=== PATIENT | male | born 1955 | race Caucasian/White ===

== ENCOUNTER 2022-12-31 11:41 | Outpatient (OUT) | payer MEDICARE, SELFPAY ==
--- NOTE | 2022-12-31 13:36 | CA_ITS ---
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1955 Requested By: DAXA NORWOOD Order Number: [id number] Reading MD: MARIE RIVAS Interpretive Statements Predominant rhythm is sinus w/ average rate of 85 bpm Tachycardia - max rate of 211 bpm - 13,427 episodes of SVT w/ longest episode of 130 beats - longest episode of 37min 1sec with rate of 118 bpm bpm Bradycardia - min rate of 42 bpm - longest episode of 11min 52sec w/ rate of 56 bpm Ventricular ectopy - 4,107 total (<1%) - 3,546 PVC - 290 couplets - 96 bigeminy - 150 trigeminy NSVT - 3 episodes w/ longest of 3 beats Patient triggered events: 5 - 3 episodes associated w/ tachycardia Impression Predominant rhythm is sinus w/ average rate of 85 bpm Fastest rate of 211 bpm and slowest rate of 42 bpm < 1% total ventricular ectopy 4 episodes of 3 beat VT 13,427 episodes of SVT No blocks or pauses Electronically Signed On 01-31-2023 12:01:14 EDT by MARIE RIVAS
== END 2022-12-31 11:42 | disposition home or self-care (01) ==
LOC: CARD 11:49
PROVIDERS: PCP Family Medicine; Visit Provider Family Medicine
DX: R55 Syncope and collapse (principal)

== ENCOUNTER 2023-01-19 13:02 | Outpatient (OUT) | payer MEDICARE, SELFPAY ==
--- NOTE | 2023-01-19 13:09 | CA_ITS ---
Patient: LORENZA RAMACHANDRAN Exam Date: 01/19/2023 : 1955 Gender:M Ordering : DR DAXA NORWOOD . Admission #: [id number] Family : Order #: [id number] CLICK HERE TO VIEW EXAM ECHOCARDIOGRAM REPORT PROCEDURE: CA ECHO DOPPLER COMPLETE INDICATIONS: Syncope COMPARISON: None. DESCRIPTION: COMPLETE ECHOCARDIOGRAM Real-time transthoracic echocardiography with 2D, M-mode, spectral and color flow Doppler performed. QUALITY: Technical quality was good. LEFT VENTRICLE: Normal chamber size. Left ventricular wall thickness appears increased. LV EF: Global left ventricular systolic function is normal. Calculated left ventricular ejection fraction is 63% DIASTOLIC: Normal diastolic function. ATRIAL SEPTUM: Inadequately seen. LEFT ATRIUM: Normal chamber size. RIGHT ATRIUM: Normal chamber size. RIGHT VENTRICLE: Normal chamber size. Normal right ventricular systolic function. TRICUSPID VALVE: Normal mobility and thickness. No stenosis with trivial regurgitation. No evidence of pulmonary hypertension. RVSP 30mmHg MITRAL VALVE: No evidence of mitral valve stenosis. There is no mitral annular calcification. Mild mitral regurgitation. AORTIC VALVE: Normal trileaflet appearance. No visible sclerosis. Normal leaflet mobility. No evidence of aortic valve stenosis. No aortic regurgitation. AORTIC ROOT: Normal diameter and appearance. PULMONIC VALVE: Normal thickness and mobility. No stenosis. No regurgitation. PERICARDIUM: No evidence of pericardial effusion. IVC: Collapses with inspirations. Normal size. Cystic structures seen in the liver; consider dedicated hepatobiliary ultrasound. CONCLUSION: 1. Global left ventricular systolic function is normal; visually estimated ejection fraction is 60 to 65% 2. Normal diastolic function 3. The right ventricle is normal in size and systolic function 4. Mild mitral regurgitation 5. Cystic structures seen in the liver; consider dedicated hepatobiliary ultrasound as clinically appropriate Adult Echocardiography Procedure Report Left Ventricle LVEDD (3.7 - 5.6 cm): 4.73 cm LVESD (2.2 - 4.0 cm): 3.43 cm LVIVS thickness (0.6 - 1.2 cm): 0.90 cm, 0.95 cm LVPW thickness (0.5 - 1.0 cm): 0.87 cm e': 0.08 m/s E - e': 5.52 LVOT Max Gradient: 2.53 mm[Hg] LVOT Area (cm2): 0.80 m/s Peak Velocity (LVOT): 0.80 m/s Mean Velocity (LVOT): 0.49 m/s LVOT Diameter 2.36 cm Left Ventricular Ejection Fraction: 62.98 % Left Atrium LA Volume Index (2D A2C): 31.81 ml/m2 Left Atrium Systolic Dimension: 3.61 cm Mitral Valve MV E to A Ratio: 0.55 Mitral Valve A-Wave Peak Velocity: 0.80 m/s Mitral Valve E-Wave Peak Velocity: 0.44 m/s Right Ventricle RV Internal Diastolic Dimension: 3.09 cm Aorta AO Root Diam: 3.63 cm Ascending Ao Diam: 3.64 cm Aortic Valve AoV Area (Peak Tushar): 3.48 cm2, 3.48 cm2 AoV Area (VTI): 3.67 cm2, 3.67 cm2 Peak Velocity(Antegrade Flow): 1.00 m/s Peak Gradient(Antegrade Flow): 4.02 mm[Hg] Mean Velocity(Antegrade Flow): 0.63 m/s Mean Gradient(Antegrade Flow): 1.81 mm[Hg] Velocity Time Integral: 19.87 cm Tricuspid Valve Peak Velocity (Regurgitant Flow): 2.62 m/s, 2.50 m/s Pulmonic Valve Peak Velocity: 0.75 m/s Peak Gradient: 2.26 mm[Hg] Right Atrium Right Atrium Systolic Pressure: 54.05 ml, 54.05 ml Dictated by: Callie Luciano M.D. on 01/20/2023 at 16:40 Approved by: Callie Luciano M.D. on 01/20/2023 at 16:44
== END 2023-01-19 13:03 ==
LOC: CARD 13:05
PROVIDERS: PCP Family Medicine; Visit Provider Family Medicine
DX: R55 Syncope and collapse (principal); I34.0 Nonrheumatic mitral (valve) insufficiency
CPT/HCPCS: 93306

== ENCOUNTER 2023-02-18 09:44 | Outpatient (OUT) | payer MEDICARE, SELFPAY ==
--- NOTE | 2023-02-18 10:17 | CA_ITS ---
Patient: LORENZA RAMACHANDRAN Exam Date: 02/18/2023 : 1955 Gender:M Ordering : DR Pratik Webb . Admission #: [id number] Family : Order #: [id number] CLICK HERE TO VIEW EXAM ECHOCARDIOGRAM REPORT PROCEDURE: CA ECHO LIMITED INDICATIONS: Tachycardia, syncope COMPARISON: None. DESCRIPTION: Limited ECHOCARDIOGRAM Real-time transthoracic echocardiography with 2D and M-mode performed. QUALITY: Technical quality was good. Limited echocardiogram per physician order. LEFT VENTRICLE: Normal chamber size. Mild concentric left ventricular hypertrophy. Normal systolic function. LV EF: Normal left ventricular ejection fraction, (55%). DIASTOLIC: ATRIAL SEPTUM: LEFT ATRIUM: Normal chamber size. RIGHT ATRIUM: Normal chamber size. RIGHT VENTRICLE: Normal chamber size. Normal systolic function. TRICUSPID VALVE: Normal mobility and thickness. MITRAL VALVE: Normal mobility and thickness. There is no mitral annular calcification. AORTIC VALVE: Normal trileaflet appearance. No visible sclerosis. Normal leaflet mobility. AORTIC ROOT: Normal diameter and appearance. PULMONIC VALVE: Normal thickness and mobility. PERICARDIUM: No evidence of pericardial effusion. IVC: Collapses with inspirations. PLEURA: CONCLUSION: 1. Mild concentric left ventricular hypertrophy with normal left ventricular systolic function. LVEF is 55%. 2. Normal right ventricular size and systolic function. 3. No pericardial effusion. 4. Limited study performed with no Doppler interrogation as requested. Adult Echocardiography Procedure Report Left Ventricle LVEDD (3.7 - 5.6 cm): 4.11 cm LVESD (2.2 - 4.0 cm): 2.67 cm LVIVS thickness (0.6 - 1.2 cm): 1.11 cm LVPW thickness (0.5 - 1.0 cm): 1.38 cm LVOT Diameter 2.47 cm Left Atrium Left Atrium Systolic Dimension: 3.34 cm Mitral Valve Right Ventricle Aorta AO Root Diam: 3.68 cm Aortic Valve Tricuspid Valve Pulmonic Valve Right Atrium Dictated by: Marquise Lee M.D. on 02/18/2023 at 19:08 Approved by: Marquise Lee M.D. on 02/18/2023 at 19:10
== END 2023-02-18 09:45 | disposition home or self-care (01) ==
LOC: CARD 09:47
PROVIDERS: PCP Family Medicine; Visit Provider Family Medicine
DX: R00.0 Tachycardia, unspecified (principal); R07.9 Chest pain, unspecified
CPT/HCPCS: 93308

== ENCOUNTER 2023-02-25 08:45 | Outpatient (OUT) | payer MEDICARE, SELFPAY ==
--- NOTE | 2023-02-25 08:48 | US_ITS ---
The [address] [address] Patient Name: LORENZA RAMACHANDRAN MRN: [id number] date: 1955 Sex: M Assigned Patient Location: US Current Patient Location: US Accession/Order Number: [id number] Exam Date: 02/25/2023 08:50 Report Date: 02/25/2023 11:05 At the request of: DAXA NORWOOD Procedure: US right upper quadrant EXAM: US right upper quadrant HISTORY: . Other Specified Disease Of Liver K76.89 . COMPARISON: None. TECHNIQUE: Grayscale and color imaging was performed FINDINGS: The pancreas appears normal. The liver is normal in size. No masses are noted. Color-flow is noted in the portal and hepatic veins. The previously noted cyst noted on the CT of 10/05/2016 is not appreciated on today's exam. The gallbladder appears normal with no stones or sludge identified. No gallbladder wall thickening is noted. Common bile duct measures 7 mm. Right kidney measures 9.9 x 5.6 x 4.9 cm. No solid renal cortical masses or hydronephrosis is noted. No fluid is noted in the right upper quadrant. US/US right upper quadrant IMPRESSION: Normal ultrasound of the right upper quadrant. Electronically authenticated by: SPEEDY MOCK Date: 02/25/2023 11:05
== END 2023-02-25 08:46 | disposition home or self-care (01) ==
LOC: US 08:45
PROVIDERS: PCP Family Medicine; Visit Provider Family Medicine
DX: K76.89 Other specified diseases of liver (principal)
CPT/HCPCS: 76705

== ENCOUNTER 2023-10-27 07:55 | Outpatient (OUT) | payer MEDICARE, SELFPAY ==
--- NOTE | 2023-10-27 07:58 | CT_ITS ---
[address] [address] Patient Name: LORENZA RAMACHANDRAN MRN: [id number] date: 1955 Sex: M Assigned Patient Location: CT Current Patient Location: CT Accession/Order Number: [id number] Exam Date: 10/27/2023 08:05 Report Date: 10/27/2023 12:56 At the request of: DAXA NORWOOD Procedure: CT lung screening low-dose EXAMINATION: CT lung screening low-dose HISTORY: Nicotine Dependence F17.200 COMPARISON: CT LUNG CANCER SCREENING 04/02/2022 TECHNIQUE: Axial, Coronal, and Sagittal images were created without the administration of IV contrast material. Dose reduction techniques were achieved by using automated exposure control and/or adjustment of mA and/or kV according to patient size and/or use of iterative reconstruction technique. FINDINGS: LUNGS: Stable 5 mm nodule within posterior left lung base. Mild bronchial wall thickening and prominent mucous plugging resulting in mild atelectasis within right lower lobe predominantly involving the posterior basilar segment. PLEURA: No mass, effusion, or pneumothorax. VASCULATURE: No abnormality. DAPHNE: No mass or pathologic adenopathy. MEDIASTINUM: No mass or pathologic adenopathy. CARDIAC: No enlargement, pericardial thickening, or pericardial effusion. AORTA: No aneurysm or dissection. CHEST WALL: No mass or axillary adenopathy BONES: No bone lesion or fracture. LIMITED ABDOMEN: Stable benign-appearing left renal cyst. Limited images of the upper abdomen. OTHER: Negative. CT/CT lung screening low-dose IMPRESSION: 1. Lung-RADS 2- Benign Appearance or Behavior. Nodules with a very low likelihood of becoming a clinically active cancer due to size or lack of growth. Follow-up CT Chest in 1 year. 2. Right lower lobe bronchial wall thickening/bronchiolitis and mucous plugging resulting in mild atelectasis. Electronically authenticated by: AFUA MERCHANT Date: 10/27/2023 12:56
== END 2023-10-27 07:56 | disposition home or self-care (01) ==
LOC: CT 07:55
PROVIDERS: PCP Family Medicine; Visit Provider Family Medicine
DX: F17.211 Nicotine dependence, cigarettes, in remission (principal); R91.1 Solitary pulmonary nodule
CPT/HCPCS: 71271

== ENCOUNTER 2023-11-08 07:46 | Emergency (ER) | payer MEDICARE, SELFPAY ==
[2023-11-08 07:52] VITALS: BP 129/82; PULSE 87; O2SAT 97; BMI 23.1
--- NOTE | 2023-11-08 07:55 | XR_ITS ---
The [address] [address] Patient Name: LORENZA RAMACHANDRAN MRN: [id number] date: 1955 Sex: M Assigned Patient Location: ER Current Patient Location: Accession/Order Number: [id number] Exam Date: 11/08/2023 08:12 Report Date: 11/08/2023 08:29 At the request of: HERNÁN FLORES Procedure: XR foot TRESSA min 3V EXAM: XR foot TRESSA min 3V HISTORY: fall, bilateral foot pain COMPARISON: Right foot study dated 07/29/2020 TECHNIQUE: 3 views of the right foot were obtained. 3 views of the left foot were obtained. FINDINGS: Views of the right foot fail to demonstrate definite acute fracture or dislocation. Minimal degenerative changes about the interphalangeal joints. Mild degenerative change about the first metatarsophalangeal joint. Soft tissues are grossly within normal limits. Views of the left foot fail to demonstrate definite acute fracture or dislocation. Minimal degenerative changes about the interphalangeal joints. Mild degenerative change about the first metatarsophalangeal joint. Soft tissues are grossly within normal limits. XR/XR foot TRESSA min 3V IMPRESSION: Bilateral foot study fails to demonstrate definite acute fracture or dislocation. Degenerative changes as noted. Follow-up as needed. Electronically authenticated by: ADENIKE CHAMBERS Date: 11/08/2023 08:29
[2023-11-08 07:57] VITALS: TEMP 36.5
[2023-11-08] MEDS: KETOROLAC TROMETHAMINE 10 MG TABLET PO (08:16)
--- NOTE | 2023-11-08 08:32 | PC.NURSE ---
0800- pt fell off of ladder a few days ago landing on biat legs. went to see Dr Webb and got a steroid and pain shot. last night felt pop in lower L leg -- pain still in both legs. pt limped back to room
--- NOTE | 2023-11-08 08:59 | ED.LOWEXI1 ---
HPI HPI - Extremity Injury (Lower) General Chief Complaint: Extremity Injury, Lower Stated Complaint: LOWER EXTREMITY PAIN Time Seen by Provider: 11/08/23 07:49 Source: patient Mode of arrival: walk-in History of Present Illness HPI Narrative: Patient complains of increased pain along the left achilles since 430am this morning. he said that as he turned in bed and dorsiflexed and inverted the left ankle, he felt severe pain in the left achilles and saw [place] . The pain is so severe that he has difficulty walking this morning. He told me that 2 weeks ago he fell from a ladder and landed on the ground in a standing position with flat feet. he immediately had pain to both feet and in his low back. 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 He saw Dr Webb and got two pain shots but said that the feet and ankle were not examined, so he does not know if he had an achilles deficit. Today, the left achilles is softer compared with the right. he complains that both feet still hurt despite taking 800mg Motrin twice daily for the last wee. Related Data Previous Rx's ?Medication ?Instructions ?Recorded hydrocodone 5 mg-acetaminophen 325 1 tab PO Q6H PRN pain 4 days #14 11/08/23 mg tablet tabs Allergies Allergy/AdvReac Type Severity Reaction Status Date / Time No Known Drug Allergies Allergy Verified 11/08/23 07:55 Opioid HPI Opioid Management Most Recent Pain and Opioid Data: No Data to Display Exam Narrative Exam Narrative: Nurses notes and vital signs reviewed and patient is not hypoxic. afebrile General: Well-appearing and in no apparent distress. Skin: Warm, dry, no pallor noted. No rash to LEs. Cardiovascular: normal peripheral perfusion. Respiratory: No accessory muscle use or respiratory distress. Musculoskeletal: LEFT FOOT & ANKLE: achilles deficit noted. No tenderness to the remainder of the left foot or ankle, including the heel bone. Right foot and ankle are also unremarkable. Both LEs with normal ROM, no calf or popliteal tenderness, no lower extremity edema/swelling Neurological: A&O x4. No cranial nerve dysfunction observed. No truncal ataxia. Moves all extremities. Sensation intact. Psychiatric: Cooperative and interactive. Normal mood and affect. Constitutional Vital Signs, click to edit/add: Last Vital Signs Temp 97.7 F 11/08/23 07:57 Pulse 87 11/08/23 07:52 Resp 18 11/08/23 07:52 BP 129/82 11/08/23 07:52 Pulse Ox 97 11/08/23 07:52 O2 Del Method Room Air 11/08/23 07:52 Course Vital Signs Vital signs: Vital Signs Pulse Rate 87 11/08/23 07:52 Respiratory Rate 18 11/08/23 07:52 Blood Pressure 129/82 11/08/23 07:52 Pulse Oximetry 97 11/08/23 07:52 Oxygen Delivery Method Room Air 11/08/23 07:52 Temperature 97.7 F 11/08/23 07:57 Pulse Rate 87 11/08/23 07:52 Respiratory Rate 18 11/08/23 07:52 Blood Pressure 129/82 11/08/23 07:52 Pulse Oximetry 97 11/08/23 07:52 Oxygen Delivery Method Room Air 11/08/23 07:52 MDM - Extremity Injury (Lower) MDM Narrative Medical decision making narrative: Exam revealed left achilles deficit - partial tear. Both feet xrayed because of continued pain after fall and he never had xrays after the initial injury or since. No acute fracture identified on XR. Patient informed of diagnosis/findings. He was given crutches and told to limit weight bearing on left LE. He was given [place] for pain. He was referred to Dr Back for follow up. I spoke with Dr Back and made him aware of this patient's case. He will see the patient in the office. Imaging Data xr foot: Radiologist's impression: ITS Impressions Foot X-Ray 11/08/23 07:55 IMPRESSION: Bilateral foot study fails to demonstrate definite acute fracture or dislocation. Degenerative changes as noted. Follow-up as needed. Electronically authenticated by: ADENIKE CHAMBERS Date: 11/08/2023 08:29 Discharge Plan Discharge Stand Alone Forms: Portal Instructions Chief Complaint: Extremity Injury, Lower Clinical Impression: Partial tear of left Achilles tendon, Arthralgia of both feet Patient Disposition: Home, Self-Care Time of Disposition Decision: 08:58 Prescriptions / Home Meds: New hydrocodone-acetaminophen 5-325 mg tablet 1 tab PO Q6H PRN (Reason: pain) 4 Days Qty: 14 0RF Print Language: Kyrgyz Instructions: Achilles Tendon Rupture (ED) Referrals: Matt Back DPM [Physician] - 11/09/23
== END 2023-11-08 09:38 | disposition home or self-care (01) ==
LOC: ER 10:12
PROVIDERS: Emergency Provider Emergency Medicine; PCP Family Medicine
DX: S86.012A Strain of left Achilles tendon, initial encounter (principal); M25.572 Pain in left ankle and joints of left foot; M25.571 Pain in right ankle and joints of right foot; X50.9XXA Other and unspecified overexertion or strenuous movements or postures, initial encounter
CPT/HCPCS: 73630; 99283

== ENCOUNTER 2023-11-10 13:20 | Outpatient (OUT) | payer MEDICARE, SELFPAY ==
--- NOTE | 2023-11-10 | XR_ITS ---
The [address] [address] Patient Name: LORENZA RAMACHANDRAN MRN: [id number] date: 1955 Sex: M Assigned Patient Location: Current Patient Location: Accession/Order Number: [id number] Exam Date: 11/10/2023 13:21 Report Date: 11/10/2023 14:05 At the request of: LAWANDA LUTHER Procedure: XR ankle TRESSA min 3V EXAMINATION: XR ankle TRESSA min 3V HISTORY: BILATERAL ANKLE PAIN COMPARISON: No relevant comparison available. FINDINGS: RIGHT FINDINGS: BONES: Normal. No significant arthropathy or acute abnormality. SOFT TISSUES: Negative. No visible soft tissue swelling. OTHER: Negative. LEFT FINDINGS: BONES: Normal. No significant arthropathy or acute abnormality. Corticated bone fragment extending off the lateral distal fibula 0.8 towards the ankle joint space possibly representing an osteochondroma SOFT TISSUES: Negative. No visible soft tissue swelling. OTHER: Negative. XR/XR ankle TRESSA min 3V IMPRESSION: RIGHT CONCLUSION: No acute abnormality LEFT CONCLUSION: No acute abnormality. 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
== END 2023-11-10 13:21 | disposition home or self-care (01) ==
LOC: EC 13:20
PROVIDERS: PCP Family Medicine; Visit Provider Podiatrist Foot & Ankle Surgery
DX: M25.571 Pain in right ankle and joints of right foot (principal); M25.572 Pain in left ankle and joints of left foot
CPT/HCPCS: 73610

== ENCOUNTER 2023-11-15 07:22 | Outpatient (OUT) | payer MEDICARE, SELFPAY ==
--- NOTE | 2023-11-15 07:28 | MR_ITS ---
The [address] [address] Patient Name: LORENZA RAMACHANDRAN MRN: [id number] date: 1955 Sex: M Assigned Patient Location: [facility] Current Patient Location: [facility] Accession/Order Number: [id number] Exam Date: 11/15/2023 07:51 Report Date: 11/15/2023 22:19 At the request of: LAWANDA LUTHER Procedure: MR ankle LT wo con MRI OF THE LEFT ANKLE: 11/15/2023 7:51 AM EDT HISTORY: Posterior heel and ankle pain. Assess for Achilles tear. TECHNIQUE: High Field, multiplanar, multi-sequence MR imaging was performed on the ankle. No contrast was administered. COMPARISON: None. FINDINGS: TENDONS: Achilles: There is complete full-thickness midsubstance Achilles tendon tear with fibers retracted and approximately 3 cm from proximal to distal with fluid and edema interposed between the fibers. Tendon tear located approximately 5 to 6 cm from distal insertion. Underlying chronic Achilles tendinosis. The extensor, and flexor tendon are intact and unremarkable. There is no evidence of tear, significant tendinosis, or tenosynovitis involving these structures. Peroneal tendons: There is chronic lateral subluxation of the peroneal brevis and longus tendons at the level of lateral malleolus with chronic spurring at the distal lateral margin of the fibula. Both tendons are otherwise intact without tear or significant tendinosis. Presumed chronic tear of the peroneal retinacular fibers. Associated loculated fluid collection insinuating between the retinacular fibers and peroneal tendons is present at level of lateral malleolus consistent with chronic ganglion cyst extending 9 mm AP and 3 mm transverse. There is some overlying mild edema and swelling of soft tissues. OSSEOUS STRUCTURES: No fracture, significant edema, or marrow replacing pathology. ALIGNMENT: Normal anatomic alignment is maintained. The ankle mortise is intact and symmetric. SYNOVIAL SPACE: No effusion or synovitis. LIGAMENTOUS STRUCTURES: The syndesmotic, anterior talofibular , posterior talofibular, calcaneofibular, and deltoid ligaments are intact and unremarkable. ARTICULAR CARTILAGE: Grossly intact, without focal defect. There is no evidence of an OCD. SINUS TARSI: Unremarkable. INTRINSIC FOOT MUSCULATURE: Grossly unremarkable. PLANTAR FASCIA: Intact and unremarkable. SUBCUTANEOUS TISSUE: Mild subcutaneous edema at medial malleolus and posterior hindfoot and lateral malleolus. NEUROVASCULAR STRUCTURES: Grossly unremarkable. OTHER COMMENTS: None. MR/MR ankle LT wo con IMPRESSION: 1. Complete full-thickness midsubstance Achilles tendon tear with 3 cm separation of proximal distal fragments. Underlying background chronic Achilles tendinosis. 2. Chronic lateral subluxation of the peroneal tendons as discussed with chronic ganglion/synovial cyst interposed between the tendons and lateral fibers. Electronically authenticated by: ELIAZAR RANGEL Date: 11/15/2023 22:19
--- NOTE | 2023-11-15 07:35 | XR_ITS ---
The [address] [address] Patient Name: LORENZA RAMACHANDRAN MRN: [id number] date: 1955 Sex: M Assigned Patient Location: RAD Current Patient Location: [facility] Accession/Order Number: [id number] Exam Date: 11/15/2023 07:30 Report Date: 11/15/2023 07:46 At the request of: LAWANDA LUTHER Procedure: XR foreign body eye EXAMINATION: XR foreign body eye HISTORY: Foreign Body Eye COMPARISON: No relevant comparison available. FINDINGS: ORBITS: Negative for a metallic foreign body. OTHER: Negative. XR/XR foreign body eye IMPRESSION: No metallic foreign body in the orbits Electronically authenticated by: SPEEDY CAMPO Date: 11/15/2023 07:46
== END 2023-11-15 07:23 | disposition home or self-care (01) ==
LOC: RAD 07:22
PROVIDERS: PCP Family Medicine; Visit Provider Podiatrist Foot & Ankle Surgery
DX: S86.012A Strain of left Achilles tendon, initial encounter (principal); M67.472 Ganglion, left ankle and foot
CPT/HCPCS: 70030; 73721

== ENCOUNTER 2023-12-08 07:47 | Outpatient (OUT) | payer MEDICARE, SELFPAY ==
[2023-12-08 08:14] LABS: Basophils Absolute Auto 0.1 10^3/uL (0.0-0.1); Basophils Percent Auto 0.9 % (0.2-2.0); Eosinophils Absolute Auto 0.1 10^3/uL (0.0-0.7); Eosinophils Percent Auto 0.9 % (0.9-7.0); Hematocrit 44.8 % (42.0-54.0); Hemoglobin 14.9 g/dL (14.0-18.0); Immature Granulocytes Abs Auto 0.06 10^3/uL (0.00-0.03); Immature Granulocytes Pct Auto 0.6 % (0.0-0.5); Lymphocytes Percent Auto 18.6 % (20.5-60.0); Mean Corpuscular HGB Conc 33.3 g/dL (29.9-35.2); Mean Corpuscular Hemoglobin 31.4 pg (25.9-34.0); Mean Corpuscular Volume 94.3 fL (80.0-94.0); Mean Platelet Volume 9.3 fL (9.5-13.5); Monocytes Absolute Auto 0.8 10^3/uL (0.3-0.8); Monocytes Percent Auto 7.9 % (1.7-12.0); Neutrophils Absolute Auto 7.5 10^3/uL (1.4-6.5); Neutrophils Percent Auto 71.1 % (43.0-75.0); Platelet Count 264 10^3/uL (150-450); Red Blood Count 4.75 10^6/uL (4.70-6.10); Red Cell Distribution Width 14.8 % (11.0-15.0); White Blood Count 10.6 10^3/uL (4.0-11.0)
[2023-12-08 08:49] LABS: Estimated Average Glucose 120 mg/dL; Glycohemoglobin A1C 5.8 % (4.5-6.2)
[2023-12-08 09:46] LABS: Alanine Aminotransferase 37 U/L (16-63); Albumin Globulin Ratio 0.9; Albumin Level 3.5 g/dL (3.4-5.0); Alkaline Phosphatase 111 U/L (46-116); Anion Gap 10.1; Aspartate Amino Transferase 21 U/L (15-37); Bilirubin Total 0.5 mg/dL (0.2-1.0); Calcium 9.2 mg/dL (8.5-10.1); Carbon Dioxide 29.2 mmol/L (21.0-32.0); Chloride 103 mmol/L (98-107); Chol HDL Ratio 2.8; Cholesterol 177 mg/dL (<=200); Estimated GFR (African America >60 (>=60); Estimated GFR (Non-African Ame >60 (>=60); Free T3 1.96 pg/mL (2.18-3.98); Globulin 4.1 g/dL; Glucose 99 mg/dL (74-106); HDL Cholesterol 64 mg/dL (40-60); Potassium 4.3 mmol/L (3.5-5.1); Sodium 138 mmol/L (136-145); Thyroid Stimulating Hormone 7.411 uIU/mL (0.358-3.740); Total Protein 7.6 g/dL (6.4-8.2); Triglycerides 53 mg/dL (<=150); VLDL CHOLESTEROL 10.6 mg/dL
[2023-12-08 09:53] LABS: Prostate Specific Antigen Scrn 1.38 ng/mL (<=4.00)
[2023-12-08 10:18] LABS: BUN Creatinine Ratio 17.8
== END 2023-12-08 07:48 | disposition home or self-care (01) ==
LOC: LAB 07:50
PROVIDERS: PCP Family Medicine; Visit Provider Family Medicine
DX: K76.89 Other specified diseases of liver (principal); Z12.5 Encounter for screening for malignant neoplasm of prostate; R73.09 Other abnormal glucose; Z79.899 Other long term (current) drug therapy; E78.5 Hyperlipidemia, unspecified
CPT/HCPCS: 36415; 80053; 80061; 82306; 83036; 84436; 84443; 84481; 85025; G0103

== ENCOUNTER 2024-01-04 07:20 | Outpatient (RCR) | payer MEDICARE, BC, SELFPAY | END 2024-04-14 12:09 | disposition home or self-care (01) | LOC: PT 07:20 | PROVIDERS: PCP Family Medicine; Visit Provider Podiatrist Foot & Ankle Surgery | DX: M76.60 Achilles tendinitis, unspecified leg (principal); M25.572 Pain in left ankle and joints of left foot; S86.012D Strain of left Achilles tendon, subsequent encounter | CPT/HCPCS: 97110; 97140; 97161 ==

== ENCOUNTER 2024-01-13 07:18 | Outpatient (OUT) | payer MEDICARE, BC, SELFPAY ==
--- OUTSIDE RECORDS SUMMARY | 2024-01-13 07:22 | XMS_ITS | CCD ---
Author Organization [facility] Care Team Providers Care Drop Count Associate Name Role Phone Nill, Ean R Unavailable Unavailable Nill, Ean R Unavailable Unavailable Nill, Ean R Unavailable Unavailable Hoy, Daxa~[id number] UNKNOWN Unavailable Unavailable Nill, Ean R Unavailable Unavailable Nill, Ean R Unavailable Unavailable Nill, Ean R Unavailable Unavailable Hoy, Daxa~[phone] UNKNOWN Unavailable Unavailable HOY ., DR MITTAL Primary Care Unavailable HOY ., DR MITTAL Admitting Unavailable HOY ., DR MITTAL Attending Unavailable HOY ., DR MITTAL Consulting Unavailable [place], DR SPEEDY Chase Consulting Unavailable ZIEBER, DR AFUA Mata Consulting Unavailable HOY ., DR MITTAL Consulting Unavailable HOY ., DR MITTAL Primary Care Unavailable HOY ., DR MITTAL Admitting Unavailable HOY ., DR MITTAL Attending Unavailable HOY ., DR MITTAL Primary Care Unavailable HOY ., DR MITTAL Admitting Unavailable HOY ., DR MITTAL Attending Unavailable HOY ., DR MITTAL Consulting Unavailable HOY ., DR MITTAL Primary Care Unavailable HOY ., DR MITTAL Admitting Unavailable HOY ., DR MITTAL Attending Unavailable HOY ., DR MITTAL Consulting Unavailable CHOIARLENE SALAZAR Consulting Unavailable HOY ., DR MITTAL Primary Care Unavailable HOY ., DR MITTAL Admitting Unavailable HOY ., DR MITTAL Attending Unavailable HOY ., DR MITTAL Consulting Unavailable COLLIN DOZIER R Attending Unavailable Problems Active Problems Problem Classification Problem Date Documented Da te Episodic/Chronic Congestive heart failure; nonhypertensive (1 source) Unspecified diastolic (congestive) heart failure; Translations: [UNSPECIFIED DIASTOLIC HEART FAILURE] Onset: 06-03-2022 Chronic Deficiency and other anemia (1 source) Anemia, unspecified; Translations: [ANEMIA UNSPECIFIED] Onset: 12-28-2022 Episodic Diabetes mellitus without complication (1 source) Other abnormal glucose; Translations: [OTHER ABNORMAL GLUCOSE] Onset: 12-28-2022 Episodic Disorders of lipid metabolism (1 source) Hyperlipidemia, unspecified; Translations: [HYPERLIPIDEMIA UNSPECIFIED] Onset: 12-28-2022 Chronic Hypertension with complications and secondary hypertension (1 source) Hypertensive heart disease with heart failure; Translations: [HTN HEART DISEASE W/HEART FAIL] Onset: 06-03-2022 Chronic Nutritional deficiencies (1 source) Vitamin D deficiency, unspecified; Translations: [VITAMIN D DEFICIENCY UNSPECIFIED] Onset: 12-28-2022 Chronic Spondylosis; intervertebral disc disorders; other back problems (4 sources) Other intervertebral disc displacement, lumbosacral region; Translations: [OTH IV DISC DISPLACEMENT LS REGION] Onset: 04-02-2022 Chronic Syncope (4 sources) Syncope and collapse; Translations: [SYNCOPE AND COLLAPSE] Onset: 12-26-2022 Episodic Past or Other Problems Problem Classification Problem Date Documented Da te Episodic/Chronic Acute bronchitis (1 source) Acute bronchitis, unspecified; Translations: [ACUTE BRONCHITIS UNSPECIFIED] Onset: 06-03-2022 Episodic Other lower respiratory disease (4 sources) Dyspnea, unspecified; Translations: [DYSPNEA UNSPECIFIED] Onset: 06-01-2022 Episodic Other screening for suspected conditions (not mental disorders or infectious disease) (5 sources) Encounter for screening for malignant neoplasm of rectum; Translations: [Encounter for screening for malignant neoplasm of prostate] Onset: 04-03-2022 Episodic Screening and history of mental health and substance abuse codes (1 source) Personal history of nicotine dependence; Translations: [PERSONAL HISTORY OF NICOTINE DEPEND] Onset: 04-03-2022 Episodic Results Test Name Value Interpretation Reference Range Facility INSULINon 12-29-2022 Insulin 14.2 uIU/mL Normal 2.6-24.9 [facility] Comment on above: Performed By: #### I TJ #### [facility] [address] [address] [address] Guille Calderon CBC AUTO DIFFon 12-26-2022 BASO # 0.1 103/ul Normal 0.0-0.1 [facility] Comment on above: Performed By: #### I TJ #### [facility] [address] [address] [address] Guille Calderon Basophils/100 WBC (Bld) 1.3 % Normal 0.2-2.0 [facility] Comment on above: Performed By: #### I TJ #### [facility] [address] [place] [address] Dr. Guille Calderon EO # 0.1 103/ul Normal 0.0-0.7 [facility] Comment on above: Performed By: #### I TJ #### [facility] [address] [place] [address] Dr. Guille Calderon Eosinophils/100 WBC (Bld) 1.1 % Normal 0.9-7.0 [facility] Comment on above: Performed By: #### I TJ #### [facility] [address] [place] [address] Dr. Guille Calderon Erythrocyte distribution width (RBC) [Ratio] 13.1 % Normal 11.0-15.0 [facility] Comment on above: Performed By: #### I TJ #### [facility] [address] [place] [address] Dr. Guille Calderon Hematocrit (Bld) [Volume fraction] 46.7 % Normal 42.0-54.0 [facility] Comment on above: Performed By: #### I TJ #### [facility] [address] [place] [address] Dr. Guille Calderon Hemoglobin (Bld) [Mass/Vol] 16.1 g/dL Normal 14.0-18.0 [facility] Comment on above: Performed By: #### I TJ #### [facility] [address] [place] [address] Dr. Guille Calderon IG # 0.01 10e3/ul Normal 0.00-0.03 [facility] Comment on above: Performed By: #### I TJ #### [facility] [address] [place] [address] Dr. Guille Calderon IG % 0.2 % Normal 0.0-0.5 [facility] Comment on above: Performed By: #### I TJ #### [facility] [address] [place] [address] Dr. Guille Calderon LYMPH # 1.9 103/ul Normal 1.2-3.8 [facility] Comment on above: Performed By: #### I TJ #### [facility] [address] [place] [address] Dr. Guille Calderon Lymphocytes/100 WBC (Bld) 30.2 % Normal 20.5-60.0 [facility] Comment on above: Performed By: #### I TJ #### [facility] [address] [place] [address] Dr. Guille Calderon MANUAL DIFF REQ NO Normal [facility] Comment on above: Performed By: #### I TJ #### [facility] [address] [place] [address] Dr. Guille Calderon MCH (RBC) [Entitic mass] 31.1 pg Normal 25.9-34.0 [facility] Comment on above: Performed By: #### I TJ #### [facility] [address] [place] [address] Dr. Guille Calderon MCHC (RBC) [Mass/Vol] 34.5 g/dL Normal 29.9-35.2 [facility] Comment on above: Performed By: #### I TJ #### [facility] [address] [place] [address] Dr. Guille Calderon MCV (RBC) [Entitic vol] 90.2 fL Normal 80.0-94.0 [facility] Comment on above: Performed By: #### I TJ #### [facility] [address] [place] [address] Dr. Guille Calderon MONO # 0.6 103/ul Normal 0.3-0.8 [facility] Comment on above: Performed By: #### I TJ #### [facility] [address] [place] [address] Dr. Guille Calderon Monocytes/100 WBC (Bld) 9.8 % Normal 1.7-12.0 [facility] Comment on above: Performed By: #### I TJ #### [facility] [address] [place] [address] Dr. Guille Calderon NEUT # 3.7 103/ul Normal 1.4-6.5 [facility] Comment on above: Performed By: #### I TJ #### [facility] [address] [place] [address] Dr. Guille Calderon Neutrophils/100 WBC (Bld) 57.4 % Normal 43.0-75.0 [facility] Comment on above: Performed By: #### I TJ #### [facility] [address] [place] [address] Dr. Guille Calderon Platelet mean volume (Bld) [Entitic vol] 9.9 fL Normal 9.5-13.5 [facility] Comment on above: Performed By: #### I TJ #### [facility] [address] [place] [address] Dr. Guille Calderon PLT 237 103/ul Normal 150-450 [facility] Comment on above: Performed By: #### I TJ #### [facility] [address] [place] [address] Dr. Guille Calderon RBC 5.18 106/ul Normal 4.70-6.10 [facility] Comment on above: Performed By: #### I TJ #### [facility] [address] [place] [address] Dr. Guille Calderon WBC 6.4 103/ul Normal 4.0-11.0 [facility] Comment on above: Performed By: #### I TJ #### [facility] [address] [place] [address] Dr. Guille Calderon FREE THYROXINE INDEX T7on FTI 3.50 Normal 1.30-4.50 [facility] Comment on above: Performed By: #### P SASC, VITB12 #### [facility] [address] [place] [address] Dr. Guille Calderon T3U 34.0 % Normal 33.0-40.0 [facility] Comment on above: Performed By: #### P SASC, VITB12 #### [facility] [address] [place] [address] Dr. Guille Calderon T4 [Mass/Vol] 10.30 ug/dL Normal 4.50-12.10 [facility] Comment on above: Performed By: #### P SASC, VITB12 #### [facility] [address] [place] [address] Dr. Guille Calderon GLYCOHEMOGLOBIN A1Con 2022 ADA RECOMMENDATION SEE BELOW Normal [facility] Comment on above: Result Comment: ADA RECOMMENDED LIMIT 4.0 - 6.0 ADA THERAPEUTIC TARGET < 7.0 ACTION SUGGESTED > 7.0 Performed By: #### A 1C #### [facility] [address] [place] [address] Dr. Guille Calderon Glucose [Mass/Vol] 105 mg/dL Normal [facility] Comment on above: Performed By: #### A 1C #### [facility] [address] [place] [address] Dr. Guille Calderon HbA1c (Bld) [Mass fraction] 5.3 % Normal 4.5-6.2 [facility] Comment on above: Performed By: #### A 1C #### [facility] [address] [place] [address] Dr. Guille Calderon IRONon 12-26-2022 Iron [Mass/Vol] 79.0 ug/dL Normal 65.0-175.0 [facility] Comment on above: Performed By: #### V ITAD, IRON #### [facility] [address] [place] [address] Dr. Guille Calderon LIPID PROFILEon 12-26-2022 CHOL-HDL RATIO NORM SEE BELOW Normal [facility] Comment on above: Result Comment: 3.3 - 4.4 LOW RISK 4.4 - 7.1 AVERAGE RISK 7.1 - 11.0 MODERATE RISK >11.0 HIGH RISK Performed By: #### P SASC, VITB12 #### [facility] [address] [place] [address] Dr. Guille Calderon Cholesterol [Mass/Vol] 146 mg/dL Normal <=200 [facility] Comment on above: Performed By: #### P SASC, VITB12 #### [facility] [address] [place] [address] Dr. Guille Calderon Cholesterol in HDL [Mass/Vol] 49 mg/dL Normal 40-60 [facility] Comment on above: Performed By: #### P SASC, VITB12 #### [facility] [address] [place] [address] Dr. Guille Calderon Cholesterol in LDL [Mass/Vol] 79.2 mg/dL Normal [facility] Comment on above: Performed By: #### P SASC, VITB12 #### [facility] [address] [place] [address] Dr. Guille Calderon Cholesterol.total/ Cholesterol in HDL [Mass ratio] 3.0 {ratio} Normal [facility] Comment on above: Performed By: #### P SASC, VITB12 #### [facility] [address] [place] [address] Dr. Guille Calderon HDL NORMAL > or = 60 mg/dl - LO W CARDIOVASCULAR RISK <40 mg/dl - HIGH CARDIOVASCULAR RISK Normal [facility] Comment on above: Performed By: #### P SASC, VITB12 #### [facility] [address] [place] [address] Dr. Guille Calderon LDL CALC NORMAL SEE BELOW Normal [facility] Comment on above: Result Comment: <100 mg/dl OPTIMAL 100 - 129 mg/dl NEAR OR ABOVE OPTIMAL 130 - 159 mg/dl BORDERLINE HIGH 160 - 189 mg/dl HIGH >190 mg/dl VERY HIGH Performed By: #### P SASC, VITB12 #### [facility] [address] [place] [address] Dr. Guille Calderon Triglyceride [Mass/Vol] 89 mg/dL Normal <=150 [facility] Comment on above: Performed By: #### P SASC, VITB12 #### [facility] [address] [place] [address] Dr. Guille Calderon VLDL CALC 17.8 mg/dL Normal [facility] Comment on above: Performed By: #### P SASC, VITB12 #### [facility] [address] [place] [address] Dr. Guille Calderon PROF 14(COMP METB)on 023 Albumin [Mass/Vol] 3.6 g/dL Normal 3.4-5.0 [facility] Comment on above: Performed By: #### P SASC, VITB12 #### [facility] [address] [place] [address] Dr. Guille Calderon Albumin/Globulin [Mass ratio] 0.8 {ratio} Normal [facility] Comment on above: Performed By: #### P SASC, VITB12 #### [facility] [address] [place] [address] Dr. Guille Caledron ALP [Catalytic activity/Vol] 94 U/L Normal 46-116 [facility] Comment on above: Performed By: #### P SASC, VITB12 #### [facility] [address] [place] [address] Dr. Guille Calderon ALT [Catalytic activity/Vol] 45 U/L Normal 16-63 [facility] Comment on above: Performed By: #### P SASC, VITB12 #### [facility] [address] [place] [address] Dr. Guille Calderon Anion gap [Moles/Vol] 11.8 mmol/L Normal [facility] Comment on above: Performed By: #### P SASC, VITB12 #### [facility] [address] [place] [address] Dr. Guille Calderon AST [Catalytic activity/Vol] 28 U/L Normal 15-37 [facility] Comment on above: Performed By: #### P SASC, VITB12 #### [facility] [address] [place] [address] Dr. Guille Calderon Bilirubin [Mass/Vol] 0.4 mg/dL Normal 0.2-1.0 [facility] Comment on above: Performed By: #### P SASC, VITB12 #### [facility] [address] [place] [address] Dr. Guille Calderon Calcium [Mass/Vol] 8.7 mg/dL Normal 8.5-10.1 [facility] Comment on above: Performed By: #### P SASC, VITB12 #### [facility] [address] [place] [address] Dr. Guille Calderon Chloride [Moles/Vol] 103 mmol/L Normal 98-107 [facility] Comment on above: Performed By: #### P SASC, VITB12 #### [facility] [address] [place] [address] Dr. Guille Calderon CO2 [Moles/Vol] 29.7 mmol/L Normal 21.0-32.0 [facility] Comment on above: Performed By: #### P SASC, VITB12 #### [facility] [address] [place] [address] Dr. Guille Calderon Creatinine [Mass/Vol] 0.95 mg/dL Normal 0.70-1.30 [facility] Comment on above: Performed By: #### P SASC, VITB12 #### [facility] [address] [place] [address] Dr. Guille Calderon EGFR-AF ZAMBIAN >60 Normal >=60 [facility] Comment on above: Performed By: #### P SASC, VITB12 #### [facility] [address] [place] [address] Dr. Guille Calderon EGFR-NON AF ZAMBIAN >60 Normal >=60 [facility] Comment on above: Performed By: #### P SASC, VITB12 #### [facility] [address] [place] [address] Dr. Guille Calderon Globulin (S) [Mass/Vol] 4.3 g/dL Normal [facility] Comment on above: Performed By: #### P SASC, VITB12 #### [facility] [address] [place] [address] Dr. Guille Calderon Glucose [Mass/Vol] 92 mg/dL Normal 74-106 [facility] Comment on above: Performed By: #### P SASC, VITB12 #### [facility] [address] [place] [address] Dr. Guille Calderon Potassium [Moles/Vol] 4.5 mmol/L Normal 3.5-5.1 [facility] Comment on above: Performed By: #### P SASC, VITB12 #### [facility] [address] [place] [address] Dr. Guille Calderon Protein [Mass/Vol] 7.9 g/dL Normal 6.4-8.2 [facility] Comment on above: Performed By: #### P SASC, VITB12 #### [facility] [address] [place] [address] Dr. Guille Calderon Sodium [Moles/Vol] 140 mmol/L Normal 136-145 [facility] Comment on above: Performed By: #### P SASC, VITB12 #### [facility] [address] [place] [address] Dr. Guille Calderon Urea nitrogen [Mass/Vol] 15.0 mg/dL Normal 7.0-18.0 [facility] Comment on above: Performed By: #### P SASC, VITB12 #### [facility] [address] [place] [address] Dr. Guille Calderon Urea nitrogen/Creatinin e [Mass ratio] 15.8 mg/mg Normal [facility] Comment on above: Performed By: #### P SASC, VITB12 #### [facility] [address] [place] [address] Dr. Guille Calderon TSHon 12-26-2022 TSH 0.068 uIU/mL Critically low 0.358-3.740 [facility] Comment on above: Performed By: #### P SASC, VITB12 #### [facility] [address] [place] [address] Dr. Guille Calderon VITAMIN D 25 OHon 12-26-2022 VIT D 25-OH 72.7 ng/mL Normal [facility] Comment on above: Performed By: #### V ITAD, IRON #### [facility] [address] [place] [address] Dr. Guille Calderon VIT D RANGES SEE BELOW Normal [facility] Comment on above: Result Comment: <20 ng/mL Vit D deficient 20 - <30 ng/mL Vit D insufficient 30 - 100 ng/mL Vit D sufficient >100 ng/mL Potential Toxicity Performed By: #### V ITAD, IRON #### [facility] [address] [place] [address] Dr. Guille Calderon CULTURE SPUTUMon 06-01-2022 CULTURE SPUTUM Culture Observations : NORMAL RESPIRATORY DWIGHT. Normal [facility] Comment on above: Performed By: #### I TJ #### [facility] [address] [place] [address] Dr. Guille Calderon SPUTUM GRAM STAINon 06-01-20 22 COMMENTS Normal [facility] Comment on above: Performed By: #### I TJ #### [facility] [address] [place] [address] Dr. Guille Calderon DIPHTHEROIDS [facility] Comment on above: Performed By: #### I TJ #### [facility] [address] [place] [address] Dr. Guille Calderon EPITHELIALS <25 [facility] Comment on above: Performed By: #### I TJ #### [facility] [address] [place] [address] Dr. Guille Calderon FUNGAL ELEMENTS [place] [facility] Comment on above: Performed By: #### I TJ #### [facility] [address] [place] [address] Dr. Guille Calderon GRAM NEG BACILLI [facility] Comment on above: Performed By: #### I TJ #### [facility] [address] [place] [address] Dr. Guille Calderon GRAM NEG DIPPLOCOCCI [facility] Comment on above: Performed By: #### I TJ #### [facility] [address] [place] [address] Dr. Guille Calderon GRAM POS BACILLI [facility] Comment on above: Performed By: #### I TJ #### [facility] [address] [place] [address] Dr. Guille Calderon GRAM POSITIVE COCCI FEW Normal [facility] Comment on above: Performed By: #### I TJ #### [facility] [address] [place] [address] Dr. Guille Calderon WBC (Bld) [#/Vol] 10*3/uL [facility] Comment on above: Performed By: #### I TJ #### [facility] [address] [place] [address] Dr. Guille Calderon BNPon 05-30-2022 Natriuretic peptide B (Bld) [Mass/Vol] 381.0 pg/mL Normal <=900.0 [facility] Comment on above: Performed By: #### B DIGITAL ADVERTISING ANALYST, CMP #### [facility] [address] [place] [address] Dr. Guille Calderon CBC AUTO DIFFon 05-30-2022 BASO # 0.1 103/ul Normal 0.0-0.1 [facility] Comment on above: Performed By: #### I TJ #### [facility] [address] [place] [address] Dr. Guille Calderon Basophils/100 WBC (Bld) 0.5 % Normal 0.2-2.0 [facility] Comment on above: Performed By: #### I TJ #### [facility] [address] [place] [address] Dr. Guille Calderon EO # 0.0 103/ul Normal 0.0-0.7 [facility] Comment on above: Performed By: #### I TJ #### [facility] [address] [place] [address] Dr. Guille Calderon Eosinophils/100 WBC (Bld) 0.1 % Critically low 0.9-7.0 [facility] Comment on above: Performed By: #### I TJ #### [facility] [address] [place] [address] Dr. Guille Calderon Erythrocyte distribution width (RBC) [Ratio] 13.7 % Normal 11.0-15.0 [facility] Comment on above: Performed By: #### I TJ #### [facility] [address] [place] [address] Dr. Guille Calderon Hematocrit (Bld) [Volume fraction] 45.4 % Normal 42.0-54.0 [facility] Comment on above: Performed By: #### I TJ #### [facility] [address] [place] [address] Dr. Guille Calderon Hemoglobin (Bld) [Mass/Vol] 15.3 g/dL Normal 14.0-18.0 [facility] Comment on above: Performed By: #### I TJ #### [facility] [address] [place] [address] Dr. Guille Calderon IG # 0.04 10e3/ul Critically high 0.00-0.03 [facility] Comment on above: Performed By: #### I TJ #### [facility] [address] [place] [address] Dr. Guille Calderon IG % 0.4 % Normal 0.0-0.5 [facility] Comment on above: Performed By: #### I TJ #### [facility] [address] [place] [address] Dr. Guille Calderon LYMPH # 2.0 103/ul Normal 1.2-3.8 [facility] Comment on above: Performed By: #### I TJ #### [facility] [address] [place] [address] Dr. Guille Calderon Lymphocytes/100 WBC (Bld) 17.7 % Critically low 20.5-60.0 [facility] Comment on above: Performed By: #### I TJ #### [facility] [address] [place] [address] Dr. Guille Calderon MANUAL DIFF REQ NO Normal [facility] Comment on above: Performed By: #### I TJ #### [facility] [address] [place] [address] Dr. Guille Calderon MCH (RBC) [Entitic mass] 31.0 pg Normal 25.9-34.0 [facility] Comment on above: Performed By: #### I TJ #### [facility] [address] [place] [address] Dr. Guille Calderon MCHC (RBC) [Mass/Vol] 33.7 g/dL Normal 29.9-35.2 [facility] Comment on above: Performed By: #### I TJ #### [facility] [address] [place] [address] Dr. Guille Calderon MCV (RBC) [Entitic vol] 92.1 fL Normal 80.0-94.0 [facility] Comment on above: Performed By: #### I TJ #### [facility] [address] [place] [address] Dr. Guille Calderon MONO # 0.7 103/ul Normal 0.3-0.8 [facility] Comment on above: Performed By: #### I TJ #### [facility] [address] [place] [address] Dr. Guille Calderon Monocytes/100 WBC (Bld) 6.5 % Normal 1.7-12.0 [facility] Comment on above: Performed By: #### I TJ #### [facility] [address] [place] [address] Dr. Guille Calderon NEUT # 8.5 103/ul Critically high 1.4-6.5 [facility] Comment on above: Performed By: #### I TJ #### [facility] [address] [place] [address] Dr. Guille Calderon Neutrophils/100 WBC (Bld) 74.8 % Normal 43.0-75.0 [facility] Comment on above: Performed By: #### I TJ #### [facility] [address] [place] [address] Dr. Guille Calderon Platelet mean volume (Bld) [Entitic vol] 10.1 fL Normal 9.5-13.5 [facility] Comment on above: Performed By: #### I TJ #### [facility] [address] [place] [address] Dr. Guille Calderon PLT 305 103/ul Normal 150-450 [facility] Comment on above: Performed By: #### I TJ #### [facility] [address] [place] [address] Dr. Guille Calderon RBC 4.93 106/ul Normal 4.70-6.10 [facility] Comment on above: Performed By: #### I TJ #### [facility] [address] [place] [address] Dr. Guille Calderon WBC 11.4 103/ul Critically high 4.0-11.0 [facility] Comment on above: Performed By: #### I TJ #### [facility] [address] [address] [address] Guille Calderon IRONon 05-30-2022 Iron [Mass/Vol] 156.0 ug/dL Normal 65.0-175.0 [facility] Comment on above: Performed By: #### I TJ #### [facility] [address] [place] [address] Dr. Guille Calderon PROF 14(COMP METB)on 022 Albumin [Mass/Vol] 4.1 g/dL Normal 3.4-5.0 [facility] Comment on above: Performed By: #### B DIGITAL ADVERTISING ANALYST, CMP #### [facility] [address] [place] [address] Dr. Guille Calderon Albumin/Globulin [Mass ratio] 0.9 {ratio} Normal [facility] Comment on above: Performed By: #### B DIGITAL ADVERTISING ANALYST, CMP #### [facility] [address] [place] [address] Dr. Guille Calderon ALP [Catalytic activity/Vol] 84 U/L Normal 46-116 [facility] Comment on above: Performed By: #### B DIGITAL ADVERTISING ANALYST, CMP #### [facility] [address] [place] [address] Dr. Guille Calderon ALT [Catalytic activity/Vol] 40 U/L Normal 16-63 [facility] Comment on above: Performed By: #### B DIGITAL ADVERTISING ANALYST, CMP #### [facility] [address] [place] [address] Dr. Guille Calderon Anion gap [Moles/Vol] 9.5 mmol/L Normal [facility] Comment on above: Performed By: #### B DIGITAL ADVERTISING ANALYST, CMP #### [facility] [address] [place] [address] Dr. Guille Calderon AST [Catalytic activity/Vol] 19 U/L Normal 15-37 [facility] Comment on above: Performed By: #### B DIGITAL ADVERTISING ANALYST, CMP #### [facility] [address] [place] [address] Dr. Guille Calderon Bilirubin [Mass/Vol] 0.4 mg/dL Normal 0.2-1.0 [facility] Comment on above: Performed By: #### B DIGITAL ADVERTISING ANALYST, CMP #### [facility] [address] [place] [address] Dr. Guille Calderon Calcium [Mass/Vol] 8.9 mg/dL Normal 8.5-10.1 [facility] Comment on above: Performed By: #### B DIGITAL ADVERTISING ANALYST, CMP #### [facility] [address] [place] [address] Dr. Guille Calderon Chloride [Moles/Vol] 103 mmol/L Normal 98-107 [facility] Comment on above: Performed By: #### B DIGITAL ADVERTISING ANALYST, CMP #### [facility] [address] [place] [address] Dr. Guille Calderon CO2 [Moles/Vol] 28.1 mmol/L Normal 21.0-32.0 [facility] Comment on above: Performed By: #### B DIGITAL ADVERTISING ANALYST, CMP #### [facility] [address] [place] [address] Dr. Guille Calderno Creatinine [Mass/Vol] 0.87 mg/dL Normal 0.70-1.30 [facility] Comment on above: Performed By: #### B DIGITAL ADVERTISING ANALYST, CMP #### [facility] [address] [place] [address] Dr. Guille Calderon EGFR-AF ZAMBIAN >60 Normal >=60 [facility] Comment on above: Performed By: #### B DIGITAL ADVERTISING ANALYST, CMP #### [facility] [address] [place] [address] Dr. Guille Calderon EGFR-NON AF ZAMBIAN >60 Normal >=60 [facility] Comment on above: Performed By: #### B DIGITAL ADVERTISING ANALYST, CMP #### [facility] [address] [place] [address] Dr. Guille Calderon Globulin (S) [Mass/Vol] 4.5 g/dL Normal [facility] Comment on above: Performed By: #### B DIGITAL ADVERTISING ANALYST, CMP #### [facility] [address] [place] [address] Dr. Guille Calderon Glucose [Mass/Vol] 109 mg/dL Critically high 74-106 [facility] Comment on above: Performed By: #### B DIGITAL ADVERTISING ANALYST, CMP #### [facility] [address] [address] [address] Guille Calderon Potassium [Moles/Vol] 4.6 mmol/L Normal 3.5-5.1 [facility] Comment on above: Performed By: #### B DIGITAL ADVERTISING ANALYST, CMP #### [facility] [address] [address] [address] Guille Calderon Protein [Mass/Vol] 8.6 g/dL Critically high 6.4-8.2 [facility] Comment on above: Performed By: #### B DIGITAL ADVERTISING ANALYST, CMP #### [facility] [address] [address] [address] Guille Calderon Sodium [Moles/Vol] 136 mmol/L Normal 136-145 [facility] Comment on above: Performed By: #### B DIGITAL ADVERTISING ANALYST, CMP #### [facility] [address] [place] [address] Dr. Guille Calderon Urea nitrogen [Mass/Vol] 19.0 mg/dL Critically high 7.0-18.0 [facility] Comment on above: Performed By: #### B DIGITAL ADVERTISING ANALYST, CMP #### [facility] [address] [address] [address] Guille Calderon Urea nitrogen/Creatinin e [Mass ratio] 21.8 mg/mg Normal [facility] Comment on above: Performed By: #### B DIGITAL ADVERTISING ANALYST, CMP #### [facility] [address] [place] [address] Dr. Guille Calderon XR CHEST 2 Von 05-30-2022 XR CHEST 2 V EXAM: CHEST 2 VIEWS HISTORY: Dyspnea congestion which was of breath for 3 months since having Covid. TECHNIQUE: PA and lateral views chest. COMPARISON: 04/06/2019. FINDINGS: The lungs are hyperinflated with small area of linear left lower lung atelectasis, unchanged. There is no focal lung consolidation, pleural effusion or pneumothorax. Pulmonary vasculature is within normal limits. There is mild aortic atherosclerosis. Heart size is normal. There are suture anchors in the right humeral head. IMPRESSION: 1. Pulmonary hyperinflation without acute cardiopulmonary disease. Electronically authenticated by: ARLENE CHOI Date: 2022-05-30 17:22 Normal [facility] INSULINon 04-03-2022 Insulin 6.4 uIU/mL Normal 2.6-24.9 [facility] Comment on above: Performed By: #### P SASC, VITB12 #### [facility] [address] [address] [address] Guille Calderon OCC BLD IMMUNO SCREENon OCCULT BLOOD Negative Normal NEGATIVE [facility] Comment on above: Performed By: #### P SASC, VITB12 #### [facility] [address] [address] [address] Guille Calderon T4, T3U, FTI [facility]on 04-03 Free Thyroxine Index 2.5 Normal 1.2-4.9 [facility] Comment on above: Performed By: #### T HYLC #### [facility] [address] [place] [address] Dr. Guille Calderon T3 Uptake 28 % Normal 24-39 [facility] Comment on above: Performed By: #### T HYLC #### [facility] [address] [place] [address] Dr. Guille Calderon T4 [Mass/Vol] 8.8 ug/dL Normal 4.5-12.0 [facility] Comment on above: Performed By: #### T HYLC #### [facility] [address] [place] [address] Dr. Guille Calderon VIT D 25-OH [facility]on 2021 Vitamin D, 25-Hydroxy 85.0 ng/mL Normal 30.0-100.0 [facility] Comment on above: Result Comment: Karime min D deficiency has been defined by the [place] [employer] and an Endocrine Society practice guideline as a level of serum 25-OH vitamin D less than 20 ng/mL (1,2). The Endocrine Society went on to further define vitamin D insufficiency as a level between 21 and 29 ng/mL (2). 1. IOM ([place] [employer]). 2010. Dietary reference intakes for calcium and D. [place]: The National Academies Press. 2. Mena MF, Umair NC, Luis POWELL, et al. Evaluation, treatment, and prevention of vitamin D deficiency: an Endocrine Society clinical practice guideline. JCEM. 2010; 96(7):1911-30. Performed By: #### V ITADLC #### [facility] [address] [place] [address] Dr. Guille Calderon BNPon 04-02-2022 Natriuretic peptide B (Bld) [Mass/Vol] 252.0 pg/mL Normal <=900.0 [facility] Comment on above: Performed By: #### P SASC, VITB12 #### [facility] [address] [place] [address] Dr. Guille Calderon CBC AUTO DIFFon 04-02-2022 BASO # 0.1 103/ul Normal 0.0-0.1 [facility] Comment on above: Performed By: #### P SASC, VITB12 #### [facility] [address] [place] [address] Dr. Guille Calderon Basophils/100 WBC (Bld) 1.3 % Normal 0.2-2.0 [facility] Comment on above: Performed By: #### P SASC, VITB12 #### [facility] [address] [place] [address] Dr. Guille Calderon EO # 0.1 103/ul Normal 0.0-0.7 [facility] Comment on above: Performed By: #### P SASC, VITB12 #### [facility] [address] [place] [address] Dr. Guille Calderon Eosinophils/100 WBC (Bld) 1.1 % Normal 0.9-7.0 [facility] Comment on above: Performed By: #### P SASC, VITB12 #### [facility] [address] [place] [address] Dr. uGille Calderon Erythrocyte distribution width (RBC) [Ratio] 13.4 % Normal 11.0-15.0 [facility] Comment on above: Performed By: #### P SASC, VITB12 #### [facility] [address] [place] [address] Dr. Guille Calderon Hematocrit (Bld) [Volume fraction] 44.7 % Normal 42.0-54.0 [facility] Comment on above: Performed By: #### P SASC, VITB12 #### [facility] [address] [place] [address] Dr. Guille Calderon Hemoglobin (Bld) [Mass/Vol] 15.0 g/dL Normal 14.0-18.0 [facility] Comment on above: Performed By: #### P SASC, VITB12 #### [facility] [address] [place] [address] Dr. Guille Calderon IG # 0.02 10e3/ul Normal 0.00-0.03 [facility] Comment on above: Performed By: #### P SASC, VITB12 #### [facility] [address] [place] [address] Dr. Guille Calderon IG % 0.3 % Normal 0.0-0.5 [facility] Comment on above: Performed By: #### P SASC, VITB12 #### [facility] [address] [place] [address] Dr. Guille Calderon LYMPH # 1.5 103/ul Normal 1.2-3.8 [facility] Comment on above: Performed By: #### P SASC, VITB12 #### [facility] [address] [place] [address] Dr. Guille Calderon Lymphocytes/100 WBC (Bld) 23.9 % Normal 20.5-60.0 [facility] Comment on above: Performed By: #### P SASC, VITB12 #### [facility] [address] [place] [address] Dr. Guille Calderon MANUAL DIFF REQ NO Normal [facility] Comment on above: Performed By: #### P SASC, VITB12 #### [facility] [address] [place] [address] Dr. Guille Calderon MCH (RBC) [Entitic mass] 30.9 pg Normal 25.9-34.0 [facility] Comment on above: Performed By: #### P SASC, VITB12 #### [facility] [address] [place] [address] Dr. Guille Cadleron MCHC (RBC) [Mass/Vol] 33.6 g/dL Normal 29.9-35.2 [facility] Comment on above: Performed By: #### P SASC, VITB12 #### [facility] [address] [place] [address] Dr. Guille Calderon MCV (RBC) [Entitic vol] 92.2 fL Normal 80.0-94.0 [facility] Comment on above: Performed By: #### P SASC, VITB12 #### [facility] [address] [place] [address] Dr. Guille Calderon MONO # 0.6 103/ul Normal 0.3-0.8 [facility] Comment on above: Performed By: #### P SASC, VITB12 #### [facility] [address] [place] [address] Dr. Guille Calderon Monocytes/100 WBC (Bld) 9.0 % Normal 1.7-12.0 [facility] Comment on above: Performed By: #### P SASC, VITB12 #### [facility] [address] [place] [address] Dr. Guille Calderon NEUT # 4.1 103/ul Normal 1.4-6.5 [facility] Comment on above: Performed By: #### P SASC, VITB12 #### [facility] [address] [place] [address] Dr. Guille Calderon Neutrophils/100 WBC (Bld) 64.4 % Normal 43.0-75.0 [facility] Comment on above: Performed By: #### P SASC, VITB12 #### [facility] [address] [place] [address] Dr. Guille Calderon Platelet mean volume (Bld) [Entitic vol] 9.7 fL Normal 9.5-13.5 [facility] Comment on above: Performed By: #### P SASC, VITB12 #### [facility] [address] [place] [address] Dr. Guille Calderon PLT 234 103/ul Normal 150-450 [facility] Comment on above: Performed By: #### P SASC, VITB12 #### [facility] [address] [place], [place] [address] Dr. Guille Calderon RBC 4.85 106/ul Normal 4.70-6.10 [facility] Comment on above: Performed By: #### P SASC, VITB12 #### [facility] [address] [place], [place] [address] Dr. Guille Calderon WBC 6.3 103/ul Normal 4.0-11.0 [facility] Comment on above: Performed By: #### P SASC, VITB12 #### [facility] [address] [place], [place] [address] LUNG CANCER SCREENINGon 0 04-02-2022 CT LUNG CANCER SCREENING EXAMINATION: CT LUNG CANCER SCREENING HISTORY: Smoker COMPARISON: CT abdomen pelvis 10/05/2016 TECHNIQUE: Axial, Coronal, and Sagittal images were created without the administration of IV contrast material. Dose reduction techniques were achieved by using automated exposure control and/or adjustment of mA and/or kV according to patient size and/or use of iterative reconstruction technique. FINDINGS: LUNGS: Chronic scarring within posterior right lung base. 5 mm nodule within posterior lateral left lung base. No suspicious nodules, infiltrates, or significant chronic interstitial changes. PLEURA: No mass, effusion, or pneumothorax. VASCULATURE: No abnormality. DAPHNE: No mass or pathologic adenopathy. MEDIASTINUM: No mass or pathologic adenopathy. CARDIAC: No enlargement, pericardial thickening, or significant calcification. AORTA: No aneurysm or dissection. CHEST WALL: No mass or axillary adenopathy BONES: No bone lesion or fracture. LIMITED ABDOMEN: No suspicious findings. Limited images of the upper abdomen. OTHER: Negative. IMPRESSION: 1. LUNG SCREENING: Lung-RADS Category 2- Benign Appearance or Behavior. Nodules with a very low likelihood of becoming a clinically active cancer due to size or lack of growth. 2. Continue annual screening with LDCT in 12 months. Electronically authenticated by: AFUA MERCHANT Date: 2022-04-02 10:13 Normal [facility] GLYCOHEMOGLOBIN A1Con 2021 ADA RECOMMENDATION SEE BELOW Normal [facility] Comment on above: Result Comment: ADA RECOMMENDED LIMIT 4.0 - 6.0 ADA THERAPEUTIC TARGET < 7.0 ACTION SUGGESTED > 7.0 Performed By: #### I TJ #### [facility] [address] [address] [address] Guille Calderon Glucose [Mass/Vol] 117 mg/dL Normal [facility] Comment on above: Performed By: #### I TJ #### [facility] [address] [address] [address] Guille Calderon HbA1c (Bld) [Mass fraction] 5.7 % Normal 4.5-6.2 [facility] Comment on above: Performed By: #### I TJ #### [facility] [address] [place] [address] Dr. Guille Calderon LIPID PROFILEon 04-02-2022 CHOL-HDL RATIO NORM SEE BELOW Normal [facility] Comment on above: Result Comment: 3.3 - 4.4 LOW RISK 4.4 - 7.1 AVERAGE RISK 7.1 - 11.0 MODERATE RISK >11.0 HIGH RISK Performed By: #### P SASC, VITB12 #### [facility] [address] [place] [address] Dr. Guille Calderon Cholesterol [Mass/Vol] 163 mg/dL Normal <=200 [facility] Comment on above: Performed By: #### P SASC, VITB12 #### [facility] [address] [place] [address] Dr. Guille Calderon Cholesterol in HDL [Mass/Vol] 53 mg/dL Normal 40-60 [facility] Comment on above: Performed By: #### P SASC, VITB12 #### [facility] [address] [place] [address] Dr. Guille Calderon Cholesterol in LDL [Mass/Vol] 100.8 mg/dL Normal [facility] Comment on above: Performed By: #### P SASC, VITB12 #### [facility] [address] [place] [address] Dr. Guille Calderon Cholesterol.total/ Cholesterol in HDL [Mass ratio] 3.1 {ratio} Normal [facility] Comment on above: Performed By: #### P SASC, VITB12 #### [facility] [address] [address] [address] Guille Calderon HDL NORMAL > or = 60 mg/dl - LO W CARDIOVASCULAR RISK <40 mg/dl - HIGH CARDIOVASCULAR RISK Normal [facility] Comment on above: Performed By: #### P SASC, VITB12 #### [facility] [address] [address] [address] Guille Calderon LDL CALC NORMAL SEE BELOW Normal [facility] Comment on above: Result Comment: <100 mg/dl OPTIMAL 100 - 129 mg/dl NEAR OR ABOVE OPTIMAL 130 - 159 mg/dl BORDERLINE HIGH 160 - 189 mg/dl HIGH >190 mg/dl VERY HIGH Performed By: #### P SASC, VITB12 #### [facility] [address] [address] [address] Guille Calderon Triglyceride [Mass/Vol] 46 mg/dL Normal <=150 [facility] Comment on above: Performed By: #### P SASC, VITB12 #### [facility] [address] [address] [address] Guille Calderon VLDL CALC 9.2 mg/dL Normal [facility] Comment on above: Performed By: #### P SASC, VITB12 #### [facility] [address] [address] [address] Guille Calderon MRI LSPINE WO CONon 04-02-20 22 MRI LSPINE WO CON EXAMINATION: MRI LSP INE WO CON HISTORY: Intervertebral disc prolapse , chronic lumbar spine pain, bilateral leg pain COMPARISON: 10/01/2016 TECHNIQUE: A variety of imaging planes and parameters were utilized for visualization of suspected pathology. FINDINGS: For the purposes of numbering, sagittal T2 image # 8 extends from the T11-T12 vertebral body superiorly to the S3 level inferiorly. PARASPINAL AREA: Normal with no visible mass. BONES: Normal alignment with no acute fracture or spondylolisthesis CORD/CAUDA EQUINA: Normal caliber, contour, and signal intensity. DISC LEVELS: 12-L1: No significant disc/facet abnormality, spinal stenosis, or foraminal stenosis. L1-L2: No significant disc/facet abnormality, spinal stenosis, or foraminal stenosis. L2-L3: Disc space narrowing and disc desiccation. Posterior broad-based disc protrusion with central annular tear. Moderate ligamentum flavum hypertrophy and facet osteoarthropathy. No significant central canal or foraminal stenosis L3-L4: Minimal posterior disc bulging. Ligamentum flavum hypertrophy and facet osteoarthropathy. No central or foraminal stenosis L4-L5: Minimal posterior disc bulging. Ligamentum flavum hypertrophy and facet osteoarthropathy. No central canal stenosis. Mild bilateral foraminal stenosis left greater than right L5-S1: Moderate disc space narrowing and disc desiccation. Posterior central disc protrusion extending up to 2.5 mm. Bilateral facet osteoarthropathy. No right foraminal stenosis. Mild narrowing of the left neural foramen IMPRESSION: Degenerative changes resulting in mild bilateral L4-L5 and mild left L5-S1 foraminal stenosis Electronically authenticated by: SPEEDY CAMPO Date: 2022-04-02 11:13 Normal [facility] PROF 14(COMP METB)on 022 Albumin [Mass/Vol] 3.8 g/dL Normal 3.4-5.0 [facility] Comment on above: Performed By: #### P SASC, VITB12 #### [facility] [address] [place] [address] Dr. Guille Calderon Albumin/Globulin [Mass ratio] 1.0 {ratio} Normal [facility] Comment on above: Performed By: #### P SASC, VITB12 #### [facility] [address] [place] [address] Dr. Guille Calderon ALP [Catalytic activity/Vol] 87 U/L Normal 46-116 [facility] Comment on above: Performed By: #### P SASC, VITB12 #### [facility] [address] [address] [address] Guille Calderon ALT [Catalytic activity/Vol] 43 U/L Normal 16-63 [facility] Comment on above: Performed By: #### P SASC, VITB12 #### [facility] [address] [address] [address] Guille Calderon Anion gap [Moles/Vol] 10.3 mmol/L Normal [facility] Comment on above: Performed By: #### P SASC, VITB12 #### [facility] [address] [place] [address] Dr. Guille Calderon AST [Catalytic activity/Vol] 24 U/L Normal 15-37 [facility] Comment on above: Performed By: #### P SASC, VITB12 #### [facility] [address] [place] [address] Dr. Guille Calderon Bilirubin [Mass/Vol] 0.4 mg/dL Normal 0.2-1.0 [facility] Comment on above: Performed By: #### P SASC, VITB12 #### [facility] [address] [place] [address] Dr. Guille Calderon Calcium [Mass/Vol] 8.6 mg/dL Normal 8.5-10.1 [facility] Comment on above: Performed By: #### P SASC, VITB12 #### [facility] [address] [place] [address] Dr. Guille Calderon Chloride [Moles/Vol] 103 mmol/L Normal 98-107 [facility] Comment on above: Performed By: #### P SASC, VITB12 #### [facility] [address] [place] [address] Dr. Guille Calderon CO2 [Moles/Vol] 28.4 mmol/L Normal 21.0-32.0 [facility] Comment on above: Performed By: #### P SASC, VITB12 #### [facility] [address] [place] [address] Dr. Guille Calderon Creatinine [Mass/Vol] 1.04 mg/dL Normal 0.70-1.30 [facility] Comment on above: Performed By: #### P SASC, VITB12 #### [facility] [address] [place] [address] Dr. Guille Calderon EGFR-AF ZAMBIAN >60 Normal >=60 [facility] Comment on above: Performed By: #### P SASC, VITB12 #### [facility] [address] [place] [address] Dr. Guille Calderon EGFR-NON AF ZAMBIAN >60 Normal >=60 [facility] Comment on above: Performed By: #### P SASC, VITB12 #### [facility] [address] [place] [address] Dr. Guille Calderon Globulin (S) [Mass/Vol] 3.9 g/dL Normal [facility] Comment on above: Performed By: #### P SASC, VITB12 #### [facility] [address] [place] [address] Dr. Guille Calderon Glucose [Mass/Vol] 105 mg/dL Normal 74-106 [facility] Comment on above: Performed By: #### P SASC, VITB12 #### [facility] [address] [place] [address] Dr. Guille Calderon Potassium [Moles/Vol] 4.7 mmol/L Normal 3.5-5.1 [facility] Comment on above: Performed By: #### P SASC, VITB12 #### [facility] [address] [place] [address] Dr. Guille Calderon Protein [Mass/Vol] 7.7 g/dL Normal 6.4-8.2 [facility] Comment on above: Performed By: #### P SASC, VITB12 #### [facility] [address] [place] [address] Dr. Guille Calderon Sodium [Moles/Vol] 137 mmol/L Normal 136-145 [facility] Comment on above: Performed By: #### P SASC, VITB12 #### [facility] [address] [place] [address] Dr. Guille Calderon Urea nitrogen [Mass/Vol] 18.0 mg/dL Normal 7.0-18.0 [facility] Comment on above: Performed By: #### P SASC, VITB12 #### [facility] [address] [place] [address] Dr. Guille Calderon Urea nitrogen/Creatinin e [Mass ratio] 17.3 mg/mg Normal [facility] Comment on above: Performed By: #### P SASC, VITB12 #### [facility] [address] [place] [address] Dr. Guille Calderon TSHon 04-02-2022 TSH 1.169 uIU/mL Normal 0.358-3.740 [facility] Comment on above: Performed By: #### P SASC, VITB12 #### [facility] [address] [address] [address] Guille Calderon URIC ACID SERUMon 04-02-2022 Urate [Mass/Vol] 5.0 mg/dL Normal 3.5-7.2 [facility] Comment on above: Performed By: #### P SASC, VITB12 #### [facility] [address] [address] [address] Guille Calderon VITAMIN B12on 04-02-2022 Cobalamin (Vitamin B12) [Mass/Vol] 407.0 pg/mL Normal 193.0-986.0 [facility] Comment on above: Performed By: #### P SASC, VITB12 #### [facility] [address] [place] [address] Dr. Guille Calderon XR LSPINE MIN 4 VIEWSon XR LSPINE MIN 4 VIEWS EXAMINATION: XR LSPINE MIN 4 VIEWS HISTORY: Intervertebral disc prolapse COMPARISON: No relevant comparison available. FINDINGS: BONES: Normal alignment with mild to moderate degenerative spondylosis and facet osteoarthropathy. 10% anterior wedging of the L1 vertebral body, age indeterminate. DISC SPACES: Normal. No significant disc height narrowing, subluxation, or endplate abnormality. PARASPINOUS: Negative. No paraspinous abnormality is seen. OTHER: Negative. IMPRESSION: Mild to moderate degenerative change Electronically authenticated by: SPEEDY CAMPO Date: 2022-04-02 17:48 Normal [facility] Coding Summary.on 08-24-2017 Coding Summary. CODING DATE: 018 FINAL [facility] STATUS: Home (Routine DC) PAYOR: Viral APC DESCRIPTION 8478 Level 1 Laparoscopy and Related Services ADMIT DX: REASON FOR VISIT DX: K42.0 Umbilical hernia with obstruction, without gangrene FINAL DX: PRINCIPAL: K42.0 Umbilical hernia with obstruction, without gangrene SECONDARY: E03.9 Hypothyroidism, unspecified F17.210 Nicotine dependence, cigarettes, uncomplicated PYMT PROC APC STAT DESCRIPTION DOCTOR NAME DATE 39790 8251 J1 Laparoscopy, surgical, Ean Shahid MD 08/23/2017 repair, ventral, umbilical, spigelian or epigastric hernia (includes mesh insertion, when performed); incarcerated or strangulated 67714 Anesthesia for hernia Ean Shahid MD 08/23/2017 repairs in upper abdomen; lumbar and ventral (incisional) hernias and/or wound dehiscence 16814 Transversus abdominis Haider Pelletier DO 08/23/2017 plane (TAP) block (abdominal plane block, rectus sheath block) bilateral; by injections (includes imaging guidance, when performed) XP Separate Practitioner * NOTE: The code number assigned matches the documented diagnosis and / or procedure in the patient's chart. However, the narrative phrase printed from the coding software may appear abbreviated, or result in slightly different terminology. Revised Coded By: Bridget Villanueva Revised Date Saved: 08/24/2017 12:35 pm Normal [facility] Main OR Intraoperative Recor don 08-24-2017 Main OR Intraoperative Record IntraOp Document Type FT Summary Primary Physician: Ean Shahid MD Finalized Date/Time: 08/24/17 09:24:34 Pt. Name: LORENZA RAMACHANDRAN/Sex: 1955 Male Med Rec #: [id number] Physician: Ean Shahid MD Financial #: [id number] Pt. Type: A Room/Bed: [place] [address] Admit/Disch: 08/23/17 09:39:00 - 08/23/17 19:30:00 Institution: Case Times FT Entry 1 Patient Times In Room 08/23/17 12:22:00 Out Room 08/23/17 14:49:00 Procedure Times Start 08/23/17 12:57:00 Stop 08/23/17 14:45:00 Anesthesia Times Start 08/23/17 12:22:00 Stop 08/23/17 14:49:00 Block Timeout w08/23/17 12:40:00 Anesthesia Last Modified By: Shea Stone CST 08/23/17 14:50:06 General Comments: robot docked at 1310, undocked at 1428 08/24/2017 Chart opened to review and send charges Isha arredondo Case Attendance FT Entry 1 Entry 2 Entry 3 Case Attendee Haider Pelletier DOl MD, Ean Cuadra, RN Meaghan Estrella Role Performed Anesthesiologist of Surgeon - Primary TELEVISION ENGINEERING TEACHER Record Time In 08/23/17 12:22:00 08/23/17 12:22:00 08/23/17 12:22:00 Time Out 08/23/17 14:00:00 08/23/17 14:49:00 08/23/17 14:49:00 Procedure HERNIA REPAIR, ROBOT HERNIA REPAIR, ROBOT HERNIA REPAIR, ROBOT ASSISTED(.) ASSISTED(.) ASSISTED(.) Comments Last Modified By: Gianni RN, Keyur Archer RN, Keyur Archer RN, [facility] 08/23/17 14:50:07 08/23/17 14:50:07 08/23/17 14:50:07 Entry 4 Entry 5 Entry 6 Case Attendee Gianni RN, Keyur Crooks RN, Monica Steen CST, Claribel Oliver Role Performed Manager Copy - Primary Manager Copy - Primary Scrub - Primary Time In 08/23/17 12:22:00 08/23/17 12:22:00 08/23/17 12:22:00 Time Out 08/23/17 14:49:00 08/23/17 14:49:00 08/23/17 14:49:00 Procedure HERNIA REPAIR, ROBOT HERNIA REPAIR, ROBOT HERNIA REPAIR, ROBOT ASSISTED(.) ASSISTED(.) ASSISTED(.) Comments Last Modified By: Gianni RN, Keyur Archer RN, Keyur Archer RN, [facility] 08/23/17 14:50:07 08/23/17 14:50:07 08/23/17 14:50:07 Entry 7 Case Attendee Ian Resendiz MD Role Performed Anesthesiologist - Other Time In 08/23/17 13:49:00 Time Out 08/23/17 14:49:00 Procedure HERNIA REPAIR, ROBOT ASSISTED(.) Comments Last Modified By: Gianni EAST, [facility] 08/23/17 14:50:07 General Comments: marleen hernandez 3, 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 [place], Perioperative Protocols FT Pre-Care Text: Implements protective measures prior to operative or invasive procedure, confirms identity before the operative or invasive procedure, verifies operative procedure, surgical site, and laterality Entry 1 Procedure(s) HERNIA REPAIR, ROBOT Patient Identity Birthday, ID Band ASSISTED(.) Verified (select at Check, Patient least 2): Participation Consents / H and P Anesthesia Consent, Operative Site Present Verified HandP, Surgery/Procedure Marking Verified Consent Surgical Site Yes Laterality Verified n/a Verified Procedure Verified Yes Correct Patient Yes Position Verified Availability Equipment, Implant, Prep Dry Yes Verified (If Medication Applicable) PreOp Antibiotic Yes Time Out Prabhu CHEUNG, Haider Bailey, Given Participants Zehra DEL REAL, Khalif Pineda, Gianni Ibanez RN, Valeriy Baer RN, Enio Anderson CST, Claribel Oliver Time Out Complete 08/23/17 12:55:00 Outcomes Met? Yes Last Modified By: Keyur Archer RN 08/23/17 12:58:12 Post-Care Text: The patient is free from signs and symptoms of injury caused by extraneous objects Allergy Information FT Pre-Care Text: Verifies allergies Entry 1 Allergies Reviewed? Yes Allergies Reviewed Self/Patient With Outcomes Met? Yes Last Modified By: Keyur Archer RN 08/23/17 12:46:46 Post-Care Text: The patient received appropriate medication(s) safely administered during the perioperative period Surgical Procedures FT Entry 1 Procedure Description Procedure HERNIA REPAIR, ROBOT Modifiers . ASSISTED Surgeon Description ROBOTIC ASSISTED UMBILICAL HERNIA REPAIR WITH MESH Primary Procedure Yes Primary Surgeon Ean Shahid MD Start 08/23/17 12:57:00 Stop 08/23/17 14:45:00 Anesthesia Type General Surgical Service General Wound Class 1 - Clean Last Modified By: Keyur Archer RN 08/23/17 14:50:12 General Case Data FT Pre-Care Text: Classifies surgical wound, implements aseptic technique, initiates traffic control Entry 1 Case Information OR OR 6 FT Case Level Level 2 Wound Class 1 - Clean Specialty General ASA Class 2 Preop Diagnosis UMBILICAL HERNIA Postop Same As Preop Yes Postop Diagnosis UMBILICAL HERNIA Outcomes Met? Yes Last Modified By: Keyur Archer RN 08/23/17 14:00:22 Post-Care Text: The patient is free from signs and symptoms of infection Skin Assessment (Pre Procedure) FT Pre-Care Text: Implements protective measures to prevent skin/ tissue injury due to thermal or mechanical sources Evaluates for signs and symptoms of physical injury to skin and tissue Entry 1 Skin Integrity Intact, [place], Warm, and Skin Abnormality No Dry Outcomes Met? Yes Last Modified By: Keyur Archer RN 08/23/17 12:47:02 Post-Care Text: The patient is free from signs and symptoms of injury caused by extraneous objects Patient Positioning FT Pre-Care Text: Identifies physical alterations that require additional precautions for procedure-specific positioning, verifies presence of prosthetics or corrective devices, positions the patient, evaluates the patient for signs and symptoms of injury as a result of positioning Entry 1 Procedure HERNIA REPAIR, ROBOT Body Position Supine ASSISTED(.) Feet Uncrossed? Yes Left Arm Position Tucked and Padded at Side Right Arm Position Extended on Padded Arm Left Leg Position Extended Board Right Leg Position Extended Positioning Device Egg Crate Padding, Safety Strap, Pillow Under Head Large Press Points Checked Yes By Keyur Archer RN, [place], RN Nichole C, Mahon DO, Richard M, Nill MD, Valeriy Pineda RN, Monica Outcomes Met? Yes Last Modified By: Keyur Archer RN 08/23/17 12:48:28 Post-Care Text: The patient is free from signs and symptoms of injury related to positioning Patient Care Devices FT Pre-Care Text: Implements protective measures to prevent skin/ tissue injury due to thermal or mechanical sources Entry 1 Entry 2 Entry 3 Equipment Type CAUTERY UNIT[F] CONMED PRESSURE INSUFLATORS[F] IRRIGATION PUMP SYSTEM[F] Equipment Number boom 6 boom 6 Equipment Setting Outcomes Met? Yes Yes Yes Last Modified By: Gianni EAST, Keyur Archer RN, Keyur Archer RN, Keyur 08/23/17 07:23:04 08/23/17 07:23:04 08/23/17 07:23:04 Entry 4 Entry 5 Entry 6 Equipment Type INSUFLOW HEATER UNIT[F] MISTRAL FORCED AIR MONITOR CHARGE SURGERY WARMING SYSTEM UNIT[F] [F] Equipment Number boom 6 m6 Equipment Setting Outcomes Met? Yes Yes Yes Last Modified By: Gianni EAST, Keyur Archer RN, Keyur Archer RN, Keyur 08/23/17 07:23:04 08/23/17 07:23:04 08/23/17 07:23:04 Entry 7 Entry 8 Equipment Type SONOSITE ULTRASOUND VENA FLOW UNIT[F] UNIT[F] Equipment Number Equipment Setting Outcomes Met? Yes Yes Last Modified By: Keyur Archer RN, RN, Miguel 08/23/17 07:23:04 08/23/17 07:23:04 Post-Care Text: The patient is free from signs and symptoms of injury caused by extraneous objects Transport To OR FT Pre-Care Text: Transports according to individual needs. Evaluates for signs and symptoms of skin and tissue injury as a result of transfer or transport Entry 1 Via Cart By Monica Crooks RN Safety Precautions Side Rails Up Outcomes Met? Yes Last Modified By: Keyur Archer RN 08/23/17 12:47:09 Post-Care Text: The patient is free from signs and symptoms of injury related to transfer/transport Cautery FT Pre-Care Text: Implements protective measures to prevent injury due to electrical sources, and evaluates for signs and symptoms of electrical injury Entry 1 ESU Identification ESU Settings Cut 35 Coag 35 ESU Grounding Pad Site Left Thigh Hair Removal Pad No Site Pre Pad Site Clear and Intact Post Pad Site Clear and Intact Condition Condition Grounding Pad KITA Cuadra Placed By Outcomes Met? Yes Last Modified By: Keyur Archer RN 08/23/17 12:48:43 Post-Care Text: The patient if free from signs and symptoms of electrical injury Counts Verification FT Pre-Care Text: Performs required counts Entry 1 Procedure(s) HERNIA REPAIR, ROBOT Type Initial ASSISTED(.) Items Instruments, Sponges, Status Correct Sharps By Claribel Steen CST, Outcomes Met? Yes Keyur Archer RN Last Modified By: Keyur Archer RN 08/23/17 12:47:42 Post-Care Text: The patient is free from signs and symptoms of injury caused by extraneous objects Skin Prep FT Pre-Care Text: Performs skin preparations Entry 1 Procedure HERNIA REPAIR, ROBOT Prep Area abdomen ASSISTED(.) Prep Agents Betadine Scrub and Solution Hair Removal Methods Not Indicated By Monica Crooks RN Outcomes Met? Yes Last Modified By: Keyur Archer RN 08/23/17 12:48:05 Post-Care Text: The patient is free from signs and symptoms of infection Departure From OR FT Pre-Care Text: Transports according to individual needs. Evaluates for signs and symptoms of skin and tissue injury as a result of transfer or transport. Entry 1 Via Patient Bed Safety Precautions Side Rails Up PostOp Destination PACU Transported By Monica Crooks RN Patient Status Stable Skin. Condition Intact, [place], Warm, and Dry Airway Maintenance Oxygen in Use? Yes Airway Device Simple Mask Flow Rate 10 Outcomes Met? Yes Last Modified By: Keyur Archer RN 08/23/17 14:42:32 Post-Care Text: The patient is free from signs and symptoms of injury related to transfer/transport General Comments: report given to pacu nurse Dressing/Packing FT Pre-Care Text: Administers care to wound sites Entry 1 Entry 2 Type Dressing Immobilization Devices Items BINDER ABDOMINAL 3-PNL LG/XLG [[id number]][F] Site and Details 4x4's and medium binder around abdomen op-sites to port sites, 4x4's, and medipore tape to the umbilicus Outcomes Met? Yes Yes Last Modified By: Keyur Archer RN, RN, Miguel 08/23/17 14:45:35 08/23/17 14:46:14 Post-Care Text: The patient is free from signs and symptoms of infection Medication Administration FT Pre-Care Text: Verifies allergies, administers prescribed medications and solutions, administers prescribed antibiotic therapy and immunizing agents as ordered, evaluates response to medications Administers prescribed medications and solutions Entry 1 Expiration Date Yes Outcomes Met? Yes Verified Last Modified By: Keyur Archer RN 08/23/17 12:46:52 Post-Care Text: The patient received appropriate medication(s) safely administered during the perioperative period For [employer] please see scanned medication reconcilliation form for medications used at the field during the procedure. 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 Yes Last Modified By: Keyur Archer RN 08/23/17 13:43:00 Post-Care Text: The patient is free from signs and symptoms of injury caused by extraneous objects Urinary Catheter Pre-Care Text: Patient is prepped using sterile technique. Entry 1 Urinary Catheter TRAY URINE TALHA CATH Present Upon Arrival No Inserted LF 16FR [[id number]][F] Insertion Date/Time 08/23/17 12:32:00 Urine Residual 55 Insertion Site Uretheral Urine tracey, clear Characteristics Inserted By KITA Cuadra Discontinued? Yes When was the Discontinued at end of DC'd By KITA Cuadra catheter case discontinued? Outcomes Met? Yes Last Modified By: Keyur Archer RN 08/23/17 14:47:08 Post-Care Text: The patient is free from signs of trauma. Temperature Control Entry 1 Temperature Control BLANKET MISTRAL AIR Quantity 1 Aid TORSO [[id number]][F] Fluid/Mil[place] Unit Mistral warming system Setting 38 Body Site Upper anterior torso Last Modified By: Keyur Archer RN 08/23/17 07:21:12 Case Comments Finalized By: Shea Stone CST Document Signatures Signed By: Keyur Archer RN 08/23/17 14:50 Keyur Archer RN 08/23/17 14:50 Shea Stone CST 08/24/17 09:24 Normal [facility] Progress Note-Physicianon Progress Note-Physician Patient: LORENZA RAMACHANDRAN Age: 62 years Sex: Male : 1955 Associated Diagnoses: None Author: Ian Resendiz MD Postoperative Information Post Operative Note: Post Anesthesia Care Unit. Anesthetic utilized: General. Regional: TAP block. Health Status Allergies: Allergic Reactions (All)No Known Allergies Problem list: All ProblemsHernia, umbilical / SNOMED CT 6208729716 / ConfirmedBack pain, chronic / SNOMED CT 917516735 / ConfirmedSmoker / IMO [id number] / ConfirmedAdded secondary to documentation in Social History.Hypothyroid / SNOMED CT 59392476 / Confirmed Physical Examination Intake and Output adequate hydration Vital Signs 08/23/2017 14:55 EST Heart Rate Monitored 73 bpm Respiratory Rate Monitored 21 br/min Systolic Blood Pressure 133 mmHg (Modified) Diastolic Blood Pressure 79 mmHg SpO2 99 % 08/23/2017 14:50 EST Temperature Temporal Artery 36.2 DegC LOW Heart Rate Monitored 84 bpm Respiratory Rate Monitored 38 br/min Systolic Blood Pressure 132 mmHg Diastolic Blood Pressure 82 mmHg SpO2 97 % Pain assessment: Self-reports no pain. General: Alert and oriented, No acute distress. HENT: Oral mucosa is moist, dentition unchanged. Respiratory: Respirations: Are within normal limits. Pattern: Regular. Cardiovascular: Normal rate. Neurologic: Alert, Oriented. Review / Management Lines and Tubes: Peripheral catheter. ECG interpretation: Within normal limits. Condition: Stable. Assessment Anesthetic outcome No anesthetic complications noted. Adequate pain relief. No Complaint of nausea and vomiting. Plan Transfer/ Discharge: Patient can be discharged from PACU when criteria met, Patient can be discharged from anesthesia care. Condition stable. Normal [facility] Comment on above: Result Comment: Elec tronically Signed By: Martín DEL REAL, Ian\.br\Date and Time Signed: 08/24/17 11:37 EST Progress Note-Physician Patient: LORENZA RAMACHANDRAN Age: 62 years Sex: Male : 1955 Associated Diagnoses: None Author: Haider Pelletier DO Postoperative Information Post Operative Note: Post Anesthesia Care Unit. Anesthetic utilized: General. Physical Examination Vitals Signs (last 24 hrs) Last Charted Minimum MaximumTemp L 36.1 (AUG 23 19:19) 35.6 (AUG 23 16:05) 36.5 (AUG 23 10:00)Heart Rate 66 (AUG 23 19:20) 50 (AUG 23 13:35) 95 (AUG 23 14:35)Resp Rate 16 (AUG 23 19:19) 6 (AUG 23 12:30) 38 (AUG 23 14:50)SBP 130 (AUG 23 19:20) 59 (AUG 23 13:38) 145 (AUG 23 12:33)DBP 82 (AUG 23 19:20) 42 (AUG 23 13:38) 107 (AUG 23 12:36)MAP 97 (AUG 23 19:19) 89 (AUG 23 16:02) 97 (AUG 23 19:19)SpO2 96 (AUG 23 19:20) 89 (AUG 23 15:20) 100 (AUG 23 12:30) Pain assessment: Pain Assessment 08/23/2017 19:19 EST Preliminary Pain Scale 3 08/23/2017 19:19 EST Pain Symptoms Self Report Yes, able to self report Primary Pain Location Abdomen Primary Pain Laterality Bilateral 08/23/2017 16:02 EST Preliminary Pain Scale 7 08/23/2017 16:02 EST Pain Symptoms Self Report Yes, able to self report Primary Pain Location Groin Patient Preferred Pain Tool Numeric rating Numeric Pain Scale 7 Numeric Pain Score 7 08/23/2017 15:55 EST Numeric Pain Scale 4 Numeric Pain Score 4 08/23/2017 15:50 EST Numeric Pain Scale 4 Numeric Pain Score 4 08/23/2017 15:35 EST Numeric Pain Scale 5 = Moderate pain Numeric Pain Score 5 08/23/2017 15:27 EST Numeric Pain Scale 5 = Moderate pain Numeric Pain Score 5 08/23/2017 15:20 EST Numeric Pain Scale 5 = Moderate pain Numeric Pain Score 5 08/23/2017 15:05 EST Pain Symptoms Self Report Yes, able to self report (Modified) Primary Pain Location Abdomen (Modified) Numeric Pain Scale 5 = Moderate pain (Modified) 08/23/2017 14:55 EST Pain Symptoms Self Report Date\Time Correction Primary Pain Location Date\Time Correction Numeric Pain Scale Date\Time Correction Numeric Pain Score In Error (In Error) 08/23/2017 10:01 EST Preliminary Pain Scale 0 08/23/2017 10:01 EST Pain Symptoms Self Report No, able to self report . General: No acute distress. Respiratory: Respirations are non-labored. Cardiovascular: Regular rhythm, Normal peripheral perfusion. Neurologic: baseline. Review / Management Condition: Stable. Assessment Anesthetic outcome No anesthetic complications noted. Adequate pain relief. Adequate hydration, no unrelenting nausea and vomiting. Plan Transfer/ Discharge: Patient can be discharged from PACU when criteria met. [facility] Comment on above: Result Comment: Elec tronically Signed By: Haider Pelletier DO\.br\Date and Time Signed: 08/24/17 09:55 EST History and Physicalon 08-23 History and Physical Patient: LORENZA RAMACHANDRAN Age: 62 years Sex: Male : 1955 Associated Diagnoses: None Author: Ean Shahid MD Subjective no changes to H & P [facility] Comment on above: Result Comment: Elec tronically Signed By: Ean Shahid MD\Jo-Annbr\Date and Time Signed: 08/23/17 12:00 EST Inpatient Patient Summaryon 08-23-[address] [facility] [address] [facility] Inst[facility] INFORMATION Name: LOERNZA RAMACHANDRAN PHYSICIANS Admitting Physician: Ean Shahid MD Physician: Ean Shahid MD PCP: Jon DEL REAL, Lux Diagnosis: Incarcerated umbilical hernia Comment: PATIENT EDUCATION INFORMATIONInstructions:Medica tion Leaflets:Follow up:With: Address: When: Ean Shahid [address] [place] [id number] [facility] (1Seen Within 7 to 10 days Comments: follow up in the [place] office next wednesday, call to schedule a time. MEDICATION LISTFill New Prescriptions:acetaminophen-ox ycodone (Percocet 325 mg-5 mg Tab) 1 tab(s) By Mouth every 4 hours as needed for Pain not to exceed 12 tablets/day not to exceed 4000 mg acetaminophen per day take with food or milkComment: Normal [facility] Main OR PACU I Recordon 08-03 Main OR PACU I Record PACU Phase I Document Type FT Summary Primary Physician: Ean Shahid MD Finalized Date/Time: 08/23/17 16:03:37 Pt. Name: LORENZA RAMACHANDRAN Antonieta Madden./Sex: 1955 Male Med Rec #: [id number] Physician: Ean Shahid MD Financial #: [id number] Pt. Type: A Room/Bed: [place] [address] Admit/Disch: 08/23/17 09:39:18 - Institution: Case Times PACU I FT Pre-Care Text: Identifies barriers to communication and implements measures to provide psychological support Develops individualized plan of care, and ensures continuity of care Maintains patient's dignity and privacy, and maintains patient confidentiality Identifies and reports philosophical, cultural, and spiritual beliefs and values Identifies individual values and wishes concerning care Implements aseptic technique, and administers prescribed antibiotic therapy and immunizing agents as ordered Evaluates postoperative tissue perfusion Implements thermoregulation measures, and monitors body temperature Evaluates postoperative respiratory status Evaluates postoperative cardiac status Evaluates postoperative neurological status Assesses pain control, collaborated in initiating patient-controlled analgesia and implements alternative methods of pain control Verifies allergies, administers prescribed medications and solutions, evaluates response to medications Entry 1 In PACU I 08/23/17 14:50:00 Discharge from PACU 08/23/17 16:00:00 I Outcomes Met? Yes Last Modified By: Dana Radford RN 08/23/17 16:03:23 Post-Care Text: The patient demonstrates knowledge of the expected response to the operative or invasive procedure The patient's care is consistent with the individualized perioperative plan of care The patient's right to privacy is maintained The patient's value system, lifestyle, ethnicity, and culture are considered, respected, and incorporated into the perioperative plan of care The patient participates in decisions affecting his or her perioperative plan of care The patient is free from signs and symptoms of infection The patient has wound/tissue perfusion consistent with or improved from baseline levels established preoperatively The patient is at or returning to normothermia at the conclusion of the immediate postoperative period The patient's respiratory function is consistent with or improved from baseline levels established preoperatively The patient's cardiovascular status is consistent with or improved from baseline levels established preoperatively The patient's cardiovascular status is consistent with or improved from baseline levels established preoperatively The patient demonstrates and/or reports adequate pain control throughout the perioperative period The patient received appropriate medication(s), safely administered during the perioperative period Acuity Level PACU I FT Entry 1 Start Time 08/23/17 14:50:00 Stop Time 08/23/17 16:00:00 Acuity Level Acuity Level I Last Modified By: Dana Radford RN 08/23/17 16:03:35 Finalized By: Dana Radford RN Document Signatures Signed By: Dana Radford RN 08/23/17 16:03 Normal [facility] Main OR PACU II Recordon Main OR PACU II Record PACU Phase II Document Type FT Summary Primary Physician: Ean Shahid MD Finalized Date/Time: 08/23/17 21:51:51 Pt. Name: LORENZA RAMACHANDRAN/Sex: 1955 Male Med Rec #: [id number] Physician: Ean Shahid MD Financial #: [id number] Pt. Type: A Room/Bed: [place] [address] Admit/Disch: 08/23/17 09:39:00 - 08/23/17 19:30:00 Institution: Case Times PACU II FT Pre-Care Text: Identifies barriers to communication and implements measures to provide psychological support and determines knowledge level Develops individualized plan of care, and ensures continuity of care Maintains patient's dignity and privacy, and maintains patient confidentiality Identifies and reports philosophical, cultural, and spiritual beliefs and values Identifies individual values and wishes concerning care administers prescribed antibiotic therapy and immunizing agents as ordered, Evaluates postoperative tissue perfusion Implements thermoregulation measures, and monitors body temperature Evaluates postoperative respiratory status Evaluates postoperative cardiac status Evaluates postoperative neurological status Assesses pain control, collaborated in initiating patient-controlled analgesia and implements alternative methods of pain control Verifies allergies, administers prescribed medications and solutions, evaluates response to medications Entry 1 In PACU II 08/23/17 16:00:00 Discharge from PACU 08/23/17 19:30:00 II Outcomes Met? Yes Last Modified By: Serene Boyer RN 08/23/17 21:51:46 Post-Care Text: The patient demonstrates knowledge of the expected response to the operative or invasive procedure The patient's care is consistent with the individualized perioperative plan of care The patient's right to privacy is maintained The patient's value system, lifestyle, ethnicity, and culture are considered, respected, and incorporated into the perioperative plan of care The patient participates in decisions affecting his or her perioperative plan of care. The patient is free from signs and symptoms of infection The patient has wound/tissue perfusion consistent with or improved from baseline levels established preoperatively The patient is at or returning to normothermia at the conclusion of the immediate postoperative period The patient's respiratory function is consistent with or improved from baseline levels established preoperatively The patient's cardiovascular status is consistent with or improved from baseline levels established preoperatively The patient's neurological status is consistent with or improved from baseline levels established preoperatively The patient demonstrates and/or reports adequate pain control throughout the perioperative period The patient received appropriate medication(s), safely administered during the perioperative period Finalized By: Serene Boyer RN Document Signatures Signed By: Serene Boyer RN 08/23/17 21:51 Normal [facility] Main OR Preoperative Recordo n 08-23-2017 Main OR Preoperative Record PreOp Document Type FT Summary Primary Physician: Ean Shahid MD Finalized Date/Time: 08/23/17 12:44:33 Pt. Name: LORENZA RAMACHANDRAN /Sex: 1955 Male Med Rec #: [id number] Physician: Ean Shahid MD Financial #: [id number] Pt. Type: A Room/Bed: [facility] Admit/Disch: 08/23/17 09:39:18 - Institution: Case Times PreOp FT Pre-Care Text: Verifies consent for planned procedure, identifies individual values and wishes concerning care, includes family members in perioperative teaching Entry 1 Patient Times. In Pre Surgery 08/23/17 09:45:00 Out Pre Surgery 08/23/17 12:20:00 Outcomes Met? Yes Last Modified By: Keyur Archer RN 08/23/17 12:44:30 Post-Care Text: The patient participates in decisions affecting his or her perioperative plan of care Finalized By: Keyur Archer RN Document Signatures Signed By: Keyur Archer RN 08/23/17 12:44 Normal [facility] Operative Reporton Operative Report Date of Surgery: 08/23/2017SURGEON: Ean Shahid M.D.PREOPERATIVE DIAGNOSIS: Incarcerated umbilical herniaPOSTOPERATIVE DIAGNOSIS: Incarcerated umbilical herniaOPERATION: Robotic assisted umbilical herniorrhaphy with 9 cm Symbotexmesh insertionANESTHESIA: General endotracheal as well as bilateral TAP blockANESTHESIOLOGIST: Haider Pelletier D.O.ESTIMATED BLOOD LOSS: Less than 15 mLINDICATIONS AND CONSENT: Patient is a 62 year old male with a long historyof incarcerated umbilical hernia become increasingly symptomatic as well asenlarging. Indications, risks, benefits, alternatives of proceeding withherniorrhaphy with mesh insertion were explained extensively to the patientincluding the risk of bleeding, infection, recurrent hernia, bowel injury,blood clot, pulmonary embolus, heart attack, anesthetic complications, needfor further surgery or open procedure or mesh removal. All of his questionswere answered. Informed consent was obtained.PROCEDURE: The patient was brought to the Operating Room and placed inthe supine position. General anesthesia was induced. Ross catheter wasinserted using sterile technique. A TAP block was performed bilaterallyper Dr. Pelletier. The patient was prepped and draped in the usual sterilefashion. A right subcostal port site incision was made with a scalpel bladeand carried down through the tissue using blunt dissection. The fascia wasgrasped and incised. Two 0 Vicryl stay sutures were placed in either sideof the midline fascia. The Renetta trocar was then inserted and securedusing the stay sutures. The abdomen was then insufflated with carbondioxide to a pressure of 15 mm Hg. The scope was inserted and the abdomenwas visualized. An 8.5 mm camera port was then placed in the rightmid-abdomen laterally under direct visualization. An 8 mm robotic port wasthen placed in the right lower quadrant also under direct visualization.The #1 V-Loc suture was then placed in the abdomen and inserted into thefalciform ligament for safekeeping. The robot was then docked. A bipolargrasper was placed in the #2 arm and monopolar scissors in the #1 arm. Jose Antonioen broke scrub and went to the console. Monopolar scissors were used tomobilize the peritoneum in a flap down from the patient's right side thendown across towards the left. The hernia and the preperitoneal fat wasreduced with this using the monopolar electrocautery and scissors. Oncethis had adequately been dissected circumferentially the bipolar grasperand the monopolar scissors were changed out for two needle drivers. The #1nonabsorbable V-Loc suture was then used to close the defect. It was runfrom the inferior aspect, closed longitudinally run cephalad and then backcaudally. Once this was complete the #2 arm needle bus van driver was removed andthe scissors were placed. Suture was cut. The port was then brought out,removed from the Renetta and under direct visualization the needle wasbrought out through the right subcostal Renetta port. Under directvisualization the 9 cm Symbotex mesh was inserted along with three 2-0V-Loc sutures. The V-Veronica sutures were placed up in the edge of thefalciform ligament. Mesh was then unrolled with the coated side out. A 2-0Nylon on Deni needle was then inserted through the umbilicus under directvisualization into the mesh and then brought back out through the mesh andthe anterior abdominal wall in order to hold the mesh in place during thesuturing process. The 2-0 V-Loc absorbable sutures were then used toapproximate the mesh to the belly wall. This was done circumferentially.There was no kinking or twisting of the mesh. There was good apposition.Once this was complete the peritoneum and umbilical preperitoneal fat wasthen closed over the mesh completely using a 2-0 absorbable V-Loc suture.Scissors were then brought in through the #2 arm and exchanged and sutureswere all cut. The needle was then brought out under direct visualizationthrough the #2 right subcostal port site. Once this was complete the Nylonstitch at the umbilicus was removed. The needle bus van driver from the #1 arm wasremoved. Robot was then undocked. I then scrubbed back into the field andinspected the abdomen. There was hemostasis. The peritoneum was completelycovering the mesh. Everything was intact. All port sites were examined.Upon withdrawal of the ports there was noted to be good hemostasis. TheHasson trocar was then removed. The right subcostal port site fascia wasclosed with a 0 Vicryl cpkuve-ja-zgrhe suture. All port sites as well asthe umbilicus were injected with Exparel Solution. The skin was then closedwith 4-0 Monocryl subcuticular sutures and Dermabond glue. Sterile pressuredressing was applied to the umbilicus as well as sterile dressings to theport sites. An abdominal binder was placed. The Ross catheter was removed.The patient tolerated the procedure well, was extubated, sent to RecoveryRoom in good condition.Ean Shahid M.D.lkrDictated: 08/23/2017 #[id number]: 08/23/2017 #[id number]: Sherrill Guerrier M.D. [facility] Comment on above: Result Comment: Elec tronically Signed By: Zehra DEL REAL, Ean Marshall\Date and Time Signed: 08/23/17 15:42 EST Operative Report Date of Surgery: 08/23/2017SURGEON: Haider Pelletier D.O.PREOPERATIVE DIAGNOSIS: Control of postoperative painPOSTOPERATIVE DIAGNOSIS: Control of postoperative painOPERATION: Bilateral transversus abdominis plane block (TAP block)utilizing ultrasound guidanceANESTHESIA: GeneralPROCEDURE: The patient was interviewed and examined. The anesthesiaoptions were discussed including a bilateral TAP block for postoperativeanalgesia. The discussion included the procedure, risks and benefits andalternatives to the procedure. The patient's questions were all answeredand the patient elected to proceed with the bilateral TAP block forpostoperative pain relief. After the patient underwent general anesthesia,both lateral aspects at the abdomen were prepped and draped in a sterilefashion using ChloraPrep. Then with ultrasound guidance using a 21 ezcum988 mm Pajunk needle, the transversus abdominis plane was located on bothsides. A total volume of 25 mL of 0.25% Marcaine and Exparel mixture wasinjected on each side after multiple attempts at aspiration. The patienttolerated the procedure well. Surgery then proceeded under generalanesthesia.Haider Pelletier D.O.lkrDictated: 08/23/2017 #[id number]: 08/23/2017 #[id number]: Haider Pelletier D.O. [facility] Comment on above: Result Comment: Elec tronically Signed By: Haider Pelletier DO\.br\Date and Time Signed: 08/23/17 13:43 EST Patient Education - Texton 0 08-23-2017 Patient Education - Text Patient Education Materials Follows: [facility] Progress Note-Physicianon Progress Note-Physician Patient: LORENZA RAMACHANDRAN Age: 62 years Sex: Male : 1955 Associated Diagnoses: None Author: Haider Pelletier DO Preoperative Information Time patient last ate or drank:=== NPO guidelines met. Anesthesia history: Patient History: No complications. Re-eval prior to induction: Inital eval reviewed: No significant interval change. Pleasant male, no problems with anesthesia, and no significant heart or lung dx. Smoker, counseled on the importance of smoking cessation, but smoked today anyways. Discussed PNB for postop pain and GA, and the patient agrees to proceed with both. Review of Systems Constitutional: Negative. Cardiovascular: Negative, CV assessment performed. Respiratory: Negative, breathing at baseline. Neurologic: Negative. Health Status Allergies: Allergic Reactions (Selected)No Known Allergies, Allergies (1) Active ReactionNo Known Allergies None Documented Current medications: (Selected) Inpatient MedicationsOrderedCefazolin 2 gram IVPB: 2 gram = 50 mL, Soln-IV, IV Piggyback, PREOP, Routine, Start date 08/23/17 9:45:00 EST, 50 mL/hr, Infuse over 1 hour(s)Lactated Ringers IV Jo 1000 mL 1,000 mL: 1,000 mL, IV, 150 mL/hr, Routine, Start date 08/23/17 9:45:00 EST, 6.7 hour(s), Total volume (mL): 1,000Documented MedicationsDocumentedMucinex: 600 mg, Oral, q12hr, Allergy symptomsSynthroid: 137 microgram, Oral, Daily, ThyroidVitamin C: 1,000 mg, Oral, Daily, Prophylaxis, Medications (2) ActiveScheduled: (1)ceFAZolin 2 gram 50 mL, IV Piggyback, PREOPContinuous: (1)Lactated Ringers 1,000 mL 1,000 mL, IV, 150 mL/hrPRN: (0) Problem list: All ProblemsBack pain, chronic / SNOMED CT 224963012 / ConfirmedHernia, umbilical / SNOMED CT 5348183424 / ConfirmedHypothyroid / SNOMED CT 19802746 / ConfirmedSmoker / IMO [id number] / ConfirmedAdded secondary to documentation in Social History., Active Problems (4)Back pain, chronic Hernia, umbilical Hypothyroid Smoker Histories Past Medical History: No active or resolved past medical history items have been selected or recorded. Family History: No family history items have been selected or recorded. Procedure history: Arthroscopic repair of rotator cuff (7412382091).Tonsillectomy (548557925).Neuroma (05198279).Comments:08/23/2017 10:21 - Coral Mcneil RN Aremoval of neuromas from feet Social History Social & Psychosocial FekmqiTjvzwow74/22/2018 Risk Assessment: Denies Alcohol UseSubstance Abuse08/23/2017 Risk Assessment: Denies Substance PyzvwDwldiew86/22/2018 Risk Assessment: High Risk08/23/2017 Use: Current Every Day Smoker Type: Cigarettes Tobacco use per day: 1 Ready to change: Yes. Physical Examination Vital Signs 08/23/2017 10:02 EST Heart Rate Monitored 77 bpm Systolic Blood Pressure 128 mmHg Diastolic Blood Pressure 80 mmHg Blood Pressure Location Left arm Mean Arterial Pressure, Monitered 96 mmHg 08/23/2017 10:01 EST Heart Rate Monitored 76 bpm SpO2 97 % 08/23/2017 10:01 EST Respiratory Rate 16 br/min 08/23/2017 10:00 EST Temperature Oral 36.5 DegC 08/23/2017 10:00 EST Systolic Blood Pressure 115 mmHg Diastolic Blood Pressure 85 mmHg Blood Pressure Location Right arm Mean Arterial Pressure, Monitered 95 mmHg Vitals Signs (last 24 hrs) Last Charted Minimum MaximumTemp 36.5 (AUG 23 10:00) 36.5 (AUG 23 10:00) 36.5 (AUG 23 10:00)Heart Rate 77 (AUG 23 10:02) 76 (AUG 23 10:01) 77 (AUG 23 10:02)Resp Rate 16 (AUG 23 10:) 16 (AUG 23 10:) 16 (AUG 23 10:)SBP 128 (AUG 23 10:02) 115 (AUG 23 10:00) 128 (AUG 23 10:02)DBP 80 (AUG 23 10:02) 80 (AUG 23 10:02) 85 (AUG 23 10:00)MAP 96 (AUG 23 10:) 95 (AUG 23 10:00) 96 (AUG 23 10:02)SpO2 97 (AUG 23 10:) 97 (AUG 23 10:) 97 (AUG 23 10:) Pain assessment: Pain Assessment 08/23/2017 10:01 EST Preliminary Pain Scale 0 . Airway: Mallampati classification: II (soft palate, fauces, uvula visible). Distance: Adequate. Temporomandibular joint mobility: Good. Mouth: Adequate opening. HENT: Normocephalic. Respiratory: Respirations are non-labored. Cardiovascular: Regular rhythm. Integumentary: Warm, [place]. Neurologic: Alert, Oriented. Review / Management Results review: No qualifying data available. Chest x-ray results Reviewed radiologist's report ECG interpretation: Reviewed ECG.. Condition: Stable. Plan [place] [employer] (ASA) physical status classification: Class II. Anesthetic Preoperative Plan Anesthesia: General. , Regional B/L TAP block. Anesthetic plan, risks, benefits, and alternatives discussed with the patient and/or family. Patient verbalized understanding. Risks, benefits, alternatives discussed. Questions answered. . Normal [facility] Comment on above: Result Comment: Elec tronically Signed By: Haider Pelletier DO\.br\Date and Time Signed: 08/23/17 12:21 EST UA With Cult Reflexon 2017 Bilirubin Ql (U) Negative Normal Negative [facility] Comment on above: Performed By: #### 2 984041, 7054760, 1336572, 6924234, 3870881, 10396507 ####[facility] [address] [place] [address] COLOR:TYPE:PT:URIN E:NOM:AUTO YELLOW Normal Yellow [facility] Comment on above: Performed By: #### 2 502690, 1653509, 0772505, 0152446, 0309570, 97973511 ####[facility] [address] [place] [address] CRYSTALS:PRTHR:PT: URINE SED:ORD:MICROSCOPY .LIGHT Present Normal [facility] Comment on above: Performed By: #### 2 378422, 4606801, 2625382, 2511322, 6214733, 34358177 ####[facility] [address] [place] [address] Erythrocytes (RBC) 4-20 Normal 0-3 [facility] Comment on above: Performed By: #### 2 805681, 1842544, 3474708, 6344176, 5215323, 63308487 ####[facility] [address] [place] [address] GLUCOSE:MCNC:PT:UR INE:QN:TEST STRIP Negative Normal Negative [facility] Comment on above: Performed By: #### 2 492161, 2823524, 7257359, 8664915, 8839485, 87212077 ####[facility] [address] [place] [address] KETONES:MCNC:PT:UR INE:QN:TEST STRIP Negative Normal Negative [facility] Comment on above: Performed By: #### 2 723641, 6614744, 8378854, 6144140, 8947886, 96956414 ####[facility] [address] [place] [address] LEUKOCYTES:PRTHR:P T:URINE:ORD:AUTOMA KAYLA Negative Normal Negative [facility] Comment on above: Performed By: #### 2 968721, 3043112, 8533974, 4688724, 5842012, 61849140 ####[facility] [address] [place] [address] UA Spec Desc Ross Normal [facility] Comment on above: Performed By: #### 2 003042, 2938484, 5305298, 8518272, 5179120, 71331593 ####[facility] [address] [place] [address] Urine, clarity CLEAR Normal Clear [facility] Comment on above: Performed By: #### 2 184437, 6922505, 6193283, 7326023, 4146961, 10682406 ####[facility] [address] [place] [address] Urine, hemoglobin presence Negative Normal Negative [facility] Comment on above: Performed By: #### 2 216448, 5387920, 3788709, 0876129, 0774998, 18271109 ####[facility] [address] [place] [address] Urine, leukocytes in sedmiment 0-5 Normal 0-5 [facility] Comment on above: Performed By: #### 2 293132, 3351047, 0793296, 1535831, 5828756, 65428823 ####[facility] [address] [place] [address] Urine, mucus presence in sediment 1+ Normal [facility] Comment on above: Performed By: #### 2 987028, 0682532, 7946316, 0325105, 1376705, 61308710 ####[facility] [address] [place] [address] Urine, nitrite presence Negative Normal Negative [facility] Comment on above: Performed By: #### 2 040254, 1947949, 6538218, 9818613, 1908775, 67587529 ####[facility] [address] [place] [address] Urine, pH 7.5 [pH] Invalid Interpretation Code 5.0-9.0 [facility] Comment on above: Performed By: #### 2 108514, 9117630, 2078109, 3261735, 9305139, 94313054 ####[facility] [address] [place] [address] Urine, protein Negative Normal Negative [facility] Comment on above: Performed By: #### 2 735416, 7565699, 9363197, 8881982, 7172602, 87418002 ####[facility] [address] [place] [address] Urine, specific gravity 1.015 Invalid Interpretation Code 1.005-1.030 [facility] Comment on above: Performed By: #### 2 295946, 5590484, 7863521, 8220139, 3828370, 42460354 ####[facility] [address] [place] [address] Urine, squamous cells in sediment 0-2 Normal 0-2 [facility] Comment on above: Performed By: #### 2 478863, 5951184, 1357449, 2034394, 0980878, 22418636 ####[facility] [address] [place] [address] Urine, urobilinogen 0.2 {Emani'U}/dL Normal 0.0-1.0 [facility] Comment on above: Performed By: #### 2 938846, 7867347, 5651188, 4216375, 6492096, 46358776 ####[facility] [address] [place] [address] Coding Summary.on 08-19-2017 Coding Summary. CODING DATE: 018 FINAL [facility] STATUS: Home (Routine DC) PAYOR: Viral APC DESCRIPTION 5521 Level 1 Imaging without Contrast ADMIT DX: REASON FOR VISIT DX: Z01.818 Encounter for other preprocedural examination FINAL DX: PRINCIPAL: Z01.818 Encounter for other preprocedural examination SECONDARY: PYMT PROC APC STAT DESCRIPTION DOCTOR NAME DATE NOTE: The code number assigned matches the documented diagnosis and / or procedure in the patient's chart. However, the narrative phrase printed from the coding software may appear abbreviated, or result in slightly different terminology. Coded By: Isa Willson Date Saved: 08/19/2017 11:07 am Normal [facility] BUNon 08-18-2017 Urea nitrogen 20 mg/dL Normal 5-21 [facility] Comment on above: Performed By: #### 2 737405, 1631728, 1782283, 3060971, 0991052, 13335589 ####[facility] [address] [place] [address] CBC w/Indiceson 08-18-2017 Erythrocyte distribution width Auto Ratio (RBC) 14.1 % Normal 10.9-14.2 [facility] Comment on above: Performed By: #### 2 719621, 0643172, 9984501, 3349831, 1653043, 74415868 ####[facility] [address] [place] [address] Erythrocytes (RBC) 4.9 E12/L Normal 4.3-5.9 [facility] Comment on above: Performed By: #### 2 923695, 5254847, 2657406, 6929405, 7639553, 74175728 ####[facility] [address] [place] [address] Hematocrit (HCT) 44.4 % Normal 37.7-49.0 [facility] Comment on above: Performed By: #### 2 093055, 3223717, 2262782, 9518330, 2282154, 06579397 ####[facility] [address] [place] [address] Hemoglobin mass conc (Bld) 15.1 g/dL Normal 13.5-17.5 [facility] Comment on above: Performed By: #### 2 473333, 9563030, 2255174, 4750315, 3151965, 48521159 ####[facility] [address] [place] [address] MCH 30.8 pg Normal 27.0-34.0 [facility] Comment on above: Performed By: #### 2 299506, 8732745, 1276953, 0575376, 9051791, 70617251 ####[place] [address] MCHC mass conc (RBC) 33.9 g/dL Normal 31.4-39.3 [facility] Comment on above: Performed By: #### 2 295816, 1425685, 8301128, 3148752, 6317891, 24714065 ####[place] [address] [place] [id number] MCV 90.8 fL Normal 80.0-100.0 [facility] Comment on above: Performed By: #### 2 604900, 8853934, 5838768, 5548350, 3600921, [id number] ####[address] [address] Platelet mean volume (PMV) 8.8 fL Normal 6.4-10.8 [facility] Comment on above: Performed By: #### 2 306934, 5532462, 3355071, 5036224, 5034545, [id number] ####[address] [place] [address] Platelets 195.0 E9/L Normal 150.0-500.0 [facility] Comment on above: Performed By: #### 2 976193, 0488946, 7581315, 7481343, 9414095, 39930458 ####[address] [place] [address] WBC (Leukocytes) 8.0 E9/L Normal 4.0-11.0 [facility] Comment on above: Performed By: #### 2 109575, 2502076, 4957329, 2101294, 5377177, 60725832 ####[facility] [address] [place] [address] Creatinineon 08-18-2017 Creatinine 0.8 mg/dL Normal 0.5-1.3 [facility] Comment on above: Performed By: #### 2 213622, 7900881, 1754206, 2688475, 2270259, 89417990 ####[facility] [address] [place] [address] Glucoseon 08-18-2017 Glucose mass conc 99 mg/dL Normal 55-199 [facility] Comment on above: Performed By: #### 2 796099, 2992864, 9481643, 5367176, 5930626, 67479071 ####[facility] [address] [place] [address] Lyteson 08-18-2017 Anion gap 9 mmol/L Normal 6-16 [facility] Comment on above: Performed By: #### 2 536716, 3116656, 3392293, 0024310, 8392425, 32190730 ####[facility] [address] [place] [address] Chloride 104 mmol/L Normal 101-111 [facility] Comment on above: Performed By: #### 2 378850, 0888279, 6274910, 6418389, 6441258, 81192518 ####[facility] [address] [place] [address] CO2 28 mmol/L Normal 21-31 [facility] Comment on above: Performed By: #### 2 000594, 7641746, 5660497, 9568961, 4627717, 14950078 ####[facility] [address] [place] [address] Potassium molar conc 4.4 mmol/L Normal 3.5-5.3 [facility] Comment on above: Performed By: #### 2 267804, 2558542, 5951869, 1000999, 4922105, 95746156 ####[facility] [address] [place] [address] Sodium 137 mmol/L Normal 135-145 [facility] Comment on above: Performed By: #### 2 523235, 5252445, 9465119, 3920856, 9206202, 73192149 ####[facility] [address] [place] [address] XR Chest 2 Viewson 8 XR Chest 2 Views Exam Date/Time:2017 10:39 ESTReason for Exam:pre opReportIMPRESSION: NO ACTIVE LUNG DISEASE.EXAM: XR Chest 2 Views CLINICAL HISTORY: Shortness of breath, preop COMPARISONS: None FINDINGS: The heart, mediastinum and pulmonary vasculature are within normal limits.Visualized lung mclean are clear. Bones unremarkable. FINAL REPORT Dictated: 08/18/2017 12:07 pm Alexis Burns MD Signed (Electronic Signature): 08/18/2017 1:55 pm Signed by: Alexis Burns MD Transcribed by: alice Technologist: AO Normal [facility] eGFRon 08-18-2017 eGFR (black) mL/min/{1.73_m2} Normal >=59 [facility] Comment on above: Order Comment: Order added by Discern Expert. Result Comment: eGFR is race adjusted. AA=. Performed By: #### 2 764802, 1469351, 2603262, 8239198, 3477580, 66567982 ####[facility] [address] [place] [address] eGFR (non-black) mL/min/{1.73_m2} Normal >=59 [facility] Comment on above: Order Comment: Order added by Discern Expert. Result Comment: [employer] noel kidney disease could be indicated at eGFR's of less than 60 mL/min/1.73m2. Kidney failure is indicated at less than 15 mL/min/1.73m2. Performed By: #### 2 705736, 4218269, 5843301, 4539598, 5232238, 37649330 ####[facility] [address] [place] [address] Encounters Encounter Date Encounter Type Care Provider Facility Start: 11-18-2023 End: 11-18-2023 ambulatory COLLIN Mata JACOBY Not Available Start: 12-26-2022 End: 12-27-[address] DAXA NORWOOD . Facility: Start: 06-01-2022 End: 06-01-[address] DAXA NORWOOD . Facility:[facility] Start: 05-30-2022 End: 05-31-[address] DAXA NORWOOD . Facility: Start: 04-03-2022 End: 04-03-[address] DAXA NORWOOD . Facility:[facility] Start: 04-02-2022 End: 04-03-[address] DAXA NORWOOD . Facility: Start: 08-23-2017 End: 08-23-2017 Ambulatory Ean Shahid Facility:[facility] [place] Start: 08-18-2017 End: 08-19-2017 Ambulatory Ean Shahid Facility:[facility] [place] Procedures Date Procedure Procedure Detail Performing Clinician Start: 04-02-[address] MUSA NORWOOD . Comment on above: Performed By: #### P [facility], [id number] #### [facility] [address] [place] [address] Dr. Guille Calderon Payers Date Payer Category Payer Unknown [id number] 1958 Medicare [id number] 1958 Medicare [id number] 1958 Unknown [id number] 1955 Unknown [id number] 2.16.84 [id number] 1955 Unknown [id number] 2.16.84 [id number] 1955 Unknown [id number] 2.16.84 [id number] 1955 Unknown [id number] 2.16.84 [id number] 1955 Unknown [id number] 2.16.84 [id number] 1955 Unknown [id number] 2.16.84 [id number] Summary Purpose Family History No Family History Records FoundNo Family History Records FoundNo Family History Records Found Advance Directives No Advanced Directives Records FoundNo Advanced Directives Records FoundNo Advanced Directives Records Found Additional Source Comments (unrecognized sect ion and content) No Status Records FoundNo Status Records FoundNo Status Records Found INFORMATION SOURCE (unrecogn ized section and content) DATE CREATED AUTHOR 01/24/2018 [facility] DATE CREATED AUTHOR AUTHOR'S ORGANIZ ATION 01/08/2023 [facility] DATE CREATED AUTHOR AUTHOR'S ORGANIZ ATION 11/19/2023 [facility] FOR RECORDS PERTAINING TO PATIENTS WHO ARE OR HAVE BEEN ENROLLED IN A CHEMICAL DEPENDENCY/SUBSTANCEABUSE PROGRAM, SOME INFORMATION MAY BE OMITTED. This clinical summary was aggregated from multiple sources. Caution should be exercised in using it in the provision of clinical care. This summary normalizes information from multiple sources, and as a consequence, information in this document may materially change the coding, format and clinical context of patient data. In addition, data may be omitted in some cases. CLINICAL DECISIONS SHOULD BE BASED ON THE PRIMARY CLINICAL RECORDS. [facility] [employer] provides no warranty or guarantee of the accuracy or completeness of information in this document.
[2024-01-13 08:17] LABS: Free T3 2.41 pg/mL (2.18-3.98); Thyroid Stimulating Hormone 0.699 uIU/mL (0.358-3.740)
== END 2024-01-13 07:19 | disposition home or self-care (01) ==
LOC: LAB 07:20
PROVIDERS: PCP Family Medicine; Visit Provider Family Medicine
DX: E03.9 Hypothyroidism, unspecified (principal)
CPT/HCPCS: 36415; 84436; 84443; 84481

== ENCOUNTER 2024-04-01 18:58 | Observation (INO) | payer MEDICARE, SELFPAY ==
[2024-04-01] VITALS (43 sets, daily range): BP systolic 104–139; BP diastolic 62–120; PULSE 62–143; TEMP 36.4–36.5; O2SAT 94–98; BMI 21.5
--- NOTE | 2024-04-01 19:17 | CT_ITS ---
[address] [address] Patient Name: LORNEZA RAMACHANDRAN MRN: [id number] date: 1955 Sex: M Assigned Patient Location: ER Current Patient Location: ED.MAIN Accession/Order Number: [id number] Exam Date: 04/01/2024 20:40 Report Date: 04/01/2024 22:31 At the request of: ERICK TARIQ Procedure: CT angio chest EXAMINATION:CT angio chest INDICATION:Pulmonary embolism, chest pain, rapid afib COMPARISON:Chest CT dated 10/27/2023 TECHNIQUE:Thin section transaxial slices were acquired through the chest with intravenous contrast per PE protocol. Coronal and sagittal reconstructed images were reviewed. FINDINGS: PULMONARY ARTERIES: There is excellent opacification of the pulmonary vasculature. No suspicious pulmonary arterial filling defects are identified to suggest pulmonary embolus. LUNGS: There is endobronchial thickening with mucous plugging in the right lower lobe. There is atelectasis in the lung bases, right greater than left. Emphysematous changes are present elsewhere in the lungs. No suspicious pulmonary nodules, masses or infiltrates are present. PLEURAL CAVITY: No pleural effusion. MEDIASTINUM: Trachea and central airways are patent. HEART: Moderate coronary artery calcifications are present.There is no evidence of right heart strain. VASCULAR:No aneurysm or dissection of the thoracic aorta. LYMPH NODES:No suspicious lymphadenopathy. CHEST WALL/AXILLA: Chest wall and axilla are unremarkable. BONES: Mild endplate degenerative disc disease in the lower thoracic spine. VISUALIZED UPPER ABDOMEN: There is a cyst that is incompletely imaged in the left kidney. CT/CT angio chest IMPRESSION: 1. No evidence of pulmonary embolus. 2. Bibasilar atelectasis. Endobronchial thickening and mucous plugging in the right lower lobe. Electronically authenticated by: HUMA FRIEDMAN Date: 04/01/2024 22:31
--- NOTE | 2024-04-01 19:17 | ECG_ITS ---
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
--- OUTSIDE RECORDS SUMMARY | 2024-04-01 19:18 | XMS_ITS | CCD ---
Author Organization [facility] Care Team Providers Care Fertilizer Processing Supervisor Name Role Phone Nill, Ean R Unavailable Unavailable Nill, Ean R Unavailable Unavailable Nill, Ean R Unavailable Unavailable Hoy, Daxa~[phone] UNKNOWN Unavailable Unavailable Nill, Ean R Unavailable Unavailable Nill, Ean R Unavailable Unavailable Nill, Ean R Unavailable Unavailable Hoy, Daxa~[phone] UNKNOWN Unavailable Unavailable HOY ., DR MITTAL Primary Care Unavailable HOY ., DR MITTAL Admitting Unavailable HOY ., DR MITTAL Attending Unavailable HOY ., DR MITTAL Consulting Unavailable VINTON, DR SPEEDY [employer] Unavailable ZIEBER, DR [...] INSULINon 12-29-2022 Insulin 14.2 uIU/mL Normal 2.6-24.9 [facility] Comment on above: Performed By: #### I TJ #### [facility] [address] [address] [address] Guille Calderon CBC AUTO DIFFon 12-26-2022 BASO # 0.1 103/ul Normal 0.0-0.1 [facility] Comment on above: Performed By: #### I TJ #### [facility] [address] [address] [address] Guille Calderon Basophils/100 WBC (Bld) 1.3 % Normal 0.2-2.0 [facility] Comment on above: Performed By: #### I TJ #### [facility] [address] [place] [address] Dr. Guille Calderon EO # 0.1 103/ul Normal 0.0-0.7 [facility] Comment on above: Performed By: #### I TJ #### [facility] [address] [place] [address] Dr. Guille Calderon Eosinophils/100 WBC (Bld) 1.1 % Normal 0.9-7.0 [facility] Comment on above: Performed By: #### I TJ #### [facility] [address] [place] [address] Dr. Guille Calderon Erythrocyte distribution width (RBC) [Ratio] 13.1 % Normal 11.0-15.0 [facility] Comment on above: Performed By: #### I TJ #### [facility] [address] [place] [address] Dr. Guille Calderon Hematocrit (Bld) [Volume fraction] 46.7 % Normal 42.0-54.0 [facility] Comment on above: Performed By: #### I TJ #### [facility] [address] [place] [address] Dr. Guille Calderon Hemoglobin (Bld) [Mass/Vol] 16.1 g/dL Normal 14.0-18.0 [facility] Comment on above: Performed By: #### I TJ #### [facility] [address] [place] [address] Dr. Guille Calderon IG # 0.01 10e3/ul Normal 0.00-0.03 [facility] Comment on above: Performed By: #### I TJ #### [facility] [address] [place] [address] Dr. Guille Calderon IG % 0.2 % Normal 0.0-0.5 [facility] Comment on above: Performed By: #### I TJ #### [facility] [address] [place] [address] Dr. Guille Calderon LYMPH # 1.9 103/ul Normal 1.2-3.8 [facility] Comment on above: Performed By: #### I TJ #### [facility] [address] [place] [address] Dr. Guille Calderon Lymphocytes/100 WBC (Bld) 30.2 % Normal 20.5-60.0 [facility] Comment on above: Performed By: #### I TJ #### [facility] [address] [place] [address] Dr. Guille Calderon MANUAL DIFF REQ NO Normal [facility] Comment on above: Performed By: #### I TJ #### [facility] [address] [place] [address] Dr. Guille Calderon MCH (RBC) [Entitic mass] 31.1 pg Normal 25.9-34.0 [facility] Comment on above: Performed By: #### I TJ #### [facility] [address] [place] [address] Dr. Guille Calderon MCHC (RBC) [Mass/Vol] 34.5 g/dL Normal 29.9-35.2 [facility] Comment on above: Performed By: #### I TJ #### [facility] [address] [place] [address] Dr. Guille Calderon MCV (RBC) [Entitic vol] 90.2 fL Normal 80.0-94.0 [facility] Comment on above: Performed By: #### I TJ #### [facility] [address] [place] [address] Dr. Guille Calderon MONO # 0.6 103/ul Normal 0.3-0.8 [facility] Comment on above: Performed By: #### I TJ #### [facility] [address] [place] [address] Dr. Guille Calderon Monocytes/100 WBC (Bld) 9.8 % Normal 1.7-12.0 [facility] Comment on above: Performed By: #### I TJ #### [facility] [address] [place] [address] Dr. Guille Calderon NEUT # 3.7 103/ul Normal 1.4-6.5 [facility] Comment on above: Performed By: #### I TJ #### [facility] [address] [place] [address] Dr. Guille Calderon Neutrophils/100 WBC (Bld) 57.4 % Normal 43.0-75.0 [facility] Comment on above: Performed By: #### I TJ #### [facility] [address] [place] [address] Dr. Guille Calderon Platelet mean volume (Bld) [Entitic vol] 9.9 fL Normal 9.5-13.5 [facility] Comment on above: Performed By: #### I TJ #### [facility] [address] [place] [address] Dr. Guille Calderon PLT 237 103/ul Normal 150-450 [facility] Comment on above: Performed By: #### I TJ #### [facility] [address] [place] [address] Dr. Guille Calderon RBC 5.18 106/ul Normal 4.70-6.10 [facility] Comment on above: Performed By: #### I TJ #### [facility] [address] [place] [address] Dr. Guille Calderon WBC 6.4 103/ul Normal 4.0-11.0 [facility] Comment on above: Performed By: #### I TJ #### [facility] [address] [place] [address] Dr. Guille Calderon FREE THYROXINE INDEX T7on FTI 3.50 Normal 1.30-4.50 [facility] Comment on above: Performed By: #### P SASC, [id number] #### [facility] [address] [place] [address] Dr. Guille Calderon T3U 34.0 % Normal 33.0-40.0 [facility] Comment on above: Performed By: #### P SASC, [id number] #### [facility] [address] [place] [address] Dr. Guille Calderon T4 [Mass/Vol] 10.30 ug/dL Normal 4.50-12.10 [facility] Comment on above: Performed By: #### P SASC, [id number] #### [facility] [address] [place] [address] Dr. Guille Calderon GLYCOHEMOGLOBIN A1Con 2022 ADA RECOMMENDATION SEE BELOW Normal [facility] Comment on above: Result Comment: ADA RECOMMENDED LIMIT 4.0 - 6.0 ADA THERAPEUTIC TARGET < 7.0 ACTION SUGGESTED > 7.0 Performed By: #### A 1C #### [facility] [address] [place] [address] Dr. Guille Calderon Glucose [Mass/Vol] 105 mg/dL Normal [facility] Comment on above: Performed By: #### A 1C #### [facility] [address] [place] [address] Dr. Gulile Calderon HbA1c (Bld) [Mass fraction] 5.3 % Normal 4.5-6.2 [facility] Comment on above: Performed By: #### A 1C #### [facility] [address] [place] [address] Dr. Guille Calderon IRONon 12-26-2022 Iron [Mass/Vol] 79.0 ug/dL Normal 65.0-175.0 [facility] Comment on above: Performed By: #### V ITAD, IRON #### [facility] [address] [place] [address] Dr. Guille Calderon LIPID PROFILEon 12-26-2022 CHOL-HDL RATIO NORM SEE BELOW Normal [facility] Comment on above: Result Comment: 3.3 - 4.4 LOW RISK 4.4 - 7.1 AVERAGE RISK 7.1 - 11.0 MODERATE RISK >11.0 HIGH RISK Performed By: #### P SASC, [id number] #### [facility] [address] [place] [address] Dr. Guille Calderon Cholesterol [Mass/Vol] 146 mg/dL Normal <=200 [facility] Comment on above: Performed By: #### P SASC, [id number] #### [facility] [address] [place] [address] Dr. Guille Calderon Cholesterol in HDL [Mass/Vol] 49 mg/dL Normal 40-60 [facility] Comment on above: Performed By: #### P SASC, [id number] #### [facility] [address] [place] [address] Dr. Guille Calderon Cholesterol in LDL [Mass/Vol] 79.2 mg/dL Normal [facility] Comment on above: Performed By: #### P SASC, VITB12 #### [facility] [address] [place] [address] Dr. Guille Calderon Cholesterol.total/ Cholesterol in HDL [Mass ratio] 3.0 {ratio} Normal [facility] Comment on above: Performed By: #### P SASC, [id number] #### [facility] [address] [place] [address] Dr. Guille Calderon HDL NORMAL > or = 60 mg/dl - LO W CARDIOVASCULAR RISK <40 mg/dl - HIGH CARDIOVASCULAR RISK Normal [facility] Comment on above: Performed By: #### P SASC, [id number] #### [facility] [address] [place] [address] Dr. Guille Calderon LDL CALC NORMAL SEE BELOW Normal [facility] Comment on above: Result Comment: <100 mg/dl OPTIMAL 100 - 129 mg/dl NEAR OR ABOVE OPTIMAL 130 - 159 mg/dl BORDERLINE HIGH 160 - 189 mg/dl HIGH >190 mg/dl VERY HIGH Performed By: #### P SASC, [id number] #### [facility] [address] [place] [address] Dr. Guille Calderon Triglyceride [Mass/Vol] 89 mg/dL Normal <=150 [facility] Comment on above: Performed By: #### P SASC, VITB12 #### [facility] [address] [place] [address] Dr. Guille Calderon VLDL CALC 17.8 mg/dL Normal [facility] Comment on above: Performed By: #### P SASC, [id number] #### [facility] [address] [place] [address] Dr. Guille Calderon PROF 14(COMP METB)on 023 Albumin [Mass/Vol] 3.6 g/dL Normal 3.4-5.0 [facility] Comment on above: Performed By: #### P SASC, [id number] #### [facility] [address] [place] [address] Dr. Guille Calderon Albumin/Globulin [Mass ratio] 0.8 {ratio} Normal [facility] Comment on above: Performed By: #### P SASC, [id number] #### [facility] [address] [place] [address] Dr. Guille Calderon ALP [Catalytic activity/Vol] 94 U/L Normal 46-116 [facility] Comment on above: Performed By: #### P SASC, VITB12 #### [facility] [address] [place] [address] Dr. Guille Calderon ALT [Catalytic activity/Vol] 45 U/L Normal 16-63 [facility] Comment on above: Performed By: #### P SASC, [id number] #### [facility] [address] [place] [address] Dr. Guille Calderon Anion gap [Moles/Vol] 11.8 mmol/L Normal [facility] Comment on above: Performed By: #### P SASC, VITB12 #### [facility] [address] [place] [address] Dr. Guille Calderon AST [Catalytic activity/Vol] 28 U/L Normal 15-37 [facility] Comment on above: Performed By: #### P SASC, VITB12 #### [facility] [address] [place] [address] Dr. Guille Calderon Bilirubin [Mass/Vol] 0.4 mg/dL Normal 0.2-1.0 [facility] Comment on above: Performed By: #### P SASC, VITB12 #### [facility] [address] [place] [address] Dr. Guille Calderon Calcium [Mass/Vol] 8.7 mg/dL Normal 8.5-10.1 [facility] Comment on above: Performed By: #### P SASC, VITB12 #### [facility] [address] [place] [address] Dr. Guille Calderno Chloride [Moles/Vol] 103 mmol/L Normal 98-107 [facility] Comment on above: Performed By: #### P SASC, VITB12 #### [facility] [address] [place] [address] Dr. Guille Calderon CO2 [Moles/Vol] 29.7 mmol/L Normal 21.0-32.0 [facility] Comment on above: Performed By: #### P SASC, VITB12 #### [facility] [address] [place] [address] Dr. Guille Calderon Creatinine [Mass/Vol] 0.95 mg/dL Normal 0.70-1.30 [facility] Comment on above: Performed By: #### P SASC, VITB12 #### [facility] [address] [place] [address] Dr. Guille Calderon EGFR-AF BURMESE >60 Normal >=60 [facility] Comment on above: Performed By: #### P SASC, [id number] #### [facility] [address] [place] [address] Dr. Guille Calderon EGFR-NON AF BURMESE >60 Normal >=60 [facility] Comment on above: Performed By: #### P SASC, VITB12 #### [facility] [address] [place] [address] Dr. Guille Calderon Globulin (S) [Mass/Vol] 4.3 g/dL Normal [facility] Comment on above: Performed By: #### P SASC, VITB12 #### [facility] [address] [place] [address] Dr. Guille Calderon Glucose [Mass/Vol] 92 mg/dL Normal 74-106 [facility] Comment on above: Performed By: #### P SASC, VITB12 #### [facility] [address] [place] [address] Dr. Guille Calderon Potassium [Moles/Vol] 4.5 mmol/L Normal 3.5-5.1 [facility] Comment on above: Performed By: #### P SASC, VITB12 #### [facility] [address] [place] [address] Dr. Guille Calderon Protein [Mass/Vol] 7.9 g/dL Normal 6.4-8.2 [facility] Comment on above: Performed By: #### P SASC, VITB12 #### [facility] [address] [place] [address] Dr. Guille Calderon Sodium [Moles/Vol] 140 mmol/L Normal 136-145 [facility] Comment on above: Performed By: #### P SASC, VITB12 #### [facility] [address] [place] [address] Dr. Guille Calderon Urea nitrogen [Mass/Vol] 15.0 mg/dL Normal 7.0-18.0 [facility] Comment on above: Performed By: #### P SASC, VITB12 #### [facility] [address] [place] [address] Dr. Guille Calderon Urea nitrogen/Creatinin e [Mass ratio] 15.8 mg/mg Normal [facility] Comment on above: Performed By: #### P SASC, [id number] #### [facility] [address] [place] [address] Dr. Guille Calderon TSHon 12-26-2022 TSH 0.068 uIU/mL Critically low 0.358-3.740 [facility] Comment on above: Performed By: #### P SASC, [id number] #### [facility] [address] [place] [address] Dr. Guille Calderon VITAMIN D 25 OHon 12-26-2022 VIT D 25-OH 72.7 ng/mL Normal [facility] Comment on above: Performed By: #### V ITAD, IRON #### [facility] [address] [place] [address] Dr. Guille Calderon VIT D RANGES SEE BELOW Normal [facility] Comment on above: Result Comment: <20 ng/mL Vit D deficient 20 - <30 ng/mL Vit D insufficient 30 - 100 ng/mL Vit D sufficient >100 ng/mL Potential Toxicity Performed By: #### V ITAD, IRON #### [facility] [address] [place] [address] Dr. Guille Calderon CULTURE SPUTUMon 06-01-2022 CULTURE SPUTUM Culture Observations : NORMAL RESPIRATORY DWIGHT. Normal [facility] Comment on above: Performed By: #### I TJ #### [facility] [address] [place] [address] Dr. Guille Calderon SPUTUM GRAM STAINon 06-01-20 22 COMMENTS Normal [facility] Comment on above: Performed By: #### I TJ #### [facility] [address] [place] [address] Dr. Guille Calderon DIPHTHEROIDS [facility] Comment on above: Performed By: #### I TJ #### [facility] [address] [place] [address] Dr. uGille Calderon EPITHELIALS <25 [facility] Comment on above: Performed By: #### I TJ #### [facility] [address] [place] [address] Dr. Guille Calderon FUNGAL ELEMENTS [place] [facility] Comment on above: Performed By: #### I TJ #### [facility] [address] [place] [address] Dr. Guille Calderon GRAM NEG BACILLI [facility] Comment on above: Performed By: #### I TJ #### [facility] [address] [place] [address] Dr. Giulle Calderon GRAM NEG DIPPLOCOCCI [facility] Comment on above: Performed By: #### I TJ #### [facility] [address] [place] [address] Dr. Guille Calderon GRAM POS BACILLI [facility] Comment on above: Performed By: #### I TJ #### [facility] [address] [place] [address] Dr. Guille Calderon GRAM POSITIVE COCCI FEW Normal [facility] Comment on above: Performed By: #### I TJ #### [facility] [address] [place] [address] Dr. Guille Calderon WBC (Bld) [#/Vol] 10*3/uL [facility] Comment on above: Performed By: #### I TJ #### [facility] [address] [place] [address] Dr. Guille Calderon BNPon 05-30-2022 Natriuretic peptide B (Bld) [Mass/Vol] 381.0 pg/mL Normal <=900.0 [facility] Comment on above: Performed By: #### B MONUMENT SETTER, CMP #### [facility] [address] [place] [address] Dr. Guille Calderon CBC AUTO DIFFon 05-30-2022 BASO # 0.1 103/ul Normal 0.0-0.1 [facility] Comment on above: Performed By: #### I TJ #### [facility] [address] [place] [address] Dr. Guille Calderon Basophils/100 WBC (Bld) 0.5 % Normal 0.2-2.0 [facility] Comment on above: Performed By: #### I TJ #### [facility] [address] [place] [address] Dr. Guille Calderon EO # 0.0 103/ul Normal 0.0-0.7 [facility] Comment on above: Performed By: #### I TJ #### [facility] [address] [place] [address] Dr. Guille Calderon Eosinophils/100 WBC (Bld) 0.1 % Critically low 0.9-7.0 [facility] Comment on above: Performed By: #### I TJ #### [facility] [address] [place] [address] Dr. Guille Calderon Erythrocyte distribution width (RBC) [Ratio] 13.7 % Normal 11.0-15.0 [facility] Comment on above: Performed By: #### I TJ #### [facility] [address] [place] [address] Dr. Guille Calderon Hematocrit (Bld) [Volume fraction] 45.4 % Normal 42.0-54.0 [facility] Comment on above: Performed By: #### I TJ #### [facility] [address] [place] [address] Dr. Guille Calderon Hemoglobin (Bld) [Mass/Vol] 15.3 g/dL Normal 14.0-18.0 [facility] Comment on above: Performed By: #### I TJ #### [facility] [address] [place] [address] Dr. Guille Calderon IG # 0.04 10e3/ul Critically high 0.00-0.03 [facility] Comment on above: Performed By: #### I TJ #### [facility] [address] [place] [address] Dr. Guille Calderon IG % 0.4 % Normal 0.0-0.5 [facility] Comment on above: Performed By: #### I TJ #### [facility] [address] [place] [address] Dr. Guille Calderon LYMPH # 2.0 103/ul Normal 1.2-3.8 [facility] Comment on above: Performed By: #### I TJ #### [facility] [address] [place] [address] Dr. Guille Calderon Lymphocytes/100 WBC (Bld) 17.7 % Critically low 20.5-60.0 [facility] Comment on above: Performed By: #### I TJ #### [facility] [address] [place] [address] Dr. Guille Calderon MANUAL DIFF REQ NO Normal [facility] Comment on above: Performed By: #### I TJ #### [facility] [address] [place] [address] Dr. Guille Calderon MCH (RBC) [Entitic mass] 31.0 pg Normal 25.9-34.0 [facility] Comment on above: Performed By: #### I TJ #### [facility] [address] [place] [address] Dr. Guille Calderon MCHC (RBC) [Mass/Vol] 33.7 g/dL Normal 29.9-35.2 [facility] Comment on above: Performed By: #### I TJ #### [facility] [address] [place] [address] Dr. Guille Calderon MCV (RBC) [Entitic vol] 92.1 fL Normal 80.0-94.0 [facility] Comment on above: Performed By: #### I TJ #### [facility] [address] [place] [address] Dr. Guille Calderon MONO # 0.7 103/ul Normal 0.3-0.8 [facility] Comment on above: Performed By: #### I TJ #### [facility] [address] [place] [address] Dr. Guille Calderon Monocytes/100 WBC (Bld) 6.5 % Normal 1.7-12.0 [facility] Comment on above: Performed By: #### I TJ #### [facility] [address] [place] [address] Dr. Guille Calderon NEUT # 8.5 103/ul Critically high 1.4-6.5 [facility] Comment on above: Performed By: #### I TJ #### [facility] [address] [place] [address] Dr. Guille Calderon Neutrophils/100 WBC (Bld) 74.8 % Normal 43.0-75.0 [facility] Comment on above: Performed By: #### I TJ #### [facility] [address] [place] [address] Dr. Guille Calderon Platelet mean volume (Bld) [Entitic vol] 10.1 fL Normal 9.5-13.5 [facility] Comment on above: Performed By: #### I TJ #### [facility] [address] [place] [address] Dr. Guille Calderon PLT 305 103/ul Normal 150-450 [facility] Comment on above: Performed By: #### I TJ #### [facility] [address] [place] [address] Dr. Guille Calderon RBC 4.93 106/ul Normal 4.70-6.10 [facility] Comment on above: Performed By: #### I TJ #### [facility] [address] [place] [address] Dr. Guille Calderon WBC 11.4 103/ul Critically high 4.0-11.0 [facility] Comment on above: Performed By: #### I TJ #### [facility] [address] [address] [address] Guille Calderon IRONon 05-30-2022 Iron [Mass/Vol] 156.0 ug/dL Normal 65.0-175.0 [facility] Comment on above: Performed By: #### I TJ #### [facility] [address] [place] [address] Dr. Guille Calderon PROF 14(COMP METB)on 022 Albumin [Mass/Vol] 4.1 g/dL Normal 3.4-5.0 [facility] Comment on above: Performed By: #### B MONUMENT SETTER, CMP #### [facility] [address] [place] [address] Dr. Guille Calderon Albumin/Globulin [Mass ratio] 0.9 {ratio} Normal [facility] Comment on above: Performed By: #### B MONUMENT SETTER, CMP #### [facility] [address] [place] [address] Dr. Guille Calderon ALP [Catalytic activity/Vol] 84 U/L Normal 46-116 [facility] Comment on above: Performed By: #### B MONUMENT SETTER, CMP #### [facility] [address] [place] [address] Dr. Guille Calderon ALT [Catalytic activity/Vol] 40 U/L Normal 16-63 [facility] Comment on above: Performed By: #### B MONUMENT SETTER, CMP #### [facility] [address] [place] [address] Dr. Guille Calderon Anion gap [Moles/Vol] 9.5 mmol/L Normal [facility] Comment on above: Performed By: #### B MONUMENT SETTER, CMP #### [facility] [address] [place] [address] Dr. Guille Calderon AST [Catalytic activity/Vol] 19 U/L Normal 15-37 [facility] Comment on above: Performed By: #### B MONUMENT SETTER, CMP #### [facility] [address] [place] [address] Dr. Guille Calderon Bilirubin [Mass/Vol] 0.4 mg/dL Normal 0.2-1.0 [facility] Comment on above: Performed By: #### B MONUMENT SETTER, CMP #### [facility] [address] [place] [address] Dr. Guille Calderon Calcium [Mass/Vol] 8.9 mg/dL Normal 8.5-10.1 [facility] Comment on above: Performed By: #### B MONUMENT SETTER, CMP #### [facility] [address] [place] [address] Dr. Guille Calderon Chloride [Moles/Vol] 103 mmol/L Normal 98-107 [facility] Comment on above: Performed By: #### B MONUMENT SETTER, CMP #### [facility] [address] [place] [address] Dr. Guille Calderon CO2 [Moles/Vol] 28.1 mmol/L Normal 21.0-32.0 [facility] Comment on above: Performed By: #### B MONUMENT SETTER, CMP #### [facility] [address] [place] [address] Dr. Guille Calderon Creatinine [Mass/Vol] 0.87 mg/dL Normal 0.70-1.30 [facility] Comment on above: Performed By: #### B MONUMENT SETTER, CMP #### [facility] [address] [place] [address] Dr. Guille Calderon EGFR-AF BURMESE >60 Normal >=60 [facility] Comment on above: Performed By: #### B MONUMENT SETTER, CMP #### [facility] [address] [place] [address] Dr. Guille Calderon EGFR-NON AF BURMESE >60 Normal >=60 [facility] Comment on above: Performed By: #### B MONUMENT SETTER, CMP #### [facility] [address] [place] [address] Dr. Guille Calderon Globulin (S) [Mass/Vol] 4.5 g/dL Normal [facility] Comment on above: Performed By: #### B MONUMENT SETTER, CMP #### [facility] [address] [place] [address] Dr. Guille Calderon Glucose [Mass/Vol] 109 mg/dL Critically high 74-106 T [facility] Comment on above: Performed By: #### B MONUMENT SETTER, CMP #### [facility] [address] [address] [address] Guille Calderon Potassium [Moles/Vol] 4.6 mmol/L Normal 3.5-5.1 [facility] Comment on above: Performed By: #### B MONUMENT SETTER, CMP #### [facility] [address] [address] [address] Guille Calderon Protein [Mass/Vol] 8.6 g/dL Critically high 6.4-8.2 T [facility] Comment on above: Performed By: #### B MONUMENT SETTER, CMP #### [facility] [address] [address] [address] Guille Calderon Sodium [Moles/Vol] 136 mmol/L Normal 136-145 [facility] Comment on above: Performed By: #### B MONUMENT SETTER, CMP #### [facility] [address] [place] [address] Dr. Guille Calderon Urea nitrogen [Mass/Vol] 19.0 mg/dL Critically high 7.0-18.0 [facility] Comment on above: Performed By: #### B MONUMENT SETTER, CMP #### [facility] [address] [address] [address] Guille Calderon Urea nitrogen/Creatinin e [Mass ratio] 21.8 mg/mg Normal [facility] Comment on above: Performed By: #### B MONUMENT SETTER, CMP #### [facility] [address] [place] [address] Dr. Guille Calderon XR CHEST 2 Von [...] by: ARLENE CHOI Date: 2022-05-30 17:22 Normal [facility] INSULINon 04-03-2022 Insulin 6.4 uIU/mL Normal 2.6-24.9 [facility] Comment on above: Performed By: #### P SASC, VITB12 #### [facility] [address] [address] [address] Guille Calderon OCC BLD IMMUNO SCREENon OCCULT BLOOD Negative Normal NEGATIVE [facility] Comment on above: Performed By: #### P SASC, VITB12 #### [facility] [address] [address] [address] Guille Calderon T4, T3U, FTI LABCORPon 04-03 Free Thyroxine Index 2.5 Normal 1.2-4.9 [facility] Comment on above: Performed By: #### T HYLC #### [facility] [address] [place] [address] Dr. Guille Calderon T3 Uptake 28 % Normal 24-39 [facility] Comment on above: Performed By: #### T HYLC #### [facility] [address] [place] [address] Dr. Guille Calderon T4 [Mass/Vol] 8.8 ug/dL Normal 4.5-12.0 [facility] Comment on above: Performed By: #### T HYLC #### [facility] [address] [place] [address] Dr. Guille Calderon VIT D 25-OH [facility]on 2021 Vitamin D, 25-Hydroxy 85.0 ng/mL Normal 30.0-100.0 [facility] Comment on above: Result Comment: Karime min D deficiency has been defined by the [employer] of [employer] and an Endocrine Society practice guideline as a level of serum 25-OH vitamin D less than 20 ng/mL (1,2). The Endocrine Society went on to further define vitamin D insufficiency as a level between 21 and 29 ng/mL (2). 1. IOM ([employer]). 2010. Dietary reference intakes for calcium and D. [place]: The National Academies Press. 2. Mena MF, Umair NC, Luis POWELL, et al. Evaluation, treatment, and prevention of vitamin D deficiency: an Endocrine Society clinical practice guideline. JCEM. 2010; 96(7):1911-30. Performed By: #### V ITADLC #### [facility] [address] [place] [address] Dr. Guille Calderon BNPon 04-02-2022 Natriuretic peptide B (Bld) [Mass/Vol] 252.0 pg/mL Normal <=900.0 [facility] Comment on above: Performed By: #### P SASC, VITB12 #### [facility] [address] [place] [address] Dr. Guille Calderon CBC AUTO DIFFon 04-02-2022 BASO # 0.1 103/ul Normal 0.0-0.1 [facility] Comment on above: Performed By: #### P SASC, VITB12 #### [facility] [address] [place] [address] Dr. Guille Calderon Basophils/100 WBC (Bld) 1.3 % Normal 0.2-2.0 [facility] Comment on above: Performed By: #### P SASC, VITB12 #### [facility] [address] [place] [address] Dr. Guille Calderon EO # 0.1 103/ul Normal 0.0-0.7 [facility] Comment on above: Performed By: #### P SASC, VITB12 #### [facility] [address] [place] [address] Dr. Guille Calderon Eosinophils/100 WBC (Bld) 1.1 % Normal 0.9-7.0 [facility] Comment on above: Performed By: #### P SASC, VITB12 #### [facility] [address] [place] [address] Dr. Guille Calderon Erythrocyte distribution width (RBC) [Ratio] 13.4 % Normal 11.0-15.0 [facility] Comment on above: Performed By: #### P SASC, VITB12 #### [facility] [address] [place] [address] Dr. Guille Calderon Hematocrit (Bld) [Volume fraction] 44.7 % Normal 42.0-54.0 [facility] Comment on above: Performed By: #### P SASC, VITB12 #### [facility] [address] [place] [address] Dr. Guille Calderon Hemoglobin (Bld) [Mass/Vol] 15.0 g/dL Normal 14.0-18.0 [facility] Comment on above: Performed By: #### P SASC, VITB12 #### [facility] [address] [place] [address] Dr. Guille Calderon IG # 0.02 10e3/ul Normal 0.00-0.03 [facility] Comment on above: Performed By: #### P SASC, VITB12 #### [facility] [address] [place] [address] Dr. Guille Calderon IG % 0.3 % Normal 0.0-0.5 [facility] Comment on above: Performed By: #### P SASC, VITB12 #### [facility] [address] [place] [address] Dr. Guille Calderon LYMPH # 1.5 103/ul Normal 1.2-3.8 [facility] Comment on above: Performed By: #### P SASC, VITB12 #### [facility] [address] [place] [address] Dr. Guille Calderon Lymphocytes/100 WBC (Bld) 23.9 % Normal 20.5-60.0 [facility] Comment on above: Performed By: #### P SASC, VITB12 #### [facility] [address] [place] [address] Dr. Guille Calderon MANUAL DIFF REQ NO Normal [facility] Comment on above: Performed By: #### P SASC, VITB12 #### [facility] [address] [place] [address] Dr. Guille Calderon MCH (RBC) [Entitic mass] 30.9 pg Normal 25.9-34.0 [facility] Comment on above: Performed By: #### P SASC, VITB12 #### [facility] [address] [place] [address] Dr. Guille Calderon MCHC (RBC) [Mass/Vol] 33.6 g/dL Normal 29.9-35.2 [facility] Comment on above: Performed By: #### P SASC, VITB12 #### [facility] [address] [place] [address] Dr. Guille Calderon MCV (RBC) [Entitic vol] 92.2 fL Normal 80.0-94.0 [facility] Comment on above: Performed By: #### P SASC, VITB12 #### [facility] [address] [place] [address] Dr. Guille Calderon MONO # 0.6 103/ul Normal 0.3-0.8 [facility] Comment on above: Performed By: #### P SASC, VITB12 #### [facility] [address] [place] [address] Dr. Guille Calderon Monocytes/100 WBC (Bld) 9.0 % Normal 1.7-12.0 [facility] Comment on above: Performed By: #### P SASC, VITB12 #### [facility] [address] [place] [address] Dr. Guille Calderon NEUT # 4.1 103/ul Normal 1.4-6.5 [facility] Comment on above: Performed By: #### P SASC, VITB12 #### [facility] [address] [place] [address] Dr. Guille Calderon Neutrophils/100 WBC (Bld) 64.4 % Normal 43.0-75.0 [facility] Comment on above: Performed By: #### P SASC, VITB12 #### [facility] [address] [place] [address] Dr. Guille Calderon Platelet mean volume (Bld) [Entitic vol] 9.7 fL Normal 9.5-13.5 [facility] Comment on above: Performed By: #### P SASC, VITB12 #### [facility] [address] [place] [address] Dr. Guille Calderon PLT 234 103/ul Normal 150-450 [facility] Comment on above: Performed By: #### P SASC, VITB12 #### [facility] [address] [place], [place] [address] Dr. Guille Calderon RBC 4.85 106/ul Normal 4.70-6.10 [facility] Comment on above: Performed By: #### P SASC, VITB12 #### [facility] [address] [place], [place] [address] Dr. Guille Calderon WBC 6.3 103/ul Normal 4.0-11.0 [facility] Comment on above: Performed By: #### P SASC, VITB12 #### [facility] [address] [place], [place] [address] LUNG CANCER SCREENINGon [...] by: AFUA MERCHANT Date: 2022-04-02 10:13 Normal [facility] GLYCOHEMOGLOBIN A1Con 2021 ADA RECOMMENDATION SEE BELOW Normal [facility] Comment on above: Result Comment: ADA RECOMMENDED LIMIT 4.0 - 6.0 ADA THERAPEUTIC TARGET < 7.0 ACTION SUGGESTED > 7.0 Performed By: #### I TJ #### [facility] [address] [address] [address] Guille Calderon Glucose [Mass/Vol] 117 mg/dL Normal [facility] Comment on above: Performed By: #### I TJ #### [facility] [address] [address] [address] Guille Calderon HbA1c (Bld) [Mass fraction] 5.7 % Normal 4.5-6.2 [facility] Comment on above: Performed By: #### I TJ #### [facility] [address] [place] [address] Dr. Guille Calderon LIPID PROFILEon 04-02-2022 CHOL-HDL RATIO NORM SEE BELOW Normal [facility] Comment on above: Result Comment: 3.3 - 4.4 LOW RISK 4.4 - 7.1 AVERAGE RISK 7.1 - 11.0 MODERATE RISK >11.0 HIGH RISK Performed By: #### P SASC, VITB12 #### [facility] [address] [place] [address] Dr. Guille Calderon Cholesterol [Mass/Vol] 163 mg/dL Normal <=200 [facility] Comment on above: Performed By: #### P SASC, VITB12 #### [facility] [address] [place] [address] Dr. Guille Calderon Cholesterol in HDL [Mass/Vol] 53 mg/dL Normal 40-60 [facility] Comment on above: Performed By: #### P SASC, VITB12 #### [facility] [address] [place] [address] Dr. Guille Calderon Cholesterol in LDL [Mass/Vol] 100.8 mg/dL Normal [facility] Comment on above: Performed By: #### P SASC, VITB12 #### [facility] [address] [place] [address] Dr. Guille Calderon Cholesterol.total/ Cholesterol in HDL [Mass ratio] 3.1 {ratio} Normal [facility] Comment on above: Performed By: #### P SASC, VITB12 #### [facility] [address] [address] [address] Guille Calderon HDL NORMAL > or = 60 mg/dl - LO W CARDIOVASCULAR RISK <40 mg/dl - HIGH CARDIOVASCULAR RISK Normal [facility] Comment on above: Performed By: #### P SASC, VITB12 #### [facility] [address] [address] [address] Guille Calderon LDL CALC NORMAL SEE BELOW Normal [facility] Comment on above: Result Comment: <100 mg/dl OPTIMAL 100 - 129 mg/dl NEAR OR ABOVE OPTIMAL 130 - 159 mg/dl BORDERLINE HIGH 160 - 189 mg/dl HIGH >190 mg/dl VERY HIGH Performed By: #### P SASC, VITB12 #### [facility] [address] [address] [address] Guille Calderon Triglyceride [Mass/Vol] 46 mg/dL Normal <=150 [facility] Comment on above: Performed By: #### P SASC, VITB12 #### [facility] [address] [address] [address] Guille Calderon VLDL CALC 9.2 mg/dL Normal [facility] Comment on above: Performed By: #### P SASC, VITB12 #### [facility] [address] [address] [address] Guille Calderon MRI LSPINE WO CONon [...] SPEEDY CAMPO Date: 2022-04-02 11:13 Normal [facility] PROF 14(COMP METB)on 022 Albumin [Mass/Vol] 3.8 g/dL Normal 3.4-5.0 [facility] Comment on above: Performed By: #### P SASC, VITB12 #### [facility] [address] [place] [address] Dr. Guille Calderon Albumin/Globulin [Mass ratio] 1.0 {ratio} Normal [facility] Comment on above: Performed By: #### P SASC, VITB12 #### [facility] [address] [place] [address] Dr. Guille Calderon ALP [Catalytic activity/Vol] 87 U/L Normal 46-116 [facility] Comment on above: Performed By: #### P SASC, VITB12 #### [facility] [address] [address] [address] Guille Calderon ALT [Catalytic activity/Vol] 43 U/L Normal 16-63 [facility] Comment on above: Performed By: #### P SASC, VITB12 #### [facility] [address] [address] [address] Guille Calderon Anion gap [Moles/Vol] 10.3 mmol/L Normal [facility] Comment on above: Performed By: #### P SASC, VITB12 #### [facility] [address] [place] [address] Dr. Guille Calderon AST [Catalytic activity/Vol] 24 U/L Normal 15-37 [facility] Comment on above: Performed By: #### P SASC, VITB12 #### [facility] [address] [place] [address] Dr. Guille Calderon Bilirubin [Mass/Vol] 0.4 mg/dL Normal 0.2-1.0 [facility] Comment on above: Performed By: #### P SASC, VITB12 #### [facility] [address] [place] [address] Dr. Guille Calderon Calcium [Mass/Vol] 8.6 mg/dL Normal 8.5-10.1 [facility] Comment on above: Performed By: #### P SASC, VITB12 #### [facility] [address] [place] [address] Dr. Guille Calderon Chloride [Moles/Vol] 103 mmol/L Normal 98-107 [facility] Comment on above: Performed By: #### P SASC, VITB12 #### [facility] [address] [place] [address] Dr. Guille Calderon CO2 [Moles/Vol] 28.4 mmol/L Normal 21.0-32.0 [facility] Comment on above: Performed By: #### P SASC, VITB12 #### [facility] [address] [place] [address] Dr. Guille Calderon Creatinine [Mass/Vol] 1.04 mg/dL Normal 0.70-1.30 [facility] Comment on above: Performed By: #### P SASC, VITB12 #### [facility] [address] [place] [address] Dr. Guille Calderon EGFR-AF BURMESE >60 Normal >=60 [facility] Comment on above: Performed By: #### P SASC, VITB12 #### [facility] [address] [place] [address] Dr. Guille Calderon EGFR-NON AF BURMESE >60 Normal >=60 [facility] Comment on above: Performed By: #### P SASC, VITB12 #### [facility] [address] [place] [address] Dr. Guille Calderon Globulin (S) [Mass/Vol] 3.9 g/dL Normal [facility] Comment on above: Performed By: #### P SASC, VITB12 #### [facility] [address] [place] [address] Dr. Guille Calderon Glucose [Mass/Vol] 105 mg/dL Normal 74-106 [facility] Comment on above: Performed By: #### P SASC, VITB12 #### [facility] [address] [place] [address] Dr. Guille Calderon Potassium [Moles/Vol] 4.7 mmol/L Normal 3.5-5.1 [facility] Comment on above: Performed By: #### P SASC, VITB12 #### [facility] [address] [place] [address] Dr. Guille Calderon Protein [Mass/Vol] 7.7 g/dL Normal 6.4-8.2 [facility] Comment on above: Performed By: #### P SASC, VITB12 #### [facility] [address] [place] [address] Dr. Guille Calderon Sodium [Moles/Vol] 137 mmol/L Normal 136-145 [facility] Comment on above: Performed By: #### P SASC, VITB12 #### [facility] [address] [place] [address] Dr. Guille Calderon Urea nitrogen [Mass/Vol] 18.0 mg/dL Normal 7.0-18.0 [facility] Comment on above: Performed By: #### P SASC, VITB12 #### [facility] [address] [place] [address] Dr. Guille Calderon Urea nitrogen/Creatinin e [Mass ratio] 17.3 mg/mg Normal [facility] Comment on above: Performed By: #### P SASC, VITB12 #### [facility] [address] [place] [address] Dr. Guille Calderon TSHon 04-02-2022 TSH 1.169 uIU/mL Normal 0.358-3.740 [facility] Comment on above: Performed By: #### P SASC, VITB12 #### [facility] [address] [address] [address] Guille Calderon URIC ACID SERUMon 04-02-2022 Urate [Mass/Vol] 5.0 mg/dL Normal 3.5-7.2 [facility] Comment on above: Performed By: #### P SASC, VITB12 #### [facility] [address] [address] [address] Guille Calderon VITAMIN B12on 04-02-2022 Cobalamin (Vitamin B12) [Mass/Vol] 407.0 pg/mL Normal 193.0-986.0 [facility] Comment on above: Performed By: #### P SASC, VITB12 #### [facility] [address] [place] [address] Dr. Guille Calderon XR LSPINE MIN 4 [...] SPEEDY CAMPO Date: 2022-04-02 17:48 Normal [facility] Coding Summary.on 08-24-2017 Coding Summary. CODING DATE: 018 FINAL [facility] STATUS: Home (Routine DC) PAYOR: Viral APC DESCRIPTION 3329 Level 1 Laparoscopy and Related Services ADMIT DX: REASON FOR VISIT DX: K42.0 Umbilical hernia with obstruction, without gangrene FINAL DX: PRINCIPAL: K42.0 Umbilical hernia with obstruction, without gangrene SECONDARY: E03.9 Hypothyroidism, unspecified F17.210 Nicotine dependence, cigarettes, uncomplicated PYMT PROC APC STAT DESCRIPTION DOCTOR NAME DATE [id number] J1 Laparoscopy, surgical, Ean Shahid MD 08/23/2017 repair, ventral, umbilical, spigelian or epigastric hernia (includes mesh insertion, when performed); incarcerated or strangulated 65230 Anesthesia for hernia Ean Shahid MD 08/23/2017 repairs in upper abdomen; lumbar and ventral (incisional) hernias and/or wound dehiscence 91361 Transversus abdominis Haider Pelletier DO 08/23/2017 plane [...] Revised Date Saved: 08/24/2017 12:35 pm Normal [facility] Main OR Intraoperative Recor don 08-24-2017 Main OR Intraoperative Record IntraOp Document Type FT Summary Primary Physician: Ean Shahid MD Finalized Date/Time: 08/24/17 09:24:34 Pt. Name: LORENZA RAMACHANDRAN/Sex: 1955 Male Med Rec #: [id number] Physician: Ean Shahid MD Financial #: [id number] Pt. Type: A Room/Bed: [place] [address] Admit/Disch: 08/23/17 09:39:00 - 08/23/17 19:30:00 Institution: [...] 3 Case Attendee Haider Pelletier DOl MD, aEn Cuadra, RN Meaghan Estrella Role Performed Anesthesiologist of Surgeon - Primary BENCH SHEAR OPERATOR Record Time In 08/23/17 12:22:00 08/23/17 12:22:00 08/23/17 12:22:00 Time Out 08/23/17 14:00:00 08/23/17 14:49:00 08/23/17 14:49:00 Procedure HERNIA REPAIR, ROBOT HERNIA REPAIR, ROBOT HERNIA REPAIR, ROBOT ASSISTED(.) ASSISTED(.) ASSISTED(.) Comments Last Modified By: Gianni RN, Keyur Archer RN, Keuyr Archer RN, [facility] 08/23/17 14:50:07 08/23/17 14:50:07 08/23/17 14:50:07 Entry 4 Entry 5 Entry 6 Case Attendee Gianni RN, Keyur Crooks RN, Monica Steen CST, Claribel Oliver Role Performed Hide Puller - Primary Hide Puller - Primary Scrub - Primary Time In 08/23/17 12:22:00 08/23/17 12:22:00 08/23/17 12:22:00 Time Out 08/23/17 14:49:00 08/23/17 14:49:00 08/23/17 14:49:00 Procedure HERNIA REPAIR, ROBOT HERNIA REPAIR, ROBOT HERNIA REPAIR, ROBOT ASSISTED(.) ASSISTED(.) ASSISTED(.) Comments Last Modified By: Gianni RN, Keyur Archer RN, Keyur Archer RN, [facility] 08/23/17 14:50:07 08/23/17 14:50:07 08/23/17 14:50:07 Entry 7 Case Attendee Ian Resendiz MD Role Performed Anesthesiologist - Other Time In 08/23/17 13:49:00 Time Out 08/23/17 14:49:00 Procedure HERNIA REPAIR, ROBOT ASSISTED(.) Comments Last Modified By: Gianni EAST, [facility] 08/23/17 14:50:07 General Comments: marleen hernandez 3, [...] and tissue Entry 1 Skin Integrity Intact, [place], Warm, and Skin Abnormality No Dry Outcomes [...] RN Patient Status Stable Skin. Condition Intact, [place], Warm, and Dry Airway Maintenance Oxygen in [...] Immobilization Devices Items BINDER ABDOMINAL 3-PNL LG/XLG [[id number]][F] Site and Details 4x4's and medium binder [...] Description MESH STEX ROUND 9CM Lot Number [id number] (3.6 ) [SYM9][F] Hearing Screen Coordinator FT-Taste Guru Catalog ?# SYM9 [F] Size 9 CM [...] Present Upon Arrival No Inserted LF 16FR [[id number]][F] Insertion Date/Time 08/23/17 12:32:00 Urine Residual 55 Insertion Site Uretheral Urine tracey, clear Characteristics Inserted By KITA Cuadra Discontinued? Yes When was the Discontinued at end of DC'd By KITA Cuadra catheter case discontinued? Outcomes Met? Yes Last Modified By: Kyeur Archer RN 08/23/17 14:47:08 Post-Care Text: The patient is free from signs of trauma. Temperature Control Entry 1 Temperature Control BLANKET MISTRAL AIR Quantity 1 Aid TORSO [[id number]][F] Fluid/[place] Unit Mistral warming system Setting 38 Body Site Upper anterior torso Last Modified By: Keyur Archer RN 08/23/17 07:21:12 Case Comments Finalized By: Shea Stone CST Document Signatures Signed By: Keyur Archer RN 08/23/17 14:50 Keyur Archer RN 08/23/17 14:50 Shea Stone CST 08/24/17 09:24 Normal [facility] Progress Note-Physicianon Progress Note-Physician Patient: LORENZA RAMACHANDRAN Age: 62 years Sex: Male : 1955 Associated Diagnoses: None Author: Ian Resendiz MD Postoperative Information Post Operative Note: Post Anesthesia Care Unit. Anesthetic utilized: General. Regional: TAP block. Health Status Allergies: Allergic Reactions (All)No Known Allergies Problem list: All ProblemsHernia, umbilical / SNOMED CT 6749155024 / ConfirmedBack pain, chronic / SNOMED CT 669101958 / ConfirmedSmoker / IMO 881764 / ConfirmedAdded secondary to documentation in Social History.Hypothyroid / SNOMED CT 26942920 / Confirmed Physical Examination Intake and Output [...] discharged from anesthesia care. Condition stable. Normal [facility] Comment on above: Result Comment: Elec [...] be discharged from PACU when criteria met. [facility] Comment on above: Result Comment: Elec tronically Signed By: Haider Pelletier DO\.br\Date and Time Signed: 08/24/17 09:55 EST History and Physicalon 08-23 History and Physical Patient: LORENZA RAMACHANDRAN Age: 62 years Sex: Male : 1955 Associated Diagnoses: None Author: Ean Shahid MD Subjective no changes to H & P [facility] Comment on above: Result Comment: Elec tronically Signed By: Ean Shahid MD\Jo-Annbr\Date and Time Signed: 08/23/17 12:00 EST Inpatient Patient Summaryon 08-23-2017 [facility] Inst[facility] INFORMATION Name: LORENZA RAMACHANDRAN PHYSICIANS Admitting Physician: Ean Shahid MD Physician: Ean Shahid MD PCP: Jon DEL REAL, Lux Diagnosis: Incarcerated umbilical hernia Comment: PATIENT EDUCATION INFORMATIONInstructions:Medica tion Leaflets:Follow up:With: Address: When: Ean Shahid [address] [place] [id number] [facility] ([employer] Within 7 to 10 days Comments: follow up in the [place] office next wednesday, call to schedule a time. MEDICATION LISTFill New Prescriptions:acetaminophen-ox ycodone (Percocet 325 mg-5 mg Tab) 1 tab(s) By Mouth every 4 hours as needed for Pain not to exceed 12 tablets/day not to exceed 4000 mg acetaminophen per day take with food or milkComment: Normal [facility] Main OR PACU I Recordon 08-03 Main OR PACU I Record PACU Phase I Document Type FT Summary Primary Physician: Ean Shahid MD Finalized Date/Time: 08/23/17 16:03:37 Pt. Name: LORENZA RAMACHANDRAN Antonieta Madden./Sex: 1955 Male Med Rec #: [id number] Physician: Ean Shahid MD Financial #: [id number] Pt. Type: A Room/Bed: [place] [address] Admit/Disch: 08/23/17 09:39:18 - Institution: Case Times [...] By: Dana Radford RN 08/23/17 16:03 Normal [facility] Main OR PACU II Recordon Main OR PACU II Record PACU Phase II Document Type FT Summary Primary Physician: Ean Shahid MD Finalized Date/Time: 08/23/17 21:51:51 Pt. Name: LORENZA RAMACHANDRAN/Sex: 1955 Male Med Rec #: [id number] Physician: Ean Shahid MD Financial #: [id number] Pt. Type: A Room/Bed: [place] [address] Admit/Disch: 08/23/17 09:39:00 - 08/23/17 19:30:00 Institution: [...] By: Serene Boyer RN 08/23/17 21:51 Normal [facility] Main OR Preoperative Recordo n 08-23-2017 Main OR Preoperative Record PreOp Document Type FT Summary Primary Physician: Ean Shahid MD Finalized Date/Time: 08/23/17 12:44:33 Pt. Name: LORENZA RAMACHANDRAN /Sex: 1955 Male Med Rec #: [id number] Physician: Ean Shahid MD Financial #: [id number] Pt. Type: A Room/Bed: [facility] Admit/Disch: 08/23/17 09:39:18 - Institution: Case Times [...] By: Keyur Archer RN 08/23/17 12:44 Normal [facility] Operative Reporton Operative Report Date of [...] this was complete the #2 arm needle tower truck driver was removed andthe scissors were placed. [...] at the umbilicus was removed. The needle tower truck driver from the #1 arm wasremoved. Robot [...] site fascia wasclosed with a 0 Vicryl uyfoms-my-hlzii suture. All port sites as well asthe [...] RecoveryRoom in good condition.Ean Shahid M.D.lkrDictated: 08/23/2017 #[id number]: 08/23/2017 #[id number]: Sherrill Guerrier M.D. [facility] Comment on above: Result Comment: Elec tronically [...] Then with ultrasound guidance using a 21 qpevw792 mm Pajunk needle, the transversus abdominis plane was located on bothsides. A total volume of 25 mL of 0.25% Marcaine and Exparel mixture wasinjected on each side after multiple attempts at aspiration. The patienttolerated the procedure well. Surgery then proceeded under generalanesthesia.Haider Pelletier D.O.lkrDictated: 08/23/2017 #[id number]: 08/23/2017 #[id number]: Haider Pelletier D.O. [facility] Comment on above: Result Comment: Elec tronically Signed By: Haider Pelletier DO\.br\Date and Time Signed: 08/23/17 13:43 EST Patient Education - Texton 0 08-23-2017 Patient Education - Text Patient Education Materials Follows: [facility] Progress Note-Physicianon Progress Note-Physician Patient: LORENZA RAMACHANDRAN [...] All ProblemsBack pain, chronic / SNOMED CT 678472929 / ConfirmedHernia, umbilical / SNOMED CT 6630816752 / ConfirmedHypothyroid / SNOMED CT 30334527 / ConfirmedSmoker / IMO 243422 / ConfirmedAdded secondary to documentation in Social History., Active Problems (4)Back pain, chronic Hernia, umbilical Hypothyroid Smoker Histories Past Medical History: No active or resolved past medical history items have been selected or recorded. Family History: No family history items have been selected or recorded. 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 Cardiovascular: Regular rhythm. Integumentary: Warm, [place]. Neurologic: Alert, Oriented. Review / Management Results [...] benefits, alternatives discussed. Questions answered. . Normal [facility] Comment on above: Result Comment: Elec tronically Signed By: Haider Pelletier DO\.br\Date and Time Signed: 08/23/17 12:21 EST UA With Cult Reflexon 2017 Bilirubin Ql (U) Negative Normal Negative [facility] Comment on above: Performed By: #### 2 506641, 0635843, 9626242, 0687999, 2724972, 63565219 ####[facility] [address] [place] [address] COLOR:TYPE:PT:URIN E:NOM:AUTO YELLOW Normal Yellow [facility] Comment on above: Performed By: #### 2 623493, 1436932, 8521271, 2002872, 2184121, 25936627 ####[facility] [address] [place] [address] CRYSTALS:PRTHR:PT: URINE SED:ORD:MICROSCOPY .LIGHT Present Normal [facility] Comment on above: Performed By: #### 2 332276, 8169668, 9849324, 0350491, 1876159, 12343284 ####[facility] [address] [place] [address] Erythrocytes (RBC) 4-20 Normal 0-3 [facility] Comment on above: Performed By: #### 2 426479, 0548093, 9697353, 4009374, 7664115, 47909784 ####[facility] [address] [place] [address] GLUCOSE:MCNC:PT:UR INE:QN:TEST STRIP Negative Normal Negative [facility] Comment on above: Performed By: #### 2 282289, 5319259, 4202868, 2749105, 1631448, 51139254 ####[facility] [address] [place] [address] KETONES:MCNC:PT:UR INE:QN:TEST STRIP Negative Normal Negative [facility] Comment on above: Performed By: #### 2 535355, 8625599, 6217478, 5677175, 8925365, 51035549 ####[facility] [address] [place] [address] LEUKOCYTES:PRTHR:P T:URINE:ORD:AUTOMA KAYLA Negative Normal Negative [facility] Comment on above: Performed By: #### 2 645804, 0612781, 5391546, 2038801, 4703813, 10438139 ####[facility] [address] [place] [address] UA Spec Desc Ross Normal [facility] Comment on above: Performed By: #### 2 562486, 5529772, 7057621, 8778990, 0559152, 89812718 ####[facility] [address] [place] [address] Urine, clarity CLEAR Normal Clear [facility] Comment on above: Performed By: #### 2 664781, 1783331, 8642800, 7102205, 7979329, 90406639 ####[facility] [address] [place] [address] Urine, hemoglobin presence Negative Normal Negative [facility] Comment on above: Performed By: #### 2 149026, 0201670, 5338696, 1174516, 5641594, 65403282 ####[facility] [address] [place] [address] Urine, leukocytes in sedmiment 0-5 Normal 0-5 [facility] Comment on above: Performed By: #### 2 917278, 8869349, 5644092, 1125589, 6326118, 07367862 ####[facility] [address] [place] [address] Urine, mucus presence in sediment 1+ Normal [facility] Comment on above: Performed By: #### 2 287955, 5350970, 7798699, 0285813, 9570890, 76282240 ####[facility] [address] [place] [address] Urine, nitrite presence Negative Normal Negative [facility] Comment on above: Performed By: #### 2 315714, 4435260, 2431677, 1241081, 3303627, 36267216 ####[facility] [address] [place] [address] Urine, pH 7.5 [pH] Invalid Interpretation Code 5.0-9.0 [facility] Comment on above: Performed By: #### 2 830135, 0640492, 7285411, 6095194, 4379527, 96187063 ####[facility] [address] [place] [address] Urine, protein Negative Normal Negative [facility] Comment on above: Performed By: #### 2 833046, 8836093, 8035593, 9761466, 8374680, 26510273 ####[facility] [address] [place] [address] Urine, specific gravity 1.015 Invalid Interpretation Code 1.005-1.030 [facility] Comment on above: Performed By: #### 2 062940, 4212133, 4040365, 1572899, 8649966, 04883391 ####[facility] [address] [place] [address] Urine, squamous cells in sediment 0-2 Normal 0-2 [facility] Comment on above: Performed By: #### 2 282279, 4887627, 1933951, 7868442, 6196587, 05244284 ####[facility] [address] [place] [address] Urine, urobilinogen 0.2 {Emani'U}/dL Normal 0.0-1.0 [facility] Comment on above: Performed By: #### 2 271182, 5546568, 1039403, 4644874, 8625790, 01914065 ####[facility] [address] [place] [address] Coding Summary.on 08-19-2017 Coding Summary. CODING DATE: 018 FINAL [facility] STATUS: Home (Routine DC) PAYOR: Viral [...] Willson Date Saved: 08/19/2017 11:07 am Normal [facility] BUNon 08-18-2017 Urea nitrogen 20 mg/dL Normal 5-21 [facility] Comment on above: Performed By: #### 2 094251, 5845484, 1899354, 1001961, 6659172, 01088268 ####[facility] [address] [place] [address] CBC w/Indiceson 08-18-2017 Erythrocyte distribution width Auto Ratio (RBC) 14.1 % Normal 10.9-14.2 [facility] Comment on above: Performed By: #### 2 426626, 0715899, 9100840, 6074779, 5845951, 62885195 ####[facility] [address] [place] [address] Erythrocytes (RBC) 4.9 E12/L Normal 4.3-5.9 [facility] Comment on above: Performed By: #### 2 731098, 7346342, 1344809, 6328479, 2305488, 02759578 ####[facility] [address] [place] [address] Hematocrit (HCT) 44.4 % Normal 37.7-49.0 [facility] Comment on above: Performed By: #### 2 907391, 7082589, 1492046, 1554173, 2872988, 10593240 ####[facility] [address] [place] [address] Hemoglobin mass conc (Bld) 15.1 g/dL Normal 13.5-17.5 [facility] Comment on above: Performed By: #### 2 360360, 1975760, 6593302, 6238363, 4081343, 82530232 ####[facility] [address] [place] [address] MCH 30.8 pg Normal 27.0-34.0 [facility] Comment on above: Performed By: #### 2 902337, 4553709, 8160088, 9283449, 7490362, 42527606 ####[place] [address] MCHC mass conc (RBC) 33.9 g/dL Normal 31.4-39.3 [facility] Comment on above: Performed By: #### 2 567070, 2499408, 7712371, 3050734, 4112913, 49484284 ####[place] [address] [place] [address] MCV 90.8 fL Normal 80.0-100.0 [facility] Comment on above: Performed By: #### 2 550912, 0142794, 6625290, 4427972, 1220640, 65483508 ####[address] [address] Platelet mean volume (PMV) 8.8 fL Normal 6.4-10.8 [facility] Comment on above: Performed By: #### 2 826287, 0509353, 9806853, 1834502, 7334792, 02235058 ####[place] [address] [place] [address] Platelets 195.0 E9/L Normal 150.0-500.0 [facility] Comment on above: Performed By: #### 2 830984, 0699544, 7091383, 1215984, 4457287, 88389938 ####[place] [address] [place] [address] WBC (Leukocytes) 8.0 E9/L Normal 4.0-11.0 [facility] Comment on above: Performed By: #### 2 974014, 6738889, 3296016, 9814157, 4741262, 66678087 ####[facility] [address] [place] [address] Creatinineon 08-18-2017 Creatinine 0.8 mg/dL Normal 0.5-1.3 [facility] Comment on above: Performed By: #### 2 157640, 4942849, 5465563, 0341737, 1012359, 85673879 ####[facility] [address] [place] [address] Glucoseon 08-18-2017 Glucose mass conc 99 mg/dL Normal 55-199 [facility] Comment on above: Performed By: #### 2 803236, 6765244, 2088222, 7173729, 3697724, 91199559 ####[facility] [address] [place] [address] Lyteson 08-18-2017 Anion gap 9 mmol/L Normal 6-16 [facility] Comment on above: Performed By: #### 2 749810, 9691570, 4153767, 1140438, 8104014, 48876508 ####[facility] [address] [place] [address] Chloride 104 mmol/L Normal 101-111 [facility] Comment on above: Performed By: #### 2 538605, 0509965, 9904387, 4258301, 2531753, 69038827 ####[facility] [address] [place] [address] CO2 28 mmol/L Normal 21-31 [facility] Comment on above: Performed By: #### 2 231610, 0595963, 0090483, 4487930, 4408377, 52885555 ####[facility] [address] [place] [address] Potassium molar conc 4.4 mmol/L Normal 3.5-5.3 [facility] Comment on above: Performed By: #### 2 087973, 9798275, 9932228, 2745054, 2642330, 97044667 ####[facility] [address] [place] [address] Sodium 137 mmol/L Normal 135-145 [facility] Comment on above: Performed By: #### 2 120897, 2774027, 8130021, 1005898, 9769884, 10129629 ####[facility] [address] [place] [address] XR Chest 2 Viewson 8 XR Chest [...] MD Transcribed by: alice Technologist: AO Normal [facility] eGFRon 08-18-2017 eGFR (black) mL/min/{1.73_m2} Normal >=59 [facility] Comment on above: Order Comment: Order added by Discern Expert. Result Comment: eGFR is race adjusted. AA=. Performed By: #### 2 290815, 6354937, 8498555, 4813778, 4075706, 95196321 ####[facility] [address] [place] [address] eGFR (non-black) mL/min/{1.73_m2} Normal >=59 [facility] Comment on above: Order Comment: Order added by Discern Expert. Result Comment: Pattern Stamper noel kidney disease could be indicated at eGFR's of less than 60 mL/min/1.73m2. Kidney failure is indicated at less than 15 mL/min/1.73m2. Performed By: #### 2 832260, 6474369, 8480757, 7101207, 9454707, 33228888 ####[facility] [address] [place] [address] Encounters Encounter Date Encounter Type Care Provider [...] Start: 08-23-2017 End: 08-23-2017 Amb[place] Ean Shahid [place] [place]: 08-18-2017 End: 08-19-2017 Ambulatory Ean Shahid [place] Procedures Date Procedure Procedure Detail Performing Clinician Start: 04-02-[address] MUSA NORWOOD . Comment on above: Performed By: #### P [facility], VITB12 #### [facility] [address] [place] [address] Dr. Guille Calderon Payers Date Payer Category Payer Unknown [id number] 1958 Medicare [id number] 1958 Medicare [id number] 1958 Unknown [id number] 1955 Unknown [id number] 2.16.84 [id number] 1955 Unknown [id number] 2.16.84 [id number] 1955 Unknown [id number] 2.16.84 [id number] 1955 Unknown [id number] 2.16.84 [id number] 1955 Unknown [id number] 2.16.84 [id number] 1955 Unknown [id number] 2.16.84 [id number] Summary Purpose Family History No Family History Records FoundNo Family History Records FoundNo Family History Records Found Advance Directives No Advanced Directives Records FoundNo Advanced Directives Records FoundNo Advanced Directives Records Found Additional Source Comments (unrecognized sect ion and content) No Status Records FoundNo Status Records FoundNo Status Records Found INFORMATION SOURCE (unrecogn ized section and content) DATE CREATED AUTHOR 01/24/2018 [facility] DATE CREATED AUTHOR AUTHOR'S ORGANIZ ATION 01/08/2023 [facility] DATE CREATED AUTHOR AUTHOR'S ORGANIZ ATION 11/19/2023 [facility] FOR RECORDS PERTAINING TO PATIENTS WHO ARE [...] BE BASED ON THE PRIMARY CLINICAL RECORDS. [facility] [employer] provides no warranty or guarantee of the accuracy or completeness of information in this document.
--- NOTE | 2024-04-01 19:20 | ED.CHESTPAI1 ---
Documented by User: KEITH Parra 04/01/24 21:43 HPI - Chest Pain General Chief Complaint: Chest Pain Stated Complaint: CHEST PAIN Time Seen by Provider: 04/01/24 19:12 Source: patient Mode of arrival: Wheelchair History of Present Illness HPI narrative: Patient is a 68-year-old male who presents to the emergency department for the evaluation of chest pain for the last 5 hours. Patient describes the pain across the anterior chest bilaterally. He denies any radiation to his jaw, arm, back or abdomen. During initial interview, patient is on cardiac monitoring showing rapid A-fib. He states he was told he had an irregular heartbeat 6 months ago when he had a syncopal episode and was seen by his primary care provider, although he denies being placed on any medications or referred to cardiology. He states he had a stress test about 20 years ago. He denies any history of coronary artery disease. He is a 1 pack/day cigarette smoker. He denies any new peripheral edema. No medications taken prior to arrival. He feels slightly more short of breath than his normal for him. No recent fevers, cough or congestion. He does feel nauseous and clammy. Related Data Home Medications ?Medication ?Instructions ?Recorded ?Confirmed fluticasone furoate 100 1 inh inhalation DAILY 04/01/24 04/01/24 mcg-vilanterol 25 mcg/dose inhalation powder (Breo Ellipta) levothyroxine 137 mcg tablet 137 mcg PO DAILY 04/01/24 04/01/24 liothyronine 5 mcg tablet 10 mcg PO DAILY 04/01/24 04/01/24 Allergies Allergy/AdvReac Type Severity Reaction Status Date / Time No Known Drug Allergies Allergy Verified 11/08/23 07:55 Review of Systems ROS Constitutional Denies: fever or chills Ears, nose, mouth, and throat Denies: throat pain or nasal congestion Cardiovascular Reports: chest pain Respiratory Reports: shortness of breath; Denies: cough Gastrointestinal Reports: nausea; Denies: vomiting Musculoskeletal Denies: back pain Integumentary/Breast Denies: rash Neurological Denies: headache, numbness in extremities or weakness in extremities Hematologic/Lymphatic Denies: easy bruising or easy bleeding [facility] Medical History (Updated 04/01/24 @ 23:14 by David Kamara) Umbilical hernia ?K42.9 - Umbilical hernia without obstruction or gangrene (ICD-10) Partial tear of Achilles tendon ?S86.019A - Strain of unspecified Achilles tendon, initial encounter (ICD-10) Chest pain ?R07.9 - Chest pain, unspecified (ICD-10) Irregular heartbeat ?I49.9 - Cardiac arrhythmia, unspecified (ICD-10) Hypothyroidism ?E03.9 - Hypothyroidism, unspecified (ICD-10) Surgical History (Updated 04/01/24 @ 23:14 by David Kamara) H/O umbilical hernia repair ?Z98.890 - Other specified postprocedural states (ICD-10) ?Z87.19 - Personal history of other diseases of the digestive system (ICD-10) H/O repair of rotator cuff ?Z98.890 - Other specified postprocedural states (ICD-10) Hx of tonsillectomy ?Z90.89 - Acquired absence of other organs (ICD-10) Exam Narrative Exam Narrative: Gen.: Awake, alert, in no distress Head: Normocephalic, atraumatic ENT: Moist mucous membranes Respiratory: No respiratory distress, lungs clear bilaterally Cardio: Tachycardia, irregularly irregular Gastrointestinal: Abdomen is soft, nondistended and nontender to palpation Extremities: Moves extremities equally, no pedal edema Psych: Normal mood and affect Neuro: No focal neuro deficit Skin: Warm, dry, intact Constitutional Vital Signs, click to edit/add: Last Vital Signs Temp 97.7 F 04/01/24 19:07 Pulse 72 04/01/24 22:45 Resp 28 H 04/01/24 22:45 BP 118/68 04/01/24 22:45 Pulse Ox 95 04/01/24 20:10 O2 Del Method Room Air 04/01/24 19:57 Course Vital Signs Vital signs: Vital Signs Temperature 97.7 F 04/01/24 19:07 Pulse Rate 74 04/01/24 19:07 Respiratory Rate 18 04/01/24 19:07 Blood Pressure 120/76 04/01/24 19:07 Pulse Oximetry 95 04/01/24 19:07 Oxygen Delivery Method Room Air 04/01/24 19:07 Temperature 97.7 F 04/01/24 19:07 Pulse Rate 72 04/01/24 22:45 Respiratory Rate 28 H 04/01/24 22:45 Blood Pressure 118/68 04/01/24 22:45 Pulse Oximetry 95 04/01/24 20:10 Oxygen Delivery Method Room Air 04/01/24 19:57 MDM - Chest Pain MDM Narrative Medical decision making narrative: Patient is noted to be in rapid A-fib on arrival to the ER, IV was established and he was ordered to have aspirin, Cardizem bolus and drip with Lovenox for anticoagulation coverage, Zofran and IV fluids initiated. Patient was treated with aspirin, Lovenox, Cardizem bolus and drip as well as Zofran and IV fluids. He is resting comfortably on reevaluation and has converted to normal sinus rhythm. Cardizem drip was reduced to 5 mg/h. Initial troponin and the remainder of the labs are unremarkable. CT angio of the chest and repeat troponin are pending and we anticipate admission to ICU for observation for rapid A-fib and chest pain. Patient and in agreement with treatment plan. Case is turned over to attending physician to review repeat troponin and CT findings. SHARED APC VISIT, PHYSICIAN ATTESTATION: [id number] I performed a substantive part of the MDM during the patient?s E/M visit. I personally evaluated and examined the patient. I personally made or approved the documented management plan and acknowledge its risk of complications. Medical Records Data Attestation: I reviewed the patient's medical records. Lab Data Attestation: I reviewed the patient's lab results. Labs: Lab Results 04/01/24 04/01/24 Range/Units 19:20 21:19 WBC 10.0 (4.0-11.0) 10^3/uL RBC 5.18 (4.70-6.10) 10^6/uL Hgb 16.4 (14.0-18.0) g/dL Hct 47.7 (42.0-54.0) % MCV 92.1 (80.0-94.0) fL MCH 31.7 (25.9-34.0) pg MCHC 34.4 (29.9-35.2) g/dL RDW 12.9 (11.0-15.0) % Plt Count 269 (150-450) 10^3/uL MPV 10.2 (9.5-13.5) fL Neut % (Auto) 68.2 (43.0-75.0) % Lymph % (Auto) 21.4 (20.5-60.0) % [place] % (Auto) 7.8 (1.7-12.0) % Eos % (Auto) 0.9 (0.9-7.0) % Baso % (Auto) 1.3 (0.2-2.0) % Neut # (Auto) 6.8 H (1.4-6.5) 10^3/uL Lymph # (Auto) 2.1 (1.2-3.8) 10^3/uL [place] # (Auto) 0.8 (0.3-0.8) 10^3/uL Eos # (Auto) 0.1 (0.0-0.7) 10^3/uL Baso # (Auto) 0.1 (0.0-0.1) 10^3/uL Abs Immat Gran (auto) 0.04 H (0.00-0.03) 10^3/uL Imm/Tot Granulo (auto) 0.4 (0.0-0.5) % PT 11.4 (9.0-11.6) sec INR 1.08 Sodium 140 (136-145) mmol/L Potassium 3.8 (3.5-5.1) mmol/L Chloride 104 (98-107) mmol/L Carbon Dioxide 27.7 (21.0-32.0) mmol/L Anion Gap 12.1 BUN 18.0 (7.0-18.0) mg/dL Creatinine 1.23 (0.70-1.30) mg/dL Est GFR ( Amer) >60 (>=60) Est GFR (Non-Af Amer) 59 L (>=60) BUN/Creatinine Ratio 14.6 Glucose 119 H (74-106) mg/dL Lactate 1.4 (0.4-2.0) mmol/L Calcium 9.2 (8.5-10.1) mg/dL Total Bilirubin 0.5 (0.2-1.0) mg/dL AST 23 (15-37) U/L ALT 40 (16-63) U/L Alkaline Phosphatase 121 H (46-116) U/L Troponin I High Sens 15.8 20.9 (4.0-76.1) pg/mL NT-Pro-B Natriuret Pep 694.0 (<=900.0) pg/mL Total Protein 7.6 (6.4-8.2) g/dL Albumin 3.7 (3.4-5.0) g/dL Globulin 3.9 g/dL Albumin/Globulin Ratio 0.9 TSH 0.412 (0.358-3.740) uIU/mL ECG Data Attestation: I personally reviewed and interpreted this ECG as follows: (Atrial fibrillation at a rate of 141, rapid ventricular response with frequent PVCs, no acute ST elevation. EKG reviewed by attending physician. EKG #2: Normal sinus rhythm at a rate of 80 with occasional PVCs, no acute ST elevation. EKG reviewed by attending physician.) Heart Score History: Moderately Suspicious ECG: NS Repolarization Age: >45-<65 years Risk Factors: 1 or 2 Risk Factors Troponin: <Normal Limit Total Heart Score Recommendations & Risks:: 4 Discharge Plan Discharge Chief Complaint: Chest Pain Clinical Impression: Chest pain, Atrial fibrillation with RVR Patient Disposition: Admitted as Observation Documented by User: Ghulam Menon MD 04/01/24 23:15 HPI - Chest Pain General Chief Complaint: Chest Pain Stated Complaint: CHEST PAIN Time Seen by Provider: 04/01/24 19:12 Related Data Home Medications ?Medication ?Instructions ?Recorded ?Confirmed fluticasone furoate 100 1 inh inhalation DAILY 04/01/24 04/01/24 mcg-vilanterol 25 mcg/dose inhalation powder (Breo Ellipta) levothyroxine 137 mcg tablet 137 mcg PO DAILY 04/01/24 04/01/24 liothyronine 5 mcg tablet 10 mcg PO DAILY 04/01/24 04/01/24 Allergies Allergy/AdvReac Type Severity Reaction Status Date / Time No Known Drug Allergies Allergy Verified 11/08/23 07:55 [facility] Medical History (Updated 04/01/24 @ 23:14 by David Kamara) Umbilical hernia ?K42.9 - Umbilical hernia without obstruction or gangrene (ICD-10) Partial tear of Achilles tendon ?S86.019A - Strain of unspecified Achilles tendon, initial encounter (ICD-10) Chest pain ?R07.9 - Chest pain, unspecified (ICD-10) Irregular heartbeat ?I49.9 - Cardiac arrhythmia, unspecified (ICD-10) Hypothyroidism ?E03.9 - Hypothyroidism, unspecified (ICD-10) Surgical History (Updated 04/01/24 @ 23:14 by David Kamara) H/O umbilical hernia repair ?Z98.890 - Other specified postprocedural states (ICD-10) ?Z87.19 - Personal history of other diseases of the digestive system (ICD-10) H/O repair of rotator cuff ?Z98.890 - Other specified postprocedural states (ICD-10) Hx of tonsillectomy ?Z90.89 - Acquired absence of other organs (ICD-10) Exam Constitutional Vital Signs, click to edit/add: Last Vital Signs Temp 97.7 F 04/01/24 19:07 Pulse 72 04/01/24 22:45 Resp 28 H 04/01/24 22:45 BP 118/68 04/01/24 22:45 Pulse Ox 95 04/01/24 20:10 O2 Del Method Room Air 04/01/24 19:57 Course Vital Signs Vital signs: Vital Signs Temperature 97.7 F 04/01/24 19:07 Pulse Rate 74 04/01/24 19:07 Respiratory Rate 18 04/01/24 19:07 Blood Pressure 120/76 04/01/24 19:07 Pulse Oximetry 95 04/01/24 19:07 Oxygen Delivery Method Room Air 04/01/24 19:07 Temperature 97.7 F 04/01/24 19:07 Pulse Rate 72 04/01/24 22:45 Respiratory Rate 28 H 04/01/24 22:45 Blood Pressure 118/68 04/01/24 22:45 Pulse Oximetry 95 04/01/24 20:10 Oxygen Delivery Method Room Air 04/01/24 19:57 MDM - Chest Pain Lab Data Labs: Lab Results 04/01/24 04/01/24 Range/Units 19:20 21:19 WBC 10.0 (4.0-11.0) 10^3/uL RBC 5.18 (4.70-6.10) 10^6/uL Hgb 16.4 (14.0-18.0) g/dL Hct 47.7 (42.0-54.0) % MCV 92.1 (80.0-94.0) fL MCH 31.7 (25.9-34.0) pg MCHC 34.4 (29.9-35.2) g/dL RDW 12.9 (11.0-15.0) % Plt Count 269 (150-450) 10^3/uL MPV 10.2 (9.5-13.5) fL Neut % (Auto) 68.2 (43.0-75.0) % Lymph % (Auto) 21.4 (20.5-60.0) % [place] % (Auto) 7.8 (1.7-12.0) % Eos % (Auto) 0.9 (0.9-7.0) % Baso % (Auto) 1.3 (0.2-2.0) % Neut # (Auto) 6.8 H (1.4-6.5) 10^3/uL Lymph # (Auto) 2.1 (1.2-3.8) 10^3/uL [place] # (Auto) 0.8 (0.3-0.8) 10^3/uL Eos # (Auto) 0.1 (0.0-0.7) 10^3/uL Baso # (Auto) 0.1 (0.0-0.1) 10^3/uL Abs Immat Gran (auto) 0.04 H (0.00-0.03) 10^3/uL Imm/Tot Granulo (auto) 0.4 (0.0-0.5) % PT 11.4 (9.0-11.6) sec INR 1.08 Sodium 140 (136-145) mmol/L Potassium 3.8 (3.5-5.1) mmol/L Chloride 104 (98-107) mmol/L Carbon Dioxide 27.7 (21.0-32.0) mmol/L Anion Gap 12.1 BUN 18.0 (7.0-18.0) mg/dL Creatinine 1.23 (0.70-1.30) mg/dL Est GFR ( Amer) >60 (>=60) Est GFR (Non-Af Amer) 59 L (>=60) BUN/Creatinine Ratio 14.6 Glucose 119 H (74-106) mg/dL Lactate 1.4 (0.4-2.0) mmol/L Calcium 9.2 (8.5-10.1) mg/dL Total Bilirubin 0.5 (0.2-1.0) mg/dL AST 23 (15-37) U/L ALT 40 (16-63) U/L Alkaline Phosphatase 121 H (46-116) U/L Troponin I High Sens 15.8 20.9 (4.0-76.1) pg/mL NT-Pro-B Natriuret Pep 694.0 (<=900.0) pg/mL Total Protein 7.6 (6.4-8.2) g/dL Albumin 3.7 (3.4-5.0) g/dL Globulin 3.9 g/dL Albumin/Globulin Ratio 0.9 TSH 0.412 (0.358-3.740) uIU/mL Heart Score Total Heart Score Recommendations & Risks:: 4 Discharge Plan Discharge Chief Complaint: Chest Pain Clinical Impression: Chest pain, Atrial fibrillation with RVR Patient Disposition: Admitted as Observation
[2024-04-01 19:29] LABS: Basophils Absolute Auto 0.1 10^3/uL (0.0-0.1); Basophils Percent Auto 1.3 % (0.2-2.0); Eosinophils Absolute Auto 0.1 10^3/uL (0.0-0.7); Eosinophils Percent Auto 0.9 % (0.9-7.0); Hematocrit 47.7 % (42.0-54.0); Hemoglobin 16.4 g/dL (14.0-18.0); Immature Granulocytes Abs Auto 0.04 10^3/uL (0.00-0.03); Immature Granulocytes Pct Auto 0.4 % (0.0-0.5); Lymphocytes Absolute Auto 2.1 10^3/uL (1.2-3.8); Lymphocytes Percent Auto 21.4 % (20.5-60.0); Mean Corpuscular HGB Conc 34.4 g/dL (29.9-35.2); Mean Corpuscular Hemoglobin 31.7 pg (25.9-34.0); Mean Corpuscular Volume 92.1 fL (80.0-94.0); Mean Platelet Volume 10.2 fL (9.5-13.5); Monocytes Absolute Auto 0.8 10^3/uL (0.3-0.8); Monocytes Percent Auto 7.8 % (1.7-12.0); Neutrophils Absolute Auto 6.8 10^3/uL (1.4-6.5); Neutrophils Percent Auto 68.2 % (43.0-75.0); Platelet Count 269 10^3/uL (150-450); Red Blood Count 5.18 10^6/uL (4.70-6.10); Red Cell Distribution Width 12.9 % (11.0-15.0)
[2024-04-01] MEDS: 0.9 % SODIUM CHLORIDE 1,000 ML 999 ML IV (19:34)
[2024-04-01] MEDS: DILTIAZEM HCL 25 MG/5 ML VIAL 10 MG IV (19:34)
[2024-04-01 19:45] LABS: INR 1.08; Prothrombin Time 11.4 sec (9.0-11.6)
[2024-04-01] MEDS: ASPIRIN 81 MG TAB.CHEW 162 MG PO (19:45)
[2024-04-01] MEDS: dilTIAZem HCL 125 MG in 0.9 % SODIUM CHLORIDE 100 ML 10 MG IV (19:46)
[2024-04-01 19:47] LABS: Alanine Aminotransferase 40 U/L (16-63); Albumin Globulin Ratio 0.9; Albumin Level 3.7 g/dL (3.4-5.0); Alkaline Phosphatase 121 U/L (46-116); Anion Gap 12.1; Aspartate Amino Transferase 23 U/L (15-37); BUN Creatinine Ratio 14.6; Bilirubin Total 0.5 mg/dL (0.2-1.0); Calcium 9.2 mg/dL (8.5-10.1); Carbon Dioxide 27.7 mmol/L (21.0-32.0); Chloride 104 mmol/L (98-107); Estimated GFR (African America >60 (>=60); Estimated GFR (Non-African Ame 59 (>=60); Globulin 3.9 g/dL; Glucose 119 mg/dL (74-106); Potassium 3.8 mmol/L (3.5-5.1); Sodium 140 mmol/L (136-145); Total Protein 7.6 g/dL (6.4-8.2)
[2024-04-01 19:48] LABS: Lactate/Lactic Acid 1.4 mmol/L (0.4-2.0)
[2024-04-01] MEDS: ONDANSETRON PF 4 MG/2 ML VIAL IV (19:49)
[2024-04-01] MEDS: ENOXAPARIN SODIUM 80 MG/0.8 ML SYRINGE SUBQ (19:53)
[2024-04-01 19:55] LABS: Thyroid Stimulating Hormone 0.412 uIU/mL (0.358-3.740); Troponin I High Sensitivity 15.8 pg/mL (4.0-76.1)
--- NOTE | 2024-04-01 20:04 | ECG_ITS ---
[facility] Test Date: 2024-04-01 Pat Name: LORENZA RAMACHANDRAN Department: Room: - Gender: Male [employer]: : [id number] Requested By: DAXA NORWOOD Order Number: [id number] Reading MD: DAXA NORWOOD Measurements Intervals [place] Rate: 80 P: 75 DE: 162 QRS: 268 QRSD: 128 T: 72 QT: 396 QTc: 432 Interpretive Statements 1100 Sinus rhythm 1470 with occasional supraventricular premature complexes 1570 with occasional ventricular premature complexes 2450 Right bundle branch block 7100 Abnormal right axis deviation 9150 abnormal ECG Compared to ECG 04/01/2024 19:14:07 Atrial fibrillation no longer present Myocardial infarct finding no longer present Electronically Signed On 04-03-2024 12:34:09 EDT by DAXA NORWOOD
[2024-04-01 21:46] LABS: Troponin I High Sensitivity 20.9 pg/mL (4.0-76.1)
--- OUTSIDE RECORDS SUMMARY | 2024-04-01 23:03 | XMS_ITS | CCD ---
Author Organization [facility] Care Team Providers Care Electrician Master Name Role Phone Nill, Ean R Unavailable Unavailable Nill, Ean R Unavailable Unavailable Nill, Ean R Unavailable Unavailable Hoy, Daxa~[phone] UNKNOWN Unavailable Unavailable Nill, Ean R Unavailable Unavailable Nill, Ean R Unavailable Unavailable Nill, Ean R Unavailable Unavailable Hoy, Daxa~[phone] UNKNOWN Unavailable Unavailable HOY ., DR MITTAL Primary Care Unavailable HOY ., DR MITTAL Admitting Unavailable HOY ., DR MITTAL Attending Unavailable HOY ., DR MITTAL Consulting Unavailable MALAGA, DR SPEEDY [employer] Unavailable ZIEBER, DR [...] INSULINon 12-29-2022 Insulin 14.2 uIU/mL Normal 2.6-24.9 [facility] Comment on above: Performed By: #### I TJ #### [facility] [address] [address] [address] Guille Calderon CBC AUTO DIFFon 12-26-2022 BASO # 0.1 103/ul Normal 0.0-0.1 [facility] Comment on above: Performed By: #### I TJ #### [facility] [address] [address] [address] Guille Calderon Basophils/100 WBC (Bld) 1.3 % Normal 0.2-2.0 [facility] Comment on above: Performed By: #### I TJ #### [facility] [address] [place] [address] Dr. Guille Calderon EO # 0.1 103/ul Normal 0.0-0.7 [facility] Comment on above: Performed By: #### I TJ #### [facility] [address] [place] [address] Dr. Guille Calderon Eosinophils/100 WBC (Bld) 1.1 % Normal 0.9-7.0 [facility] Comment on above: Performed By: #### I TJ #### [facility] [address] [place] [address] Dr. Guille Calderon Erythrocyte distribution width (RBC) [Ratio] 13.1 % Normal 11.0-15.0 [facility] Comment on above: Performed By: #### I TJ #### [facility] [address] [place] [address] Dr. Guille Calderon Hematocrit (Bld) [Volume fraction] 46.7 % Normal 42.0-54.0 [facility] Comment on above: Performed By: #### I TJ #### [facility] [address] [place] [address] Dr. Guille Calderon Hemoglobin (Bld) [Mass/Vol] 16.1 g/dL Normal 14.0-18.0 [facility] Comment on above: Performed By: #### I TJ #### [facility] [address] [place] [address] Dr. Guille Calderon IG # 0.01 10e3/ul Normal 0.00-0.03 [facility] Comment on above: Performed By: #### I TJ #### [facility] [address] [place] [address] Dr. Guille Calderon IG % 0.2 % Normal 0.0-0.5 [facility] Comment on above: Performed By: #### I TJ #### [facility] [address] [place] [address] Dr. Guille Calderon LYMPH # 1.9 103/ul Normal 1.2-3.8 [facility] Comment on above: Performed By: #### I TJ #### [facility] [address] [place] [address] Dr. Guille Calderon Lymphocytes/100 WBC (Bld) 30.2 % Normal 20.5-60.0 [facility] Comment on above: Performed By: #### I TJ #### [facility] [address] [place] [address] Dr. Guille Calderon MANUAL DIFF REQ NO Normal [facility] Comment on above: Performed By: #### I TJ #### [facility] [address] [place] [address] Dr. Guille Calderon MCH (RBC) [Entitic mass] 31.1 pg Normal 25.9-34.0 [facility] Comment on above: Performed By: #### I TJ #### [facility] [address] [place] [address] Dr. Guille Calderon MCHC (RBC) [Mass/Vol] 34.5 g/dL Normal 29.9-35.2 [facility] Comment on above: Performed By: #### I TJ #### [facility] [address] [place] [address] Dr. Guille Calderon MCV (RBC) [Entitic vol] 90.2 fL Normal 80.0-94.0 [facility] Comment on above: Performed By: #### I TJ #### [facility] [address] [place] [address] Dr. Guille Calderon MONO # 0.6 103/ul Normal 0.3-0.8 [facility] Comment on above: Performed By: #### I TJ #### [facility] [address] [place] [address] Dr. Guille Calderon Monocytes/100 WBC (Bld) 9.8 % Normal 1.7-12.0 [facility] Comment on above: Performed By: #### I TJ #### [facility] [address] [place] [address] Dr. Guille Calderon NEUT # 3.7 103/ul Normal 1.4-6.5 [facility] Comment on above: Performed By: #### I TJ #### [facility] [address] [place] [address] Dr. Guille Calderon Neutrophils/100 WBC (Bld) 57.4 % Normal 43.0-75.0 [facility] Comment on above: Performed By: #### I TJ #### [facility] [address] [place] [address] Dr. Guille Calderon Platelet mean volume (Bld) [Entitic vol] 9.9 fL Normal 9.5-13.5 [facility] Comment on above: Performed By: #### I TJ #### [facility] [address] [place] [address] Dr. Guille Calderon PLT 237 103/ul Normal 150-450 [facility] Comment on above: Performed By: #### I TJ #### [facility] [address] [place] [address] Dr. Guille Calderon RBC 5.18 106/ul Normal 4.70-6.10 [facility] Comment on above: Performed By: #### I TJ #### [facility] [address] [place] [address] Dr. Guille Calderon WBC 6.4 103/ul Normal 4.0-11.0 [facility] Comment on above: Performed By: #### I TJ #### [facility] [address] [place] [address] Dr. Guille Calderon FREE THYROXINE INDEX T7on FTI 3.50 Normal 1.30-4.50 [facility] Comment on above: Performed By: #### P SASC, VITB12 #### [facility] [address] [place] [address] Dr. Guille Calderon T3U 34.0 % Normal 33.0-40.0 [facility] Comment on above: Performed By: #### P SASC, VITB12 #### [facility] [address] [place] [address] Dr. Guille Calderon T4 [Mass/Vol] 10.30 ug/dL Normal 4.50-12.10 [facility] Comment on above: Performed By: #### P SASC, VITB12 #### [facility] [address] [place] [address] Dr. Guille Calderon GLYCOHEMOGLOBIN A1Con 2022 ADA RECOMMENDATION SEE BELOW Normal [facility] Comment on above: Result Comment: ADA RECOMMENDED LIMIT 4.0 - 6.0 ADA THERAPEUTIC TARGET < 7.0 ACTION SUGGESTED > 7.0 Performed By: #### A 1C #### [facility] [address] [place] [address] Dr. Guille Calderon Glucose [Mass/Vol] 105 mg/dL Normal [facility] Comment on above: Performed By: #### A 1C #### [facility] [address] [place] [address] Dr. Guille Calderon HbA1c (Bld) [Mass fraction] 5.3 % Normal 4.5-6.2 [facility] Comment on above: Performed By: #### A 1C #### [facility] [address] [place] [address] Dr. Guille Calderon IRONon 12-26-2022 Iron [Mass/Vol] 79.0 ug/dL Normal 65.0-175.0 [facility] Comment on above: Performed By: #### V ITAD, IRON #### [facility] [address] [place] [address] Dr. Guille Calderon LIPID PROFILEon 12-26-2022 CHOL-HDL RATIO NORM SEE BELOW Normal [facility] Comment on above: Result Comment: 3.3 - 4.4 LOW RISK 4.4 - 7.1 AVERAGE RISK 7.1 - 11.0 MODERATE RISK >11.0 HIGH RISK Performed By: #### P SASC, VITB12 #### [facility] [address] [place] [address] Dr. Guille Calderon Cholesterol [Mass/Vol] 146 mg/dL Normal <=200 [facility] Comment on above: Performed By: #### P SASC, VITB12 #### [facility] [address] [place] [address] Dr. Guille Calderon Cholesterol in HDL [Mass/Vol] 49 mg/dL Normal 40-60 [facility] Comment on above: Performed By: #### P SASC, VITB12 #### [facility] [address] [place] [address] Dr. Guille Calderon Cholesterol in LDL [Mass/Vol] 79.2 mg/dL Normal [facility] Comment on above: Performed By: #### P SASC, VITB12 #### [facility] [address] [place] [address] Dr. Guille Calderon Cholesterol.total/ Cholesterol in HDL [Mass ratio] 3.0 {ratio} Normal [facility] Comment on above: Performed By: #### P SASC, VITB12 #### [facility] [address] [place] [address] Dr. Guille Calderon HDL NORMAL > or = 60 mg/dl - LO W CARDIOVASCULAR RISK <40 mg/dl - HIGH CARDIOVASCULAR RISK Normal [facility] Comment on above: Performed By: #### P SASC, VITB12 #### [facility] [address] [place] [address] Dr. Guille Calderon LDL CALC NORMAL SEE BELOW Normal [facility] Comment on above: Result Comment: <100 mg/dl OPTIMAL 100 - 129 mg/dl NEAR OR ABOVE OPTIMAL 130 - 159 mg/dl BORDERLINE HIGH 160 - 189 mg/dl HIGH >190 mg/dl VERY HIGH Performed By: #### P SASC, VITB12 #### [facility] [address] [place] [address] Dr. Guille Calderon Triglyceride [Mass/Vol] 89 mg/dL Normal <=150 [facility] Comment on above: Performed By: #### P SASC, VITB12 #### [facility] [address] [place] [address] Dr. Guille Calderon VLDL CALC 17.8 mg/dL Normal [facility] Comment on above: Performed By: #### P SASC, VITB12 #### [facility] [address] [place] [address] Dr. Guille Calderon PROF 14(COMP METB)on 023 Albumin [Mass/Vol] 3.6 g/dL Normal 3.4-5.0 [facility] Comment on above: Performed By: #### P SASC, VITB12 #### [facility] [address] [place] [address] Dr. Guille Calderon Albumin/Globulin [Mass ratio] 0.8 {ratio} Normal [facility] Comment on above: Performed By: #### P SASC, VITB12 #### [facility] [address] [place] [address] Dr. Guille Calderon ALP [Catalytic activity/Vol] 94 U/L Normal 46-116 [facility] Comment on above: Performed By: #### P SASC, VITB12 #### [facility] [address] [place] [address] Dr. Guille Calderon ALT [Catalytic activity/Vol] 45 U/L Normal 16-63 [facility] Comment on above: Performed By: #### P SASC, VITB12 #### [facility] [address] [place] [address] Dr. Guille Calderon Anion gap [Moles/Vol] 11.8 mmol/L Normal [facility] Comment on above: Performed By: #### P SASC, VITB12 #### [facility] [address] [place] [address] Dr. Guille Calderon AST [Catalytic activity/Vol] 28 U/L Normal 15-37 [facility] Comment on above: Performed By: #### P SASC, VITB12 #### [facility] [address] [place] [address] Dr. Guille Calderon Bilirubin [Mass/Vol] 0.4 mg/dL Normal 0.2-1.0 [facility] Comment on above: Performed By: #### P SASC, VITB12 #### [facility] [address] [place] [address] Dr. Guille Calderon Calcium [Mass/Vol] 8.7 mg/dL Normal 8.5-10.1 [facility] Comment on above: Performed By: #### P SASC, VITB12 #### [facility] [address] [place] [address] Dr. Guille Calderon Chloride [Moles/Vol] 103 mmol/L Normal 98-107 [facility] Comment on above: Performed By: #### P SASC, VITB12 #### [facility] [address] [place] [address] Dr. Guille Calderon CO2 [Moles/Vol] 29.7 mmol/L Normal 21.0-32.0 [facility] Comment on above: Performed By: #### P SASC, VITB12 #### [facility] [address] [place] [address] Dr. Guille Calderon Creatinine [Mass/Vol] 0.95 mg/dL Normal 0.70-1.30 [facility] Comment on above: Performed By: #### P SASC, VITB12 #### [facility] [address] [place] [address] Dr. Guille Calderon EGFR-AF SOLOM[place] ISLANDER >60 Normal >=60 [facility] Comment on above: Performed By: #### P SASC, VITB12 #### [facility] [address] [place] [address] Dr. Guille Calderon EGFR-NON AF [place] ISLANDER >60 Normal >=60 [facility] Comment on above: Performed By: #### P SASC, VITB12 #### [facility] [address] [place] [address] Dr. Guille Calderon Globulin (S) [Mass/Vol] 4.3 g/dL Normal [facility] Comment on above: Performed By: #### P SASC, VITB12 #### [facility] [address] [place] [address] Dr. Guille Calderon Glucose [Mass/Vol] 92 mg/dL Normal 74-106 [facility] Comment on above: Performed By: #### P SASC, VITB12 #### [facility] [address] [place] [address] Dr. Guille Calderon Potassium [Moles/Vol] 4.5 mmol/L Normal 3.5-5.1 [facility] Comment on above: Performed By: #### P SASC, VITB12 #### [facility] [address] [place] [address] Dr. Guille Calderon Protein [Mass/Vol] 7.9 g/dL Normal 6.4-8.2 [facility] Comment on above: Performed By: #### P SASC, VITB12 #### [facility] [address] [place] [address] Dr. Guille Calderon Sodium [Moles/Vol] 140 mmol/L Normal 136-145 [facility] Comment on above: Performed By: #### P SASC, VITB12 #### [facility] [address] [place] [address] Dr. Guille Calderon Urea nitrogen [Mass/Vol] 15.0 mg/dL Normal 7.0-18.0 [facility] Comment on above: Performed By: #### P SASC, VITB12 #### [facility] [address] [place] [address] Dr. Guille Calderon Urea nitrogen/Creatinin e [Mass ratio] 15.8 mg/mg Normal [facility] Comment on above: Performed By: #### P SASC, VITB12 #### [facility] [address] [place] [address] Dr. Guille Calderon TSHon 12-26-2022 TSH 0.068 uIU/mL Critically low 0.358-3.740 [facility] Comment on above: Performed By: #### P SASC, VITB12 #### [facility] [address] [place] [address] Dr. Guille Calderon VITAMIN D 25 OHon 12-26-2022 VIT D 25-OH 72.7 ng/mL Normal [facility] Comment on above: Performed By: #### V ITAD, IRON #### [facility] [address] [place] [address] Dr. Guille Calderon VIT D RANGES SEE BELOW Normal [facility] Comment on above: Result Comment: <20 ng/mL Vit D deficient 20 - <30 ng/mL Vit D insufficient 30 - 100 ng/mL Vit D sufficient >100 ng/mL Potential Toxicity Performed By: #### V ITAD, IRON #### [facility] [address] [place] [address] Dr. Guille Calderon CULTURE SPUTUMon 06-01-2022 CULTURE SPUTUM Culture Observations : NORMAL RESPIRATORY DWIGHT. Normal [facility] Comment on above: Performed By: #### I TJ #### [facility] [address] [place] [address] Dr. Guille Calderon SPUTUM GRAM STAINon 06-01-20 22 COMMENTS Normal [facility] Comment on above: Performed By: #### I TJ #### [facility] [address] [place] [address] Dr. Guille Calderon DIPHTHEROIDS [facility] Comment on above: Performed By: #### I TJ #### [facility] [address] [place] [address] Dr. Guille Calderon EPITHELIALS <25 [facility] Comment on above: Performed By: #### I TJ #### [facility] [address] [place] [address] Dr. Guille Calderon FUNGAL ELEMENTS [place] [facility] Comment on above: Performed By: #### I TJ #### [facility] [address] [place] [address] Dr. Guille Calderon GRAM NEG BACILLI [facility] Comment on above: Performed By: #### I TJ #### [facility] [address] [place] [address] Dr. Guille Calderon GRAM NEG DIPPLOCOCCI [facility] Comment on above: Performed By: #### I TJ #### [facility] [address] [place] [address] Dr. Guille Calderon GRAM POS BACILLI [facility] Comment on above: Performed By: #### I TJ #### [facility] [address] [place] [address] Dr. Guille Calderon GRAM POSITIVE COCCI FEW Normal [facility] Comment on above: Performed By: #### I TJ #### [facility] [address] [place] [address] Dr. Guille Calderon WBC (Bld) [#/Vol] 10*3/uL [facility] Comment on above: Performed By: #### I TJ #### [facility] [address] [place] [address] Dr. Guille Calderon BNPon 05-30-2022 Natriuretic peptide B (Bld) [Mass/Vol] 381.0 pg/mL Normal <=900.0 [facility] Comment on above: Performed By: #### B CHILD DAY CARE TEACHER, CMP #### [facility] [address] [place] [address] Dr. Guille Calderon CBC AUTO DIFFon 05-30-2022 BASO # 0.1 103/ul Normal 0.0-0.1 [facility] Comment on above: Performed By: #### I TJ #### [facility] [address] [place] [address] Dr. Guille Calderon Basophils/100 WBC (Bld) 0.5 % Normal 0.2-2.0 [facility] Comment on above: Performed By: #### I TJ #### [facility] [address] [place] [address] Dr. Guille Calderon EO # 0.0 103/ul Normal 0.0-0.7 [facility] Comment on above: Performed By: #### I TJ #### [facility] [address] [place] [address] Dr. Guille Calderon Eosinophils/100 WBC (Bld) 0.1 % Critically low 0.9-7.0 [facility] Comment on above: Performed By: #### I TJ #### [facility] [address] [place] [address] Dr. Guille Calderon Erythrocyte distribution width (RBC) [Ratio] 13.7 % Normal 11.0-15.0 [facility] Comment on above: Performed By: #### I TJ #### [facility] [address] [place] [address] Dr. Guille Calderon Hematocrit (Bld) [Volume fraction] 45.4 % Normal 42.0-54.0 [facility] Comment on above: Performed By: #### I TJ #### [facility] [address] [place] [address] Dr. Guille Calderon Hemoglobin (Bld) [Mass/Vol] 15.3 g/dL Normal 14.0-18.0 [facility] Comment on above: Performed By: #### I TJ #### [facility] [address] [place] [address] Dr. Guille Calderon IG # 0.04 10e3/ul Critically high 0.00-0.03 [facility] Comment on above: Performed By: #### I TJ #### [facility] [address] [place] [address] Dr. Guille Calderon IG % 0.4 % Normal 0.0-0.5 [facility] Comment on above: Performed By: #### I TJ #### [facility] [address] [place] [address] Dr. Guille Calderon LYMPH # 2.0 103/ul Normal 1.2-3.8 [facility] Comment on above: Performed By: #### I TJ #### [facility] [address] [place] [address] Dr. Guille Calderon Lymphocytes/100 WBC (Bld) 17.7 % Critically low 20.5-60.0 [facility] Comment on above: Performed By: #### I TJ #### [facility] [address] [place] [address] Dr. Guille Calderon MANUAL DIFF REQ NO Normal [facility] Comment on above: Performed By: #### I TJ #### [facility] [address] [place] [address] Dr. Guille Calderon MCH (RBC) [Entitic mass] 31.0 pg Normal 25.9-34.0 [facility] Comment on above: Performed By: #### I TJ #### [facility] [address] [place] [address] Dr. Guille Calderon MCHC (RBC) [Mass/Vol] 33.7 g/dL Normal 29.9-35.2 [facility] Comment on above: Performed By: #### I TJ #### [facility] [address] [place] [address] Dr. Guille Calderon MCV (RBC) [Entitic vol] 92.1 fL Normal 80.0-94.0 [facility] Comment on above: Performed By: #### I TJ #### [facility] [address] [place] [address] Dr. Guille Calderon MONO # 0.7 103/ul Normal 0.3-0.8 [facility] Comment on above: Performed By: #### I TJ #### [facility] [address] [place] [address] Dr. Guille Calderon Monocytes/100 WBC (Bld) 6.5 % Normal 1.7-12.0 [facility] Comment on above: Performed By: #### I TJ #### [facility] [address] [place] [address] Dr. Guille Calderon NEUT # 8.5 103/ul Critically high 1.4-6.5 [facility] Comment on above: Performed By: #### I TJ #### [facility] [address] [place] [address] Dr. Guille Calderon Neutrophils/100 WBC (Bld) 74.8 % Normal 43.0-75.0 [facility] Comment on above: Performed By: #### I TJ #### [facility] [address] [place] [address] Dr. Guille Calderon Platelet mean volume (Bld) [Entitic vol] 10.1 fL Normal 9.5-13.5 [facility] Comment on above: Performed By: #### I TJ #### [facility] [address] [place] [address] Dr. Guille Calderon PLT 305 103/ul Normal 150-450 [facility] Comment on above: Performed By: #### I TJ #### [facility] [address] [place] [address] Dr. Guille Calderon RBC 4.93 106/ul Normal 4.70-6.10 [facility] Comment on above: Performed By: #### I TJ #### [facility] [address] [place] [address] Dr. Guille Calderon WBC 11.4 103/ul Critically high 4.0-11.0 [facility] Comment on above: Performed By: #### I TJ #### [facility] [address] [address] [address] Guille Calderon IRONon 05-30-2022 Iron [Mass/Vol] 156.0 ug/dL Normal 65.0-175.0 [facility] Comment on above: Performed By: #### I TJ #### [facility] [address] [place] [address] Dr. Guille Calderon PROF 14(COMP METB)on 022 Albumin [Mass/Vol] 4.1 g/dL Normal 3.4-5.0 [facility] Comment on above: Performed By: #### B CHILD DAY CARE TEACHER, CMP #### [facility] [address] [place] [address] Dr. Guille Calderon Albumin/Globulin [Mass ratio] 0.9 {ratio} Normal [facility] Comment on above: Performed By: #### B CHILD DAY CARE TEACHER, CMP #### [facility] [address] [place] [address] Dr. Guille Calderon ALP [Catalytic activity/Vol] 84 U/L Normal 46-116 [facility] Comment on above: Performed By: #### B CHILD DAY CARE TEACHER, CMP #### [facility] [address] [place] [address] Dr. Guille Calderon ALT [Catalytic activity/Vol] 40 U/L Normal 16-63 [facility] Comment on above: Performed By: #### B CHILD DAY CARE TEACHER, CMP #### [facility] [address] [place] [address] Dr. Guille Calderon Anion gap [Moles/Vol] 9.5 mmol/L Normal [facility] Comment on above: Performed By: #### B CHILD DAY CARE TEACHER, CMP #### [facility] [address] [place] [address] Dr. Guille Calderon AST [Catalytic activity/Vol] 19 U/L Normal 15-37 [facility] Comment on above: Performed By: #### B CHILD DAY CARE TEACHER, CMP #### [facility] [address] [place] [address] Dr. Guille Calderon Bilirubin [Mass/Vol] 0.4 mg/dL Normal 0.2-1.0 [facility] Comment on above: Performed By: #### B CHILD DAY CARE TEACHER, CMP #### [facility] [address] [place] [address] Dr. Guille Calderon Calcium [Mass/Vol] 8.9 mg/dL Normal 8.5-10.1 [facility] Comment on above: Performed By: #### B CHILD DAY CARE TEACHER, CMP #### [facility] [address] [place] [address] Dr. Guille Calderon Chloride [Moles/Vol] 103 mmol/L Normal 98-107 [facility] Comment on above: Performed By: #### B CHILD DAY CARE TEACHER, CMP #### [facility] [address] [place] [address] Dr. Guille Calderon CO2 [Moles/Vol] 28.1 mmol/L Normal 21.0-32.0 [facility] Comment on above: Performed By: #### B CHILD DAY CARE TEACHER, CMP #### [facility] [address] [place] [address] Dr. Guille Calderon Creatinine [Mass/Vol] 0.87 mg/dL Normal 0.70-1.30 [facility] Comment on above: Performed By: #### B CHILD DAY CARE TEACHER, CMP #### [facility] [address] [place] [address] Dr. Guille Calderon EGFR-AF SOLOM[place] ISLANDER >60 Normal >=60 [facility] Comment on above: Performed By: #### B CHILD DAY CARE TEACHER, CMP #### [facility] [address] [place] [address] Dr. Guille Calderon EGFR-NON AF SOLOMON ISLANDER >60 Normal >=60 [facility] Comment on above: Performed By: #### B CHILD DAY CARE TEACHER, CMP #### [facility] [address] [place] [address] Dr. Guille Calderon Globulin (S) [Mass/Vol] 4.5 g/dL Normal [facility] Comment on above: Performed By: #### B CHILD DAY CARE TEACHER, CMP #### [facility] [address] [place] [address] Dr. Guille Calderon Glucose [Mass/Vol] 109 mg/dL Critically high 74-106 [facility] Comment on above: Performed By: #### B CHILD DAY CARE TEACHER, CMP #### [facility] [address] [address] [address] Guille Calderon Potassium [Moles/Vol] 4.6 mmol/L Normal 3.5-5.1 [facility] Comment on above: Performed By: #### B CHILD DAY CARE TEACHER, CMP #### [facility] [address] [address] [address] Guille Calderon Protein [Mass/Vol] 8.6 g/dL Critically high 6.4-8.2 [facility] Comment on above: Performed By: #### B CHILD DAY CARE TEACHER, CMP #### [facility] [address] [address] [address] Guille Calderon Sodium [Moles/Vol] 136 mmol/L Normal 136-145 [facility] Comment on above: Performed By: #### B CHILD DAY CARE TEACHER, CMP #### [facility] [address] [place] [address] Dr. Guille Calderon Urea nitrogen [Mass/Vol] 19.0 mg/dL Critically high 7.0-18.0 [facility] Comment on above: Performed By: #### B CHILD DAY CARE TEACHER, CMP #### [facility] [address] [address] [address] Guille Calderon Urea nitrogen/Creatinin e [Mass ratio] 21.8 mg/mg Normal [facility] Comment on above: Performed By: #### B CHILD DAY CARE TEACHER, CMP #### [facility] [address] [place] [address] Dr. Guille Calderon XR CHEST 2 Von [...] by: ARLENE CHOI Date: 2022-05-30 17:22 Normal [facility] INSULINon 04-03-2022 Insulin 6.4 uIU/mL Normal 2.6-24.9 [facility] Comment on above: Performed By: #### P SASC, VITB12 #### [facility] [address] [address] [address] Guille Calderon OCC BLD IMMUNO SCREENon OCCULT BLOOD Negative Normal NEGATIVE [facility] Comment on above: Performed By: #### P SASC, VITB12 #### [facility] [address] [address] [address] Guille Calderon T4, T3U, FTI [facility]ABC[facility]on 04-03 Free Thyroxine Index 2.5 Normal 1.2-4.9 [facility] Comment on above: Performed By: #### T HYLC #### [facility] [address] [place] [address] Dr. Guille Calderon T3 Uptake 28 % Normal 24-39 [facility] Comment on above: Performed By: #### T HYLC #### [facility] [address] [place] [address] Dr. Guille Calderon T4 [Mass/Vol] 8.8 ug/dL Normal 4.5-12.0 [facility] Comment on above: Performed By: #### T HYLC #### [facility] [address] [place] [address] Dr. Guille Calderon VIT D 25-OH [facility]on 2021 Vitamin D, 25-Hydroxy 85.0 ng/mL Normal 30.0-100.0 [facility] Comment on above: Result Comment: Karime min D deficiency has been defined by the [place] [employer] and an Endocrine Society practice guideline as a level of serum 25-OH vitamin D less than 20 ng/mL (1,2). The Endocrine Society went on to further define vitamin D insufficiency as a level between 21 and 29 ng/mL (2). 1. IOM ([place] [employer]). 2010. Dietary reference intakes for calcium and D. [place]: The National Academies Press. 2. Mena MF, Umair NC, Luis POWELL, et al. Evaluation, treatment, and prevention of vitamin D deficiency: an Endocrine Society clinical practice guideline. JCEM. 2010; 96(7):1911-30. Performed By: #### V ITADLC #### [facility] [address] [place] [address] Dr. Guille Calderon BNPon 04-02-2022 Natriuretic peptide B (Bld) [Mass/Vol] 252.0 pg/mL Normal <=900.0 [facility] Comment on above: Performed By: #### P SASC, VITB12 #### [facility] [address] [place] [address] Dr. Guille Calderon CBC AUTO DIFFon 04-02-2022 BASO # 0.1 103/ul Normal 0.0-0.1 [facility] Comment on above: Performed By: #### P SASC, VITB12 #### [facility] [address] [place] [address] Dr. Guille Calderon Basophils/100 WBC (Bld) 1.3 % Normal 0.2-2.0 [facility] Comment on above: Performed By: #### P SASC, VITB12 #### [facility] [address] [place] [address] Dr. Guille Calderon EO # 0.1 103/ul Normal 0.0-0.7 [facility] Comment on above: Performed By: #### P SASC, VITB12 #### [facility] [address] [place] [address] Dr. Guille Calderon Eosinophils/100 WBC (Bld) 1.1 % Normal 0.9-7.0 [facility] Comment on above: Performed By: #### P SASC, VITB12 #### [facility] [address] [place] [address] Dr. Guille Calderon Erythrocyte distribution width (RBC) [Ratio] 13.4 % Normal 11.0-15.0 [facility] Comment on above: Performed By: #### P SASC, VITB12 #### [facility] [address] [place] [address] Dr. Guille Calderon Hematocrit (Bld) [Volume fraction] 44.7 % Normal 42.0-54.0 [facility] Comment on above: Performed By: #### P SASC, VITB12 #### [facility] [address] [place] [address] Dr. Guille Calderon Hemoglobin (Bld) [Mass/Vol] 15.0 g/dL Normal 14.0-18.0 [facility] Comment on above: Performed By: #### P SASC, VITB12 #### [facility] [address] [place] [address] Dr. Guille Calderon IG # 0.02 10e3/ul Normal 0.00-0.03 [facility] Comment on above: Performed By: #### P SASC, VITB12 #### [facility] [address] [place] [address] Dr. Guille Calderon IG % 0.3 % Normal 0.0-0.5 [facility] Comment on above: Performed By: #### P SASC, VITB12 #### [facility] [address] [place] [address] Dr. Guille Calderon LYMPH # 1.5 103/ul Normal 1.2-3.8 [facility] Comment on above: Performed By: #### P SASC, VITB12 #### [facility] [address] [place] [address] Dr. Guille Calderon Lymphocytes/100 WBC (Bld) 23.9 % Normal 20.5-60.0 [facility] Comment on above: Performed By: #### P SASC, VITB12 #### [facility] [address] [place] [address] Dr. Guille Calderon MANUAL DIFF REQ NO Normal [facility] Comment on above: Performed By: #### P SASC, VITB12 #### [facility] [address] [place] [address] Dr. Guille Calderon MCH (RBC) [Entitic mass] 30.9 pg Normal 25.9-34.0 [facility] Comment on above: Performed By: #### P SASC, VITB12 #### [facility] [address] [place] [address] Dr. Guille Calderon MCHC (RBC) [Mass/Vol] 33.6 g/dL Normal 29.9-35.2 [facility] Comment on above: Performed By: #### P SASC, VITB12 #### [facility] [address] [place] [address] Dr. Guille Calderon MCV (RBC) [Entitic vol] 92.2 fL Normal 80.0-94.0 [facility] Comment on above: Performed By: #### P SASC, VITB12 #### [facility] [address] [place] [address] Dr. Guille Calderon MONO # 0.6 103/ul Normal 0.3-0.8 [facility] Comment on above: Performed By: #### P SASC, VITB12 #### [facility] [address] [place] [address] Dr. Guille Calderon Monocytes/100 WBC (Bld) 9.0 % Normal 1.7-12.0 [facility] Comment on above: Performed By: #### P SASC, VITB12 #### [facility] [address] [place] [address] Dr. Guille Calderon NEUT # 4.1 103/ul Normal 1.4-6.5 [facility] Comment on above: Performed By: #### P SASC, VITB12 #### [facility] [address] [place] [address] Dr. Guille Calderon Neutrophils/100 WBC (Bld) 64.4 % Normal 43.0-75.0 [facility] Comment on above: Performed By: #### P SASC, VITB12 #### [facility] [address] [place] [address] Dr. Guille Calderon Platelet mean volume (Bld) [Entitic vol] 9.7 fL Normal 9.5-13.5 [facility] Comment on above: Performed By: #### P SASC, VITB12 #### [facility] [address] [place] [address] Dr. Guille Calderon PLT 234 103/ul Normal 150-450 [facility] Comment on above: Performed By: #### P SASC, VITB12 #### [facility] [address] [place], [place] [address] Dr. Guille Calderon RBC 4.85 106/ul Normal 4.70-6.10 [facility] Comment on above: Performed By: #### P SASC, VITB12 #### [facility] [address] [place], [place] [address] Dr. Guille Calderon WBC 6.3 103/ul Normal 4.0-11.0 [facility] Comment on above: Performed By: #### P SASC, VITB12 #### [facility] [address] [place], [place] [address] LUNG CANCER SCREENINGon [...] by: AFUA MERCHANT Date: 2022-04-02 10:13 Normal [facility] GLYCOHEMOGLOBIN A1Con 2021 ADA RECOMMENDATION SEE BELOW Normal [facility] Comment on above: Result Comment: ADA RECOMMENDED LIMIT 4.0 - 6.0 ADA THERAPEUTIC TARGET < 7.0 ACTION SUGGESTED > 7.0 Performed By: #### I TJ #### [facility] [address] [address] [address] Guille Calderon Glucose [Mass/Vol] 117 mg/dL Normal [facility] Comment on above: Performed By: #### I TJ #### [facility] [address] [address] [address] Guille Calderon HbA1c (Bld) [Mass fraction] 5.7 % Normal 4.5-6.2 [facility] Comment on above: Performed By: #### I TJ #### [facility] [address] [place] [address] Dr. Guille Calderon LIPID PROFILEon 04-02-2022 CHOL-HDL RATIO NORM SEE BELOW Normal [facility] Comment on above: Result Comment: 3.3 - 4.4 LOW RISK 4.4 - 7.1 AVERAGE RISK 7.1 - 11.0 MODERATE RISK >11.0 HIGH RISK Performed By: #### P SASC, VITB12 #### [facility] [address] [place] [address] Dr. Guille Calderon Cholesterol [Mass/Vol] 163 mg/dL Normal <=200 [facility] Comment on above: Performed By: #### P SASC, VITB12 #### [facility] [address] [place] [address] Dr. Guille Calderon Cholesterol in HDL [Mass/Vol] 53 mg/dL Normal 40-60 [facility] Comment on above: Performed By: #### P SASC, VITB12 #### [facility] [address] [place] [address] Dr. Guille Calderon Cholesterol in LDL [Mass/Vol] 100.8 mg/dL Normal [facility] Comment on above: Performed By: #### P SASC, VITB12 #### [facility] [address] [place] [address] Dr. Guille Calderon Cholesterol.total/ Cholesterol in HDL [Mass ratio] 3.1 {ratio} Normal [facility] Comment on above: Performed By: #### P SASC, VITB12 #### [facility] [address] [address] [address] Guille Calderon HDL NORMAL > or = 60 mg/dl - LO W CARDIOVASCULAR RISK <40 mg/dl - HIGH CARDIOVASCULAR RISK Normal [facility] Comment on above: Performed By: #### P SASC, VITB12 #### [facility] [address] [address] [address] Guille Calderon LDL CALC NORMAL SEE BELOW Normal [facility] Comment on above: Result Comment: <100 mg/dl OPTIMAL 100 - 129 mg/dl NEAR OR ABOVE OPTIMAL 130 - 159 mg/dl BORDERLINE HIGH 160 - 189 mg/dl HIGH >190 mg/dl VERY HIGH Performed By: #### P SASC, VITB12 #### [facility] [address] [address] [address] Guille Calderon Triglyceride [Mass/Vol] 46 mg/dL Normal <=150 [facility] Comment on above: Performed By: #### P SASC, VITB12 #### [facility] [address] [address] [address] Guille Calderon VLDL CALC 9.2 mg/dL Normal [facility] Comment on above: Performed By: #### P SASC, VITB12 #### [facility] [address] [address] [address] Guille Calderon MRI LSPINE WO CONon [...] SPEEDY CAMPO Date: 2022-04-02 11:13 Normal [facility] PROF 14(COMP METB)on 022 Albumin [Mass/Vol] 3.8 g/dL Normal 3.4-5.0 [facility] Comment on above: Performed By: #### P SASC, VITB12 #### [facility] [address] [place] [address] Dr. Guille Calderon Albumin/Globulin [Mass ratio] 1.0 {ratio} Normal [facility] Comment on above: Performed By: #### P SASC, VITB12 #### [facility] [address] [place] [address] Dr. Guille Calderon ALP [Catalytic activity/Vol] 87 U/L Normal 46-116 [facility] Comment on above: Performed By: #### P SASC, VITB12 #### [facility] [address] [address] [address] Guille Calderon ALT [Catalytic activity/Vol] 43 U/L Normal 16-63 [facility] Comment on above: Performed By: #### P SASC, VITB12 #### [facility] [address] [address] [address] Guille Calderon Anion gap [Moles/Vol] 10.3 mmol/L Normal [facility] Comment on above: Performed By: #### P SASC, VITB12 #### [facility] [address] [place] [address] Dr. Guille Calderon AST [Catalytic activity/Vol] 24 U/L Normal 15-37 [facility] Comment on above: Performed By: #### P SASC, VITB12 #### [facility] [address] [place] [address] Dr. Guilel Calderon Bilirubin [Mass/Vol] 0.4 mg/dL Normal 0.2-1.0 [facility] Comment on above: Performed By: #### P SASC, VITB12 #### [facility] [address] [place] [address] Dr. Guille Calderon Calcium [Mass/Vol] 8.6 mg/dL Normal 8.5-10.1 [facility] Comment on above: Performed By: #### P SASC, VITB12 #### [facility] [address] [place] [address] Dr. Guille Calderon Chloride [Moles/Vol] 103 mmol/L Normal 98-107 [facility] Comment on above: Performed By: #### P SASC, VITB12 #### [facility] [address] [place] [address] Dr. Guille Calderon CO2 [Moles/Vol] 28.4 mmol/L Normal 21.0-32.0 [facility] Comment on above: Performed By: #### P SASC, VITB12 #### [facility] [address] [place] [address] Dr. Guille Calderon Creatinine [Mass/Vol] 1.04 mg/dL Normal 0.70-1.30 [facility] Comment on above: Performed By: #### P SASC, VITB12 #### [facility] [address] [place] [address] Dr. Guille Calderon EGFR-AF SOL[place] ISLANDER >60 Normal >=60 [facility] Comment on above: Performed By: #### P SASC, VITB12 #### [facility] [address] [place] [address] Dr. Guille Calderon EGFR-NON AF [place] ISLANDER >60 Normal >=60 [facility] Comment on above: Performed By: #### P SASC, VITB12 #### [facility] [address] [place] [address] Dr. Guille Calderon Globulin (S) [Mass/Vol] 3.9 g/dL Normal [facility] Comment on above: Performed By: #### P SASC, VITB12 #### [facility] [address] [place] [address] Dr. Guille Calderon Glucose [Mass/Vol] 105 mg/dL Normal 74-106 [facility] Comment on above: Performed By: #### P SASC, VITB12 #### [facility] [address] [place] [address] Dr. Guille Calderon Potassium [Moles/Vol] 4.7 mmol/L Normal 3.5-5.1 [facility] Comment on above: Performed By: #### P SASC, VITB12 #### [facility] [address] [place] [address] Dr. Guille Calderon Protein [Mass/Vol] 7.7 g/dL Normal 6.4-8.2 [facility] Comment on above: Performed By: #### P SASC, VITB12 #### [facility] [address] [place] [address] Dr. Guille Calderon Sodium [Moles/Vol] 137 mmol/L Normal 136-145 [facility] Comment on above: Performed By: #### P SASC, VITB12 #### [facility] [address] [place] [address] Dr. Guille Calderon Urea nitrogen [Mass/Vol] 18.0 mg/dL Normal 7.0-18.0 [facility] Comment on above: Performed By: #### P SASC, VITB12 #### [facility] [address] [place] [address] Dr. Guille Calderon Urea nitrogen/Creatinin e [Mass ratio] 17.3 mg/mg Normal [facility] Comment on above: Performed By: #### P SASC, VITB12 #### [facility] [address] [place] [address] Dr. Guille Calderon TSHon 04-02-2022 TSH 1.169 uIU/mL Normal 0.358-3.740 [facility] Comment on above: Performed By: #### P SASC, VITB12 #### [facility] [address] [address] [address] Guille Calderon URIC ACID SERUMon 04-02-2022 Urate [Mass/Vol] 5.0 mg/dL Normal 3.5-7.2 [facility] Comment on above: Performed By: #### P SASC, VITB12 #### [facility] [address] [address] [address] Guille Calderon VITAMIN B12on 04-02-2022 Cobalamin (Vitamin B12) [Mass/Vol] 407.0 pg/mL Normal 193.0-986.0 [facility] Comment on above: Performed By: #### P SASC, VITB12 #### [facility] [address] [place] [address] Dr. Guille Calderon XR LSPINE MIN 4 [...] SPEEDY CAMPO Date: 2022-04-02 17:48 Normal [facility] Coding Summary.on 08-24-2017 Coding Summary. CODING DATE: [address] [facility] STATUS: Home (Routine DC) PAYOR: Viral APC DESCRIPTION 8802 Level 1 Laparoscopy and Related Services ADMIT DX: REASON FOR VISIT DX: K42.0 Umbilical hernia with obstruction, without gangrene FINAL DX: PRINCIPAL: K42.0 Umbilical hernia with obstruction, without gangrene SECONDARY: E03.9 Hypothyroidism, unspecified F17.210 Nicotine dependence, cigarettes, uncomplicated PYMT PROC APC STAT DESCRIPTION DOCTOR NAME DATE 02321 5076 J1 Laparoscopy, surgical, Ean Shahid MD 08/23/2017 repair, ventral, umbilical, spigelian or epigastric hernia (includes mesh insertion, when performed); incarcerated or strangulated 68389 Anesthesia for hernia Ean Shahid MD 08/23/2017 repairs in upper abdomen; lumbar and ventral (incisional) hernias and/or wound dehiscence 85504 Transversus abdominis Haider Pelletier DO 08/23/2017 plane [...] Revised Date Saved: 08/24/2017 12:35 pm Normal [facility] Main OR Intraoperative Recor don 08-24-2017 Main OR Intraoperative Record IntraOp Document Type FT Summary Primary Physician: Ean Shahid MD Finalized Date/Time: 08/24/17 09:24:34 Pt. Name: LORENZA RAMACHANDRAN/Sex: 1955 Male Med Rec #: [id number] Physician: Ean Shahid MD Financial #: [id number] Pt. Type: A Room/Bed: [place] [address] Admit/Disch: 08/23/17 09:39:00 - 08/23/17 19:30:00 Institution: [...] Role Performed Anesthesiologist of Surgeon - Primary GL[employer]ODUCTS INSPECTOR Record Time In 08/23/17 12:22:00 08/23/17 12:22:00 08/23/17 12:22:00 Time Out 08/23/17 14:00:00 08/23/17 14:49:00 08/23/17 14:49:00 Procedure HERNIA REPAIR, ROBOT HERNIA REPAIR, ROBOT HERNIA REPAIR, ROBOT ASSISTED(.) ASSISTED(.) ASSISTED(.) Comments Last Modified By: Gianni RN, Keyur Archer RN, Keyur Archer RN, [facility] 08/23/17 14:50:07 08/23/17 14:50:07 08/23/17 14:50:07 Entry 4 Entry 5 Entry 6 Case Attendee Gianni RN, Keyur Crooks RN, Monica Steen CST, Claribel Oliver Role Performed Pe Electrical Engineer - Primary Pe Electrical Engineer - Primary Scrub - Primary Time In 08/23/17 12:22:00 08/23/17 12:22:00 08/23/17 12:22:00 Time Out 08/23/17 14:49:00 08/23/17 14:49:00 08/23/17 14:49:00 Procedure HERNIA REPAIR, ROBOT HERNIA REPAIR, ROBOT HERNIA REPAIR, ROBOT ASSISTED(.) ASSISTED(.) ASSISTED(.) Comments Last Modified By: Gianni RN, Keyur Archer RN, Keyur Archer RN, [facility] 08/23/17 14:50:07 08/23/17 14:50:07 08/23/17 14:50:07 Entry 7 Case Attendee Ian Resendiz MD Role Performed Anesthesiologist - Other Time In 08/23/17 13:49:00 Time Out 08/23/17 14:49:00 Procedure HERNIA REPAIR, ROBOT ASSISTED(.) Comments Last Modified By: Gianni EAST, [facility] 08/23/17 14:50:07 General Comments: marleen hernandez [...] and tissue Entry 1 Skin Integrity Intact, Munson, Warm, and Skin Abnormality No Dry Outcomes [...] RN Patient Status Stable Skin. Condition Intact, Munson, Warm, and Dry Airway Maintenance Oxygen in [...] Immobilization Devices Items BINDER ABDOMINAL 3-PNL LG/XLG [[id number]][F] Site and Details 4x4's and medium binder [...] Description MESH STEX ROUND 9CM Lot Number [id number] (3.6 ) [SYM9][F] Traveling Inventory Associate [employer] Catalog ?# SYM9 [F] Size 9 CM [...] Present Upon Arrival No Inserted LF 16FR [[id number]][F] Insertion Date/Time 08/23/17 12:32:00 Urine Residual 55 [...] BLANKET MISTRAL AIR Quantity 1 Aid TORSO [[id number]][F] Fluid/[place] Unit Mistral warming system Setting 38 Body Site Upper anterior torso Last Modified By: Keyur Archer RN 08/23/17 07:21:12 Case Comments Finalized By: Shea Stone CST Document Signatures Signed By: Keyur Archer RN 08/23/17 14:50 Keyur Archer RN 08/23/17 14:50 Shea Stone CST 08/24/17 09:24 Normal [facility] Progress Note-Physicianon Progress Note-Physician Patient: LORENZA RAMACHANDRAN Age: 62 years Sex: Male : 1955 Associated Diagnoses: None Author: Ian Resendiz MD Postoperative Information Post Operative Note: Post Anesthesia Care Unit. Anesthetic utilized: General. Regional: TAP block. Health Status Allergies: Allergic Reactions (All)No Known Allergies Problem list: All ProblemsHernia, umbilical / SNOMED CT 3500680301 / ConfirmedBack pain, chronic / SNOMED CT 170034330 / ConfirmedSmoker / IMO 347151 / ConfirmedAdded secondary to documentation in Social History.Hypothyroid / SNOMED CT 11260073 / Confirmed Physical Examination Intake and Output [...] discharged from anesthesia care. Condition stable. Normal [facility] Comment on above: Result Comment: Elec tronically [...] be discharged from PACU when criteria met. [facility] Comment on above: Result Comment: Elec tronically Signed By: Haider Pelletier DO\.br\Date and Time Signed: 08/24/17 09:55 EST History and Physicalon 08-23 History and Physical Patient: LORENZA RAMACHANDRAN Age: 62 years Sex: Male : 1955 Associated Diagnoses: None Author: Ean Shahid MD Subjective no changes to H & P [facility] Comment on above: Result Comment: Elec tronically Signed By: Ean Shahid MD\Jo-Annbr\Date and Time Signed: 08/23/17 12:00 EST Inpatient Patient Summaryon 08-23-2017 [facility] Inst[facility] INFORMATION Name: LORENZA RAMACHANDRAN PHYSICIANS Admitting Physician: Ean Shahid MD Physician: Ean Shahid MD PCP: Jon DEL REAL, Lux Diagnosis: Incarcerated umbilical hernia Comment: PATIENT EDUCATION INFORMATIONInstructions:Medica tion Leaflets:Follow up:With: Address: When: Ean Shahid [address] [place] [id number] [facility] ([employer] Within 7 to 10 days Comments: follow up in the [place] office next wednesday, call to schedule a time. MEDICATION LISTFill New Prescriptions:acetaminophen-ox ycodone (Percocet 325 mg-5 mg Tab) 1 tab(s) By Mouth every 4 hours as needed for Pain not to exceed 12 tablets/day not to exceed 4000 mg acetaminophen per day take with food or milkComment: Normal [facility] Main OR PACU I Recordon 08-03 Main OR PACU I Record PACU Phase I Document Type FT Summary Primary Physician: Ean Shahid MD Finalized Date/Time: 08/23/17 16:03:37 Pt. Name: LORENZA RAMACHANDRAN Antonieta Madden./Sex: 1955 Male Med Rec #: [id number] Physician: Ean Shahid MD Financial #: [id number] Pt. Type: A Room/Bed: [place] [address] Admit/Disch: 08/23/17 09:39:18 - Institution: Case Times [...] By: Dana Radford RN 08/23/17 16:03 Normal [facility] Main OR PACU II Recordon Main OR PACU II Record PACU Phase II Document Type FT Summary Primary Physician: Ean Shahid MD Finalized Date/Time: 08/23/17 21:51:51 Pt. Name: LORENZA RAMACHANDRAN/Sex: 1955 Male Med Rec #: [id number] Physician: Ean Shahid MD Financial #: [id number] Pt. Type: A Room/Bed: [place] [address] Admit/Disch: 08/23/17 09:39:00 - 08/23/17 19:30:00 Institution: [...] By: Serene Boyer RN 08/23/17 21:51 Normal [facility] Main OR Preoperative Recordo n 08-23-2017 Main OR Preoperative Record PreOp Document Type FT Summary Primary Physician: Ean Shahid MD Finalized Date/Time: 08/23/17 12:44:33 Pt. Name: LORENZA RAMACHANDRAN /Sex: 1955 Male Med Rec #: [id number] Physician: Ean Shahid MD Financial #: [id number] Pt. Type: A Room/Bed: [facility] Admit/Disch: 08/23/17 09:39:18 - Institution: Case Times [...] By: Keyur Archer RN 08/23/17 12:44 Normal [facility] Operative Reporton Operative Report Date of Surgery: [...] this was complete the #2 arm needle carrier driver was removed andthe scissors were placed. [...] at the umbilicus was removed. The needle carrier driver from the #1 arm wasremoved. Robot [...] site fascia wasclosed with a 0 Vicryl rhqayr-zh-weuqn suture. All port sites as well asthe [...] RecoveryRoom in good condition.Ean Shahid M.D.lkrDictated: 08/23/2017 #[id number]: 08/23/2017 #[id number]: Sherrill Guerrier M.D. [facility] Comment on above: Result Comment: Elec [...] Then with ultrasound guidance using a 21 rhqem583 mm Pajunk needle, the transversus abdominis plane was located on bothsides. A total volume of 25 mL of 0.25% Marcaine and Exparel mixture wasinjected on each side after multiple attempts at aspiration. The patienttolerated the procedure well. Surgery then proceeded under generalanesthesia.Haider Pelletier D.O.lkrDictated: 08/23/2017 #[id number]: 08/23/2017 #[id number]: Haider Pelletier D.O. [facility] Comment on above: Result Comment: Elec tronically Signed By: Haider Pelletier DO\.br\Date and Time Signed: 08/23/17 13:43 EST Patient Education - Texton 0 08-23-2017 Patient Education - Text Patient Education Materials Follows: [facility] Progress Note-Physicianon Progress Note-Physician Patient: LORENZA [...] All ProblemsBack pain, chronic / SNOMED CT 491973401 / ConfirmedHernia, umbilical / SNOMED CT 5224852802 / ConfirmedHypothyroid / SNOMED CT 43274904 / ConfirmedSmoker / IMO 156004 / ConfirmedAdded secondary to documentation in Social History., Active Problems (4)Back pain, chronic Hernia, umbilical Hypothyroid Smoker Histories Past Medical History: No active or resolved past medical history items have been selected or recorded. Family History: No family history items have been selected or recorded. Procedure history: Arthroscopic repair of rotator cuff (1945113910).Tonsillectomy (339763128).Neuroma (95249133).Comments:08/23/2017 10:21 - Coral Mcneil RN Aremoval of neuromas from feet Social History Social & Psychosocial BxyptyIhybzuw99/22/2018 Risk Assessment: Denies Alcohol UseSubstance Abuse08/23/2017 Risk Assessment: Denies Substance ZuzvoUduvltt05/22/2018 Risk Assessment: High Risk08/23/2017 Use: Current Every [...] are non-labored. Cardiovascular: Regular rhythm. Integumentary: Warm, Munson. Neurologic: Alert, Oriented. Review / Management Results review: No qualifying data available. Chest x-ray results Reviewed radiologist's report ECG interpretation: Reviewed ECG.. Condition: Stable. Plan [place] [employer]esthesiologists (ASA) physical status classification: Class II. Anesthetic Preoperative Plan Anesthesia: General. , Regional B/L TAP block. Anesthetic plan, risks, benefits, and alternatives discussed with the patient and/or family. Patient verbalized understanding. Risks, benefits, alternatives discussed. Questions answered. . Normal [facility] Comment on above: Result Comment: Elec tronically Signed By: Haider Pelletier DO\.br\Date and Time Signed: 08/23/17 12:21 EST UA With Cult Reflexon 2017 Bilirubin Ql (U) Negative Normal Negative [facility] Comment on above: Performed By: #### 2 351630, 6361314, 2990510, 0843436, 1682881, 35245598 ####[facility] [address] [place] [address] COLOR:TYPE:PT:URIN E:NOM:AUTO YELLOW Normal Yellow [facility] Comment on above: Performed By: #### 2 375840, 0944606, 4153121, 9209623, 3449713, 56579883 ####[facility] [address] [place] [address] CRYSTALS:PRTHR:PT: URINE SED:ORD:MICROSCOPY .LIGHT Present Normal [facility] Comment on above: Performed By: #### 2 529637, 4024919, 6709227, 3989488, 9944586, 67339618 ####[facility] [address] [place] [address] Erythrocytes (RBC) 4-20 Normal 0-3 [facility] Comment on above: Performed By: #### 2 951442, 0560623, 1657105, 6923353, 4200776, 58586723 ####[facility] [address] [place] [address] GLUCOSE:MCNC:PT:UR INE:QN:TEST STRIP Negative Normal Negative [facility] Comment on above: Performed By: #### 2 587643, 3283295, 6050880, 7248889, 2597735, 43712194 ####[facility] [address] [place] [address] KETONES:MCNC:PT:UR INE:QN:TEST STRIP Negative Normal Negative [facility] Comment on above: Performed By: #### 2 739463, 9836275, 9126880, 4831819, 9461174, 28896381 ####[facility] [address] [place] [address] LEUKOCYTES:PRTHR:P T:URINE:ORD:AUTOMA KAYLA Negative Normal Negative [facility] Comment on above: Performed By: #### 2 831054, 3503441, 3541295, 7931843, 9140751, 76245620 ####[facility] [address] [place] [address] UA Spec Desc Ross Normal [facility] Comment on above: Performed By: #### 2 857994, 2713230, 7458738, 6067181, 9271099, 38985670 ####[facility] [address] [place] [address] Urine, clarity CLEAR Normal Clear [facility] Comment on above: Performed By: #### 2 351113, 5666187, 2211639, 9580356, 1717153, 88006946 ####[facility] [address] [place] [address] Urine, hemoglobin presence Negative Normal Negative [facility] Comment on above: Performed By: #### 2 311256, 9552634, 8102024, 2184392, 8450013, 83697628 ####[facility] [address] [place] [address] Urine, leukocytes in sedmiment 0-5 Normal 0-5 [facility] Comment on above: Performed By: #### 2 112480, 4819529, 2646911, 5915136, 7128957, 82583998 ####[facility] [address] [place] [address] Urine, mucus presence in sediment 1+ Normal [facility] Comment on above: Performed By: #### 2 918541, 8267998, 3859415, 2114067, 9299280, 27773456 ####[facility] [address] [place] [address] Urine, nitrite presence Negative Normal Negative [facility] Comment on above: Performed By: #### 2 983687, 1066855, 6574093, 3718538, 5649867, 46964217 ####[facility] [address] [place] [address] Urine, pH 7.5 [pH] Invalid Interpretation Code 5.0-9.0 [facility] Comment on above: Performed By: #### 2 691832, 0982809, 4942652, 0468984, 1347601, 42272721 ####[facility] [address] [place] [address] Urine, protein Negative Normal Negative [facility] Comment on above: Performed By: #### 2 633202, 2105610, 0945277, 5744844, 8112354, 86421580 ####[facility] [address] [place] [address] Urine, specific gravity 1.015 Invalid Interpretation Code 1.005-1.030 [facility] Comment on above: Performed By: #### 2 359634, 2650951, 7272531, 4790761, 7804882, 63120342 ####[facility] [address] [place] [address] Urine, squamous cells in sediment 0-2 Normal 0-2 [facility] Comment on above: Performed By: #### 2 512547, 0232812, 5197867, 5323906, 9430517, 54640636 ####[facility] [address] [place] [address] Urine, urobilinogen 0.2 {Emani'U}/dL Normal 0.0-1.0 [facility] Comment on above: Performed By: #### 2 072661, 3378121, 0370546, 3482490, 0872755, 70223660 ####[facility] [address] [place] [address] Coding Summary.on 08-19-2017 Coding Summary. CODING DATE: [address] [facility] STATUS: Home (Routine DC) PAYOR: Viral APC [...] Willson Date Saved: 08/19/2017 11:07 am Normal [facility] BUNon 08-18-2017 Urea nitrogen 20 mg/dL Normal 5-21 [facility] Comment on above: Performed By: #### 2 984959, 0811540, 3101643, 1891104, 5172963, 55843021 ####[facility] [address] [place] [address] CBC w/Indiceson 08-18-2017 Erythrocyte distribution width Auto Ratio (RBC) 14.1 % Normal 10.9-14.2 [facility] Comment on above: Performed By: #### 2 076926, 2840774, 4410728, 9910313, 6393071, 93791653 ####[facility] [address] [place] [address] Erythrocytes (RBC) 4.9 E12/L Normal 4.3-5.9 [facility] Comment on above: Performed By: #### 2 584257, 6845917, 4886490, 8861282, 1166163, 08463851 ####[facility] [address] [place] [address] Hematocrit (HCT) 44.4 % Normal 37.7-49.0 [facility] Comment on above: Performed By: #### 2 976810, 4839959, 1242242, 2226028, 6019583, 34307443 ####[facility] [address] [place] [address] Hemoglobin mass conc (Bld) 15.1 g/dL Normal 13.5-17.5 [facility] Comment on above: Performed By: #### 2 242111, 8136371, 4593171, 4538916, 3695971, 23047104 ####[facility] [address] [place] [address] MCH 30.8 pg Normal 27.0-34.0 [facility] Comment on above: Performed By: #### 2 654777, 4014008, 4735386, 5128153, 8577545, 59731956 ####[place] [address] MCHC mass conc (RBC) 33.9 g/dL Normal 31.4-39.3 [facility] Comment on above: Performed By: #### 2 060539, 6571212, 5575252, 9751354, 6635901, 96855379 ####[place] [address] [place] [address] MCV 90.8 fL Normal 80.0-100.0 [facility] Comment on above: Performed By: #### 2 704084, 4857808, 7870333, 7790459, 2351605, 36604712 ####[address] [address] Platelet mean volume (PMV) 8.8 fL Normal 6.4-10.8 [facility] Comment on above: Performed By: #### 2 871099, 1686655, 7153846, 7041197, 2241700, 37287046 ####[place] [address] [place] [address] Platelets 195.0 E9/L Normal 150.0-500.0 [facility] Comment on above: Performed By: #### 2 896835, 1573699, 4548902, 3563536, 7170821, 70609354 ####[place] [address] [place] [address] WBC (Leukocytes) 8.0 E9/L Normal 4.0-11.0 [facility] Comment on above: Performed By: #### 2 096403, 6837621, 6702836, 3387908, 0857594, 21111931 ####[facility] [address] [place] [address] Creatinineon 08-18-2017 Creatinine 0.8 mg/dL Normal 0.5-1.3 [facility] Comment on above: Performed By: #### 2 173423, 1890237, 9241012, 9518748, 2077287, 98811261 ####[facility] [address] [place] [address] Glucoseon 08-18-2017 Glucose mass conc 99 mg/dL Normal 55-199 [facility] Comment on above: Performed By: #### 2 358121, 4097142, 1351217, 6883292, 9578553, 53190678 ####[facility] [address] [place] [address] Lyteson 08-18-2017 Anion gap 9 mmol/L Normal 6-16 [facility] Comment on above: Performed By: #### 2 406779, 8214111, 6778731, 7527703, 1175216, 75437858 ####[facility] [address] [place] [address] Chloride 104 mmol/L Normal 101-111 [facility] Comment on above: Performed By: #### 2 306017, 5727647, 0186008, 5468333, 2958922, 03210459 ####[facility] [address] [place] [address] CO2 28 mmol/L Normal 21-31 [facility] Comment on above: Performed By: #### 2 053336, 4719572, 4740938, 1917699, 8381910, 66962005 ####[facility] [address] [place] [address] Potassium molar conc 4.4 mmol/L Normal 3.5-5.3 [facility] Comment on above: Performed By: #### 2 281937, 5766934, 5156458, 4294363, 7776280, 10096250 ####[facility] [address] [place] [address] Sodium 137 mmol/L Normal 135-145 [facility] Comment on above: Performed By: #### 2 680409, 9199770, 4886744, 8362886, 2173960, 11527225 ####[facility] [address] [place] [address] XR Chest 2 Viewson 8 XR Chest [...] MD Transcribed by: alice Technologist: AO Normal [facility] eGFRon 08-18-2017 eGFR (black) mL/min/{1.73_m2} Normal >=59 [facility] Comment on above: Order Comment: Order added by Discern Expert. Result Comment: eGFR is race adjusted. AA=. Performed By: #### 2 899445, 4689277, 6386034, 6524862, 4689028, 07476028 ####[facility] [address] [place] [address] eGFR (non-black) mL/min/{1.73_m2} Normal >=59 [facility] Comment on above: Order Comment: Order added by Discern Expert. Result Comment: Roll Sheeting Cutter noel kidney disease could be indicated at eGFR's of less than 60 mL/min/1.73m2. Kidney failure is indicated at less than 15 mL/min/1.73m2. Performed By: #### 2 295596, 5224767, 1919089, 3054116, 4520789, 38453990 ####[facility] [address] [place] [address] Encounters Encounter Date Encounter Type Care Provider [...] Start: 08-23-2017 End: 08-23-2017 Ambulatory Ean Shahid Facility:[facility] Start: 08-18-2017 End: 08-19-2017 Ambulatory Ean Shahid Facility:[facility] Procedures Date Procedure Procedure Detail Performing Clinician Start: 04-02-[address] MUSA NORWOOD . Comment on above: Performed By: #### P [facility], [id number] #### [facility] [address] [place] [address] Dr. Guille Calderon Payers Date Payer Category Payer Unknown [id number] 1958 Medicare [id number] 1958 Medicare [id number] 1958 Unknown [id number] 1955 Unknown [id number] 2.16.84 [id number] 1955 Unknown [id number] 2.16.84 [id number] 1955 Unknown [id number] 2.16.84 [id number] 1955 Unknown [id number] 2.16.84 [id number] 1955 Unknown [id number] 2.16.84 [id number] 1955 Unknown [id number] 2.16.84 [id number] Summary Purpose Family History No Family History Records FoundNo Family History Records FoundNo Family History Records Found Advance Directives No Advanced Directives Records FoundNo Advanced Directives Records FoundNo Advanced Directives Records Found Additional Source Comments (unrecognized sect ion and content) No Status Records FoundNo Status Records FoundNo Status Records Found INFORMATION SOURCE (unrecogn ized section and content) DATE CREATED AUTHOR 01/24/2018 [facility] DATE CREATED AUTHOR AUTHOR'S ORGANIZ ATION 01/08/2023 [facility] DATE CREATED AUTHOR AUTHOR'S ORGANIZ ATION 11/19/2023 [facility] FOR RECORDS PERTAINING TO PATIENTS WHO ARE [...] BE BASED ON THE PRIMARY CLINICAL RECORDS. [facility] [employer] provides no warranty or guarantee of the accuracy or completeness of information in this document.
[2024-04-02] VITALS (48 sets, daily range): BP systolic 103–116; BP diastolic 60–75; PULSE 56–77; O2SAT 89–94
[2024-04-02] MEDS: AZITHROMYCIN 500 MG in 0.9 % SODIUM CHLORIDE 250 ML 250 MG IV (00:16)
[2024-04-02] MEDS: DILTIAZEM HCL 60 MG TABLET PO ×2 (00:16→06:33)
[2024-04-02] MEDS: METHYLPREDNISOLONE SOD SUCC PF 125 MG/2 ML VIAL IVP (00:16)
[2024-04-02] MEDS: CEFTRIAXONE 1,000 MG in 0.9 % SODIUM CHLORIDE 50 ML 100 MG IV (00:16)
[2024-04-02 05:49] LABS: Basophils Percent Auto 0.5 % (0.2-2.0); Eosinophils Percent Auto 0.1 % (0.9-7.0); Hematocrit 43.5 % (42.0-54.0); Hemoglobin 14.8 g/dL (14.0-18.0); Immature Granulocytes Abs Auto 0.03 10^3/uL (0.00-0.03); Immature Granulocytes Pct Auto 0.4 % (0.0-0.5); Lymphocytes Absolute Auto 0.6 10^3/uL (1.2-3.8); Lymphocytes Percent Auto 7.7 % (20.5-60.0); Mean Corpuscular Hemoglobin 32.1 pg (25.9-34.0); Mean Corpuscular Volume 94.4 fL (80.0-94.0); Mean Platelet Volume 10.5 fL (9.5-13.5); Monocytes Absolute Auto 0.1 10^3/uL (0.3-0.8); Monocytes Percent Auto 0.9 % (1.7-12.0); Neutrophils Absolute Auto 6.7 10^3/uL (1.4-6.5); Neutrophils Percent Auto 90.4 % (43.0-75.0); Platelet Count 204 10^3/uL (150-450); Red Blood Count 4.61 10^6/uL (4.70-6.10); Red Cell Distribution Width 13.2 % (11.0-15.0); White Blood Count 7.4 10^3/uL (4.0-11.0)
[2024-04-02 06:02] LABS: Influenza Virus A Antigen Negative; Influenza Virus B Antigen Negative; Internal Control Within Normal Limits; Respiratory Syncytial Virus Not Detected (NOT DETECTE); SARS-CoV-2 Ag NEGATIVE (NEGATIVE)
[2024-04-02 06:04] LABS: Alanine Aminotransferase 33 U/L (16-63); Albumin Globulin Ratio 0.9; Albumin Level 3.3 g/dL (3.4-5.0); Alkaline Phosphatase 99 U/L (46-116); Anion Gap 10.2; Aspartate Amino Transferase 16 U/L (15-37); BUN Creatinine Ratio 17.3; Bilirubin Total 0.3 mg/dL (0.2-1.0); Calcium 8.4 mg/dL (8.5-10.1); Carbon Dioxide 26.3 mmol/L (21.0-32.0); Chloride 106 mmol/L (98-107); Estimated GFR (African America >60 (>=60); Estimated GFR (Non-African Ame >60 (>=60); Globulin 3.5 g/dL; Glucose 150 mg/dL (74-106); Magnesium 1.9 mg/dL (1.8-2.4); Phosphorus 2.1 mg/dL (2.6-4.7); Potassium 4.5 mmol/L (3.5-5.1); Sodium 138 mmol/L (136-145); Total Protein 6.8 g/dL (6.4-8.2)
[2024-04-02] MEDS: METHYLPREDNISOLONE SOD SUCC PF 40 MG/ML VIAL IVP (06:33)
[2024-04-02] MEDS: LEVOTHYROXINE SODIUM 112 MCG TABLET PO (06:33)
[2024-04-02] MEDS: APIXABAN 5 MG TABLET PO (08:33)
[2024-04-02] MEDS: LIOTHYRONINE SODIUM 5 MCG TABLET 10 MCG PO (08:33)
--- NOTE | 2024-04-02 08:55 | P.DS_ITS ---
DS: Providers Provider Date of admission: 04/01/24 22:55 Primary care physician: Pratik Webb MD DS: Diagnosis Discharge Diagnosis (1) Atrial fibrillation with RVR: Plan Admission findings: Tachycardia secondary to atrial fibrillation with rapid ventricular response resulting in respiratory distress. Workup unremarkable with high-sensitivity troponins are negative BNP is negative, patient converted back to normal sinus rhythm, feels back to his normal self. Symptoms resolved at the time of discharge COPD secondary to tobacco abuse-continue with home medications Admission status: Patient placed in observation bed with A-fib with rapid ventricular response, converted to normal sinus rhythm, medically necessary treatment will only span 1 midnight, discharged to home today. Observation status DS: Summary Hospital Course Hospital Course: Patient with a history of palpitations in the past but workup have been negative, presented to the emergency room with rapid heart rate, found to be in atrial fibrillation with rapid ventricular response. Cardiac markers were done which showed no evidence for myocardial infarction. He converted back into normal sinus rhythm. He feels back to his normal self. At this point he will be discharged to home in improving condition. Medications see list including Eliquis and low-dose Cardizem. See me in the office in 2 to 3 days for continued workup for atrial fibrillation with rapid ventricular response. Status at Discharge Overall status at discharge: patient is back to baseline Time Spent with Patient Time attestation: Total time spent providing and/or coordinating discharge services: Time spent: greater than 30 minutes Exam Constitutional Vital Signs, click to edit/add: Last Vital Signs Temp 97.5 F L 04/01/24 23:42 Pulse 62 04/02/24 08:00 Resp 20 04/02/24 08:00 BP 103/60 04/02/24 07:44 Pulse Ox 94 L 04/02/24 05:20 O2 Del Method Room Air 04/01/24 23:16 Documenting provider has reviewed patient's vital signs: yes Common normals: no apparent distress Chest Common normals: inspection of chest normal Respiratory Common normals: normal respiratory effort and no retractions Cardio Common normals: regular rate and regular rhythm GI Common normals: Normal to inspection, nondistended, normoactive bowel sounds present Extremity Common normals: normal to inspection and full ROM DS: Data Data Completed and Pending Labs on day of discharge: Labs from last 24 hours 04/02/24 04/02/24 04/01/24 05:30 05:29 21:19 WBC 7.4 RBC 4.61 L Hgb 14.8 Hct 43.5 MCV 94.4 H MCH 32.1 MCHC 34.0 RDW 13.2 Plt Count 204 MPV 10.5 Neut % (Auto) 90.4 H Lymph % (Auto) 7.7 L [place] % (Auto) 0.9 L Eos % (Auto) 0.1 L Baso % (Auto) 0.5 Neut # (Auto) 6.7 H Lymph # (Auto) 0.6 L [place] # (Auto) 0.1 L Eos # (Auto) 0.0 Baso # (Auto) 0.0 Abs Immat Gran (auto) 0.03 Imm/Tot Granulo (auto) 0.4 PT INR Sodium 138 Potassium 4.5 Chloride 106 Carbon Dioxide 26.3 Anion Gap 10.2 BUN 17.0 Creatinine 0.98 Est GFR ( Amer) >60 Est GFR (Non-Af Amer) >60 BUN/Creatinine Ratio 17.3 Glucose 150 H Lactate Calcium 8.4 L Phosphorus 2.1 L Magnesium 1.9 Total Bilirubin 0.3 AST 16 ALT 33 Alkaline Phosphatase 99 Troponin I High Sens 20.9 NT-Pro-B Natriuret Pep Total Protein 6.8 Albumin 3.3 L Globulin 3.5 Albumin/Globulin Ratio 0.9 TSH Influenza Type A Ag Negative Influenza Type B Ag Negative RSV Antigen Not detected SARS-CoV-2 Ag (CV2AG) Negative 04/01/24 19:20 WBC 10.0 RBC 5.18 Hgb 16.4 Hct 47.7 MCV 92.1 MCH 31.7 MCHC 34.4 RDW 12.9 Plt Count 269 MPV 10.2 Neut % (Auto) 68.2 Lymph % (Auto) 21.4 [place] % (Auto) 7.8 Eos % (Auto) 0.9 Baso % (Auto) 1.3 Neut # (Auto) 6.8 H Lymph # (Auto) 2.1 [place] # (Auto) 0.8 Eos # (Auto) 0.1 Baso # (Auto) 0.1 Abs Immat Gran (auto) 0.04 H Imm/Tot Granulo (auto) 0.4 PT 11.4 INR 1.08 Sodium 140 Potassium 3.8 Chloride 104 Carbon Dioxide 27.7 Anion Gap 12.1 BUN 18.0 Creatinine 1.23 Est GFR ( Amer) >60 Est GFR (Non-Af Amer) 59 L BUN/Creatinine Ratio 14.6 Glucose 119 H Lactate 1.4 Calcium 9.2 Phosphorus Magnesium Total Bilirubin 0.5 AST 23 ALT 40 Alkaline Phosphatase 121 H Troponin I High Sens 15.8 NT-Pro-B Natriuret Pep 694.0 Total Protein 7.6 Albumin 3.7 Globulin 3.9 Albumin/Globulin Ratio 0.9 TSH 0.412 Influenza Type A Ag Influenza Type B Ag RSV Antigen SARS-CoV-2 Ag (CV2AG) Discharge Plan Discharge Disposition: Home, Self-Care Discharge Medications: New Eliquis 5 mg Tablet 5 mg PO BID Qty: 60 11RF diltiazem HCl [Cardizem CD] 120 mg capsule,extended release 24hr 120 mg PO Q24H Qty: 30 11RF Continued levothyroxine 137 mcg tablet 137 mcg PO DAILY liothyronine 5 mcg tablet 10 mcg PO DAILY fluticasone furoate-vilanterol [Breo Ellipta] 100-25 mcg/dose blister with device 1 inh inhalation DAILY Activity: increase activity as tolerated Diet: advance to your usual diet Print Language: Ukrainian Patient Instructions: Diltiazem (By mouth) (Cardizem, Cardizem CD, Cardizem LA, Cardizem SR), Apixaban (By mouth) (Eliquis), A-fib (Atrial Fibrillation) (DC), A-fib (Atrial Fibrillation) (GEN) Forms: Portal Instructions Follow Up Appointments: Call Dr Webb's office to make an appt for or Wed. [phone] Discharge Date/Time: 04/02/24 09:21
--- NOTE | 2024-04-02 08:55 | P.HP_ITS ---
HPI H&P: HPI History of Present Illness Chief complaint: CHEST PAIN Narrative: Patient presented to emergency room and felt his heart was racing. In ER found to have atrial fibrillation with rapid ventricular response, converted to normal sinus rhythm, patient was admitted overnight. He has had workup for palpitations recently. Echocardiogram and heart monitor did not show atrial fibrillation at that time. When I saw patient up in the ICU, he was resting comfortably in chair, denies chest pain or shortness of breath, feels back to his normal self. Opioid HPI Opioid Management Most Recent Pain and Opioid Data: Last Pain Scale 2 04/01/24 21:31 Last Pain Assessment 04/02/24 08:00 Last ORT Total Score 0 04/01/24 23:16 Last ORT Risk Category Low Risk 04/01/24 23:16 Review of Systems ROS Status of ROS 10 or more systems reviewed and unremark able except as noted in history and below [facility] Medical History (Updated 04/01/24 @ 23:14 by David Kamara) Umbilical hernia ?K42.9 - Umbilical hernia without obstruction or gangrene (ICD-10) Partial tear of Achilles tendon ?S86.019A - Strain of unspecified Achilles tendon, initial encounter (ICD-10) Chest pain ?R07.9 - Chest pain, unspecified (ICD-10) Irregular heartbeat ?I49.9 - Cardiac arrhythmia, unspecified (ICD-10) Hypothyroidism ?E03.9 - Hypothyroidism, unspecified (ICD-10) Surgical History (Updated 04/01/24 @ 23:14 by David Kamara) H/O umbilical hernia repair ?Z98.890 - Other specified postprocedural states (ICD-10) ?Z87.19 - Personal history of other diseases of the digestive system (ICD-10) H/O repair of rotator cuff ?Z98.890 - Other specified postprocedural states (ICD-10) Hx of tonsillectomy ?Z90.89 - Acquired absence of other organs (ICD-10) Social History (Updated 04/01/24 @ 23:16 by David Kamara) Smoking status: Current every day smoker What tobacco products do you use: cigarettes Second hand tobacco smoke exposure: No Non-prescribed substance use: cannabis (any form) Highest level of school completed/degree received: high school graduate Meds Home Medications and Allergies Home Medications ?Medication ?Instructions ?Recorded ?Confirmed ?Type fluticasone furoate 100 1 inh inhalation DAILY 04/01/24 04/01/24 History mcg-vilanterol 25 mcg/dose inhalation powder (Breo Ellipta) levothyroxine 137 mcg tablet 137 mcg PO DAILY 04/01/24 04/01/24 History liothyronine 5 mcg tablet 10 mcg PO DAILY 04/01/24 04/01/24 History apixaban 5 mg tablet (Eliquis) 5 mg PO BID #60 tabs 04/02/24 Rx diltiazem HCl 120 mg 120 mg PO Q24H #30 caps 04/02/24 Rx capsule,extended release 24 hr (Cardizem CD) Allergies Allergy/AdvReac Type Severity Reaction Status Date / Time No Known Drug Allergies Allergy Verified 11/08/23 07:55 Exam Constitutional Vital Signs, click to edit/add: Last Vital Signs Temp 97.5 F L 04/01/24 23:42 Pulse 62 04/02/24 08:00 Resp 20 04/02/24 08:00 BP 103/60 04/02/24 07:44 Pulse Ox 94 L 04/02/24 05:20 O2 Del Method Room Air 04/01/24 23:16 Documenting provider has reviewed patient's vital signs: yes Common normals: no apparent distress Chest Common normals: inspection of chest normal Respiratory Common normals: normal respiratory effort and no retractions Cardio Common normals: regular rate and regular rhythm GI Common normals: Normal to inspection, nondistended, normoactive bowel sounds present Extremity Common normals: normal to inspection and full ROM Results Labs Labs: Short CBC 04/01/24 04/02/24 Range/Units 19:20 05:29 WBC 10.0 7.4 (4.0-11.0) 10^3/uL Hgb 16.4 14.8 (14.0-18.0) g/dL Hct 47.7 43.5 (42.0-54.0) % Plt Count 269 204 (150-450) 10^3/uL BMP 04/01/24 04/02/24 19:20 05:29 Sodium 140 138 Potassium 3.8 4.5 Chloride 104 106 Carbon Dioxide 27.7 26.3 BUN 18.0 17.0 Creatinine 1.23 0.98 Glucose 119 H 150 H Calcium 9.2 8.4 L Liver Function 04/01/24 04/02/24 Range/Units 19:20 05:29 Total Bilirubin 0.5 0.3 (0.2-1.0) mg/dL AST 23 16 (15-37) U/L ALT 40 33 (16-63) U/L Alkaline Phosphatase 121 H 99 (46-116) U/L Albumin 3.7 3.3 L (3.4-5.0) g/dL Assessment and Plan Assessment and Plan (1) Atrial fibrillation with RVR: (2) Chest pain: Plan Admission findings: Tachycardia secondary to atrial fibrillation with rapid ventricular response resulting in respiratory distress. Workup unremarkable with high-sensitivity troponins are negative BNP is negative, patient converted back to normal sinus rhythm, feels back to his normal self. At this point likely discharge patient to home, continue with workup as an outpatient, start patient on Eliquis and low-dose Cardizem orally. COPD secondary to tobacco abuse-continue with home medications Admission status: Patient placed in observation bed with A-fib with rapid ventricular response, converted to normal sinus rhythm, medically necessary treatment will only span 1 midnight, discharged to home today. Observation status
--- NOTE | 2024-04-02 09:22 | PC.NURSE ---
discharge instructions explained to and pt. both verbalized understanding. iv's and tele dc'd. ambulated to exit, discharged to private vehicle.
--- NOTE | 2024-04-04 10:32 | CM.DCFOLLOWU ---
Person spoke with: patient How are you feeling? well How is your pain? none Did you understand your discharge instructions? yes Do you have any questions about your discharge instructions? no Were you given any prescriptions at discharge? yes Were you able to get your prescriptions filled? yes Do you understand how to take your medications as ordered? yes Do you have any questions about your follow up appointment and do you plan to keep your follow up appointment? no questions, he will call Dr. Graham office to schedule follow up Is there anything else that you would like to discuss? no Questions/Comments/Concerns/Other: none
== END 2024-04-02 09:21 | disposition home or self-care (01) ==
LOC: ER 21:47 → ICU 22:59
PROVIDERS: Physician Assistant; Registered Nurse; Admitting Provider Family Medicine; Emergency Provider Internal Medicine; PCP Family Medicine; Visit Provider Family Medicine
DX: I48.91 Unspecified atrial fibrillation (principal); F17.210 Nicotine dependence, cigarettes, uncomplicated; R00.0 Tachycardia, unspecified; R06.03 Acute respiratory distress; J44.9 Chronic obstructive pulmonary disease, unspecified; R06.02 Shortness of breath; R07.9 Chest pain, unspecified; Z20.822 Contact with and (suspected) exposure to COVID-19
CPT/HCPCS: 36415; 71275; 80053; 83605; 83735; 83880; 84100; 84443; 84484; 85025; 85610; 87420; 87804; 87811; 93005; 94761; 96365; 96366; 96368; 96372; 96375; 96376; 99285; G0378; J0456; J0696; J1650; J2405; J2919; Q9967

== ENCOUNTER 2024-04-17 07:29 | Outpatient (OUT) | payer MEDICARE, SELFPAY ==
--- OUTSIDE RECORDS SUMMARY | 2024-04-17 07:31 | XMS_ITS | CCD ---
Author Organization [facility] Care Team Providers Care Network Architect Name Role Phone Nill, Ean R Unavailable Unavailable Nill, Ean R Unavailable Unavailable Nill, Ean R Unavailable Unavailable Hoy, [phone] UNKNOWN Unavailable Unavailable Nill, Ean R Unavailable Unavailable Nill, Ean R Unavailable Unavailable Nill, Ean R Unavailable Unavailable Hoy, Daxa~[phone] UNKNOWN Unavailable Unavailable HOY ., DR MITTAL Primary Care Unavailable HOY ., DR MITTAL Admitting Unavailable HOY ., DR MITTAL Attending Unavailable HOY ., DR MITTAL Consulting Unavailable [address] [place], DR SPEEDY [employer] Unavailable ZIEBER, DR [...] INSULINon 12-29-2022 Insulin 14.2 uIU/mL Normal 2.6-24.9 [facility] Comment on above: Performed By: #### I TJ #### [facility] [address] [address] [address] Guille Calderon CBC AUTO DIFFon 12-26-2022 BASO # 0.1 103/ul Normal 0.0-0.1 [facility] Comment on above: Performed By: #### I TJ #### [facility] [address] [address] [address] Guille Calderon Basophils/100 WBC (Bld) 1.3 % Normal 0.2-2.0 [facility] Comment on above: Performed By: #### I TJ #### [facility] [address] [place] [address] Dr. Guille Calderon EO # 0.1 103/ul Normal 0.0-0.7 [facility] Comment on above: Performed By: #### I TJ #### [facility] [address] [place] [address] Dr. Guille Calderon Eosinophils/100 WBC (Bld) 1.1 % Normal 0.9-7.0 [facility] Comment on above: Performed By: #### I TJ #### [facility] [address] [place] [address] Dr. Guille Calderon Erythrocyte distribution width (RBC) [Ratio] 13.1 % Normal 11.0-15.0 [facility] Comment on above: Performed By: #### I TJ #### [facility] [address] [place] [address] Dr. Guille Calderon Hematocrit (Bld) [Volume fraction] 46.7 % Normal 42.0-54.0 [facility] Comment on above: Performed By: #### I TJ #### [facility] [address] [place] [address] Dr. Guille Calderon Hemoglobin (Bld) [Mass/Vol] 16.1 g/dL Normal 14.0-18.0 [facility] Comment on above: Performed By: #### I TJ #### [facility] [address] [place] [address] Dr. Guille Calderon IG # 0.01 10e3/ul Normal 0.00-0.03 [facility] Comment on above: Performed By: #### I TJ #### [facility] [address] [place] [address] Dr. Guille Calderon IG % 0.2 % Normal 0.0-0.5 [facility] Comment on above: Performed By: #### I TJ #### [facility] [address] [place] [address] Dr. Guille Calderon LYMPH # 1.9 103/ul Normal 1.2-3.8 [facility] Comment on above: Performed By: #### I TJ #### [facility] [address] [place] [address] Dr. Guille Calderon Lymphocytes/100 WBC (Bld) 30.2 % Normal 20.5-60.0 [facility] Comment on above: Performed By: #### I TJ #### [facility] [address] [place] [address] Dr. Guille Calderon MANUAL DIFF REQ NO Normal [facility] Comment on above: Performed By: #### I TJ #### [facility] [address] [place] [address] Dr. Guille Calderon MCH (RBC) [Entitic mass] 31.1 pg Normal 25.9-34.0 [facility] Comment on above: Performed By: #### I TJ #### [facility] [address] [place] [address] Dr. Guille Calderon MCHC (RBC) [Mass/Vol] 34.5 g/dL Normal 29.9-35.2 [facility] Comment on above: Performed By: #### I TJ #### [facility] [address] [place] [address] Dr. Guille Calderon MCV (RBC) [Entitic vol] 90.2 fL Normal 80.0-94.0 [facility] Comment on above: Performed By: #### I TJ #### [facility] [address] [place] [address] Dr. Guille Calderon MONO # 0.6 103/ul Normal 0.3-0.8 [facility] Comment on above: Performed By: #### I TJ #### [facility] [address] [place] [address] Dr. Guille Calderon Monocytes/100 WBC (Bld) 9.8 % Normal 1.7-12.0 [facility] Comment on above: Performed By: #### I TJ #### [facility] [address] [place] [address] Dr. Guille Calderon NEUT # 3.7 103/ul Normal 1.4-6.5 [facility] Comment on above: Performed By: #### I TJ #### [facility] [address] [place] [address] Dr. Guille Calderon Neutrophils/100 WBC (Bld) 57.4 % Normal 43.0-75.0 [facility] Comment on above: Performed By: #### I TJ #### [facility] [address] [place] [address] Dr. Guille Calderon Platelet mean volume (Bld) [Entitic vol] 9.9 fL Normal 9.5-13.5 [facility] Comment on above: Performed By: #### I TJ #### [facility] [address] [place] [address] Dr. Guille Calderon PLT 237 103/ul Normal 150-450 [facility] Comment on above: Performed By: #### I TJ #### [facility] [address] [place] [address] Dr. Guille Calderon RBC 5.18 106/ul Normal 4.70-6.10 [facility] Comment on above: Performed By: #### I TJ #### [facility] [address] [place] [address] Dr. Guille Calderon WBC 6.4 103/ul Normal 4.0-11.0 [facility] Comment on above: Performed By: #### I TJ #### [facility] [address] [place] [address] Dr. Guille Calderon FREE THYROXINE INDEX T7on FTI 3.50 Normal 1.30-4.50 [facility] Comment on above: Performed By: #### P SASC, VITB12 #### [facility] [address] [place] [address] Dr. Guille Calderon T3U 34.0 % Normal 33.0-40.0 [facility] Comment on above: Performed By: #### P SASC, VITB12 #### [facility] [address] [place] [address] Dr. Guille Calderon T4 [Mass/Vol] 10.30 ug/dL Normal 4.50-12.10 [facility] [place] [facility] Comment on above: Performed By: #### P SASC, VITB12 #### [facility] [address] [place] [address] Dr. Guille Calderon GLYCOHEMOGLOBIN A1Con 2022 ADA RECOMMENDATION SEE BELOW Normal [facility] Comment on above: Result Comment: ADA RECOMMENDED LIMIT 4.0 - 6.0 ADA THERAPEUTIC TARGET < 7.0 ACTION SUGGESTED > 7.0 Performed By: #### A 1C #### [facility] [address] [place] [address] Dr. Guille Calderon Glucose [Mass/Vol] 105 mg/dL Normal [facility] Comment on above: Performed By: #### A 1C #### [facility] [address] [place] [address] Dr. Guille Calderon HbA1c (Bld) [Mass fraction] 5.3 % Normal 4.5-6.2 [facility] Comment on above: Performed By: #### A 1C #### [facility] [address] [place] [address] Dr. Guille Calderon IRONon 12-26-2022 Iron [Mass/Vol] 79.0 ug/dL Normal 65.0-175.0 [facility] Comment on above: Performed By: #### V ITAD, IRON #### [facility] [address] [place] [address] Dr. Guille Calderon LIPID PROFILEon 12-26-2022 CHOL-HDL RATIO NORM SEE BELOW Normal [facility] Comment on above: Result Comment: 3.3 - 4.4 LOW RISK 4.4 - 7.1 AVERAGE RISK 7.1 - 11.0 MODERATE RISK >11.0 HIGH RISK Performed By: #### P SASC, VITB12 #### [facility] [address] [place] [address] Dr. Guille Calderon Cholesterol [Mass/Vol] 146 mg/dL Normal <=200 [facility] Comment on above: Performed By: #### P SASC, VITB12 #### [facility] [address] [place] [address] Dr. Guille Calderon Cholesterol in HDL [Mass/Vol] 49 mg/dL Normal 40-60 [facility] Comment on above: Performed By: #### P SASC, VITB12 #### [facility] [address] [place] [address] Dr. Guille Calderon Cholesterol in LDL [Mass/Vol] 79.2 mg/dL Normal [facility] Comment on above: Performed By: #### P SASC, VITB12 #### [facility] [address] [place] [address] Dr. Guille Calderon Cholesterol.total/ Cholesterol in HDL [Mass ratio] 3.0 {ratio} Normal [facility] Comment on above: Performed By: #### P SASC, VITB12 #### [facility] [address] [place] [address] Dr. Guille Calderon HDL NORMAL > or = 60 mg/dl - LO W CARDIOVASCULAR RISK <40 mg/dl - HIGH CARDIOVASCULAR RISK Normal [facility] Comment on above: Performed By: #### P SASC, VITB12 #### [facility] [address] [place] [address] Dr. Guille Calderon LDL CALC NORMAL SEE BELOW Normal [facility] Comment on above: Result Comment: <100 mg/dl OPTIMAL 100 - 129 mg/dl NEAR OR ABOVE OPTIMAL 130 - 159 mg/dl BORDERLINE HIGH 160 - 189 mg/dl HIGH >190 mg/dl VERY HIGH Performed By: #### P SASC, VITB12 #### [facility] [address] [place] [address] Dr. Guille Calderon Triglyceride [Mass/Vol] 89 mg/dL Normal <=150 [facility] Comment on above: Performed By: #### P SASC, VITB12 #### [facility] [address] [place] [address] Dr. Guille Calderon VLDL CALC 17.8 mg/dL Normal [facility] Comment on above: Performed By: #### P SASC, VITB12 #### [facility] [address] [place] [address] Dr. Guille Calderon PROF 14(COMP METB)on 023 Albumin [Mass/Vol] 3.6 g/dL Normal 3.4-5.0 [facility] Comment on above: Performed By: #### P SASC, VITB12 #### [facility] [address] [place] [address] Dr. Guille Calderon Albumin/Globulin [Mass ratio] 0.8 {ratio} Normal [facility] Comment on above: Performed By: #### P SASC, VITB12 #### [facility] [address] [place] [address] Dr. Guille Calderon ALP [Catalytic activity/Vol] 94 U/L Normal 46-116 [facility] Comment on above: Performed By: #### P SASC, VITB12 #### [facility] [address] [place] [address] Dr. Guille Calderon ALT [Catalytic activity/Vol] 45 U/L Normal 16-63 [facility] Comment on above: Performed By: #### P SASC, VITB12 #### [facility] [address] [place] [address] Dr. Guille Calderon Anion gap [Moles/Vol] 11.8 mmol/L Normal [facility] Comment on above: Performed By: #### P SASC, VITB12 #### [facility] [address] [place] [address] Dr. Guille Calderon AST [Catalytic activity/Vol] 28 U/L Normal 15-37 [facility] Comment on above: Performed By: #### P SASC, VITB12 #### [facility] [address] [place] [address] Dr. Guille Calderon Bilirubin [Mass/Vol] 0.4 mg/dL Normal 0.2-1.0 [facility] Comment on above: Performed By: #### P SASC, VITB12 #### [facility] [address] [place] [address] Dr. Guille Calderon Calcium [Mass/Vol] 8.7 mg/dL Normal 8.5-10.1 [facility] Comment on above: Performed By: #### P SASC, VITB12 #### [facility] [address] [place] [address] Dr. Guille Calderon Chloride [Moles/Vol] 103 mmol/L Normal 98-107 [facility] Comment on above: Performed By: #### P SASC, VITB12 #### [facility] [address] [place] [address] Dr. Guille Calderon CO2 [Moles/Vol] 29.7 mmol/L Normal 21.0-32.0 [facility] Comment on above: Performed By: #### P SASC, VITB12 #### [facility] [address] [place] [address] Dr. Guille Calderon Creatinine [Mass/Vol] 0.95 mg/dL Normal 0.70-1.30 [facility] Comment on above: Performed By: #### P SASC, VITB12 #### [facility] [address] [place] [address] Dr. Guille Calderon EGFR-AF MEXICAN >60 Normal >=60 [facility] Comment on above: Performed By: #### P SASC, VITB12 #### [facility] [address] [place] [address] Dr. Guille Calderon EGFR-NON AF MEXICAN >60 Normal >=60 [facility] Comment on above: Performed By: #### P SASC, VITB12 #### [facility] [address] [place] [address] Dr. Guille Calderon Globulin (S) [Mass/Vol] 4.3 g/dL Normal [facility] Comment on above: Performed By: #### P SASC, VITB12 #### [facility] [address] [place] [address] Dr. Guille Calderon Glucose [Mass/Vol] 92 mg/dL Normal 74-106 [facility] Comment on above: Performed By: #### P SASC, VITB12 #### [facility] [address] [place] [address] Dr. Guille Calderon Potassium [Moles/Vol] 4.5 mmol/L Normal 3.5-5.1 [facility] Comment on above: Performed By: #### P SASC, VITB12 #### [facility] [address] [place] [address] Dr. Guille Calderon Protein [Mass/Vol] 7.9 g/dL Normal 6.4-8.2 [facility] Comment on above: Performed By: #### P SASC, VITB12 #### [facility] [address] [place] [address] Dr. Guille Calderon Sodium [Moles/Vol] 140 mmol/L Normal 136-145 [facility] Comment on above: Performed By: #### P SASC, VITB12 #### [facility] [address] [place] [address] Dr. Guille Calderon Urea nitrogen [Mass/Vol] 15.0 mg/dL Normal 7.0-18.0 [facility] Comment on above: Performed By: #### P SASC, VITB12 #### [facility] [address] [place] [address] Dr. Guille Calderon Urea nitrogen/Creatinin e [Mass ratio] 15.8 mg/mg Normal [facility] Comment on above: Performed By: #### P SASC, VITB12 #### [facility] [address] [place] [address] Dr. Guille Calderon TSHon 12-26-2022 TSH 0.068 uIU/mL Critically low 0.358-3.740 [facility] Comment on above: Performed By: #### P SASC, VITB12 #### [facility] [address] [place] [address] Dr. Guille Calderon VITAMIN D 25 OHon 12-26-2022 VIT D 25-OH 72.7 ng/mL Normal [facility] Comment on above: Performed By: #### V ITAD, IRON #### [facility] [address] [place] [address] Dr. Guille Calderon VIT D RANGES SEE BELOW Normal [facility] Comment on above: Result Comment: <20 ng/mL Vit D deficient 20 - <30 ng/mL Vit D insufficient 30 - 100 ng/mL Vit D sufficient >100 ng/mL Potential Toxicity Performed By: #### V ITAD, IRON #### [facility] [address] [place] [address] Dr. Guille Calderon CULTURE SPUTUMon 06-01-2022 CULTURE SPUTUM Culture Observations : NORMAL RESPIRATORY DWIGHT. Normal [facility] Comment on above: Performed By: #### I TJ #### [facility] [address] [place] [address] Dr. Guille Calderon SPUTUM GRAM STAINon 06-01-20 22 COMMENTS Normal [facility] Comment on above: Performed By: #### I TJ #### [facility] [address] [place] [address] Dr. Guille Calderon DIPHTHEROIDS [facility] Comment on above: Performed By: #### I TJ #### [facility] [address] [place] [address] Dr. Guille Calderon EPITHELIALS <25 [facility] Comment on above: Performed By: #### I TJ #### [facility] [address] [place] [address] Dr. Guille Calderon FUNGAL ELEMENTS [place] [facility] Comment on above: Performed By: #### I TJ #### [facility] [address] [place] [address] Dr. Guille Calderon GRAM NEG BACILLI [facility] Comment on above: Performed By: #### I TJ #### [facility] [address] [place] [address] Dr. Guille Calderon GRAM NEG DIPPLOCOCCI [facility] Comment on above: Performed By: #### I TJ #### [facility] [address] [place] [address] Dr. Guille Calderon GRAM POS BACILLI [facility] Comment on above: Performed By: #### I TJ #### [facility] [address] [place] [address] Dr. Guille Calderon GRAM POSITIVE COCCI FEW Normal [facility] Comment on above: Performed By: #### I TJ #### [facility] [address] [place] [address] Dr. Guille Calderon WBC (Bld) [#/Vol] 10*3/uL [facility] Comment on above: Performed By: #### I TJ #### [facility] [address] [place] [address] Dr. Guille Calderon BNPon 05-30-2022 Natriuretic peptide B (Bld) [Mass/Vol] 381.0 pg/mL Normal <=900.0 [facility] Comment on above: Performed By: #### B WORKPLACE TRAINER AND ASSESSOR, CMP #### [facility] [address] [place] [address] Dr. Guille Calderon CBC AUTO DIFFon 05-30-2022 BASO # 0.1 103/ul Normal 0.0-0.1 [facility] Comment on above: Performed By: #### I TJ #### [facility] [address] [place] [address] Dr. Guille Calderon Basophils/100 WBC (Bld) 0.5 % Normal 0.2-2.0 [facility] Comment on above: Performed By: #### I TJ #### [facility] [address] [place] [address] Dr. Guille Calderon EO # 0.0 103/ul Normal 0.0-0.7 [facility] Comment on above: Performed By: #### I TJ #### [facility] [address] [place] [address] Dr. uGille Calderon Eosinophils/100 WBC (Bld) 0.1 % Critically low 0.9-7.0 [facility] Comment on above: Performed By: #### I TJ #### [facility] [address] [place] [address] Dr. Guille Calderon Erythrocyte distribution width (RBC) [Ratio] 13.7 % Normal 11.0-15.0 [facility] Comment on above: Performed By: #### I TJ #### [facility] [address] [place] [address] Dr. Guille Calderon Hematocrit (Bld) [Volume fraction] 45.4 % Normal 42.0-54.0 [facility] Comment on above: Performed By: #### I TJ #### [facility] [address] [place] [address] Dr. Guille Calderon Hemoglobin (Bld) [Mass/Vol] 15.3 g/dL Normal 14.0-18.0 [facility] Comment on above: Performed By: #### I TJ #### [facility] [address] [place] [address] Dr. Guille Calderon IG # 0.04 10e3/ul Critically high 0.00-0.03 [facility] Comment on above: Performed By: #### I TJ #### [facility] [address] [place] [address] Dr. Guille Calderon IG % 0.4 % Normal 0.0-0.5 [facility] Comment on above: Performed By: #### I TJ #### [facility] [address] [place] [address] Dr. Guille Calderon LYMPH # 2.0 103/ul Normal 1.2-3.8 [facility] Comment on above: Performed By: #### I TJ #### [facility] [address] [place] [address] Dr. Guille Calderon Lymphocytes/100 WBC (Bld) 17.7 % Critically low 20.5-60.0 [facility] Comment on above: Performed By: #### I TJ #### [facility] [address] [place] [address] Dr. Guille Calderon MANUAL DIFF REQ NO Normal [facility] Comment on above: Performed By: #### I TJ #### [facility] [address] [place] [address] Dr. Guille Calderon MCH (RBC) [Entitic mass] 31.0 pg Normal 25.9-34.0 [facility] Comment on above: Performed By: #### I TJ #### [facility] [address] [place] [address] Dr. Guille Calderon MCHC (RBC) [Mass/Vol] 33.7 g/dL Normal 29.9-35.2 [facility] Comment on above: Performed By: #### I TJ #### [facility] [address] [place] [address] Dr. Guille Calderon MCV (RBC) [Entitic vol] 92.1 fL Normal 80.0-94.0 [facility] Comment on above: Performed By: #### I TJ #### [facility] [address] [place] [address] Dr. Guille Calderon MONO # 0.7 103/ul Normal 0.3-0.8 [facility] Comment on above: Performed By: #### I TJ #### [facility] [address] [place] [address] Dr. Guille Calderon Monocytes/100 WBC (Bld) 6.5 % Normal 1.7-12.0 [facility] Comment on above: Performed By: #### I TJ #### [facility] [address] [place] [address] Dr. Guille Calderon NEUT # 8.5 103/ul Critically high 1.4-6.5 [facility] Comment on above: Performed By: #### I JT #### [facility] [address] [place] [address] Dr. Guille Calderon Neutrophils/100 WBC (Bld) 74.8 % Normal 43.0-75.0 [facility] Comment on above: Performed By: #### I TJ #### [facility] Laboratory [address] [place] [address] Dr. Guille Calderon Platelet mean volume (Bld) [Entitic vol] 10.1 fL Normal 9.5-13.5 [facility] Comment on above: Performed By: #### I TJ #### [facility] [address] [place] [address] Dr. Guille Calderon PLT 305 103/ul Normal 150-450 [facility] Comment on above: Performed By: #### I TJ #### [facility] [address] [place] [address] Dr. Guille Calderon RBC 4.93 106/ul Normal 4.70-6.10 [facility] Comment on above: Performed By: #### I TJ #### [facility] [address] [place] [address] Dr. Guille Calderon WBC 11.4 103/ul Critically high 4.0-11.0 [facility] Comment on above: Performed By: #### I TJ #### [facility] [address] [address] [address] Guille Calderon IRONon 05-30-2022 Iron [Mass/Vol] 156.0 ug/dL Normal 65.0-175.0 [facility] Comment on above: Performed By: #### I TJ #### [facility] [address] [place] [address] Dr. Guille Calderon PROF 14(COMP METB)on 022 Albumin [Mass/Vol] 4.1 g/dL Normal 3.4-5.0 [facility] Comment on above: Performed By: #### B WORKPLACE TRAINER AND ASSESSOR, CMP #### [facility] [address] [place] [address] Dr. Guille Calderon Albumin/Globulin [Mass ratio] 0.9 {ratio} Normal [facility] Comment on above: Performed By: #### B WORKPLACE TRAINER AND ASSESSOR, CMP #### [facility] [address] [place] [address] Dr. Guille Calderon ALP [Catalytic activity/Vol] 84 U/L Normal 46-116 [facility] Comment on above: Performed By: #### B WORKPLACE TRAINER AND ASSESSOR, CMP #### [facility] [address] [place] [address] Dr. Guille Calderon ALT [Catalytic activity/Vol] 40 U/L Normal 16-63 [facility] Comment on above: Performed By: #### B WORKPLACE TRAINER AND ASSESSOR, CMP #### [facility] [address] [place] [address] Dr. Guille Calderon Anion gap [Moles/Vol] 9.5 mmol/L Normal [facility] Comment on above: Performed By: #### B WORKPLACE TRAINER AND ASSESSOR, CMP #### [facility] [address] [place] [address] Dr. Guille Calderon AST [Catalytic activity/Vol] 19 U/L Normal 15-37 [facility] Comment on above: Performed By: #### B WORKPLACE TRAINER AND ASSESSOR, CMP #### [facility] [address] [place] [address] Dr. Guille Calderon Bilirubin [Mass/Vol] 0.4 mg/dL Normal 0.2-1.0 [facility] Comment on above: Performed By: #### B WORKPLACE TRAINER AND ASSESSOR, CMP #### [facility] [address] [place] [address] Dr. Guille Calderon Calcium [Mass/Vol] 8.9 mg/dL Normal 8.5-10.1 [facility] Comment on above: Performed By: #### B WORKPLACE TRAINER AND ASSESSOR, CMP #### [facility] [address] [place] [address] Dr. Guille Calderon Chloride [Moles/Vol] 103 mmol/L Normal 98-107 [facility] Comment on above: Performed By: #### B WORKPLACE TRAINER AND ASSESSOR, CMP #### [facility] [address] [place] [address] Dr. Guille Calderon CO2 [Moles/Vol] 28.1 mmol/L Normal 21.0-32.0 [facility] Comment on above: Performed By: #### B WORKPLACE TRAINER AND ASSESSOR, CMP #### [facility] [address] [place] [address] Dr. Guille Calderon Creatinine [Mass/Vol] 0.87 mg/dL Normal 0.70-1.30 [facility] Comment on above: Performed By: #### B WORKPLACE TRAINER AND ASSESSOR, CMP #### [facility] [address] [place] [address] Dr. Guille Calderon EGFR-AF MEXICAN >60 Normal >=60 [facility] Comment on above: Performed By: #### B WORKPLACE TRAINER AND ASSESSOR, CMP #### [facility] [address] [place] [address] Dr. Guille Calderon EGFR-NON AF MEXICAN >60 Normal >=60 [facility] Comment on above: Performed By: #### B WORKPLACE TRAINER AND ASSESSOR, CMP #### [facility] [address] [place] [address] Dr. Guille Calderon Globulin (S) [Mass/Vol] 4.5 g/dL Normal [facility] Comment on above: Performed By: #### B WORKPLACE TRAINER AND ASSESSOR, CMP #### [facility] [address] [place] [address] Dr. Guille Calderon Glucose [Mass/Vol] 109 mg/dL Critically high 74-106 [facility] [place] Comment on above: Performed By: #### B WORKPLACE TRAINER AND ASSESSOR, CMP #### [facility] [address] [address] [address] Guille Calderon Potassium [Moles/Vol] 4.6 mmol/L Normal 3.5-5.1 [facility] Comment on above: Performed By: #### B WORKPLACE TRAINER AND ASSESSOR, CMP #### [facility] [address] [address] [address] Guille Calderon Protein [Mass/Vol] 8.6 g/dL Critically high 6.4-8.2 [facility] [place] Comment on above: Performed By: #### B WORKPLACE TRAINER AND ASSESSOR, CMP #### [facility] [address] [address] [address] Guille Calderon Sodium [Moles/Vol] 136 mmol/L Normal 136-145 [facility] Comment on above: Performed By: #### B WORKPLACE TRAINER AND ASSESSOR, CMP #### [facility] [address] [place] [address] Dr. Guille Calderon Urea nitrogen [Mass/Vol] 19.0 mg/dL Critically high 7.0-18.0 [facility] Comment on above: Performed By: #### B WORKPLACE TRAINER AND ASSESSOR, CMP #### [facility] [address] [address] [address] Guille Calderon Urea nitrogen/Creatinin e [Mass ratio] 21.8 mg/mg Normal [facility] Comment on above: Performed By: #### B WORKPLACE TRAINER AND ASSESSOR, CMP #### [facility] [address] [place] [address] Dr. Guille Calderon XR CHEST 2 Von [...] by: ARLENE CHOI Date: 2022-05-30 17:22 Normal [facility] INSULINon 04-03-2022 Insulin 6.4 uIU/mL Normal 2.6-24.9 [facility] Comment on above: Performed By: #### P SASC, VITB12 #### [facility] [address] [address] [address] Guille Calderon OCC BLD IMMUNO SCREENon OCCULT BLOOD Negative Normal NEGATIVE [facility] Comment on above: Performed By: #### P SASC, VITB12 #### [facility] [address] [address] [address] Guille Calderon T4, T3U, FTI [facility]on 04-03 Free Thyroxine Index 2.5 Normal 1.2-4.9 [facility] Comment on above: Performed By: #### T HYLC #### [facility] [address] [place] [address] Dr. Guille Calderon T3 Uptake 28 % Normal 24-39 [facility] Comment on above: Performed By: #### T HYLC #### [facility] [address] [place] [address] Dr. Guille Calderon T4 [Mass/Vol] 8.8 ug/dL Normal 4.5-12.0 [facility] Comment on above: Performed By: #### T HYLC #### [facility] [address] [place] [address] Dr. Guille Calderon VIT D 25-OH [facility] 2021 Vitamin D, 25-Hydroxy 85.0 ng/mL Normal 30.0-100.0 [facility] Comment on above: Result Comment: Karime min D deficiency has been defined by the [place] [employer] and an Endocrine Society practice guideline as a level of serum 25-OH vitamin D less than 20 ng/mL (1,2). The Endocrine Society went on to further define vitamin D insufficiency as a level between 21 and 29 ng/mL (2). 1. IOM ([place] [employer]). 2010. Dietary reference intakes for calcium and D. [place]: The National Academies Press. 2. Mena MF, Umair NC, Luis POWELL, et al. Evaluation, treatment, and prevention of vitamin D deficiency: an Endocrine Society clinical practice guideline. JCEM. 2010; 96(7):1911-30. Performed By: #### V ITADLC #### [facility] [address] [place] [address] Dr. Guille Calderon BNPon 04-02-2022 Natriuretic peptide B (Bld) [Mass/Vol] 252.0 pg/mL Normal <=900.0 [facility] Comment on above: Performed By: #### P SASC, VITB12 #### [facility] [address] [place] [address] Dr. Guille Calderon CBC AUTO DIFFon 04-02-2022 BASO # 0.1 103/ul Normal 0.0-0.1 [facility] Comment on above: Performed By: #### P SASC, VITB12 #### [facility] [address] [place] [address] Dr. Guille Calderon Basophils/100 WBC (Bld) 1.3 % Normal 0.2-2.0 [facility] Comment on above: Performed By: #### P SASC, VITB12 #### [facility] [address] [place] [address] Dr. Guille Calderon EO # 0.1 103/ul Normal 0.0-0.7 [facility] Comment on above: Performed By: #### P SASC, VITB12 #### [facility] [address] [place] [address] Dr. Guille Calderon Eosinophils/100 WBC (Bld) 1.1 % Normal 0.9-7.0 [facility] Comment on above: Performed By: #### P SASC, VITB12 #### [facility] [address] [place] [address] Dr. Guille Calderon Erythrocyte distribution width (RBC) [Ratio] 13.4 % Normal 11.0-15.0 [facility] Comment on above: Performed By: #### P SASC, VITB12 #### [facility] [address] [place] [address] Dr. Guille Calderon Hematocrit (Bld) [Volume fraction] 44.7 % Normal 42.0-54.0 [facility] Comment on above: Performed By: #### P SASC, VITB12 #### [facility] [address] [place] [address] Dr. Guille Calderon Hemoglobin (Bld) [Mass/Vol] 15.0 g/dL Normal 14.0-18.0 [facility] Comment on above: Performed By: #### P SASC, VITB12 #### [facility] [address] [place] [address] Dr. Guille Calderon IG # 0.02 10e3/ul Normal 0.00-0.03 [facility] Comment on above: Performed By: #### P SASC, VITB12 #### [facility] [address] [place] [address] Dr. Guille Calderon IG % 0.3 % Normal 0.0-0.5 [facility] Comment on above: Performed By: #### P SASC, VITB12 #### [facility] [address] [place] [address] Dr. Guille Calderon LYMPH # 1.5 103/ul Normal 1.2-3.8 [facility] Comment on above: Performed By: #### P SASC, VITB12 #### [facility] [address] [place] [address] Dr. Guille Calderon Lymphocytes/100 WBC (Bld) 23.9 % Normal 20.5-60.0 [facility] Comment on above: Performed By: #### P SASC, VITB12 #### [facility] [address] [place] [address] Dr. Guille Calderon MANUAL DIFF REQ NO Normal [facility] Comment on above: Performed By: #### P SASC, VITB12 #### [facility] [address] [place] [address] Dr. Guille Calderon MCH (RBC) [Entitic mass] 30.9 pg Normal 25.9-34.0 [facility] Comment on above: Performed By: #### P SASC, VITB12 #### [facility] [address] [place] [address] Dr. Guille Calderon MCHC (RBC) [Mass/Vol] 33.6 g/dL Normal 29.9-35.2 [facility] Comment on above: Performed By: #### P SASC, VITB12 #### [facility] [address] [place] [address] Dr. Guille Calderon MCV (RBC) [Entitic vol] 92.2 fL Normal 80.0-94.0 [facility] Comment on above: Performed By: #### P SASC, VITB12 #### [facility] [address] [place] [address] Dr. Guille Calderon MONO # 0.6 103/ul Normal 0.3-0.8 [facility] Comment on above: Performed By: #### P SASC, VITB12 #### [facility] [address] [place] [address] Dr. Guille Calderon Monocytes/100 WBC (Bld) 9.0 % Normal 1.7-12.0 [facility] Comment on above: Performed By: #### P SASC, VITB12 #### [facility] [address] [place] [address] Dr. Guille Calderon NEUT # 4.1 103/ul Normal 1.4-6.5 [facility] Comment on above: Performed By: #### P SASC, VITB12 #### [facility] [address] [place] [address] Dr. Guille Calderon Neutrophils/100 WBC (Bld) 64.4 % Normal 43.0-75.0 [facility] Comment on above: Performed By: #### P SASC, VITB12 #### [facility] [address] [place] [address] Dr. Guille Calderon Platelet mean volume (Bld) [Entitic vol] 9.7 fL Normal 9.5-13.5 [facility] Comment on above: Performed By: #### P SASC, VITB12 #### [facility] [address] [place] [address] Dr. Guille Calderon PLT 234 103/ul Normal 150-450 [facility] Comment on above: Performed By: #### P SASC, VITB12 #### [facility] [address] [place], [place] [address] Dr. Guille Calderon RBC 4.85 106/ul Normal 4.70-6.10 [facility] Comment on above: Performed By: #### P SASC, VITB12 #### [facility] [address] [place], [place] [address] Dr. Guille Calderon WBC 6.3 103/ul Normal 4.0-11.0 [facility] Comment on above: Performed By: #### P SASC, VITB12 #### [facility] [address] [place], [place] [address] LUNG CANCER SCREENINGon [...] by: AFUA MERCHANT Date: 2022-04-02 10:13 Normal [facility] GLYCOHEMOGLOBIN A1Con 2021 ADA RECOMMENDATION SEE BELOW Normal [facility] Comment on above: Result Comment: ADA RECOMMENDED LIMIT 4.0 - 6.0 ADA THERAPEUTIC TARGET < 7.0 ACTION SUGGESTED > 7.0 Performed By: #### I TJ #### [facility] [address] [address] [address] Giulle Calderon Glucose [Mass/Vol] 117 mg/dL Normal [facility] Comment on above: Performed By: #### I TJ #### [facility] [address] [address] [address] Guille Calderon HbA1c (Bld) [Mass fraction] 5.7 % Normal 4.5-6.2 [facility] Comment on above: Performed By: #### I TJ #### [facility] [address] [place] [address] Dr. Guille Calderon LIPID PROFILEon 04-02-2022 CHOL-HDL RATIO NORM SEE BELOW Normal [facility] Comment on above: Result Comment: 3.3 - 4.4 LOW RISK 4.4 - 7.1 AVERAGE RISK 7.1 - 11.0 MODERATE RISK >11.0 HIGH RISK Performed By: #### P SASC, VITB12 #### [facility] [address] [place] [address] Dr. Guille Calderon Cholesterol [Mass/Vol] 163 mg/dL Normal <=200 [facility] Comment on above: Performed By: #### P SASC, VITB12 #### [facility] [address] [place] [address] Dr. Guille Calderon Cholesterol in HDL [Mass/Vol] 53 mg/dL Normal 40-60 [facility] Comment on above: Performed By: #### P SASC, VITB12 #### [facility] [address] [place] [address] Dr. Guille Caledron Cholesterol in LDL [Mass/Vol] 100.8 mg/dL Normal [facility] Comment on above: Performed By: #### P SASC, VITB12 #### [facility] [address] [place] [address] Dr. Guille Calderon Cholesterol.total/ Cholesterol in HDL [Mass ratio] 3.1 {ratio} Normal [facility] Comment on above: Performed By: #### P SASC, VITB12 #### [facility] [address] [address] [address] Guille Calderon HDL NORMAL > or = 60 mg/dl - LO W CARDIOVASCULAR RISK <40 mg/dl - HIGH CARDIOVASCULAR RISK Normal [facility] Comment on above: Performed By: #### P SASC, VITB12 #### [facility] [address] [address] [address] Guille Calderon LDL CALC NORMAL SEE BELOW Normal [facility] Comment on above: Result Comment: <100 mg/dl OPTIMAL 100 - 129 mg/dl NEAR OR ABOVE OPTIMAL 130 - 159 mg/dl BORDERLINE HIGH 160 - 189 mg/dl HIGH >190 mg/dl VERY HIGH Performed By: #### P SASC, VITB12 #### [facility] [address] [address] [address] Guille Calderon Triglyceride [Mass/Vol] 46 mg/dL Normal <=150 [facility] Comment on above: Performed By: #### P SASC, VITB12 #### [facility] [address] [address] [address] Guille Calderon VLDL CALC 9.2 mg/dL Normal [facility] Comment on above: Performed By: #### P SASC, VITB12 #### [facility] [address] [address] [address] Guille Calderon MRI LSPINE WO CONon [...] SPEEDY CAMPO Date: 2022-04-02 11:13 Normal [facility] PROF 14(COMP METB)on 022 Albumin [Mass/Vol] 3.8 g/dL Normal 3.4-5.0 [facility] Comment on above: Performed By: #### P SASC, VITB12 #### [facility] [address] [place] [address] Dr. Guille Calderon Albumin/Globulin [Mass ratio] 1.0 {ratio} Normal [facility] Comment on above: Performed By: #### P SASC, VITB12 #### [facility] [address] [place] [address] Dr. Guille Calderon ALP [Catalytic activity/Vol] 87 U/L Normal 46-116 [facility] Comment on above: Performed By: #### P SASC, VITB12 #### [facility] [address] [address] [address] Guille Calderon ALT [Catalytic activity/Vol] 43 U/L Normal 16-63 [facility] Comment on above: Performed By: #### P SASC, VITB12 #### [facility] [address] [address] [address] Guille Calderon Anion gap [Moles/Vol] 10.3 mmol/L Normal [facility] Comment on above: Performed By: #### P SASC, VITB12 #### [facility] [address] [place] [address] Dr. Guille Calderon AST [Catalytic activity/Vol] 24 U/L Normal 15-37 [facility] Comment on above: Performed By: #### P SASC, VITB12 #### [facility] [address] [place] [address] Dr. Guille Calderon Bilirubin [Mass/Vol] 0.4 mg/dL Normal 0.2-1.0 [facility] Comment on above: Performed By: #### P SASC, VITB12 #### [facility] [address] [place] [address] Dr. Guille Calderon Calcium [Mass/Vol] 8.6 mg/dL Normal 8.5-10.1 [facility] Comment on above: Performed By: #### P SASC, VITB12 #### [facility] [address] [place] [address] Dr. Guille Calderon Chloride [Moles/Vol] 103 mmol/L Normal 98-107 [facility] Comment on above: Performed By: #### P SASC, VITB12 #### [facility] [address] [place] [address] Dr. Guille Calderon CO2 [Moles/Vol] 28.4 mmol/L Normal 21.0-32.0 [facility] Comment on above: Performed By: #### P SASC, VITB12 #### [facility] [address] [place] [address] Dr. Guille Calderon Creatinine [Mass/Vol] 1.04 mg/dL Normal 0.70-1.30 [facility] Comment on above: Performed By: #### P SASC, VITB12 #### [facility] [address] [place] [address] Dr. Guille Calderon EGFR-AF MEXICAN >60 Normal >=60 [facility] Comment on above: Performed By: #### P SASC, VITB12 #### [facility] [address] [place] [address] Dr. Guille Calderon EGFR-NON AF MEXICAN >60 Normal >=60 [facility] Comment on above: Performed By: #### P SASC, VITB12 #### [facility] [address] [place] [address] Dr. Guille Calderon Globulin (S) [Mass/Vol] 3.9 g/dL Normal [facility] Comment on above: Performed By: #### P SASC, VITB12 #### [facility] [address] [place] [address] Dr. Guille Calderon Glucose [Mass/Vol] 105 mg/dL Normal 74-106 [facility] Comment on above: Performed By: #### P SASC, VITB12 #### [facility] [address] [place] [address] Dr. Guille Calderon Potassium [Moles/Vol] 4.7 mmol/L Normal 3.5-5.1 [facility] Comment on above: Performed By: #### P SASC, VITB12 #### [facility] [address] [place] [address] Dr. Guille Calderon Protein [Mass/Vol] 7.7 g/dL Normal 6.4-8.2 [facility] Comment on above: Performed By: #### P SASC, VITB12 #### [facility] [address] [place] [address] Dr. Guille Calderon Sodium [Moles/Vol] 137 mmol/L Normal 136-145 [facility] Comment on above: Performed By: #### P SASC, VITB12 #### [facility] [address] [place] [address] Dr. Guille Calderon Urea nitrogen [Mass/Vol] 18.0 mg/dL Normal 7.0-18.0 [facility] Comment on above: Performed By: #### P SASC, VITB12 #### [facility] [address] [place] [address] Dr. Guille Calderon Urea nitrogen/Creatinin e [Mass ratio] 17.3 mg/mg Normal [facility] Comment on above: Performed By: #### P SASC, VITB12 #### [facility] [address] [place] [address] Dr. Guille Calderon TSHon 04-02-2022 TSH 1.169 uIU/mL Normal 0.358-3.740 [facility] Comment on above: Performed By: #### P SASC, VITB12 #### [facility] [address] [place] [address] Dr[address] Guille Calderon URIC ACID SERUMon 04-02-2022 Urate [Mass/Vol] 5.0 mg/dL Normal 3.5-7.2 [facility] Comment on above: Performed By: #### P SASC, VITB12 #### [facility] [address] [place] [address] [address] Guille Calderon VITAMIN B12on 04-02-2022 Cobalamin (Vitamin B12) [Mass/Vol] 407.0 pg/mL Normal 193.0-986.0 [facility] Comment on above: Performed By: #### P SASC, VITB12 #### [facility] [address] [place] [address] Dr. Guille Calderon XR LSPINE MIN 4 [...] SPEEDY CAMPO Date: 2022-04-02 17:48 Normal [facility] Coding Summary.on 08-24-2017 Coding Summary. CODING DATE: 018 FINAL [facility] STATUS: Home (Routine DC) PAYOR: Viral APC DESCRIPTION 3490 Level 1 Laparoscopy and Related Services ADMIT DX: REASON FOR VISIT DX: K42.0 Umbilical hernia with obstruction, without gangrene FINAL DX: PRINCIPAL: K42.0 Umbilical hernia with obstruction, without gangrene SECONDARY: E03.9 Hypothyroidism, unspecified F17.210 Nicotine dependence, cigarettes, uncomplicated PYMT PROC APC STAT DESCRIPTION DOCTOR NAME DATE 38583 4195 J1 Laparoscopy, surgical, Ean Shahid MD 08/23/2017 repair, ventral, umbilical, spigelian or epigastric hernia (includes mesh insertion, when performed); incarcerated or strangulated 76677 Anesthesia for hernia Ean Shahid MD 08/23/2017 repairs in upper abdomen; lumbar and ventral (incisional) hernias and/or wound dehiscence 46373 Transversus abdominis Haider Pelletier DO 08/23/2017 plane [...] Revised Date Saved: 08/24/2017 12:35 pm Normal [facility] Main OR Intraoperative Recor don 08-24-2017 Main OR Intraoperative Record IntraOp Document Type FT Summary Primary Physician: Ean Shahid MD Finalized Date/Time: 08/24/17 09:24:34 Pt. Name: LORENZA RAMACHANDRAN/Sex: 1955 Male Med Rec #: [id number] Physician: Ean Shahid MD Financial #: [id number] Pt. Type: A Room/Bed: [place] [address] Admit/Disch: 08/23/17 09:39:00 - 08/23/17 19:30:00 Institution: [...] Role Performed Anesthesiologist of Surgeon - Primary MUSKRAT TRAPPER Record Time In 08/23/17 12:22:00 08/23/17 12:22:00 08/23/17 12:22:00 Time Out 08/23/17 14:00:00 08/23/17 14:49:00 08/23/17 14:49:00 Procedure HERNIA REPAIR, ROBOT HERNIA REPAIR, ROBOT HERNIA REPAIR, ROBOT ASSISTED(.) ASSISTED(.) ASSISTED(.) Comments Last Modified By: Gianni RN, Keyur Archer RN, Keyur Archer RN, [facility] 08/23/17 14:50:07 08/23/17 14:50:07 08/23/17 14:50:07 Entry 4 Entry 5 Entry 6 Case Attendee Gianni RN, Keyur Crooks RN, Monica Steen CST, Claribel Oliver Role Performed Lead Producer - Primary Lead Producer - Primary Scrub - Primary Time In 08/23/17 12:22:00 08/23/17 12:22:00 08/23/17 12:22:00 Time Out 08/23/17 14:49:00 08/23/17 14:49:00 08/23/17 14:49:00 Procedure HERNIA REPAIR, ROBOT HERNIA REPAIR, ROBOT HERNIA REPAIR, ROBOT ASSISTED(.) ASSISTED(.) ASSISTED(.) Comments Last Modified By: Gianni RN, Keyur Archer RN, Keyur Archer RN, [facility] 08/23/17 14:50:07 08/23/17 14:50:07 08/23/17 14:50:07 Entry 7 Case Attendee Ian Resendiz MD Role Performed Anesthesiologist - Other Time In 08/23/17 13:49:00 Time Out 08/23/17 14:49:00 Procedure HERNIA REPAIR, ROBOT ASSISTED(.) Comments Last Modified By: Gianni EAST, [facility] 08/23/17 14:50:07 General Comments: marleen hernandez [...] and tissue Entry 1 Skin Integrity Intact, [place], Warm, and Skin Abnormality No Dry Outcomes [...] Outcomes Met? Yes Last Modified By: Keyur Archre RN 08/23/17 12:48:28 Post-Care Text: The patient [...] RN Patient Status Stable Skin. Condition Intact, [place], Warm, and Dry Airway Maintenance Oxygen in [...] Immobilization Devices Items BINDER ABDOMINAL 3-PNL LG/XLG [[id number]][F] Site and Details 4x4's and medium binder [...] safely administered during the perioperative period For Roche-Reynolds please see scanned medication reconcilliation form for medications used at the field during the procedure. Implant Log FT Pre-Care Text: Records devices implanted during the operative or invasive procedure Entry 1 Implant/Explant Implant Implant Identification Description MESH STEX ROUND 9CM Lot Number [id number] (3.6 ) [SYM9][F] Efficiency Engineer FT-Where's Up Catalog ?# SYM9 [F] Size 9 CM [...] Present Upon Arrival No Inserted LF 16FR [[id number]][F] Insertion Date/Time 08/23/17 12:32:00 Urine Residual 55 [...] BLANKET MISTRAL AIR Quantity 1 Aid TORSO [[id number]][F] Fluid/[place] Unit Mistral warming system Setting 38 Body Site Upper anterior torso Last Modified By: Keyur Archer RN 08/23/17 07:21:12 Case Comments Finalized By: Shea Stone CST Document Signatures Signed By: Keyur Archer RN 08/23/17 14:50 Keyur Archer RN 08/23/17 14:50 Shea Stone CST 08/24/17 09:24 Normal [facility] Progress Note-Physicianon Progress Note-Physician Patient: LORENZA RAMACHANDRAN Age: 62 years Sex: Male : 1955 Associated Diagnoses: None Author: Ian Resendiz MD Postoperative Information Post Operative Note: Post Anesthesia Care Unit. Anesthetic utilized: General. Regional: TAP block. Health Status Allergies: Allergic Reactions (All)No Known Allergies Problem list: All ProblemsHernia, umbilical / SNOMED CT 8638734628 / ConfirmedBack pain, chronic / SNOMED CT 172201765 / ConfirmedSmoker / IMO 712973 / ConfirmedAdded secondary to documentation in Social History.Hypothyroid / SNOMED CT 53727286 / Confirmed Physical Examination Intake and Output [...] discharged from anesthesia care. Condition stable. Normal [facility] Comment on above: Result Comment: Elec [...] be discharged from PACU when criteria met. [facility] Comment on above: Result Comment: Elec tronically Signed By: Haider Pelletier DO\.br\Date and Time Signed: 08/24/17 09:55 EST History and Physicalon 08-23 History and Physical Patient: LORENZA RAMACHANDRAN Age: 62 years Sex: Male : 1955 Associated Diagnoses: None Author: Ean Shahid MD Subjective no changes to H & P [facility] Comment on above: Result Comment: Elec tronically Signed By: Ean Shahid MD\Jo-Annbr\Date and Time Signed: 08/23/17 12:00 EST Inpatient Patient Summaryon 08-23-2017 Inpatient [facility] Instructions[facility] INFORMATION Name: LORENZA RAMACHANDRAN PHYSICIANS Admitting Physician: Ean Shahid MD Physician: Ean Shahid MD PCP: Jon DEL REAL, Lux Diagnosis: Incarcerated umbilical hernia Comment: PATIENT EDUCATION INFORMATIONInstructions:Medica tion Leaflets:Follow up:With: Address: When: Ean Shahid [address] [place] [id number] [facility] (1[employer] Within 7 to 10 days Comments: follow up in the [place] office next wednesday, call to schedule a time. MEDICATION LISTFill New Prescriptions:acetaminophen-ox ycodone (Percocet 325 mg-5 mg Tab) 1 tab(s) By Mouth every 4 hours as needed for Pain not to exceed 12 tablets/day not to exceed 4000 mg acetaminophen per day take with food or milkComment: Normal [facility] Main OR PACU I Recordon 08-03 Main OR PACU I Record PACU Phase I Document Type FT Summary Primary Physician: Ean Shahid MD Finalized Date/Time: 08/23/17 16:03:37 Pt. Name: LORENZA RAMACHANDRAN Antonieta Madden./Sex: 1955 Male Med Rec #: [id number] Physician: Ean Shahid MD Financial #: [id number] Pt. Type: A Room/Bed: [place] [address] Admit/Disch: 08/23/17 09:39:18 - Institution: Case Times [...] By: Dana Radford RN 08/23/17 16:03 Normal [facility] Main OR PACU II Recordon Main OR PACU II Record PACU Phase II Document Type FT Summary Primary Physician: Ean Shahid MD Finalized Date/Time: 08/23/17 21:51:51 Pt. Name: LORENZA RAMACHANDRAN/Sex: 1955 Male Med Rec #: [id number] Physician: Ean Shahid MD Financial #: [id number] Pt. Type: A Room/Bed: [place] [address] Admit/Disch: 08/23/17 09:39:00 - 08/23/17 19:30:00 Institution: [...] By: Serene Boyer RN 08/23/17 21:51 Normal [facility] Main OR Preoperative Recordo n 08-23-2017 Main OR Preoperative Record PreOp Document Type FT Summary Primary Physician: Ean Shahid MD Finalized Date/Time: 08/23/17 12:44:33 Pt. Name: LORENZA RAMACHANDRAN /Sex: 1955 Male Med Rec #: [id number] Physician: Ean Shahid MD Financial #: [id number] Pt. Type: A Room/Bed: [facility] Admit/Disch: 08/23/17 09:39:18 - Institution: Case Times PreOp FT Pre-Care Text: Verifies consent for planned procedure, identifies individual values and wishes concerning care, includes family members in perioperative teaching Entry 1 Patient Times. In Pre Surgery 08/23/17 09:45:00 Out Pre Surgery 08/23/17 12:20:00 Outcomes Met? Yes Last Modified By: Kyeur Archer RN 08/23/17 12:44:30 Post-Care Text: The patient participates in decisions affecting his or her perioperative plan of care Finalized By: Keyur Archer RN Document Signatures Signed By: Keyur Archer RN 08/23/17 12:44 Normal [facility] Operative Reporton Operative Report Date of [...] this was complete the #2 arm needle coach tour driver was removed andthe scissors were placed. [...] at the umbilicus was removed. The needle coach tour driver from the #1 arm wasremoved. Robot [...] site fascia wasclosed with a 0 Vicryl neygcy-jr-zwrmo suture. All port sites as well asthe [...] RecoveryRoom in good condition.Ean Shahid M.D.lkrDictated: 08/23/2017 #[id number]: 08/23/2017 #[id number]: Sherrill Guerrier M.D. [facility] Comment on above: Result Comment: Elec tronically [...] Then with ultrasound guidance using a 21 bsuhs373 mm Pajunk needle, the transversus abdominis plane was located on bothsides. A total volume of 25 mL of 0.25% Marcaine and Exparel mixture wasinjected on each side after multiple attempts at aspiration. The patienttolerated the procedure well. Surgery then proceeded under generalanesthesia.Haider Pelletier D.O.lkrDictated: 08/23/2017 #[id number]: 08/23/2017 #[id number]: Haider Pelletier D.O. [facility] Comment on above: Result Comment: Elec tronically Signed By: Haider Pelletier DO\.br\Date and Time Signed: 08/23/17 13:43 EST Patient Education - Texton 0 08-23-2017 Patient Education - Text Patient Education Materials Follows: [facility] Progress Note-Physicianon Progress Note-Physician Patient: LORENZA RAMACHANDRAN [...] All ProblemsBack pain, chronic / SNOMED CT 677217004 / ConfirmedHernia, umbilical / SNOMED CT 1780398616 / ConfirmedHypothyroid / SNOMED CT 41936857 / ConfirmedSmoker / IMO 387724 / ConfirmedAdded secondary to documentation in Social History., Active Problems (4)Back pain, chronic Hernia, umbilical Hypothyroid Smoker Histories Past Medical History: No active or resolved past medical history items have been selected or recorded. Family History: No family history items have been selected or recorded. 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 Cardiovascular: Regular rhythm. Integumentary: Warm, [place]. Neurologic: Alert, Oriented. Review / Management Results review: No qualifying data available. Chest x-ray results Reviewed radiologist's report ECG interpretation: Reviewed ECG.. Condition: Stable. Plan [place] [employer] Anesthesiologists (ASA) physical status classification: Class II. Anesthetic Preoperative Plan Anesthesia: General. , Regional B/L TAP block. Anesthetic plan, risks, benefits, and alternatives discussed with the patient and/or family. Patient verbalized understanding. Risks, benefits, alternatives discussed. Questions answered. . Normal [facility] Comment on above: Result Comment: Elec tronically Signed By: Haider Pelletier DO\.br\Date and Time Signed: 08/23/17 12:21 EST UA With Cult Reflexon 2017 Bilirubin Ql (U) Negative Normal Negative [facility] Comment on above: Performed By: #### 2 810461, 0034253, 2974556, 2616619, 8446958, 93784784 ####[facility] [address] [place] [address] COLOR:TYPE:PT:URIN E:NOM:AUTO YELLOW Normal Yellow [facility] Comment on above: Performed By: #### 2 566617, 7050128, 1967055, 9729963, 2489175, 94329644 ####[facility] [address] [place] [address] CRYSTALS:PRTHR:PT: URINE SED:ORD:MICROSCOPY .LIGHT Present Normal [facility] Comment on above: Performed By: #### 2 450551, 3096185, 4500363, 0224295, 6632422, 70271711 ####[facility] [address] [place] [address] Erythrocytes (RBC) 4-20 Normal 0-3 [facility] Comment on above: Performed By: #### 2 439109, 6157858, 6509278, 9387798, 0037806, 93361609 ####[facility] [address] [place] [address] GLUCOSE:MCNC:PT:UR INE:QN:TEST STRIP Negative Normal Negative [facility] Comment on above: Performed By: #### 2 526838, 4811342, 7001578, 5305839, 2098321, 40944383 ####[facility] [address] [place] [address] KETONES:MCNC:PT:UR INE:QN:TEST STRIP Negative Normal Negative [facility] Comment on above: Performed By: #### 2 906242, 0579156, 0238950, 1621593, 5038610, 03757548 ####[facility] [address] [place] [address] LEUKOCYTES:PRTHR:P T:URINE:ORD:AUTOMA KAYLA Negative Normal Negative [facility] Comment on above: Performed By: #### 2 457227, 8028088, 0992042, 0290323, 3875144, 15821611 ####[facility] [address] [place] [address] UA Spec Desc Ross Normal [facility] Comment on above: Performed By: #### 2 200604, 1772933, 7622220, 1718979, 9745616, 56979843 ####[facility] [address] [place] [address] Urine, clarity CLEAR Normal Clear [facility] Comment on above: Performed By: #### 2 548267, 1218488, 9883835, 1655322, 8468185, 65736671 ####[facility] [address] [place] [address] Urine, hemoglobin presence Negative Normal Negative [facility] Comment on above: Performed By: #### 2 293937, 2988183, 2775246, 1463838, 9306223, 87679703 ####[facility] [address] [place] [address] Urine, leukocytes in sedmiment 0-5 Normal 0-5 [facility] Comment on above: Performed By: #### 2 406343, 6486031, 0922737, 7249149, 0591938, 24499397 ####[facility] [address] [place] [address] Urine, mucus presence in sediment 1+ Normal [facility] Comment on above: Performed By: #### 2 406608, 9540288, 6560575, 7479841, 6162643, 36308338 ####[facility] [address] [place] [address] Urine, nitrite presence Negative Normal Negative [facility] Comment on above: Performed By: #### 2 864236, 7723969, 8617038, 2471923, 7274679, 16662686 ####[facility] [address] [place] [address] Urine, pH 7.5 [pH] Invalid Interpretation Code 5.0-9.0 [facility] Comment on above: Performed By: #### 2 808396, 7400227, 3152836, 1489118, 7151820, 00021330 ####[facility] [address] [place] [address] Urine, protein Negative Normal Negative [facility] Comment on above: Performed By: #### 2 342295, 8453307, 6023833, 2566472, 2993973, 20351276 ####[facility] [address] [place] [address] Urine, specific gravity 1.015 Invalid Interpretation Code 1.005-1.030 [facility] Comment on above: Performed By: #### 2 817054, 7427965, 2075129, 5168915, 6869991, 36208124 ####[facility] [address] [place] [address] Urine, squamous cells in sediment 0-2 Normal 0-2 [facility] Comment on above: Performed By: #### 2 193493, 6375741, 4361036, 2822853, 7454277, 88518056 ####[facility] [address] [place] [address] Urine, urobilinogen 0.2 {Emani'U}/dL Normal 0.0-1.0 [facility] Comment on above: Performed By: #### 2 471729, 9688287, 3591333, 5782637, 0763663, 06036433 ####[facility] [address] [place] [address] Coding Summary.on 08-19-2017 Coding Summary. CODING DATE: 018 FINAL [facility] STATUS: Home (Routine DC) PAYOR: Viral APC [...] Willson Date Saved: 08/19/2017 11:07 am Normal [facility] BUNon 08-18-2017 Urea nitrogen 20 mg/dL Normal 5-21 [facility] Comment on above: Performed By: #### 2 473080, 2315027, 0548643, 3186705, 0852895, 10303061 ####[facility] [address] [place] [address] CBC w/Indiceson 08-18-2017 Erythrocyte distribution width Auto Ratio (RBC) 14.1 % Normal 10.9-14.2 [facility] Comment on above: Performed By: #### 2 464142, 8373689, 3640806, 0750706, 6816952, 70013023 ####[facility] [address] [place] [address] Erythrocytes (RBC) 4.9 E12/L Normal 4.3-5.9 [facility] Comment on above: Performed By: #### 2 063265, 4130394, 4897962, 4901441, 9389681, 70364166 ####[facility] [address] [place] [address] Hematocrit (HCT) 44.4 % Normal 37.7-49.0 [facility] Comment on above: Performed By: #### 2 231271, 5715377, 4073894, 4569673, 3757863, 80577084 ####[facility] [address] [place] [address] Hemoglobin mass conc (Bld) 15.1 g/dL Normal 13.5-17.5 [facility] Comment on above: Performed By: #### 2 606170, 8380173, 4570106, 1888709, 1125482, 68132749 ####[facility] [address] [place] [address] MCH 30.8 pg Normal 27.0-34.0 [facility] Comment on above: Performed By: #### 2 221687, 1291857, 3125842, 0682801, 0901893, 58538057 ####[place] [address] MCHC mass conc (RBC) 33.9 g/dL Normal 31.4-39.3 [facility] Comment on above: Performed By: #### 2 129283, 0606637, 8011059, 4764167, 6764482, 71254228 ####[place] [address] [place] [address] MCV 90.8 fL Normal 80.0-100.0 [facility] Comment on above: Performed By: #### 2 703841, 6794669, 6711829, 6983391, 6776577, 02915167 ####[address] [address] Platelet mean volume (PMV) 8.8 fL Normal 6.4-10.8 [facility] Comment on above: Performed By: #### 2 536520, 1567156, 6507066, 6979657, 6292216, 99212154 ####[place] [address] [place] [address] Platelets 195.0 E9/L Normal 150.0-500.0 [facility] Comment on above: Performed By: #### 2 420027, 1940916, 9114927, 2840422, 5772242, 81228731 ####[place] [address] [place] [address] WBC (Leukocytes) 8.0 E9/L Normal 4.0-11.0 [facility] Comment on above: Performed By: #### 2 970368, 4952684, 8438771, 7079119, 8476875, 85400967 ####[facility] [address] [place] [address] Creatinineon 08-18-2017 Creatinine 0.8 mg/dL Normal 0.5-1.3 [facility] Comment on above: Performed By: #### 2 744261, 8825348, 6605322, 5684587, 1797144, 84078264 ####[facility] [address] [place] [address] Glucoseon 08-18-2017 Glucose mass conc 99 mg/dL Normal 55-199 [facility] Comment on above: Performed By: #### 2 096220, 3860874, 5143936, 2300524, 8423215, 24530535 ####[facility] [address] [place] [address] Lyteson 08-18-2017 Anion gap 9 mmol/L Normal 6-16 [facility] Comment on above: Performed By: #### 2 871294, 4129929, 8702310, 7212427, 5640911, 91481204 ####[facility] [address] [place] [address] Chloride 104 mmol/L Normal 101-111 [facility] Comment on above: Performed By: #### 2 563060, 1238095, 5339542, 3883874, 9088220, 56287362 ####[facility] [address] [place] [address] CO2 28 mmol/L Normal 21-31 [facility] Comment on above: Performed By: #### 2 676828, 7194100, 5776330, 8233743, 2427667, 63297135 ####[facility] [address] [place] [address] Potassium molar conc 4.4 mmol/L Normal 3.5-5.3 [facility] Comment on above: Performed By: #### 2 269740, 9061164, 1484300, 3125152, 5353139, 77596138 ####[facility] [address] [place] [address] Sodium 137 mmol/L Normal 135-145 [facility] Comment on above: Performed By: #### 2 727726, 1171748, 5986021, 0619525, 6612991, 90948704 ####[facility] [address] [place] [address] XR Chest 2 Viewson 8 XR Chest [...] (Electronic Signature): 08/18/2017 1:55 pm Signed by: lAexis Burns MD Transcribed by: alice Technologist: AO Normal [facility] eGFRon 08-18-2017 eGFR (black) mL/min/{1.73_m2} Normal >=59 [facility] Comment on above: Order Comment: Order added by Discern Expert. Result Comment: eGFR is race adjusted. AA=. Performed By: #### 2 608388, 3305976, 1589789, 7948035, 3249111, 83426681 ####[facility] [address] [place] [address] eGFR (non-black) mL/min/{1.73_m2} Normal >=59 [facility] Comment on above: Order Comment: Order added by Discern Expert. Result Comment: Electrolysist noel kidney disease could be indicated at eGFR's of less than 60 mL/min/1.73m2. Kidney failure is indicated at less than 15 mL/min/1.73m2. Performed By: #### 2 507734, 1716013, 2397850, 0293628, 4420311, 07814098 ####[facility] [address] [place] [address] Encounters Encounter Date Encounter Type Care Provider [...] Comment on above: Performed By: #### P [facility], VITB12 #### [facility] [address] [place] [address] Dr. Guille Calderon Payers Date Payer Category Payer Unknown [id number] 1958 Medicare [id number] 1958 Medicare [id number] 1958 Unknown [id number] 1955 Unknown [id number] 2.16.84 [id number] 1955 Unknown [id number] 2.16.84 [id number] 1955 Unknown [id number] 2.16.84 [id number] 1955 Unknown [id number] 2.16.84 [id number] 1955 Unknown [id number] 2.16.84 [id number] 1955 Unknown [id number] 2.16.84 [id number] Summary Purpose Family History No Family History Records FoundNo Family History Records FoundNo Family History Records Found Advance Directives No Advanced Directives Records FoundNo Advanced Directives Records FoundNo Advanced Directives Records Found Additional Source Comments (unrecognized sect ion and content) No Status Records FoundNo Status Records FoundNo Status Records Found INFORMATION SOURCE (unrecogn ized section and content) DATE CREATED AUTHOR 01/24/2018 [facility] DATE CREATED AUTHOR AUTHOR'S ORGANIZ ATION 01/08/2023 [facility] DATE CREATED AUTHOR AUTHOR'S ORGANIZ ATION 11/19/2023 [facility] FOR RECORDS PERTAINING TO PATIENTS [...] BE BASED ON THE PRIMARY CLINICAL RECORDS. [facility] [employer] provides no warranty or guarantee of the accuracy or completeness of information in this document.
--- NOTE | 2024-04-17 12:49 | CA_ITS ---
Patient Name: LORENZA RAMACHANDRAN MR#: [id number] : 1955 Exam Date: 04/17/2024 Ordering Doctor: DR DAXA NORWOOD . ECHOCARDIOGRAM REPORT PROCEDURE: CA ECHO DOPPLER COMPLETE INDICATIONS: Atrial fibrillation COMPARISON: None. DESCRIPTION: COMPLETE ECHOCARDIOGRAM Real-time transthoracic echocardiography with 2D, M-mode, spectral and color flow Doppler performed. QUALITY: Technical quality was good. LEFT VENTRICLE: Normal chamber size. Moderate concentric left ventricular hypertrophy. LV EF: Global left ventricular systolic function is normal. Calculated left ventricular ejection fraction is 62%. No wall motion abnormalities DIASTOLIC: Normal diastolic function. ATRIAL SEPTUM: Lipomatous hypertrophy of the intra-atrial septum. LEFT ATRIUM: Normal chamber size. RIGHT ATRIUM: Normal chamber size. RIGHT VENTRICLE: Normal chamber size. Normal right ventricular systolic function. TRICUSPID VALVE: Normal mobility and thickness. No stenosis with trivial regurgitation. Mild pulmonary hypertension. RVSP 40mmHg MITRAL VALVE: Normal mobility and thickness. No evidence of mitral valve stenosis. There is no mitral annular calcification. Mild mitral regurgitation. AORTIC VALVE: Normal trileaflet appearance. No visible sclerosis. Normal leaflet mobility. No evidence of aortic valve stenosis. Trivial aortic regurgitation. AORTIC ROOT: Normal diameter and appearance. PULMONIC VALVE: Normal thickness and mobility. No stenosis. Trivial regurgitation. PERICARDIUM: No evidence of pericardial effusion. IVC: Mild dilatation. measuring 2.2cm. Collapses with inspiration CONCLUSION: 1. Global left ventricular systolic function is normal; visually estimated ejection fraction is 60 to 65% 2. Normal right ventricular size and systolic function 3. Moderate left ventricular hypertrophy 4. Normal diastolic function 5. The left atrium is normal in size 6. Mild mitral regurgitation 7. Mildly elevated right ventricular systolic pressure; RVSP 40 mmHg Adult Echocardiography Procedure Report Left Ventricle LVEDD (3.7 - 5.6 cm): 4.80 cm LVESD (2.2 - 4.0 cm): 3.16 cm LVIVS thickness (0.6 - 1.2 cm): 1.35 cm LVPW thickness (0.5 - 1.0 cm): 1.28 cm e': 0.11 m/s E - e': 6.38 LVOT Max Gradient: 4.48 mm[Hg], 4.79 mm[Hg] LVOT Area (cm2): 1.08 m/s Peak Velocity (LVOT): 1.06 m/s, 1.09 m/s Mean Velocity (LVOT): 0.69 m/s LVOT Diameter 2.15 cm Left Ventricular Ejection Fraction: 61.78 % Left Atrium LA Volume Index (2D A2C): 36.51 ml/m2 Left Atrium Systolic Dimension: 3.47 cm Mitral Valve MV E to A Ratio: 0.82 Mitral Valve A-Wave Peak Velocity: 0.83 m/s Mitral Valve E-Wave Peak Velocity: 0.68 m/s Right Ventricle RV Internal Diastolic Dimension: 3.27 cm Aorta AO Root Diam: 3.55 cm Ascending Ao Diam: 2.97 cm Aortic Valve AoV Area (Peak Tushar): 3.23 cm2, 3.17 cm2 AoV Area (VTI): 2.27 cm2, 2.24 cm2 Peak Velocity(Antegrade Flow): 1.21 m/s Peak Gradient(Antegrade Flow): 5.83 mm[Hg] Mean Velocity(Antegrade Flow): 0.80 m/s Mean Gradient(Antegrade Flow): 2.96 mm[Hg] Velocity Time Integral: 25.51 cm Tricuspid Valve Peak Velocity (Regurgitant Flow): 2.81 m/s, 2.79 m/s Pulmonic Valve Peak Velocity: 0.98 m/s Peak Gradient: 3.54 mm[Hg], 4.17 mm[Hg] Right Atrium Right Atrium Systolic Pressure: 54.96 ml, 54.96 ml Dictated by: Callie Luciano M.D. on 04/17/2024 at 15:02 Approved by: Callie Luciano M.D. on 04/17/2024 at 15:06
== END 2024-04-17 07:30 | disposition home or self-care (01) ==
PROVIDERS: PCP Family Medicine; Visit Provider Family Medicine
DX: I48.91 Unspecified atrial fibrillation (principal); R07.9 Chest pain, unspecified
CPT/HCPCS: 93306

== ENCOUNTER 2024-08-07 13:46 | Outpatient (OUT) | payer MEDICARE, SELFPAY | END 2024-08-07 13:47 | disposition home or self-care (01) | LOC: PST 13:46 | PROVIDERS: PCP Family Medicine; Visit Provider Surgery | DX: Z01.818 Encounter for other preprocedural examination (principal); L72.0 Epidermal cyst ==

== ENCOUNTER 2024-08-09 10:30 | Day surgery (SDC) | payer MEDICARE, SELFPAY ==
[2024-08-09 10:46] VITALS: BP 140/83; PULSE 85; TEMP 36.1; O2SAT 98
[2024-08-09 12:37] VITALS: BP 140/80; PULSE 89; O2SAT 97
--- NOTE | 2024-08-09 12:42 | PC.NURSE ---
PROCEDURE CANCELLED BY SURGEON,CYST IS HEALED
== END 2024-08-09 12:45 | disposition home or self-care (01) ==
PROVIDERS: PCP Family Medicine; Visit Provider Surgery
PROC: (CPT 11400; principal; 2024-08-09 11:00)
DX: L72.0 Epidermal cyst (principal); Z53.8 Procedure and treatment not carried out for other reasons
CPT/HCPCS: 11400

== ENCOUNTER 2025-01-18 08:37 | Outpatient (OUT) | payer MEDICARE, SELFPAY ==
--- OUTSIDE RECORDS SUMMARY | 2024-10-30 06:53 | XMS_ITS ---
Author Organization The [facility] in [place] Address [address] [place] [address] Care Team Providers Care Fire Support Specialist Name Role Phone Dacri Webb Primary Care Provider REASON FOR VISIT ct low dose Encounters Encounter Location Date Provider Diagnosis [facility] [address] [place] [address] 10/30/2024 Darci Webb Plan Of Treatment No Information Progress Notes * Sander PADGETT ADOB:1955 (69 yo M)Acc No.[id number]:10/30/2024 Patient: Patsy Sander BUCKLEY :1955 A ge:69 Y S ex:Male Address:[address] [place] [address] [place] [address] * true * Date: Generated for Printi ng/Fadanag/eTransmitting on: 0 01/18/2025 08:44 AM EDT
--- OUTSIDE RECORDS SUMMARY | 2025-01-10 04:45 | XMS_ITS ---
Author Organization [facility] in [place] Address [address] [place] [address] Care Team Providers Care Senior Quality Engineer Name Role Phone Darci Webb Primary Care Provider Allergies No Known Allergies REASON FOR VISIT 6 month check-up needs assess J44.9 COPD , I48.91 A-Fib, Next Cardio appointment end january- [facility] Cardio- Dr Beasley, Patient has not been [...] N/A Encounters Encounter Location Date Provider Diagnosis [facility] [address] [place] [address] 01/10/2025 Darci Webb Atrial fibrillation I48.91 ; [...] * Sander PADGETT ADOB:1955 (69 yo M)Acc No.[id number]:01/10/2025 Progress Note Patient: Sander DAMON Provider: Vaishnavi Webb ([facility])MD :1955 A ge:69 Y S ex:Male Date:01/10/2025 Address:[address] [place] [address] [address], [address], [id number] Check In:08:39 AM ESTCheck O ut:09:42 AM EST Subjective: * Chief Complaints: * 6 month check-up needs assess J44.9 COPD , I48.91 A-FibNext Cardio appointment end of January- [facility] Cardio- Dr Bocanegra has not been taking [...] 01/10/2025 Generated for Pauli ng/Faxing/eTransmitting on: 0 01/18/2025 08:44 AM EDT History and Physical Notes * HPI (History of Present Illness) Category Sub-Category Detail Notes Category Not es Depression Screening PHQ-2 (2015 Edition) Little interest or pleasure in doing things?: Not at all Hving e[pisode iwht standg - orhtostatinc hypotension Feeling down, depressed, or hopeless?: N ot at all Total Score: 0
--- OUTSIDE RECORDS SUMMARY | 2025-01-10 07:03 | XMS_ITS ---
Author Organization The [facility] in [place] Address [address] [place] [address] Care Team Providers Care Cloud Operations Engineer Name Role Phone Darci Webb Primary Care Provider REASON FOR VISIT correct eliquis script Medications Medication SIG (Take, Route, Frequency, Duration) Notes Start Date End Date Status Eliquis 5 MG 1 tablet Orally twice daily for 30 days 01/10/2025 Active Encounters Encounter Location Date Provider Diagnosis [facility] [address] [place] [address] 01/10/2025 Darci Webb Atrial fibrillation I48.91 Assessments Encounter Date Diagnosis (ICD Code) Assessment Notes Treatment Notes Treatment Clinical Notes Section Notes 01/10/2025 Atrial fibrillation (ICD-10 - I48.91) Plan Of Treatment Medication Medication Name Sig Start Date Stop Date Notes Eliquis 5 MG 1 tablet Orally twice daily for 30 days 01/10 Progress Notes * Sander RAMACHANDRAN ADOB:1955 (69 yo M)Acc No.[id number]:01/10/2025 Patient: Patsy Sander BUCKLEY :1955 A ge:69 Y S ex:Male Address:[address] [place] [address] [place] [address] * Refills Refill Eliquis Tablet, 5 MG, Orally, 60, 1 tablet, twice daily, 30 days, Refills=11 * true * Date: Generated for Printi ng/Faxing/eTransmitting on: 0 01/18/2025 08:43 AM EDT
--- OUTSIDE RECORDS SUMMARY | 2025-01-18 08:44 | XMS_ITS | Referral Summary ---
Author Organization [facility] Address [address] [place] [address] Care Team Providers Care Yard Inspector Name Role Phone Pratik Webb MD Primary Care Provider [phone] Allergies No known active allergies Medications apixaban (Eliquis) 5 mg tablet 5 mg two times daily. Active liothyronine (Cytomel) 5 mcg tablet 5 mcg 2 times daily. 12/13/2023 Active diclofenac (Voltaren) 75 mg EC tablet 75 mg two times daily. Active levothyroxine (Synthroid, Levoxyl) 137 mcg tablet 137 mcg. Active dilTIAZem CD (Cardizem CD) 120 mg 24 hr capsule Take 120 mg by mouth in the morning. Active Social History Tobacco Use Types Packs/Day Years Used Date Smoking Tobacco: Every Day Cigarettes 0.3 30 Smokeless Tobacco: Never Tobacco Cessation:Ready to Q uit: Not Asked; Counseling Given: Not Answered Alcohol Use Standard Drinks/Week Comments Never 0 (1 standard drink = 0.6 oz pur e alcohol) [place] Safety & Environment Answer Date Rec orded Fear of Current or Ex-Partner Not on file Emotionally Abused Not on file 09/24/2023 Physically Abused Not on file 09/24/2023 Sexually Abused Not on file 09/24/2023 Physically or Sexually Abused Not on file Sex and Gender Information Value Date Recorded Sex Assigned at Not on file Legal Sex Male 12:04 PM EDT Gender Identity Not on file Sexual Orientation Not on file Last Filed Vital Signs Vital Sign Reading Time Taken Comments Blood Pressure 125/79 05/09/2024 12:17 PM EDT Pulse 80 05/09/2024 12:17 PM EDT Temperature - - Respiratory Rate - - Oxygen Saturation 97% 05/09/2024 12:17 PM EDT Inhaled Oxygen Concentration - - Weight 78.5 kg (173 lb) 05/09/2024 12:17 PM EDT Height 188 cm (6' 2 ) 05/09/2024 12:17 PM EDT Body Mass Index 22.21 05/09/2024 12:17 PM EDT Plan of Treatment Upcoming Encounters Date Type Department Care Team (Late st Contact Info) Description 02/20/2025 9:15 AM EDT Office Visit [facility] [address] [place] [address] Héctor Beasley MD [address] [place] [address] Insurance [employer] MEDICARE Advance Directives Documents on File Type Date Recorded Patient Forest Pathologist Expl anation Advance Directives and Living Will 05/09/2024 11:40 AM did not have [facility] car d Care Teams Yard Inspector Relationship Specialty Start Date End Date Pratik Webb MD [address] [facility] [address] [address] PCP - General 04/10/24
--- OUTSIDE RECORDS SUMMARY | 2025-01-18 08:44 | XMS_ITS | Clinical Summary ---
Author Organization [facility] Address [address] [facility] [place] [address] Care Team Providers Care Police Investigator Name Role Phone Pratik Webb MD Primary Care Provider [phone] Allergies No known active allergies Medications levothyroxine (Synthroid) 137 MCG tablet Take 137 mcg by mouth in the morning. Take before meals. Active ibuprofen 800 MG tablet Take 800 mg by mouth in the morning and 800 mg before bedtime. Active Family History Relation Name Status Comments Father Mother Alive Social History Tobacco Use Types Packs/Day Years Used Date Smoking Tobacco: Every Day Cigarettes Smokeless Tobacco: Never Tobacco Cessation:Ready to Q uit: Not Asked; Counseling Given: Not Answered Sex and Gender Information Value Date Recorded Sex Assigned at Not on file Legal Sex Male 6:52 PM EDT Gender Identity Not on file Sexual Orientation Not on file Last Filed Vital Signs Vital Sign Reading Time Taken Comments Blood Pressure 159/88 11/18/2023 8:28 AM EDT Pulse 94 11/18/2023 8:28 AM EDT Temperature 36.8 C (98.3 F) 11/18/2023 8:28 AM EDT Respiratory Rate - - Oxygen Saturation - - Inhaled Oxygen Concentration - - Weight 89.8 kg (198 lb) 09/29/2017 12:00 PM EST Height 188 cm (6' 2 ) 09/29/2017 12:00 PM EST Body Mass Index 25.42 09/29/2017 12:00 PM EST Plan of Treatment [place] [id number] [employer] MEDICARE Care Teams Police Investigator Relationship Specialty Start Date End Date Pratik Webb MD PCP - General Family Medicine 11/18/23
--- OUTSIDE RECORDS SUMMARY | 2025-01-18 08:44 | XMS_ITS | Clinical Summary ---
Author Organization [facility] Address [address] [place] [address] Care Team Providers Care Director Of Music Name Role Phone Pratik Webb MD Primary Care Provider [phone] Allergies No known active allergies Medications apixaban [...] mg by mouth in the morning. Active Family History Medical History Relation Name Comments No Known Problems Father No Known Problems Mother Relation Name Status Comments Father Mother Social History Tobacco Use Types Packs/Day Years Used Date Smoking Tobacco: Every Day Cigarettes 0.3 30 Smokeless Tobacco: Never Tobacco Cessation:Ready to Q uit: Not Asked; Counseling Given: Not Answered Alcohol Use Standard Drinks/Week Comments Never 0 (1 standard drink = 0.6 oz pur e alcohol) [place] Safety & Environment Answer Date Rec orded [...] Description 02/20/2025 9:15 AM EDT Office Visit [facility] [address] [place] [address] Héctor Beasley MD [address] [place] [address] Health Maintenance Due Date Last Done Comments CT Colonography 1955 Colonoscopy 1955 Colorectal Cancer Screening 1955 FIT-DNA 1955 FIT 1955 FOBT 1955 Medicare Annual Wellness (AWV) 1955 Sigmoidoscopy 1955 Depression Screening 1968 Pneumococcal Vaccine: 50+ Years (1 of 2 - PCV) 1975 Adult Tetanus 1978 Fall Risk Screening 2021 COVID-19 Vaccine ( - 2023-2 5 season) 2024 Influenza Vaccine (Season Ended) 2025 07/10/2020, 07/21/2017 Zoster Vaccines Completed 11/29/2020, 07/10/2020 HIB Vaccines Aged Out No longer eligi ble based on patient's age to complete this topic HPV Vaccines Aged Out No longer eligi ble based on patient's age to complete this topic IPV Vaccines Aged Out No longer eligi ble based on patient's age to complete this topic Meningococcal B Vaccine Aged Out No l onger eligible based on patient's age to complete this topic Meningococcal Vaccine Aged Out No cesar scarlett eligible based on patient's age to complete this topic Rotavirus Vaccines Aged Out No longer eligible based on patient's age to complete this topic Insurance [employer] MEDICARE Advance Directives Documents on File Type Date Recorded Patient Dumper Operator Expl anation Advance Directives and Living Will 05/09/2024 11:40 AM did not have [facility] car d Care Teams Director Of Music Relationship Specialty Start Date End Date Pratik Webb MD [address] [facility] [place] [address] PCP - General 04/10/24
--- OUTSIDE RECORDS SUMMARY | 2025-01-18 08:46 | XMS_ITS | CCD ---
Author Organization [facility] Care Team Providers Care Template Reproduction Technician Name Role Phone ENMA ., DR MITTAL Primary Care Unavailable HOY ., DR MITTAL Admitting Unavailable HOY ., DR MITTAL Attending Unavailable HOY ., DR MITTAL Consulting Unavailable TERRIL, DR SPEEDY Chase Consulting Unavailable KIRANEBHELENA, DR AFUA Mata Consulting Unavailable HOY ., [...] Unavailable HOY ., DR MITTAL Consulting Unavailable ARLENE CHOI Consulting Unavailable HOY ., DR MITTAL Primary Care Unavailable HOY ., DR MITTAL Admitting Unavailable HOY ., DR MITTAL Attending Unavailable HOY ., DR MITTAL Consulting Unavailable COLLIN DOZIER Attending Unavailable PATSY RAGSDALE Attending Unavailable Daxa Webb Primary Care Physician [phone] Ean WILKES Attending Unavailable Ean WILKES Attending Unavailable Daxa Webb Referring Unavailable Medications Current Medications Medication Drug Class(es) Dates Sig (Normalized) Sig (Original) apixaban 5 mg oral tablet (1 source) Factor Xa Inhibitor Start: 06-16-2024 take 1 tablet by mouth twice daily Eliquis 5 mg oral tablet 5 mg = 1 tab(s), Oral, BID, Refills(s) 0 Start Date: 06/16/24 Status: Ordered diclofenac sodium 75 mg delayed release oral tablet (1 source) Nonsteroidal Anti-inflammatory Drug Start: 06-16-2024 take 1 tablet by mouth twice daily diclofenac sodium 75 mg Oral EC Tab 75 mg = 1 tab(s), Oral, BID, Refills(s) 0 Start Date: 06/16/24 Status: Ordered fluticasone / vilanterol (1 source) Corticosteroid, beta2-Adrenergic Agonist Start: 06-16-2024 take 1 puff(s) by inhalation once daily Breo Ellipta 100 mcg-25 mcg inhalation powder 1 puff(s), Inhalation, Daily, 30 dose unit Start Date: 06/16/24 Status: Ordered Synthroid (1 source) l-Thyroxine Start: 08-18-2017 Synthroid 137 microgram, Oral, Daily, Thyroid Start Date: 08/18/17 Status: Ordered liothyronine sodium 0.005 mg oral tablet (1 source) l-Triiodothyronine Start: 06-16-2024 take 2 tablets by mouth once daily liothyronine 5 mcg Tab 10 mcg = 2 tab(s), Oral, Daily, Refills(s) 0 Start Date: 06/16/24 Status: Ordered Ventolin HFA 90 mcg/inh Aerosol-Adpt (1 source) Start: 06-16-2024 Ventolin HFA 90 mcg/inh Aerosol-Adpt 2 inh, Inhalation, q4hr Shortness of breath or wheezing, Refill(s) 0 Start Date: 06/16/24 Status: Ordered Problems Active Problems Problem Classification Problem Date Documented Da te Episodic/Chronic Abdominal hernia (1 source) Umbilical hernia 08-18-2017 Episodic Cardiac dysrhythmias (3 sources) Paroxysmal atrial fibrillation; Translations: [Atrial fibrillation] Onset: 05-09-2024 Chronic Chronic obstructive pulmonary disease and bronchiectasis (1 source) Chronic obstructive lung disease 06-16-2024 Chronic Congestive heart failure; nonhypertensive (1 source) Unspecified [...] HEART DISEASE W/HEART FAIL] Onset: 06-03-2022 Chronic Mood disorders (1 source) Depressive disorder 06-16-2024 Chronic Nutritional deficiencies (1 source) Vitamin D deficiency, unspecified; Translations: [VITAMIN D DEFICIENCY UNSPECIFIED] Onset: 12-28-2022 Chronic Other gastrointestinal disorders (1 source) Irritable bowel syndrome 06-16-2024 Chronic Other infections; including parasitic (1 source) History of hepatitis C 06-16-2024 Episodic Other liver diseases (1 source) Liver cyst 06-16-2024 Chronic Other skin disorders (1 source) Epidermoid cyst; Translations: [Epidermal cyst] Onset: 07-04-2024 Episodic Other skin disorders (1 source) Epidermoid cyst of skin 07-04-2024 Episodic Residual codes; unclassified (1 source) Chronic back pain 08-18-2017 Episodic Spondylosis; intervertebral disc disorders; other back problems (4 sources) Other intervertebral disc displacement, lumbosacral region; Translations: [OTH IV DISC DISPLACEMENT LS REGION] Onset: 04-02-2022 Chronic Substance-related disorders (1 source) Smoker 08-18-2017 Chronic Comment on above: Added secondary to d ocumentation in Social History. Syncope (4 sources) Syncope and collapse; Translations: [SYNCOPE AND COLLAPSE] Onset: 12-26-2022 Episodic Thyroid disorders (2 sources) Hypothyroidism Onset: 01-13-2024 08-18-2017 Chronic Unclassified (1 source) Drug therapy finding 06-16-2024 Past or Other Problems Problem Classification Problem [...] Test Name Value Interpretation Reference Range Facility Ambulatory Visit Summaryon 1 09-04-2023 Ambulatory Visit Summary Ambulatory Visit Summary LORENZA RAMACHANDRAN :1955 Visit Date:07/04/2024 Ambulatory Visit Instructions Your Diagnosis Epidermal cyst Your Care Team Attending Physician - CHUNG DEL REAL, Ean Mata Primary Care Physician - Daxa Webb MD Referring Physician - Daxa Webb MD This Is Your Medications List Contact prescribing physician if questions or concerns albuterol (Ventolin HFA 90 mcg/inh Aerosol-Adpt) apixaban (Eliquis 5 mg oral tablet) diclofenac (diclofenac sodium 75 mg Oral EC Tab) fluticasone-vilanterol (Breo Ellipta 100 mcg-25 mcg inhalation powder) levothyroxine (Synthroid) liothyronine (liothyronine 5 mcg Tab) Procedures Performed Repair of umbilical hernia (08/23/2017), Arthroscopic repair of rotator cuff, Biopsy of liver, Excision of cyst, Neuroma, Tonsillectomy. Discharge Vitals Heart Rate (Peripheral) 72 Respiratory Rate 16 Blood Pressure 122/78 Height 182.8 cm Height 72 in Weight 81.2 kg Weight 179.015 lb BMI 24.3 Medications What How Much When Instructions Unchanged albuterol (Ventolin HFA 90 mcg/ inh Aerosol-Adpt) 2 Inhalation Inhalation Every 4 hours as needed for Shortness of breath or wheezing Contact prescribing physician if questions or concerns Unchanged apixaban (Eliquis 5 mg oral tablet) 1 Tablets By Mouth 2 times a day Contact prescribing physician if questions or concerns Unchanged diclofenac (diclofenac sodium 75 mg Oral EC Tab) 1 Tablets By Mouth 2 times a day Contact prescribing physician if questions or concerns Unchanged fluticasone-vilanterol (Breo Ellipta 100 mcg-25 mcg inhalation powder) 1 Puffs Inhalation Every day 30 dose unit Contact prescribing physician if questions or concerns Unchanged levothyroxine (Synthroid) 137 Microgram By Mouth Every day Contact prescribing physician if questions or concerns Unchanged liothyronine (liothyronine 5 mcg Tab) 2 Tablets By Mouth Every day Contact prescribing physician if questions or concerns Allergies No Known Allergies Problems Ongoing - Any problem that you are currently receiving treatment for. Anticoagulated Atrial fibrillation Chronic obstructive pulmonary disease Depression Epidermal cyst History of hepatitis C Hypothyroidism Irritable bowel syndrome Liver cyst Smoker Patient Survey You may receive a survey via text or e-mail asking about your office visit. Please share your experience with us by completing your survey. We appreciate your feedback and thank you for choosing us for your care. Normal [facility] Orders Onlyon 05-11-2024 Orders Only [id number] Richy Ramachandran A 1955 M Date Provider Department Center 05/11/2024 RANDY COTTON JAVY [facility] Family History Problem Relation Age of Onset No Known Problems Mother No Known Problems Father Family Status - Relation Status Age at Mother Father Normal [facility] Office Visiton 05-09-2024 Follow-up visit [id number] Richy Ramachandran A 1955 M Date Provider Department Center 05/09/2024 PATSY LEVY JAVY [facility] Family History Problem Relation Age of Onset No Known Problems Mother No Known Problems Father Family Status - Relation Status Age at Mother Father Level of Service:88460 HI OFFICE/OUTPATIENT NEW MODERATE MDM 45 MINUTES Normal [facility] INSULINon 12-29-2022 Insulin 14.2 uIU/mL Normal 2.6-24.9 [facility] Comment on above: Performed By: #### I TJ #### [facility] [address] [place] [address] Dr. Guille Calderon CBC AUTO DIFFon 12-26-2022 BASO # 0.1 103/ul Normal 0.0-0.1 [facility] Comment on above: Performed By: #### I TJ #### [facility] [address] [place] [address] Dr. Guille Calderon Basophils/100 WBC (Bld) 1.3 % Normal 0.2-2.0 [facility] Comment on above: Performed By: #### I TJ #### [facility] [address] [place] [address] Dr. Guille Calderon EO # 0.1 103/ul Normal 0.0-0.7 [facility] Comment on above: Performed By: #### I TJ #### [facility] [address] [place] [address] Dr. Guille Calderon Eosinophils/100 WBC (Bld) 1.1 % Normal 0.9-7.0 [facility] Comment on above: Performed By: #### I TJ #### [facility] [address] [place] [address] Dr. Guille Calderon Erythrocyte distribution width (RBC) [Ratio] 13.1 % Normal 11.0-15.0 [facility] Comment on above: Performed By: #### I TJ #### [facility] [address] [place] [address] Dr. Guille Calderon Hematocrit (Bld) [Volume fraction] 46.7 % Normal 42.0-54.0 [facility] Comment on above: Performed By: #### I TJ #### [facility] [address] [place] [address] Dr. Guille Calderon Hemoglobin (Bld) [Mass/Vol] 16.1 g/dL Normal 14.0-18.0 [facility] Comment on above: Performed By: #### I TJ #### [facility] [address] [place] [address] Dr. Guille Calderon IG # 0.01 10e3/ul Normal 0.00-0.03 [facility] Comment on above: Performed By: #### I TJ #### [facility] [address] [place] [address] Dr. Guille Calderon IG % 0.2 % Normal 0.0-0.5 [facility] Comment on above: Performed By: #### I TJ #### [facility] [address] [place] [address] Dr. Guille Calderon LYMPH # 1.9 103/ul Normal 1.2-3.8 [facility] Comment on above: Performed By: #### I TJ #### [facility] [address] [place] [address] Dr. Guille Calderon Lymphocytes/100 WBC (Bld) 30.2 % Normal 20.5-60.0 [facility] Comment on above: Performed By: #### I TJ #### [facility] [address] [place] [address] Dr. Guille Calderon MANUAL DIFF REQ NO Normal [facility] Comment on above: Performed By: #### I TJ #### [facility] [address] [address] [address] Guille Calderon MCH (RBC) [Entitic mass] 31.1 pg Normal 25.9-34.0 [facility] Comment on above: Performed By: #### I TJ #### [facility] [address] [place] [address] Dr. Guille Calderon MCHC (RBC) [Mass/Vol] 34.5 g/dL Normal 29.9-35.2 [facility] Comment on above: Performed By: #### I TJ #### [facility] [address] [place] [address] Dr. Guille Calderon MCV (RBC) [Entitic vol] 90.2 fL Normal 80.0-94.0 [facility] Comment on above: Performed By: #### I TJ #### [facility] [address] [place] [address] Dr. Guille Calderon MONO # 0.6 103/ul Normal 0.3-0.8 [facility] Comment on above: Performed By: #### I TJ #### [facility] [address] [place] [address] Dr. Guille Calderon Monocytes/100 WBC (Bld) 9.8 % Normal 1.7-12.0 [facility] Comment on above: Performed By: #### I TJ #### [facility] [address] [place] [address] Dr. Guille Calderon NEUT # 3.7 103/ul Normal 1.4-6.5 [facility] Comment on above: Performed By: #### I TJ #### [facility] [address] [place] [address] Dr. Guille Calderon Neutrophils/100 WBC (Bld) 57.4 % Normal 43.0-75.0 [facility] Comment on above: Performed By: #### I TJ #### [facility] [address] [place] [address] Dr. Guille Calderon Platelet mean volume (Bld) [Entitic vol] 9.9 fL Normal 9.5-13.5 [facility] Comment on above: Performed By: #### I TJ #### [facility] [address] [address] [address] Guille Calderon PLT 237 103/ul Normal 150-450 [facility] Comment on above: Performed By: #### I TJ #### [facility] [address] [address] [address] Guille Calderon RBC 5.18 106/ul Normal 4.70-6.10 [facility] Comment on above: Performed By: #### I TJ #### [facility] [address] [place] [address] Dr. Guille Calderon WBC 6.4 103/ul Normal 4.0-11.0 [facility] Comment on above: Performed By: #### I TJ #### [facility] [address] [place] [address] Dr. Guille Calderon FREE THYROXINE INDEX T7on FTI 3.50 Normal 1.30-4.50 [facility] Comment on above: Performed By: #### P SASC, VITB12 #### [facility] [address] [place] [address] Dr. Guille Calderon T3U 34.0 % Normal 33.0-40.0 [facility] Comment on above: Performed By: #### P SASC, VITB12 #### [facility] [address] [place] [address] Dr. Guille Calderon T4 [Mass/Vol] 10.30 ug/dL Normal 4.50-12.10 [facility] Comment on above: Performed By: #### P SASC, VITB12 #### [facility] [address] [place] [address] Dr. Guille Calderon GLYCOHEMOGLOBIN A1Con 2022 ADA RECOMMENDATION SEE BELOW Normal [facility] Comment on above: Result Comment: ADA RECOMMENDED LIMIT 4.0 - 6.0 ADA THERAPEUTIC TARGET < 7.0 ACTION SUGGESTED > 7.0 Performed By: #### A 1C #### [facility] [address] [place] [address] Dr. Guille Calderon Glucose [Mass/Vol] 105 mg/dL Normal [facility] Comment on above: Performed By: #### A 1C #### [facility] [address] [address] [address] Guille Calderon HbA1c (Bld) [Mass fraction] 5.3 % Normal 4.5-6.2 [facility] Comment on above: Performed By: #### A 1C #### [facility] [address] [address] [address] Guille Calderon IRONon 12-26-2022 Iron [Mass/Vol] 79.0 ug/dL Normal 65.0-175.0 [facility] Comment on above: Performed By: #### V ITAD, IRON #### [facility] [address] [place] [address] Dr. Guille Calderon LIPID PROFILEon 12-26-2022 CHOL-HDL RATIO NORM SEE BELOW Normal [facility] Comment on above: Result Comment: 3.3 - 4.4 LOW RISK 4.4 - 7.1 AVERAGE RISK 7.1 - 11.0 MODERATE RISK >11.0 HIGH RISK Performed By: #### P SASC, VITB12 #### [facility] [address] [place] [address] Dr. Guille Calderon Cholesterol [Mass/Vol] 146 mg/dL Normal <=200 [facility] Comment on above: Performed By: #### P SASC, VITB12 #### [facility] [address] [place] [address] Dr. Guille Calderon Cholesterol in HDL [Mass/Vol] 49 mg/dL Normal 40-60 [facility] Comment on above: Performed By: #### P SASC, VITB12 #### [facility] [address] [address] [address] Guille Calderon Cholesterol in LDL [Mass/Vol] 79.2 mg/dL Normal [facility] Comment on above: Performed By: #### P SASC, VITB12 #### [facility] [address] [place] [address] Dr. Guille Calderon Cholesterol.total/Ch olesterol in HDL [Mass ratio] 3.0 {ratio} Normal [facility] Comment on above: Performed By: #### P SASC, VITB12 #### [facility] [address] [address] [address] Guille Calderon HDL NORMAL > or = 60 mg/dl - LO W CARDIOVASCULAR RISK <40 mg/dl - HIGH CARDIOVASCULAR RISK Normal [facility] Comment on above: Performed By: #### P SASC, VITB12 #### [facility] [address] [address] [address] Guille Calderon LDL CALC NORMAL SEE BELOW Normal [facility] Comment on above: Result Comment: <100 mg/dl OPTIMAL 100 - 129 mg/dl NEAR OR ABOVE OPTIMAL 130 - 159 mg/dl BORDERLINE HIGH 160 - 189 mg/dl HIGH >190 mg/dl VERY HIGH Performed By: #### P SASC, VITB12 #### [facility] [address] [place] [address] Dr. Guille Calderon Triglyceride [Mass/Vol] 89 mg/dL Normal <=150 [facility] Comment on above: Performed By: #### P SASC, VITB12 #### [facility] [address] [place] [address] Dr. Guille Calderon VLDL CALC 17.8 mg/dL Normal [facility] Comment on above: Performed By: #### P SASC, VITB12 #### [facility] [address] [place] [address] Dr. Guille Calderon PROF 14(COMP METB)on 023 Albumin [Mass/Vol] 3.6 g/dL Normal 3.4-5.0 [facility] Comment on above: Performed By: #### P SASC, VITB12 #### [facility] [address] [address] [address] Guille Calderon Albumin/Globulin [Mass ratio] 0.8 {ratio} Normal [facility] Comment on above: Performed By: #### P SASC, VITB12 #### [facility] [address] [address] [address] Guille Calderon ALP [Catalytic activity/Vol] 94 U/L Normal 46-116 [facility] Comment on above: Performed By: #### P SASC, VITB12 #### [facility] [address] [address] [address] Guille Calderon ALT [Catalytic activity/Vol] 45 U/L Normal 16-63 [facility] Comment on above: Performed By: #### P SASC, VITB12 #### [facility] [address] [address] [address] Guille Calderon Anion gap [Moles/Vol] 11.8 mmol/L Normal [facility] Comment on above: Performed By: #### P SASC, VITB12 #### [facility] [address] [place] [address] Dr. Guille Calderon AST [Catalytic activity/Vol] 28 U/L Normal 15-37 [facility] Comment on above: Performed By: #### P SASC, VITB12 #### [facility] [address] [place] [address] Dr. Guille Calderon Bilirubin [Mass/Vol] 0.4 mg/dL Normal 0.2-1.0 [facility] Comment on above: Performed By: #### P SASC, VITB12 #### [facility] [address] [place] [address] Dr. Guille Calderon Calcium [Mass/Vol] 8.7 mg/dL Normal 8.5-10.1 [facility] Comment on above: Performed By: #### P SASC, VITB12 #### [facility] [address] [place] [address] Dr. Guille Calderon Chloride [Moles/Vol] 103 mmol/L Normal 98-107 [facility] Comment on above: Performed By: #### P SASC, VITB12 #### [facility] [address] [place] [address] Dr. Guille Calderon CO2 [Moles/Vol] 29.7 mmol/L Normal 21.0-32.0 [facility] Comment on above: Performed By: #### P SASC, VITB12 #### [facility] [address] [place] [address] Dr. Guille Calderon Creatinine [Mass/Vol] 0.95 mg/dL Normal 0.70-1.30 [facility] Comment on above: Performed By: #### P SASC, VITB12 #### [facility] [address] [address] [address] Guille Calderon EGFR-AF ROMANIAN >60 Normal >=60 [facility] Comment on above: Performed By: #### P SASC, VITB12 #### [facility] [address] [address] [address] Guille Calderon EGFR-NON AF ROMANIAN >60 Normal >=60 [facility] Comment on above: Performed By: #### P SASC, VITB12 #### [facility] [address] [place] [address] Dr. Guille Calderon Globulin (S) [Mass/Vol] 4.3 g/dL Normal [facility] Comment on above: Performed By: #### P SASC, VITB12 #### [facility] [address] [address] [address] Guille Calderon Glucose [Mass/Vol] 92 mg/dL Normal 74-106 [facility] Comment on above: Performed By: #### P SASC, VITB12 #### [facility] [address] [place] [address] Dr. Guille Calderon Potassium [Moles/Vol] 4.5 mmol/L Normal 3.5-5.1 [facility] Comment on above: Performed By: #### P SASC, VITB12 #### [facility] [address] [place] [address] Dr. Guille Calderon Protein [Mass/Vol] 7.9 g/dL Normal 6.4-8.2 [facility] Comment on above: Performed By: #### P SASC, VITB12 #### [facility] [address] [place] [address] Dr. Guille Calderon Sodium [Moles/Vol] 140 mmol/L Normal 136-145 [facility] Comment on above: Performed By: #### P SASC, VITB12 #### [facility] [address] [place] [address] Dr. Guille Calderon Urea nitrogen [Mass/Vol] 15.0 mg/dL Normal 7.0-18.0 [facility] Comment on above: Performed By: #### P SASC, VITB12 #### [facility] [address] [place] [address] Dr. Guille Calderon Urea nitrogen/Creatinine [Mass ratio] 15.8 mg/mg Normal [facility] Comment on above: Performed By: #### P SASC, VITB12 #### [facility] [address] [place] [address] Dr. Guille Calderon TSHon 12-26-2022 TSH 0.068 uIU/mL Critically low 0.358-3.740 [facility] Comment on above: Performed By: #### P SASC, VITB12 #### [facility] [address] [place] [address] Dr. Guille Calderon VITAMIN D 25 OHon 12-26-2022 VIT D 25-OH 72.7 ng/mL [facility] Comment on above: Performed By: #### V KYLE IRON #### [facility] [address] [place] [address] Dr. Guille Calderon VIT D RANGES SEE BELOW [facility] Comment on above: Result Comment: <20 ng/mL Vit D deficient 20 - <30 ng/mL Vit D insufficient 30 - 100 ng/mL Vit D sufficient >100 ng/mL Potential Toxicity Performed By: #### V KYLE IRON #### [facility] [address] [place] [address] Dr. Guille Calderon CULTURE SPUTUMon 06-01-2022 CULTURE SPUTUM Culture Observations : NORMAL RESPIRATORY DWIGHT. Normal [facility] Comment on above: Performed By: #### I TJ #### [facility] [address] [place] [address] Dr. Guille Calderon SPUTUM GRAM STAINon 06-01-20 COMMENTS Normal [facility] Comment on above: Performed By: #### I TJ #### [facility] [address] [place] [address] Dr. Guille Calderon DIPHTHEROIDS Normal [facility] Comment on above: Performed By: #### I TJ #### [facility] [address] [address] [address] Guille Calderon EPITHELIALS <25 Normal [facility] Comment on above: Performed By: #### I TJ #### [facility] [address] [address] [address] Guille Calderon FUNGAL ELEMENTS Normal [facility] Comment on above: Performed By: #### I TJ #### [facility] [address] [address] [address] Guille Calderon GRAM NEG BACILLI Normal [facility] Comment on above: Performed By: #### I TJ #### [facility] [address] [address] [address] Guille Calderon GRAM NEG DIPPLOCOCCI Normal [facility] Comment on above: Performed By: #### I TJ #### [facility] [facility] [address] [address] [address] Guille Calderon GRAM POS BACILLI [facility] Comment on above: Performed By: #### I TJ #### [facility] [address] [address] [address] Guille Calderon GRAM POSITIVE COCCI FEW Normal [facility] Comment on above: Performed By: #### I TJ #### [facility] [address] [place] [address] Dr. Guille Calderon WBC (Bld) [#/Vol] 10*3/uL Normal [facility] Comment on above: Performed By: #### I TJ #### [facility] [address] [place] [address] Dr. Guille Calderon BNPon 05-30-2022 Natriuretic peptide B (Bld) [Mass/Vol] 381.0 pg/mL Normal <=900.0 [facility] Comment on above: Performed By: #### B TECHNICIAN ANATOMIC PATHOLOGY, CMP #### [facility] [address] [address] [address] Guille Calderon CBC AUTO DIFFon 05-30-2022 BASO # 0.1 103/ul Normal 0.0-0.1 [facility] Comment on above: Performed By: #### I TJ #### [facility] [address] [address] [address] Guille Calderon Basophils/100 WBC (Bld) 0.5 % Normal 0.2-2.0 [facility] Comment on above: Performed By: #### I TJ #### [facility] [address] [address] [address] Guille Calderon EO # 0.0 103/ul Normal 0.0-0.7 [facility] Comment on above: Performed By: #### I TJ #### [facility] [address] [address] [address] Guille Calderon Eosinophils/100 WBC (Bld) 0.1 % Critically low 0.9-7.0 [facility] Comment on above: Performed By: #### I TJ #### [facility] [address] [place] [address] Dr. Guille Calderon Erythrocyte distribution width (RBC) [Ratio] 13.7 % Normal 11.0-15.0 [facility] Comment on above: Performed By: #### I TJ #### [facility] [address] [place] [address] Dr. Guille Calderon Hematocrit (Bld) [Volume fraction] 45.4 % Normal 42.0-54.0 [facility] Comment on above: Performed By: #### I TJ #### [facility] [address] [place] [address] Dr. Guille Calderon Hemoglobin (Bld) [Mass/Vol] 15.3 g/dL Normal 14.0-18.0 [facility] Comment on above: Performed By: #### I TJ #### [facility] [address] [address] [address] Guille Calderon IG # 0.04 10e3/ul Critically high 0.00-0.03 [facility] Comment on above: Performed By: #### I TJ #### [facility] [address] [address] [address] Guille Calderon IG % 0.4 % Normal 0.0-0.5 [facility] Comment on above: Performed By: #### I TJ #### [facility] [address] [place] [address] Dr. Guille Calderon LYMPH # 2.0 103/ul Normal 1.2-3.8 [facility] Comment on above: Performed By: #### I TJ #### [facility] [address] [place] [address] Dr. Guille Calderon Lymphocytes/100 WBC (Bld) 17.7 % Critically low 20.5-60.0 [facility] Comment on above: Performed By: #### I TJ #### [facility] [address] [place] [address] Dr. Guille Calderon MANUAL DIFF REQ NO Normal [facility] Comment on above: Performed By: #### I TJ #### [facility] [address] [place] [address] Dr. Guille Calderon MCH (RBC) [Entitic mass] 31.0 pg Normal 25.9-34.0 [facility] Comment on above: Performed By: #### I TJ #### [facility] [address] [place] [address] Dr. Guille Calderon MCHC (RBC) [Mass/Vol] 33.7 g/dL Normal 29.9-35.2 [facility] Comment on above: Performed By: #### I TJ #### [facility] [address] [place] [address] Dr. Guille Calderon MCV (RBC) [Entitic vol] 92.1 fL Normal 80.0-94.0 [facility] Comment on above: Performed By: #### I TJ #### [facility] [address] [place] [address] Dr. Guille Calderon MONO # 0.7 103/ul Normal 0.3-0.8 [facility] Comment on above: Performed By: #### I TJ #### [facility] [address] [place] [address] Dr. Guille Calderon Monocytes/100 WBC (Bld) 6.5 % Normal 1.7-12.0 [facility] Comment on above: Performed By: #### I TJ #### [facility] [address] [address] [address] Guille Calderon NEUT # 8.5 103/ul Critically high 1.4-6.5 [facility] Comment on above: Performed By: #### I TJ #### [facility] [address] [address] [address] Guille Calderon Neutrophils/100 WBC (Bld) 74.8 % Normal 43.0-75.0 [facility] Comment on above: Performed By: #### I TJ #### [facility] [address] [address] [address] Guille Calderon Platelet mean volume (Bld) [Entitic vol] 10.1 fL Normal 9.5-13.5 [facility] Comment on above: Performed By: #### I TJ #### [facility] [address] [place] [address] Dr. Guille Calderon PLT 305 103/ul Normal 150-450 [facility] Comment on above: Performed By: #### I TJ #### [facility] [address] [place] [address] Dr. Guille Calderon RBC 4.93 106/ul Normal 4.70-6.10 [facility] Comment on above: Performed By: #### I TJ #### [facility] [address] [place] [address] Dr. Guille Calderon WBC 11.4 103/ul Critically high 4.0-11.0 [facility] Comment on above: Performed By: #### I TJ #### [facility] [address] [place] [address] Dr. Guille Calderon IRONon 05-30-2022 Iron [Mass/Vol] 156.0 ug/dL Normal 65.0-175.0 [facility] Comment on above: Performed By: #### I TJ #### [facility] [address] [place] [address] Dr. Guille Calderon PROF 14(COMP METB)on 022 Albumin [Mass/Vol] 4.1 g/dL Normal 3.4-5.0 [facility] Comment on above: Performed By: #### B TECHNICIAN ANATOMIC PATHOLOGY, CMP #### [facility] [address] [address] [address] Guille Calderon Albumin/Globulin [Mass ratio] 0.9 {ratio} Normal [facility] Comment on above: Performed By: #### B TECHNICIAN ANATOMIC PATHOLOGY, CMP #### [facility] [address] [address] [address] Guille Calderon ALP [Catalytic activity/Vol] 84 U/L Normal 46-116 [facility] Comment on above: Performed By: #### B TECHNICIAN ANATOMIC PATHOLOGY, CMP #### [facility] [address] [address] [address] Guille Calderon ALT [Catalytic activity/Vol] 40 U/L Normal 16-63 [facility] Comment on above: Performed By: #### B TECHNICIAN ANATOMIC PATHOLOGY, CMP #### [facility] [address] [place] [address] Dr. Guille Calderon Anion gap [Moles/Vol] 9.5 mmol/L Normal [facility] Comment on above: Performed By: #### B TECHNICIAN ANATOMIC PATHOLOGY, CMP #### [facility] [address] [place] [address] Dr. Guille Calderon AST [Catalytic activity/Vol] 19 U/L Normal 15-37 [facility] Comment on above: Performed By: #### B TECHNICIAN ANATOMIC PATHOLOGY, CMP #### [facility] [address] [place] [address] Dr. Guille Calderon Bilirubin [Mass/Vol] 0.4 mg/dL Normal 0.2-1.0 [facility] Comment on above: Performed By: #### B TECHNICIAN ANATOMIC PATHOLOGY, CMP #### [facility] [address] [address] [address] Guille Calderon Calcium [Mass/Vol] 8.9 mg/dL Normal 8.5-10.1 [facility] Comment on above: Performed By: #### B TECHNICIAN ANATOMIC PATHOLOGY, CMP #### [facility] [address] [address] [address] Guille Calderon Chloride [Moles/Vol] 103 mmol/L Normal 98-107 [facility] Comment on above: Performed By: #### B TECHNICIAN ANATOMIC PATHOLOGY, CMP #### [facility] [address] [place] [address] Dr. Guille Calderon CO2 [Moles/Vol] 28.1 mmol/L Normal 21.0-32.0 [facility] Comment on above: Performed By: #### B TECHNICIAN ANATOMIC PATHOLOGY, CMP #### [facility] [address] [place] [address] Dr. Guille Calderon Creatinine [Mass/Vol] 0.87 mg/dL Normal 0.70-1.30 [facility] Comment on above: Performed By: #### B TECHNICIAN ANATOMIC PATHOLOGY, CMP #### [facility] [address] [place] [address] Dr. Guille Calderon EGFR-AF ROMANIAN >60 Normal >=60 [facility] Comment on above: Performed By: #### B TECHNICIAN ANATOMIC PATHOLOGY, CMP #### [facility] [address] [place] [address] Dr. Guille Calderon EGFR-NON AF ROMANIAN >60 Normal >=60 [facility] Comment on above: Performed By: #### B TECHNICIAN ANATOMIC PATHOLOGY, CMP #### [facility] [address] [place] [address] Dr. Guille Calderon Globulin (S) [Mass/Vol] 4.5 g/dL Normal [facility] Comment on above: Performed By: #### B TECHNICIAN ANATOMIC PATHOLOGY, CMP #### [facility] [address] [place] [address] Dr. Guille Calderon Glucose [Mass/Vol] 109 mg/dL Critically high 74-106 [facility] Comment on above: Performed By: #### B TECHNICIAN ANATOMIC PATHOLOGY, CMP #### [facility] [address] [place] [address] Dr. Guille Calderon Potassium [Moles/Vol] 4.6 mmol/L Normal 3.5-5.1 [facility] Comment on above: Performed By: #### B TECHNICIAN ANATOMIC PATHOLOGY, CMP #### [facility] [address] [place] [address] Dr. Guille Calderon Protein [Mass/Vol] 8.6 g/dL Critically high 6.4-8.2 [facility] Comment on above: Performed By: #### B TECHNICIAN ANATOMIC PATHOLOGY, CMP #### [facility] [address] [address] [address] Guille Calderon Sodium [Moles/Vol] 136 mmol/L Normal 136-145 [facility] Comment on above: Performed By: #### B TECHNICIAN ANATOMIC PATHOLOGY, CMP #### [facility] [address] [address] [address] Guille Calderon Urea nitrogen [Mass/Vol] 19.0 mg/dL Critically high 7.0-18.0 [facility] Comment on above: Performed By: #### B TECHNICIAN ANATOMIC PATHOLOGY, CMP #### [facility] [address] [address] [address] Guille Calderon Urea nitrogen/Creatinine [Mass ratio] 21.8 mg/mg Normal [facility] Comment on above: Performed By: #### B TECHNICIAN ANATOMIC PATHOLOGY, CMP #### [facility] [address] [address] [address] Guille Calderon XR CHEST 2 Von [...] by: ARLENE CHOI Date: 2022-05-30 17:22 Normal [facility] INSULINon 04-03-2022 Insulin 6.4 uIU/mL Normal 2.6-24.9 [facility] Comment on above: Performed By: #### P SASC, VITB12 #### [facility] [address] [address] [address] Guille Calderon OCC BLD IMMUNO SCREENon OCCULT BLOOD Negative Normal NEGATIVE [facility] Comment on above: Performed By: #### P SASC, VITB12 #### [facility] [address] [address] [address] Guille Calderon T4, T3U, FTI [facility]on 04-03 Free Thyroxine Index 2.5 Normal 1.2-4.9 [facility] Comment on above: Performed By: #### T HYLC #### [facility] [address] [address] [address] Guille Calderon T3 Uptake 28 % Normal 24-39 [facility] Comment on above: Performed By: #### T HYLC #### [facility] [address] [address] [address] Guille Calderon T4 [Mass/Vol] 8.8 ug/dL Normal 4.5-12.0 [facility] Comment on above: Performed By: #### T HYLC #### [facility] [address] [place] [address] Dr. Guille Calderon VIT D 25-OH [facility]on 2021 Vitamin D, 25-Hydroxy 85.0 ng/mL Normal 30.0-100.0 [facility] Comment on above: Result Comment: Karime min D deficiency has been defined by the [place] of [employer] and an Endocrine Society practice guideline as a level of serum 25-OH vitamin D less than 20 ng/mL (1,2). The Endocrine Society went on to further define vitamin D insufficiency as a level between 21 and 29 ng/mL (2). 1. IOM ([place] of [employer]). 2010. Dietary reference intakes for calcium and D. [place]: The National Academies Press. 2. Mena MF, Umair NC, Luis POWELL, et al. Evaluation, treatment, and prevention of vitamin D deficiency: an Endocrine Society clinical practice guideline. JCEM. 2010; 96(7):1911-30. Performed By: #### V ITADLC #### [facility] [address] [place] [address] Dr. Guille Calderon BNPon 04-02-2022 Natriuretic peptide B (Bld) [Mass/Vol] 252.0 pg/mL Normal <=900.0 [facility] Comment on above: Performed By: #### P SASC, VITB12 #### [facility] [address] [place] [address] Dr. Guille Calderon CBC AUTO DIFFon 04-02-2022 BASO # 0.1 103/ul Normal 0.0-0.1 [facility] Comment on above: Performed By: #### P SASC, VITB12 #### [facility] [address] [place] [address] Dr. Guille Calderon Basophils/100 WBC (Bld) 1.3 % Normal 0.2-2.0 [facility] Comment on above: Performed By: #### P SASC, VITB12 #### [facility] [address] [place] [address] Dr. Guille Calderon EO # 0.1 103/ul Normal 0.0-0.7 [facility] Comment on above: Performed By: #### P SASC, VITB12 #### [facility] [address] [place] [address] Dr. Guille Calderon Eosinophils/100 WBC (Bld) 1.1 % Normal 0.9-7.0 [facility] Comment on above: Performed By: #### P SASC, VITB12 #### [facility] [address] [place] [address] Dr. Guille Calderon Erythrocyte distribution width (RBC) [Ratio] 13.4 % Normal 11.0-15.0 [facility] Comment on above: Performed By: #### P SASC, VITB12 #### [facility] [address] [place] [address] Dr. Guille Calderon Hematocrit (Bld) [Volume fraction] 44.7 % Normal 42.0-54.0 [facility] Comment on above: Performed By: #### P SASC, VITB12 #### [facility] [address] [place] [address] Dr. Guille Calderon Hemoglobin (Bld) [Mass/Vol] 15.0 g/dL Normal 14.0-18.0 [facility] Comment on above: Performed By: #### P SASC, VITB12 #### [facility] [address] [place] [address] Dr. Guille Calderon IG # 0.02 10e3/ul Normal 0.00-0.03 [facility] Comment on above: Performed By: #### P SASC, VITB12 #### [facility] [address] [place] [address] Dr. Guille Calderon IG % 0.3 % Normal 0.0-0.5 [facility] Comment on above: Performed By: #### P SASC, VITB12 #### [facility] [address] [place] [address] Dr. Guille Calderon LYMPH # 1.5 103/ul Normal 1.2-3.8 [facility] Comment on above: Performed By: #### P SASC, VITB12 #### [facility] [address] [place] [address] Dr. Guille Calderon Lymphocytes/100 WBC (Bld) 23.9 % Normal 20.5-60.0 [facility] Comment on above: Performed By: #### P SASC, VITB12 #### [facility] [address] [place] [address] Dr. Guille Calderon MANUAL DIFF REQ NO Normal [facility] Comment on above: Performed By: #### P SASC, VITB12 #### [facility] [address] [place] [address] Dr. Guille Calderon MCH (RBC) [Entitic mass] 30.9 pg Normal 25.9-34.0 [facility] Comment on above: Performed By: #### P SASC, VITB12 #### [facility] [address] [place] [address] Dr. Guille Calderon MCHC (RBC) [Mass/Vol] 33.6 g/dL Normal 29.9-35.2 [facility] Comment on above: Performed By: #### P SASC, VITB12 #### [facility] [address] [place] [address] Dr. Guille Calderon MCV (RBC) [Entitic vol] 92.2 fL Normal 80.0-94.0 [facility] Comment on above: Performed By: #### P SASC, VITB12 #### [facility] [address] [place] [address] Dr. Guille Calderon MONO # 0.6 103/ul Normal 0.3-0.8 [facility] Comment on above: Performed By: #### P SASC, VITB12 #### [facility] [address] [place] [address] Dr. Guille Calderon Monocytes/100 WBC (Bld) 9.0 % Normal 1.7-12.0 [facility] Comment on above: Performed By: #### P SASC, VITB12 #### [facility] [address] [place] [address] Dr. Guille Calderon NEUT # 4.1 103/ul Normal 1.4-6.5 [facility] Comment on above: Performed By: #### P SASC, VITB12 #### [facility] [address] [place] [address] Dr. Guille Calderon Neutrophils/100 WBC (Bld) 64.4 % Normal 43.0-75.0 [facility] Comment on above: Performed By: #### P SASC, VITB12 #### [facility] [address] [place] [address] Dr. Guille Calderon Platelet mean volume (Bld) [Entitic vol] 9.7 fL Normal 9.5-13.5 [facility] Comment on above: Performed By: #### P SASC, VITB12 #### [facility] [address] [place] [address] Dr. Guille Calderon PLT 234 103/ul Normal 150-450 [facility] Comment on above: Performed By: #### P SASC, VITB12 #### [facility] [address] [place] [address] Dr. Guille Calderno RBC 4.85 106/ul Normal 4.70-6.10 [facility] Comment on above: Performed By: #### P SASC, VITB12 #### [facility] [address] [place] [address] Dr. Guille Calderon WBC 6.3 103/ul Normal 4.0-11.0 [facility] Comment on above: Performed By: #### P SAS, VITB12 #### [facility] [address] [place], [place] [address] LUNG CANCER SCREENINGon [...] by: AFUA MERCHANT Date: 2022-04-02 10:13 Normal [facility] GLYCOHEMOGLOBIN A1Con 2021 ADA RECOMMENDATION SEE BELOW Normal [facility] Comment on above: Result Comment: ADA RECOMMENDED LIMIT 4.0 - 6.0 ADA THERAPEUTIC TARGET < 7.0 ACTION SUGGESTED > 7.0 Performed By: #### I TJ #### [facility] [address] [address] [address] Guille Calderon Glucose [Mass/Vol] 117 mg/dL Normal [facility] Comment on above: Performed By: #### I TJ #### [facility] [address] [place], [place] [address] Dr. Guille Calderon HbA1c (Bld) [Mass fraction] 5.7 % Normal 4.5-6.2 [facility] Comment on above: Performed By: #### I TJ #### [facility] [address] [address] [address] Guille Calderon LIPID PROFILEon 04-02-2022 CHOL-HDL RATIO NORM SEE BELOW Normal [facility] Comment on above: Result Comment: 3.3 - 4.4 LOW RISK 4.4 - 7.1 AVERAGE RISK 7.1 - 11.0 MODERATE RISK >11.0 HIGH RISK Performed By: #### P SASC, VITB12 #### [facility] [address] [address] [address] Guille Calderon Cholesterol [Mass/Vol] 163 mg/dL Normal <=200 [facility] Comment on above: Performed By: #### P SASC, VITB12 #### [facility] [address] [address] [address] Guille Calderon Cholesterol in HDL [Mass/Vol] 53 mg/dL Normal 40-60 [facility] Comment on above: Performed By: #### P SASC, VITB12 #### [facility] [address] [address] [address] Guille Calderon Cholesterol in LDL [Mass/Vol] 100.8 mg/dL Normal [facility] Comment on above: Performed By: #### P SASC, VITB12 #### [facility] [address] [address] [address] Guille Calderon Cholesterol.total/Ch olesterol in HDL [Mass ratio] 3.1 {ratio} Normal [facility] Comment on above: Performed By: #### P SASC, VITB12 #### [facility] [address] [address] [address] Guille Calderon HDL NORMAL > or = 60 mg/dl - LO W CARDIOVASCULAR RISK <40 mg/dl - HIGH CARDIOVASCULAR RISK Normal [facility] Comment on above: Performed By: #### P SASC, VITB12 #### [facility] [address] [address] [address] Guille Calderon LDL CALC NORMAL SEE BELOW Normal [facility] Comment on above: Result Comment: <100 mg/dl OPTIMAL 100 - 129 mg/dl NEAR OR ABOVE OPTIMAL 130 - 159 mg/dl BORDERLINE HIGH 160 - 189 mg/dl HIGH >190 mg/dl VERY HIGH Performed By: #### P SASC, VITB12 #### [facility] [address] [address] [address] Guille Calderon Triglyceride [Mass/Vol] 46 mg/dL Normal <=150 [facility] Comment on above: Performed By: #### P SASC, VITB12 #### [facility] [address] [address] [address] Guille Claderon VLDL CALC 9.2 mg/dL Normal [facility] Comment on above: Performed By: #### P SASC, VITB12 #### [facility] [address] [address] [address] Guille Calderon MRI LSPINE WO CONon 04-02-20 22 MRI LSPINE WO CON EXAMINATION: MRI LSPINE WO CON HISTORY: Intervertebral disc prolapse , [...] by: SPEEDY CAMPO Date: 2022-04-02 11:13 Normal [facility] PROF 14(COMP METB)on 022 Albumin [Mass/Vol] 3.8 g/dL Normal 3.4-5.0 [facility] Comment on above: Performed By: #### P SASC, VITB12 #### [facility] [address] [place] [address] Dr. Guille Calderon Albumin/Globulin [Mass ratio] 1.0 {ratio} Normal [facility] Comment on above: Performed By: #### P SASC, VITB12 #### [facility] [address] [place] [address] Dr. Guille Calderon ALP [Catalytic activity/Vol] 87 U/L Normal 46-116 [facility] Comment on above: Performed By: #### P SASC, VITB12 #### [facility] [address] [place] [address] Dr. Guille Calderon ALT [Catalytic activity/Vol] 43 U/L Normal 16-63 [facility] Comment on above: Performed By: #### P SASC, VITB12 #### [facility] [address] [place] [address] Dr. Guille Calderon Anion gap [Moles/Vol] 10.3 mmol/L Normal [facility] Comment on above: Performed By: #### P SASC, VITB12 #### [facility] [address] [place] [address] Dr. Guille Calderon AST [Catalytic activity/Vol] 24 U/L Normal 15-37 [facility] Comment on above: Performed By: #### P SASC, VITB12 #### [facility] [address] [place] [address] Dr. Guille Calderon Bilirubin [Mass/Vol] 0.4 mg/dL Normal 0.2-1.0 [facility] Comment on above: Performed By: #### P SASC, VITB12 #### [facility] [address] [address] [address] Guille Calderon Calcium [Mass/Vol] 8.6 mg/dL Normal 8.5-10.1 [facility] Comment on above: Performed By: #### P SASC, VITB12 #### [facility] [address] [place] [address] Dr. Guille Calderon Chloride [Moles/Vol] 103 mmol/L Normal 98-107 [facility] Comment on above: Performed By: #### P SASC, VITB12 #### [facility] [address] [place] [address] Dr. Guille Calderon CO2 [Moles/Vol] 28.4 mmol/L Normal 21.0-32.0 [facility] Comment on above: Performed By: #### P SASC, VITB12 #### [facility] [address] [place] [address] Dr. Guille Calderon Creatinine [Mass/Vol] 1.04 mg/dL Normal 0.70-1.30 [facility] Comment on above: Performed By: #### P SASC, VITB12 #### [facility] [address] [place] [address] Dr. Guille Calderon EGFR-AF ROMANIAN >60 Normal >=60 [facility] Comment on above: Performed By: #### P SASC, VITB12 #### [facility] [address] [place] [address] Dr. Guille Calderon EGFR-NON AF ROMANIAN >60 Normal >=60 [facility] Comment on above: Performed By: #### P SASC, VITB12 #### [facility] [address] [place] [address] Dr. Guille Calderon Globulin (S) [Mass/Vol] 3.9 g/dL Normal [facility] Comment on above: Performed By: #### P SASC, VITB12 #### [facility] [address] [place] [address] Dr. Guille Calderon Glucose [Mass/Vol] 105 mg/dL Normal 74-106 [facility] Comment on above: Performed By: #### P SASC, VITB12 #### [facility] [address] [place] [address] Dr. Guille Calderon Potassium [Moles/Vol] 4.7 mmol/L Normal 3.5-5.1 [facility] Comment on above: Performed By: #### P SASC, VITB12 #### [facility] [address] [place] [address] Dr. Guille Calderon Protein [Mass/Vol] 7.7 g/dL Normal 6.4-8.2 [facility] Comment on above: Performed By: #### P SASC, VITB12 #### [facility] [address] [place] [address] Dr. Guille Calderon Sodium [Moles/Vol] 137 mmol/L Normal 136-145 [facility] Comment on above: Performed By: #### P SASC, VITB12 #### [facility] [address] [place] [address] Dr. Guille Calderon Urea nitrogen [Mass/Vol] 18.0 mg/dL Normal 7.0-18.0 [facility] Comment on above: Performed By: #### P SASC, VITB12 #### [facility] [address] [place] [address] Dr. Guille Calderon Urea nitrogen/Creatinine [Mass ratio] 17.3 mg/mg Normal [facility] Comment on above: Performed By: #### P SASC, VITB12 #### [facility] [address] [place] [address] Dr. Guille Calderon TSHon 04-02-2022 TSH 1.169 uIU/mL Normal 0.358-3.740 [facility] Comment on above: Performed By: #### P SASC, VITB12 #### [facility] [address] [place] [address] Dr. Guille Calderon URIC ACID SERUMon 04-02-2022 Urate [Mass/Vol] 5.0 mg/dL Normal 3.5-7.2 [facility] Comment on above: Performed By: #### P SASC, VITB12 #### [facility] [address] [place] [address] Dr. Guille Calderon VITAMIN B12on 04-02-2022 Cobalamin (Vitamin B12) [Mass/Vol] 407.0 pg/mL Normal 193.0-986.0 [facility] Comment on above: Performed By: #### P SASC, VITB12 #### [facility] [address] [place] [address] Dr. Guille Calderon XR LSPINE MIN 4 [...] by: SPEEDY CAMPO Date: 2022-04-02 17:48 Normal [facility] Vital Signs Date Time Vital Sign Value Performing Clinician Nicole dominguez 07-04-2024 08:06-0500 Diastolic blood pressure 78 mm[Hg] Ean WILKES [facility] 07-04-2024 08:06-0500 Heart rate 72 /min Ean WILKES [facility] 07-04-2024 08:06-0500 Respiratory rate 16 /min aEn WILKES [facility] 07-04-2024 08:06-0500 Systolic blood pressure 122 mm[Hg] Ean WILKES [facility] Encounters Encounter Date Encounter Type Care Provider Facility Start: 07-04-2024 End: 07-04-2024 ambulatory Ean WILKES Facility:[facility] Start: 07-04-2024 End: 07-04-2024 Patient encounter procedure Ean WILKES [facility] [place] Start: 06-06-2024 [facility] Start: 05-09-2024 End: 05-09-2024 ambulatory PATSY RAGSDALE [facility] Start: 11-18-2023 End: 11-18-2023 ambulatory COLLIN DOZIER Not Available Start: 12-26-2022 End: 12-27-[address] DAXA WEBB . Facility: Start: 06-01-2022 End: 06-01-[address] DAXA WEBB . Facility:[facility] Start: 05-30-2022 End: 05-31-[address] DAXA WEBB . Facility:[facility] Start: 04-03-2022 End: 04-03-[address] DAXA WEBB . Facility: Start: 04-02-2022 End: 04-03-[address] DAXA WEBB . Facility: Procedures Date Procedure Procedure Detail Performing Clinician Start: 04-02-[address] MUSA WEBB . Comment on above: Performed By: #### P [facility], VITB12 #### [facility] [address] [place] [address] Dr. Guille Calderon Start: 08-23-2017 Repair of umbilical hernia Ean WILKES Comment on above: ROBOTIC ASSISTED [facility] ILICAL HERNIA REPAIR WITH MESH Arthroscopic repair of rotator cuff Ean WILKES Biopsy of liver Ean RICKIEPatsy Excision of cyst Ean DAMIAN L Neuroma (morphologic abnormality) Ean RICKIEL Comment on above: removal of neuromas from feet Tonsillectomy Ean WILKES Payers Date Payer Category Payer Medicare [id number] 1958 Medicare [id number] 1958 Unknown [id number] 1955 Unknown [id number] 2.16.84 [id number] 1955 Unknown [id number] 2.16.84 [id number] 1955 Unknown [id number] 2.16.84 [id number] 1955 Unknown [id number] 2.16.84 [id number] 1955 Unknown [id number] 2.16.84 [id number] 1955 Unknown [id number] 2.16.84 [id number] 1955 Unknown [id number] 2.16.8 [id number] 1955 Unknown [id number] 2.16.8 [id number] Social History Date Type Detail Facility Start: 07-04-2024 Tobacco smoking status Heavy t obacco smoker (finding) [facility] Tobacco smoking status Never Johne [facility] Sex Assigned At Male [facility] Functional Status Date Assessment Result Facility 07-04-2024 Functional Status N/A [facility] [place] Clinical Note 07-04-2024 Note Date & Type Note Facility 07-04-2024 Note General Surgery Offi ce/Clinic Note Chief Complaint consultation for skin lesion HPI Staff 68 year old male presents on consultation from Dr. Webb for carbuncle. Patient reports several year history of waxing and waning nodule to right buttock. Reports approximately every several months, he will develop a hard, tender nodule that resolves in 7- 10 days without treatment. Denies nodule every opens or drains. Patient on Eliquis for a.fib. History of Present Illness 68 yo male with h/o atrial fibrillation, on Eliquis, COPD, hypothyroidism, referred for right buttock cyst; intermittent flare ups over past several months; cysts enlarges and becomes sore, red; no drainage; resolves spontaneously; had cyst excised just adjacent to this new cyst in past; no asa or NSAID use; on Eliquis, but does not take this regularly; smokes daily. Review of Systems PHQ Score Initial Depression Screen Score: 0 SCORE ROS - Provider Constitutional: no fever, no sweats, no weight loss. Eyes: no glasses, no blurred vision, no visual loss. ENMT: no dentures, no hoarseness, no swallowing difficulties, no hearing loss, no ear infection(s), no nose bleeds. Cardiovascular: normal blood pressure, no chest pain, regular heartbeat, no heart murmur. Respiratory: no shortness of breath, no cough, no asthma, no wheezing. Gastrointestinal: no nausea, no vomiting, no diarrhea, no constipation, no blood in stool, no change in bowel habits, no abdominal pain, no hepatitis. Genitourinary: no kidney stones, no urine infection, no dysuria. Musculoskeletal: no pain, no weakness. Skin: no changing moles, no rash, yes skin lumps. Neurologic: no seizures, no epilepsy, no headache. Psychiatric: no emotional or psychiatric problem. Heme/Lymph: no bleeding problems, no anemia, no blood clots, no transfusions. Allergy/Immunologic: no swollen lymph nodes/glands, no IV drug abuse. Other: Additional ROS info: Except as noted in the above Review of Systems and in the History of Present Illness, all other systems have been reviewed and are negative or noncontributory. Physical Exam Vitals & Measurements HR: 72(Peripheral) RR: 16 BP: 122/78 HT: 72 in HT: 182.8 cm WT: 81.2 kg WT: 179.015 lb BMI: 24.3 HEENT: normal conjunctiva, sclera clear, no scleral icterus, EOM intact, PERRLA, oral mucosa moist without lesions. Neck: trachea midline, no mass, symmetric, no thyromegaly or nodules, no adenopathy Respiratory: lungs CTA, respirations non labored. Cardiovascular: regular rate and rhythm, no murmur, no pedal edema or varicosities. Gastrointestinal: soft, non distended, no tenderness, no masses, no palpable hernias, diastasis recti no, no hepatosplenomegaly; normal bs. Musculoskeletal: normal gait, digits and nails without infection, nodes, cyanosis, clubbing. Skin: no rashes, no lesions, 2 cm scar right mid buttock, 1 cm subcutaneous nodule just lateral to scar, nontender, no skin changes. Psychiatric/Neuro: oriented to time, place, person, judgement normal, affect appropriate for age, insight intact, no focal deficits. Tests: review of old records completed , Discussed surgical options, risks, and possible complications with patient. Assessment/Plan 1. Epidermal cyst (L72.0: Epidermal cyst) plan excisional biopsy under local anesthesia at [facility] for definitive diagnosis and treatment; informed consent obtained. Follow-up No qualifying data available Problem List/Past Medical History Ongoing Anticoagulated Atrial fibrillation Chronic obstructive pulmonary disease Depression Epidermal cyst History of hepatitis C Hypothyroidism Irritable bowel syndrome Liver cyst Smoker Historical No qualifying data Procedure/Surgical History Repair of umbilical hernia (08/23/2017), Arthroscopic repair of rotator cuff, Biopsy of liver, Excision of cyst, Neuroma, Tonsillectomy. Medications Breo Ellipta 100 mcg-25 mcg inhalation powder, 1 puff(s), Inhalation, Daily diclofenac sodium 75 mg Oral EC Tab, 75 mg= 1 tab(s), Oral, BID Eliquis 5 mg oral tablet, 5 mg= 1 tab(s), Oral, BID liothyronine 5 mcg Tab, 10 mcg= 2 tab(s), Oral, Daily Synthroid, 137 mcg, Oral, Daily Ventolin HFA 90 mcg/inh Aerosol-Adpt, 2 inh, Inhalation, q4hr, PRN Allergies No Known Allergies Social History Alcohol - Denies Alcohol Use, 08/23/2017 Substance Abuse - Denies Substance Abuse, 08/23/2017 Tobacco - High Risk, 08/23/2017 10 or more cigarettes (1/2 pack or more)/day in last 30 days Tobacco Use:. Never Smokeless Tobacco Use:. Cigarettes, 0.5 per day. Started age 25.0 Years. Yes, 07/04/2024 Family History Family history is negative [facility] Comment on above: Result Comment: Elec tronically Signed By: CHUNG DEL REAL, Ean Marshall\Date and Time Signed: 07/04/24 08:37 EST Progress note 05-09-2024 Note Date & Type Note Facility 05-09-[address] Electrophysiology Consult Note CT Cardiology - [facility] Reason for visit: Afib HPI: Lorenza Ramachandran is a 68 y.o. year old with past medical history of thyroid issues presented to the [facility] ER with A-fib with RVR. He converted to sinus rhythm while in the hospital and was subsequently discharged on Cardizem as well as Eliquis. He states that he felt something was off on that day. He had a heated argument with his which she feels contributed to this. He also notes that he had a previous palpitation sensations approximately 20 years ago but was not mentioned to have A-fib. EK05/09/24 SR with PVC. PMH: Past Medical History: Diagnosis Date Abnormal ECG Arrhythmia Atrial fibrillation (CMS/HCC) COPD (chronic obstructive pulmonary disease) (CMS/HCC) Hypothyroidism PSH: Past Surgical History: Procedure Laterality Date TONSILLECTOMY SH: Social Determinants of Health Tobacco Use: High Risk (05/09/2024) Patient History Smoking Tobacco Use: Every Day Smokeless Tobacco Use: Never Passive Exposure: Not on file Alcohol Use: Not on file Financial Resource Strain: Not on file Food Insecurity: Not on file Transportation Needs: Not on file Physical Activity: Not on file Stress: Not on file Social Connections: Not on file Intimate Partner Violence: Unknown (09/24/2023) CT Safety & Environment Fear of Current or Ex-Partner: Not on file Emotionally Abused: Not on file Physically Abused: Not on file Sexually Abused: Not on file Physically or Sexually Abused: Not on file Depression: Not on file Housing Stability: Not on file Utilities: Not on file Allergies: No Known Allergies Weight: 78.5kg Visit Vitals BP 125/79 Pulse 80 Ht 1.88 m (6' 2 ) Wt 78.5 kg (173 lb) SpO2 97% BMI 22.21 kg/m??? Smoking Status Every Day BSA 2.02 m??? Meds: Current Outpatient Medications on File Prior to Visit Medication Sig Dispense Refill apixaban (Eliquis) 5 mg tablet 5 mg two times daily. diclofenac (Voltaren) 75 mg EC tablet 75 mg two times daily. dilTIAZem CD (Cardizem CD) 120 mg 24 hr capsule Take 120 mg by mouth in the morning. levothyroxine (Synthroid, Levoxyl) 137 mcg tablet 137 mcg. liothyronine (Cytomel) 5 mcg tablet 5 mcg 2 times daily. No current facility-administered medications on file prior to visit. ROS: Cardio Basic Cardiovascular Symptoms: no lightheadedness, no leg edema, no syncope, no orthopnea, no PND, no claudication, Constitutional Constitutional: no fever, no night sweats, no significant weight gain, no significant weight loss, no exercise intolerance Eyes Eyes: no dry eyes, no irritation, no vision change ENMT Ears: no difficulty hearing, no ear pain Nose: no frequent nosebleeds, Mouth/Throat: no sore throat, no bleeding gums, no snoring, no dry mouth, no mouth ulcers, no oral abnormalities, no teeth problems Respiratory Respiratory: no cough, no wheezing, no coughing up blood, no sleep apnea Musculoskeletal Musculoskeletal: no muscle aches, no muscle weakness, joint pain+, no back pain, no swelling in the extremities Integumentary Skin no rash, no ulcer, no varicosities, no discoloration, no pruritus Neurologic Neurologic: no loss of consciousness, no weakness, no numbness, no seizures, no dizziness, no headaches Psychiatric Psych: no depression, feeling safe in relationship, no alcohol abuse, Hematologic/Lymphatic Hematologic/Lymphatic no swollen glands, no bruising Physical Exam: Constitutional General Appearance: well-nourished, well-developed, appears stated age Level of Distress: comfortable Psychiatric Mental Status: alert, normal affect Orientation: oriented to time, place, and person Insight: good judgement Eyes Lids and Conjunctivae: non-injected, no xanthelasma ENMT Ears: no lesions on external ear Nose: no lesions on external nose Oropharynx: no cyanosis, no pallor Neck Neck: supple, trachea midline Carotid Arteries: bilateral normal upstroke, no bruits Jugular Veins: normal jugular venous pressure Thyroid: not enlarged Lungs Respiratory Effort: unlabored Chest Exam: normal curvature, no thoracic deformity Auscultation: clear, no wheezing, no rales, no rhonchi Cardiovascular Rate And Rhythm: regular wityh pVC in between Heart Sounds: normal S1, normal s2, no gallop Systolic Murmur: not heard Diastolic Murmur: not heard Extremities: no cyanosis, no edema, no peripheral signs of emboli Peripheral Pulses Radial Pulse: normal Abdomen Inspection and Palpation: soft, non distended, no bruit, non tender Musculoskeletal Inspection: no joint swelling Neurologic Gait: normal gait Skin Inspection and Palpation: warm and dry Nails: no clubbing Labs: @LABRESULTS@ No results found for: CHOLESTEROL TOTAL , HDL , LDL CALC , LDL DIRECT , TRIGLYCERIDES , TSH , T3 TOTAL , T4 TOTAL , THYROID PEROXIDASE AB , BNP EKG: E (more content not included)... [facility] Evaluation + Plan note Note Date & Type Note Facility Evaluation + Plan note No data available for this section [facility] Discharge instructions Note Date & Type Note Facility Hospital Discharge instructions No data available for this section [facility] Progress note Note Date & Type Note Facility Progress note No data available for this section [facility] Summary Purpose Family History No Family History Records FoundNo Family History Records FoundNo Family History Records Found No data available for this section No Family History Records Found Advance Directives No Advanced Directives Records FoundNo Advanced Directives Records FoundNo Advanced Directives Records FoundNo Advanced Directives Records Found Additional Source Comments (unrecognized sect ion and content) No Status Records FoundNo Status Records FoundNo Status Records FoundNo Status Records Found INFORMATION SOURCE (unrecogn ized section and content) DATE CREATED AUTHOR 01/08/2023 [facility] DATE CREATED AUTHOR AUTHOR'S ORGANIZ ATION 11/19/2023 [facility] EPIC DATE CREATED AUTHOR AUTHOR'S ORGANIZ ATION 05/23/2024 [facility] DATE CREATED AUTHOR AUTHOR'S ORGANIZ ATION 07/05/2024 [facility] Patient Care team informatio n (unrecognized section and content) Personnel Name: Daxa Webb MD Address: Address: [address] [place] [address] FOR RECORDS PERTAINING TO PATIENTS WHO ARE [...] BE BASED ON THE PRIMARY CLINICAL RECORDS. [facility]. provides no warranty or guarantee of the accuracy or completeness of information in this document.
[2025-01-18 09:21] LABS: Basophils Absolute Auto 0.1 10^3/uL (0.0-0.1); Basophils Percent Auto 1.5 % (0.2-2.0); Eosinophils Absolute Auto 0.1 10^3/uL (0.0-0.7); Eosinophils Percent Auto 1.1 % (0.9-7.0); Hematocrit 46.5 % (42.0-54.0); Hemoglobin 15.8 g/dL (14.0-18.0); Immature Granulocytes Abs Auto 0.03 10^3/uL (0.00-0.03); Immature Granulocytes Pct Auto 0.4 % (0.0-0.5); Lymphocytes Absolute Auto 2.4 10^3/uL (1.2-3.8); Mean Corpuscular Hemoglobin 30.6 pg (25.9-34.0); Mean Corpuscular Volume 89.9 fL (80.0-94.0); Mean Platelet Volume 10.1 fL (9.5-13.5); Monocytes Absolute Auto 0.7 10^3/uL (0.3-0.8); Monocytes Percent Auto 8.8 % (1.7-12.0); Neutrophils Absolute Auto 4.2 10^3/uL (1.4-6.5); Neutrophils Percent Auto 56.2 % (43.0-75.0); Platelet Count 233 10^3/uL (150-450); Red Blood Count 5.17 10^6/uL (4.70-6.10); Red Cell Distribution Width 13.6 % (11.0-15.0); White Blood Count 7.5 10^3/uL (4.0-11.0)
[2025-01-18 10:16] LABS: Alanine Aminotransferase 38 U/L (16-63); Albumin Globulin Ratio 0.9; Albumin Level 3.6 g/dL (3.4-5.0); Alkaline Phosphatase 117 U/L (46-116); Anion Gap 11.5; Aspartate Amino Transferase 23 U/L (15-37); BUN Creatinine Ratio 19.1; Bilirubin Total 0.4 mg/dL (0.2-1.0); Calcium 8.6 mg/dL (8.5-10.1); Carbon Dioxide 28.8 mmol/L (21.0-32.0); Chloride 102 mmol/L (98-107); Chol HDL Ratio 2.7; Cholesterol 154 mg/dL (<=200); Estimated GFR (African America >60 (>=60 mL/min/1.73m^2); Estimated GFR (Non-African Ame >60 (>=60 mL/min/1.73m^2); Free T3 3.16 pg/mL (2.18-3.98); Globulin 3.8 g/dL; Glucose 95 mg/dL (74-106); HDL Cholesterol 57 mg/dL (40-60); LDL Cholesterol Calculated 88.2 mg/dL; Potassium 4.3 mmol/L (3.5-5.1); Sodium 138 mmol/L (136-145); Thyroid Stimulating Hormone 6.488 uIU/mL (0.358-3.740); Total Protein 7.4 g/dL (6.4-8.2); Triglycerides 44 mg/dL (<=150); VLDL CHOLESTEROL 8.8 mg/dL
[2025-01-18 10:26] LABS: Estimated Average Glucose 117 mg/dL; Glycohemoglobin A1C 5.7 % (4.5-6.2)
[2025-01-18 10:40] LABS: Prostate Specific Antigen Scrn 1.38 ng/mL (<=4.00)
== END 2025-01-18 08:38 | disposition home or self-care (01) ==
PROVIDERS: PCP Family Medicine; Visit Provider Family Medicine
DX: I48.91 Unspecified atrial fibrillation (principal); Z86.19 Personal history of other infectious and parasitic diseases; J44.9 Chronic obstructive pulmonary disease, unspecified; Z12.5 Encounter for screening for malignant neoplasm of prostate
CPT/HCPCS: 36415; 80053; 80061; 83036; 84436; 84443; 84481; 85025; G0103

== ENCOUNTER 2025-01-23 15:00 | Outpatient (REF) | payer MEDICARE, SELFPAY ==
--- OUTSIDE RECORDS SUMMARY | 2025-01-10 04:45 | XMS_ITS ---
Author Organization The [facility] in [place] Address [address] [place] [address] Care Team Providers Care Call Out Operator Name Role Phone Darci Webb Primary Care Provider Allergies No Known Allergies REASON FOR VISIT 6 month check-up needs assess J44.9 COPD , I48.91 A-Fib, Next Cardio appointment end january- [facility] Cardio- Dr Beasley, Patient has not been taking the Eliquis for a while- only took it for one month, Patient passed out a couple of months ago, fell in kitchen, was home- came to quickly and was feeling fine, Patient states he does have dizziness after he smokes not cigarettes per patient Medications Medication SIG (Take, Route, Frequency, Duration) Notes Start Date End Date Status Breo Ellipta 100-25 MCG/ACT INHALE 1 PUF F BY MOUTH ONCE A DAY for 30 Active Liothyronine Sodium 5 MCG TAKE 2 TABLETS BY MOUTH EVERYDAY ON AN EMPTY STOMACH for 30 Active Levothyroxine Sodium 137 MCG TAKE 1 TABL ET BY MOUTH EVERY DAY for 90 days Active dilTIAZem HCl 120 MG Take 1 tablet orall y once daily Active Eliquis 5 MG 1 tablets Orally daily 01/10/2025 Active Ventolin HFA 108 (90 Base) MCG/ACT 2 puff as needed Inhalation every 4 hrs for 30 PRN 09/09/2023 Active Tylenol Extra Strength 500 MG 1 tablet Orally every morning- and PRN in evening 01/10/2025 Active Social History Tobacco Use: Social History Observation Description Date Details (start date - stop date) Current Smoker 09/01/1984 - NA Tobacco Use/Smoking Question Answer Notes Patient is a current smoker When did you start smoking? 09/01/1984 How often do you smoke cigarettes? every day How many cigarettes a day do you smoke? 21-30 How soon after you wake up d o you smoke your first cigarette? 31-60 minutes Are you interested in quitting? Thinking about q uitting Vital Signs Weight 174.4 lbs 01/10/2025 Height 72 in 01/10/2025 Blood pressure systolic 124 mm Hg 01/11/20 25 Blood pressure diastolic 72 mm Hg 025 BMI 23.65 kg/m2 01/10/2025 Procedures Procedure Date Ordered Date Performed Result Body Sit e Holter Monitor - 3 days up to 14 days 01/10/2025 N/A Encounters Encounter Location Date Provider Diagnosis [facility] [address] [place] [address] 01/10/2025 Darci Webb Atrial fibrillation I48.91 ; History of hepatitis C Z86.19 ; Afib I48.91 ; Atrial fibrillation with RVR I48.91 ; COPD (chronic obstructive pulmonary disease) J44.9 and Advanced COPD J44.9 Assessments Encounter Date Diagnosis (ICD Code) Assessment Notes Treatment Notes Treatment Clinical Notes Section Notes 01/10/2025 Atrial fibrillation (ICD-10 - I48.91) 01/10/2025 History of hepatitis C (ICD-10 - Z86.19) 01/10/2025 Afib (ICD-10 - I48.91) 01/10/2025 Atrial fibrillation with RVR (ICD-10 - I48.91) needs holter - having near syncope 01/10/2025 COPD (chronic obstructive pulmonary disease) (ICD-10 - J44.9) etable - no cui 01/10/2025 Advanced COPD (ICD-10 - J44.9) Plan Of Treatment Medication Medication Name Sig Start Date Stop Date Notes Eliquis 5 MG 1 tablets Orally daily 01/10/2025 Treatment Notes Assessment Notes Atrial fibrillation with RVR needs gary r - having near syncope COPD (chronic obstructive pulmonary dise ase) etable - no cui Pending Test Test Name Order Date HEMOGLOBIN A1C (GLYCO) 01/10/2025 LIPID PANEL (CHOL/TRIG/HDL/LDL) 01/11/20 STOOL OCCULT BLOOD 01/10/2025 THYROID PANEL (T4/TSH/FREE T3) Holter Monitor - 3 days up to 14 days PSA, SCREENING 01/10/2025 CMP (COMP MET [place]) w/eGFR CKD-EPI 2024 CBC WITH DIFF 01/10/2025 Progress Notes * Sander PADGETT ADOB:1955 (69 yo M)Acc No.[id number]:01/10/2025 Progress Note Patient: Sander DAMON Provider: Vaishnavi Webb ([facility])MD :1955 A ge:69 Y S ex:Male Date:01/10/2025 Address:[address] [place] [address] [address], [address], [phone] Check In:08:39 AM ESTCheck O ut:09:42 AM EST Subjective: * Chief Complaints: * 6 month check-up needs assess J44.9 COPD , I48.91 A-FibNext Cardio appointment end of January- [facility] Cardio- Dr Bocanegra has not been taking the Eliquis for a while- only took it for one monthPatient passed out a couple of months ago, fell in kitchen, was home- came to quickly and was feeling finePatient states he does have dizziness after he smokes not cigarettes per patient * HPI: D epression Screening: PHQ-2 (2015 Edition) L ittle interest or pleasure in doing things??Not at all F eeling down, depressed, or hopeless? N ot at all T otal Score 0 Hving e[pisode iwht standg - orhtostatinc hypotension. * Active Problem List E03.9 Hypothyroidism, unsp ecified Modified On:12/24/2022/U Status:confirmed I49.3 Ventricular prematur e depolarization Modified On:12/24/2022/U Status:confirmed L57.0 Actinic keratosis Modified On:12/24/2022/U Status:confirmed M25.552 Pain in left hip Modified On:12/24/2022/U Status:confirmed R07.9 Chest pain, unspecif ied Modified On:11/05/2023/U Status:confirmed R97.0 Elevated carcinoembr yonic antigen [CEA] Modified On:03/05/2023 Status:confirmed Z20.828 Contact with and (nolasco spected) exposure to other viral communicable diseases Modified On:12/24/2022 Status:confirmed R53.83 Fatigue Modified On:12/24/2022 Status:confirmed M54.2 Neck pain Modified On:12/24/2022 Status:confirmed F32.9 Depression Modified On:12/24/2022 Status:confirmed R06.00 Dyspnea Modified On:12/24/2022 Status:confirmed M51.27 Lumbosacral disc her niation Modified On:12/24/2022 Status:confirmed M79.673 Foot pain Modified On:12/24/2022 Status:confirmed H61.20 Cerumen impaction Modified On:09/09/2023 Status:confirmed J20.9 Acute bronchitis Modified On:10/26/2023 Status:confirmed Z00.00 Well adult Modified On:10/26/2023 Status:confirmed M79.642 Hand pain, left Modified On:12/24/2022 Status:confirmed R63.4 Unexplained weight l oss Modified On:12/24/2022 Status:confirmed I49.1 Atrial premature aureliano ts Modified On:12/24/2022 Status:confirmed M25.529 Elbow pain Modified On:12/24/2022 Status:confirmed Z86.19 History of hepatitis C Modified On:12/24/2022 Status:confirmed R07.81 Rib pain on left valdez e Modified On:12/24/2022 Status:confirmed M75.40 Shoulder impingement syndrome Modified On:12/24/2022 Status:confirmed N42.89 Prostate asymmetry Modified On:12/24/2022 Status:confirmed K58.9 Spastic colon Modified On:12/24/2022 Status:confirmed R55 Syncope Modified On:12/25/2022 Status:confirmed K76.89 Other specified dise ases of liver Modified On:02/19/2023 Status:confirmed J21.9 Acute bronchiolitis Modified On:09/09/2023U Status:confirmed J44.9 COPD (chronic obstru ctive pulmonary disease) Modified On:10/26/2023U Status:confirmed M25.572 Left ankle pain Modified On:11/10/2023U Status:confirmed M25.571 Right ankle pain Modified On:11/10/2023U Status:confirmed H00.15 Chalazion left lower eyelid Modified On:03/22/2024U Status:confirmed I48.91 Atrial fibrillation Modified On:04/05/2024U Status:confirmed I48.91 Afib Modified On:04/06/2024 Status:confirmed I48.91 Atrial fibrillation with RVR Modified On:05/23/2024U Status:confirmed J44.9 Advanced COPD Modified On:05/23/2024 Status:confirmed * Medical History: * Surgical History: I ncarcerated Umbilical Hernia Repair- Dr. Shahid 08/23/17liver biopsy Epidermoid cyst excision arthroscopy of shoulder excision of mortons neuroma 2012 * Hospitalization/Major Diagno stic Procedure: s ee above * Family History: F ather: 55 yrs. M other: alive 88 yrs. B rother(s): alive, Cerebral vascular accident. S ister(s): alive. 2 brother(s) , 1 sister(s) . 1 son(s) , 2 daughter(s) - healthy. . * Social History: T obacco Use: T obacco Use/Smoking P atient is a c urrent smoker W hen did you start smoking? 0 09/01/1984 H ow often do you smoke cigarettes? e very day H ow many cigarettes a day do you smoke? 2 1-30 H ow soon after you wake up do you smoke your first cigarette? 3 1-60 minutes A re you interested in quitting? T hinking about quitting * Medications: T akingBreo Ellipta(Fluticasone Furoate-Vilanterol) 100-25 MCG/ACT Aerosol Powder Breath Activated INHALE 1 PUFF BY MOUTH ONCE A DAY dilTIAZem HCl 120 MG Tablet Take 1 tablet orally once daily Levothyroxine Sodium 137 MCG Tablet TAKE 1 TABLET BY MOUTH EVERY DAY Liothyronine Sodium 5 MCG Tablet TAKE 2 TABLETS BY MOUTH EVERYDAY ON AN EMPTY STOMACH Tylenol Extra Strength(Acetaminophen) 500 MG Tablet 1 tablet Orally every morning- and PRN in evening Ventolin HFA(Albuterol Sulfate HFA) 108 (90 Base) MCG/ACT Aerosol Solution 2 puff as needed Inhalation every 4 hrs , Notes to Pharmacist: PRNTaking Breo Ellipta(Fluticasone Furoate-Vilanterol) 100-25 MCG/ACT Aerosol Powder Breath Activated INHALE 1 PUFF BY MOUTH ONCE A DAY Taking dilTIAZem HCl 120 MG Tablet Take 1 tablet orally once daily Taking Levothyroxine Sodium 137 MCG Tablet TAKE 1 TABLET BY MOUTH EVERY DAY Taking Liothyronine Sodium 5 MCG Tablet TAKE 2 TABLETS BY MOUTH EVERYDAY ON AN EMPTY STOMACH Taking Tylenol Extra Strength(Acetaminophen) 500 MG Tablet 1 tablet Orally every morning- and PRN in evening Taking Ventolin HFA(Albuterol Sulfate HFA) 108 (90 Base) MCG/ACT Aerosol Solution 2 puff as needed Inhalation every 4 hrs , Notes to Pharmacist: PRNDiscontinuedBenzonatate 200 MG Capsule 1 capsule Orally Three times a day Cyclobenzaprine HCl 5 MG Tablet 1 tablet as needed Orally twice daily As neededDiclofenac Sodium 75 MG Tablet Delayed Release TAKE 1 TABLET BY MOUTH TWICE A DAY NEEDED Eliquis(Apixaban) 5 MG Tablet as directed Orally Twice Daily Ibuprofen 800 MG Tablet TAKE 1 TABLET BY MOUTH EVERY 8 HOURS NEEDED WITH FOOD OR MILK levoFLOXacin 750 MG Tablet 1 tablet Orally Once a day predniSONE 20 MG Tablet 3 tablets Orally Once a day tiZANidine HCl 4 MG Tablet TAKE 2 TABLETS BY MOUTH EVERY DAY AT BEDTIME Medication List reviewed and reconciled with the patientDiscontinued Benzonatate 200 MG Capsule 1 capsule Orally Three times a day Discontinued Cyclobenzaprine HCl 5 MG Tablet 1 tablet as needed Orally twice daily As neededDiscontinued Diclofenac Sodium 75 MG Tablet Delayed Release TAKE 1 TABLET BY MOUTH TWICE A DAY NEEDED Discontinued Eliquis(Apixaban) 5 MG Tablet as directed Orally Twice Daily Discontinued Ibuprofen 800 MG Tablet TAKE 1 TABLET BY MOUTH EVERY 8 HOURS NEEDED WITH FOOD OR MILK Discontinued levoFLOXacin 750 MG Tablet 1 tablet Orally Once a day Discontinued predniSONE 20 MG Tablet 3 tablets Orally Once a day Discontinued tiZANidine HCl 4 MG Tablet TAKE 2 TABLETS BY MOUTH EVERY DAY AT BEDTIME Medication List reviewed and reconciled with the patient * Allergies: N .K.CheAJo-Annno[Allergies Verified] Objective: * Vitals: W t:174.4lbs, Ht: 72 in, BP:124/72mm Hg, BMI:23.65Index, Ht-cm: 182.88 cm, Wt-k.11 kg. Assessment: * Assessment: 1. A trial fibrillation - I48.91 (Primary) 2 . H istory of hepatitis C - Z86.19 3 . A fib - I48.91 4 . A trial fibrillation with RVR - I48.91 5 . C OPD (chronic obstructive pulmonary disease) - J44.9 ?6. A dvanced COPD - J44.9 Plan: * Treatment: 2.?History of hepatitis C?LAB: HEMOGLOBIN A1C (GLYCO) ?LAB: LIPID PANEL (CHOL/TRIG/HDL/LDL) ?LAB: STOOL OCCULT BLOOD ?LAB: THYROID PANEL (T4/TSH/FREE T3) ?LAB: PSA, SCREENING ?LAB: CMP (COMP MET [place]) w/eGFR CKD-EPI ?LAB: CBC WITH DIFF3.?Afib?LAB: HEMOGLOBIN A1C (GLYCO) ?LAB: LIPID PANEL (CHOL/TRIG/HDL/LDL) ?LAB: STOOL OCCULT BLOOD ?LAB: THYROID PANEL (T4/TSH/FREE T3) ?LAB: PSA, SCREENING ?LAB: CMP (COMP MET [place]) w/eGFR CKD-EPI ?LAB: CBC WITH DIFF4.?Atrial fibrillation with RVR?LAB: HEMOGLOBIN A1C (GLYCO) ?LAB: LIPID PANEL (CHOL/TRIG/HDL/LDL) ?LAB: STOOL OCCULT BLOOD ?LAB: THYROID PANEL (T4/TSH/FREE T3) ?LAB: PSA, SCREENING ?LAB: CMP (COMP MET [place]) w/eGFR CKD-EPI ?LAB: CBC WITH DIFF Notes: needs holter - having near syncope??5.?COPD (chronic obstructive pulmonary disease)?LAB: HEMOGLOBIN A1C (GLYCO) ?LAB: LIPID PANEL (CHOL/TRIG/HDL/LDL) ?LAB: STOOL OCCULT BLOOD ?LAB: THYROID PANEL (T4/TSH/FREE T3) ?LAB: PSA, SCREENING ?LAB: CMP (COMP MET [place]) w/eGFR CKD-EPI ?LAB: CBC WITH DIFF Notes: etable - no cui??6.?Advanced COPD?LAB: HEMOGLOBIN A1C (GLYCO) ?LAB: LIPID PANEL (CHOL/TRIG/HDL/LDL) ?LAB: STOOL OCCULT BLOOD ?LAB: THYROID PANEL (T4/TSH/FREE T3) ?LAB: PSA, SCREENING ?LAB: CMP (COMP MET [place]) w/eGFR CKD-EPI ?LAB: CBC WITH DIFF * Procedure Codes: * Preventive Medicine: Screenings/Counseling: F ALL RISK SCREENING Fall Risk Assessment: O ne fall without injury in the past year lightheaded and passed out in the kitchen- made it over to the sink and knew he was going down * * Sign off status: Completed Visit Status: C HK (Check Out) true * Provider: Vaishnavi Webb ([facility])MD Date: 0 01/10/2025 Generated for Pauli ng/Faxing/eTransmitting on: 0 01/23/2025 03:04 PM EDT History and Physical Notes * HPI (History of Present Illness) Category Sub-Category Detail Notes Category Not es Depression Screening PHQ-2 (2015 Edition) Little interest or pleasure in doing things?: Not at all Hving e[pisode iwht standg - orhtostatinc hypotension Feeling down, depressed, or hopeless?: N ot at all Total Score: 0
--- OUTSIDE RECORDS SUMMARY | 2025-01-10 07:03 | XMS_ITS ---
Author Organization [facility] in [place] Address [address] [place] [address] Care Team Providers Care Spray Mixer Name Role Phone Darci Webb Primary Care Provider REASON FOR VISIT correct eliquis script Medications Medication SIG (Take, Route, Frequency, Duration) Notes Start Date End Date Status Eliquis 5 MG 1 tablet Orally twice daily for 30 days 01/10/2025 Active Encounters Encounter Location Date Provider Diagnosis [facility] [address] [place] [address] 01/10/2025 Darci Webb Atrial fibrillation I48.91 Assessments Encounter Date Diagnosis (ICD Code) Assessment Notes Treatment Notes Treatment Clinical Notes Section Notes 01/10/2025 Atrial fibrillation (ICD-10 - I48.91) Plan Of Treatment Medication Medication Name Sig Start Date Stop Date Notes Eliquis 5 MG 1 tablet Orally twice daily for 30 days 01/10 Progress Notes * Sander RAMACHANDRAN ADOB:1955 (69 yo M)Acc No.[id number]:01/10/2025 Patient: Patsy Sander BUCKLEY :1955 A ge:69 Y S ex:Male Address:[address] [place] [address] [place] [address] * Refills Refill Eliquis Tablet, 5 MG, Orally, 60, 1 tablet, twice daily, 30 days, Refills=11 * true * Date: Generated for Printi ng/Faxing/eTransmitting on: 0 01/23/2025 03:04 PM EDT
--- OUTSIDE RECORDS SUMMARY | 2025-01-18 14:57 | XMS_ITS ---
Author Organization [facility] [place] Address [address] [place] [address] Care Team Providers Care Speeder Worker Name Role Phone Darci Webb Primary Care Provider [phone] REASON FOR VISIT labs lmtcb x3- no returned calls Encounters Encounter Location Date Provider Diagnosis [facility] [address] [facility] [place] [address] 01/18/2025 Darci Webb Plan Of Treatment No Information Progress Notes * Sander PADGETT ADOB:1955 (69 yo M)Acc No.[id number]:01/18/2025 Patient: Patsy Sander BUCKLEY :1955 A ge:69 Y S ex:Male Address:[address] [place] [address] [place] [address] * true * Date: Generated for Jesus garland/Stephanie/eTransmitting on: 0 01/23/2025 03:04 PM EDT
--- OUTSIDE RECORDS SUMMARY | 2025-01-23 15:05 | XMS_ITS | Clinical Summary ---
Author Organization [facility] Address [address] [place] [address] Care Team Providers Care Premium Note Interest Calculator Clerk Name Role Phone Pratik Webb MD Primary Care Provider [phone] Allergies No known active allergies Medications levothyroxine [...] Treatment [place] [id number] [employer] MED[employer] Care Teams Premium Note Interest Calculator Clerk Relationship Specialty Start Date End Date Pratik Webb MD PCP - General Family Medicine 11/18/23
[2025-01-23 16:20] LABS: Internal Control Within Normal Limits; Occult Blood Negative
== END 2025-01-23 15:01 | disposition home or self-care (01) ==
LOC: LAB 15:00
PROVIDERS: PCP Family Medicine; Visit Provider Family Medicine
DX: I48.91 Unspecified atrial fibrillation (principal); Z86.19 Personal history of other infectious and parasitic diseases; J44.9 Chronic obstructive pulmonary disease, unspecified
CPT/HCPCS: G0328

== ENCOUNTER 2025-04-12 08:37 | Outpatient (OUT) | payer MEDICARE, SELFPAY ==
--- OUTSIDE RECORDS SUMMARY | 2025-01-10 04:45 | XMS_ITS ---
Author Organization The [facility] in [place] Address [address] [place] [address] Care Team Providers Care Finish Patcher Name Role Phone Darci Webb Primary Care Provider Allergies No Known Allergies REASON FOR VISIT 6 month check-up needs assess J44.9 COPD , I48.91 A-Fib, Next Cardio appointment end of January- [facility] Cardio- Dr Beasley, Patient [...] quitting? Thinking about q uitting Vital Signs Blood pressure systolic 124 mm Hg 01/11/20 25 Blood pressure diastolic 72 mm Hg 025 Height 72 in 01/10/2025 Weight 174.4 lbs 01/10/2025 BMI 23.65 kg/m2 01/10/2025 Procedures Procedure Date Ordered Date Performed Result Body Sit e Holter Monitor - 3 days up to 14 days 01/10/2025 N/A Encounters Encounter Location Date Provider Diagnosis [facility] [address] [place] [address] 01/10/2025 Darci Webb Atrial fibrillation I48.91 ; [...] w/eGFR CKD-EPI 2024 CBC WITH DIFF 01/10/2025 Next Appt Details Provider Name:Darci Webb, 11:00:00 AM, [address] [facility], [place], [address], Progress Notes * DUARTESander ADOB:1955 (69 yo M)Acc No.[id number]:01/10/2025 Progress Note Patient: Sander DAMON Provider: Vaishnavi Webb ([facility])MD :1955 A ge:69 Y S ex:Male Date:01/10/2025 Address:[address] [place], [place] [address] Check In:08:39 AM ESTCheck O ut:09:42 AM EST Subjective: * Chief Complaints: * 6 month check-up needs assess J44.9 COPD , I48.91 A-FibNext Cardio appointment end of January- [facility] Cardio- Dr Bocanegra has [...] Status:confirmed M25.552 Pain in left hip Modified On:12/24/2022 Status:confirmed R07.9 Chest pain, unspecif ied Modified On:11/05/2023 Status:confirmed R97.0 Elevated carcinoembr yonic antigen [CEA] [...] Modified On:12/24/2022 Status:confirmed K58.9 Spastic colon Modified On:05/25/2023W/U Status:confirmed R55 Syncope Modified On:12/25/2022 Status:confirmed K76.89 Other specified dise ases of liver Modified On:02/19/2023 Status:confirmed J21.9 Acute bronchiolitis Modified On:09/09/2023 Status:confirmed J44.9 COPD (chronic obstru ctive pulmonary disease) Modified On:10/26/2023 Status:confirmed M25.572 Left ankle pain Modified On:11/10/2023 Status:confirmed M25.571 Right ankle pain Modified On:11/10/2023 Status:confirmed H00.15 Chalazion left lower eyelid Modified On:03/22/2024 Status:confirmed I48.91 Atrial fibrillation Modified On:04/05/2024 Status:confirmed I48.91 Afib Modified On:04/06/2024 Status:confirmed I48.91 Atrial fibrillation with RVR Modified On:05/23/2024 Status:confirmed J44.9 Advanced COPD Modified On:05/23/2024 Status:confirmed [...] reconciled with the patient * Allergies: N .Carlosno[Allergies Verified] Objective: * Vitals: W t:174.4lbs, Ht: [...] 01/10/2025 Generated for Pauli ng/Faxing/eTransmitting on: 0 04/12/2025 08:38 AM EDT History and Physical Notes * HPI (History of Present Illness) Category Sub-Category Detail Notes Category Not es Depression Screening PHQ-2 (2015 Edition) Little interest or pleasure in doing things?: Not at all Hving e[pisode iwht standg - orhtostatinc hypotension Feeling down, depressed, or hopeless?: N ot at all Total Score: 0
--- OUTSIDE RECORDS SUMMARY | 2025-01-10 07:03 | XMS_ITS ---
Author Organization The [facility] in [place] Address [address] [place] [address] Care Team Providers Care Forest Pathologist Name Role Phone Darci Webb Primary Care Provider [phone] REASON FOR VISIT correct eliquis script Medications Medication SIG (Take, Route, Frequency, Duration) Notes Start Date End Date Status Eliquis 5 MG 1 tablet Orally twice daily for 30 days 01/10/2025 Active Encounters Encounter Location Date Provider Diagnosis [facility] [address] [place] [address] 01/10/2025 Darci Webb Atrial fibrillation I48.91 Assessments Encounter Date Diagnosis (ICD Code) Assessment Notes Treatment Notes Treatment Clinical Notes Section Notes 01/10/2025 Atrial fibrillation (ICD-10 - I48.91) Plan Of Treatment Medication Medication Name Sig Start Date Stop Date Notes Eliquis 5 MG 1 tablet Orally twice daily for 30 days 01/10 Next Appt Details Provider Name:Darci Bailey [facility], 11:00:00 AM, [address] [place], [address], Progress Notes * Sander PADGETT ADOB:1955 (69 yo M)Acc No.[id number]:01/10/2025 Patient: Patsy Sander BUCKLEY :1955 A ge:69 Y S ex:Male Address:[address] [place] [address] * Refills Refill Eliquis Tablet, 5 MG, Orally, 60, 1 tablet, twice daily, 30 days, Refills=11 * true * Date: Generated for Jesus garland/Stephanie/Sandraitting on: 0 04/12/2025 08:38 AM EDT
--- OUTSIDE RECORDS SUMMARY | 2025-01-18 14:57 | XMS_ITS ---
Author Organization [facility] [place] Address [address] [place] [address] Care Team Providers Care Writer Editor Name Role Phone Darci Webb Primary Care Provider [phone] REASON FOR VISIT labs lmtcb x3- no returned calls Encounters Encounter Location Date Provider Diagnosis [facility] [address] [place] [address] 01/18/2025 Darci Jon Plan Of Treatment Next Appt Details Provider Name:Darci Webb, 11:00:00 AM, [address] [place], [address], Progress Notes * Sander PADGETT ADOB:1955 (69 yo M)Acc No.[id number]:01/18/2025 Patient: Patsy Sander BUCKLEY :1955 A ge:69 Y S ex:Male Address:[facility] [place] [address] * true * Date: Generated for Printi ng/Faxing/eTransmitting on: 0 04/12/2025 08:39 AM EDT
--- OUTSIDE RECORDS SUMMARY | 2025-04-03 10:15 | XMS_ITS | Encounter Summary ---
Author Organization [facility] Address [address] [place] [address] Care Team Providers Care Printing Equipment Mechanic Apprentice Name Role Phone Pratik Webb MD Primary Care Provider [phone] Reason for Referral * Imaging (Routine) - Pending Review Specialty Diagnoses / Procedures Referred By Catalina boyd Referred To Contact Cardiology Diagnoses PVC (premature ventricular contraction) Procedures Transthoracic echo (TTE) complete Héctor Beasley MD [address] [place] [address] Phone: tel: fax: Referral ID Status Reason Start Date Expiration Date Visits Requested Visits Authorized [id number] Pending Review Perform Procedure 04/03/2025 04/03/2026 1 1 Encounter Details Date Type Department Care Team (Late st Contact Info) Description 04/03/2025 10:15 AM EDT Office Visit [facility] [address] [place] [address] Héctor Beasley MD [address] [place] [address] PVC (premature ventricular contraction) (Primary [...] from the original note were not included. [place] Electrophysiology Consult Note [place] Cardiology - [facility] Reason for visit: Afib 04/03/2025 Patient [...] history of thyroid issues presented to the [facility] ER with A-fib with RVR. He converted [...] on file Intimate Partner Violence: Unknown (09/24/2023) [place] Safety & Environment Fear of Current or [...] to monitor. Héctor Beasley MD Cardiac Electrophysiology [facility] documented in this encounter Plan of Treatment Scheduled Orders Name Type Priority Associated Diagnoses Orde r Schedule Transthoracic echo (TTE) complete Echocardiography Routine PVC (premature ventricular contraction) Expected: 04/03/2025 (Approximate), Expires: 04/03/2027 documented as of this encounter Visit Diagnoses Diagnosis PVC (premature ventricular contraction)- Primary Other premature beats documented in this encounter Care Teams Printing Equipment Mechanic Apprentice Relationship Specialty Start Date End Date Pratik Webb MD [address] [place], [place] [address] [place] [address] PCP - General 04/10/24 documented as of this encounter
--- OUTSIDE RECORDS SUMMARY | 2025-04-04 05:30 | XMS_ITS ---
Author Organization [facility] [place] Address [address] [place] [address] Care Team Providers Care Air Export Operations Agent Name Role Phone Darci Webb Primary Care Provider Allergies No Known Allergies Results Component Value Reference Range Notes COVID-19, Flu A+B IH (Not ye t reviewed by provider) Interpretation: Performing Lab: Notes/Report: COVID neg FLU A neg FLU B neg Control present REASON FOR VISIT productive cough- clear- started last Wednesday, Sinus congestion- drainage is clear Medications Medication SIG (Take, Route, Frequency, Duration) Notes Start Date End Date Status Ventolin HFA 108 (90 Base) MCG/ACT 2 puff as needed Inhalation every 4 hrs for 30 PRN 09/09/2023 Active Tylenol Extra Strength 500 MG 1 tablet Orally every morning- and PRN in evening 01/10/2025 Active Liothyronine Sodium 5 MCG TAKE 2 TABLETS BY MOUTH EVERYDAY ON AN EMPTY STOMACH for 30 days Active predniSONE 20 MG 3 tablets Orally Onc e a day for 5 days 04/04/2025 Active Azithromycin 250 MG 2 tabs today then 1 tab Orally daily for 5 days 04/04/2025 Active Eliquis 5 MG 1 tablet Orally twic e daily for 30 days 01/10/2025 Active dilTIAZem HCl ER Coated Beads 120 MG TAKE 1 CAPSULE BY MOUTH EVERY 24 HOURS for 30 Active Levothyroxine Sodium 137 MCG TAKE 1 TABL ET BY MOUTH EVERY DAY for 90 days Active Breo Ellipta 100-25 MCG/ACT INHALE 1 PUF F BY MOUTH ONCE A DAY for 30 Active Social History Tobacco Use: Social History [...] quitting? Thinking about q uitting Vital Signs Temperature 99.1 degrees Fahrenheit 04/04/20 25 Blood pressure systolic 98 mm Hg 04/04/20 25 Blood pressure diastolic 62 mm Hg 025 Height 72 in 04/04/2025 Encounters Encounter Location Date Provider Diagnosis [facility] [address] [place] [address] 04/04/2025 Darci Webb Acute bronchitis, unspecified organism J20.9 Assessments Encounter Date Diagnosis (ICD Code) Assessment Notes Treatment Notes Treatment Clinical Notes Section Notes 04/04/2025 Acute bronchitis, unspecified organism (ICD-10 - J20.9) Rest and drink more liquids, especially water. You may use a humidifier or vaporizer to help keep the drainage moist. Alhe-juw-qjlulcv Nasal Saline may help the stuffy and runny nose. Use Ibuprofen and or Tylenol as needed for fever, chills, body aches or pain. Children 5 years old should not be given jnsh-cqo-tncnjfv cough and cold medications such as guaifenesin and dextromethorphan. If you're over age 5, you may try sbpr-xyf-ttvhoes cold medications such as guaifenesin and dextromethorphan, or multi-symptom cold reliever such as Dayquil to help reduce the symptoms. Antibiotics have been prescribed. You should take these until completed and follow the directions. Antibiotics can sometimes cause upset stomach, and in rare cases, serious allergic reactions or serious gastrointestinal problems. If you start having severe abdominal pain, severe vomiting, or bloody diarrhea, you should be reevaluated by your physician or urgent care immediately. Follow up with your Primary Care Provider or return to clinic if symptoms do not improve within 3-5 days. If you develop severe symptoms such as shortness of breath, repeated vomiting, coughing up blood, or chest pain you should go to the emergency room or call 911 Plan Of Treatment Medication Medication Name Sig Start Date Stop Date Notes predniSONE 20 MG 3 tablets Orally Once a day for 5 days Azithromycin 250 MG 2 tabs today then 1 tab Orally daily for 5 days 04/04/2025 Treatment Notes Assessment Notes Acute bronchitis, unspecified organism R est and drink more liquids, especially water. You may use a humidifier or vaporizer to help keep the drainage moist. Eqvk-rbp-tgfhzoi Nasal Saline may help the stuffy and runny nose. Use Ibuprofen and or Tylenol as needed for fever, chills, body aches or pain. Children 5 years old should not be given xule-llf-yrbbxdz cough and cold medications such as guaifenesin and dextromethorphan. If you're over age 5, you may try pwwy-vgu-zkzohpv cold medications such as guaifenesin and dextromethorphan, or multi-symptom cold reliever such as Dayquil to help reduce the symptoms. Antibiotics have been prescribed. You should take these until completed and follow the directions. Antibiotics can sometimes cause upset stomach, and in rare cases, serious allergic reactions or serious gastrointestinal problems. If you start having severe abdominal pain, severe vomiting, or bloody diarrhea, you should be reevaluated by your physician or urgent care immediately. Follow up with your Primary Care Provider or return to clinic if symptoms do not improve within 3-5 days. If you develop severe symptoms such as shortness of breath, repeated vomiting, coughing up blood, or chest pain you should go to the emergency room or call 911 Pending Test Test Name Order Date COVID-19, Flu A+B IH 04/04/2025 Next Appt Details Follow Up: 3-5 days if not i mproving, Reason: Provider Name:Darci Webb, 11:00:00 AM, [address] [place], [address], Progress Notes * Sander PADGETT ADOB:1955 (69 yo M)Acc No.[id number]:04/04/2025 Progress Note Patient: Sander DAMON Provider: Vaishnavi Webb ([facility])MD :1955 A ge:69 Y S ex:Male Date:04/04/2025 Address:[address] [place], [place] [address], [id number] Check In:09:22 AM ESTCheck O ut:10:35 AM EST Subjective: * Chief Complaints: * p roductive cough- clear- started last Fridaysinus congestion- drainage is clear * HPI: B ronchitis: The patient complains of symptoms of bronchitis. The symptoms have been present for 1-2 days. The symptoms are moderate. The patient has not been exposed to sick contacts. Symptomatic treatment has included OTC medication. Associated symptoms include nasal congestion, postnasal drainage, congested ears, cough, fever, chills, body aches. * ROS: E NT: Ear pain d enies. H oarseness d enies. ? C ardiovascular: Edema d enies. P alpitations d enies. ? R espiratory: Comments S ee HPI for details. G astrointestinal: Abdominal pain d enies. D iarrhea d enies. N ausea d enies. S kin: Rash d enies. * Active Problem List E03.9 Hypothyroidism, unsp ecified Modified On:12/24/2022 Status:confirmed I49.3 Ventricular prematur e depolarization Modified On:12/24/2022 Status:confirmed L57.0 Actinic keratosis Modified On:12/24/2022 Status:confirmed M25.552 Pain in left hip Modified [...] Modified On:03/22/2024U Status:confirmed I48.91 Atrial fibrillation Modified On:04/05/2024 Status:confirmed I48.91 Afib Modified On:04/06/2024W/U Status:confirmed I48.91 Atrial fibrillation with RVR Modified On:05/23/2024/U Status:confirmed J44.9 Advanced COPD Modified On:05/23/2024/U Status:confirmed * Medical History: * Surgical History: [...] BY MOUTH ONCE A DAY dilTIAZem HCl ER Coated Beads 120 MG Capsule Extended Release 24 Hour TAKE 1 CAPSULE BY MOUTH EVERY 24 HOURS Eliquis(Apixaban) 5 MG Tablet 1 tablet Orally twice daily Levothyroxine Sodium 137 MCG Tablet TAKE [...] every 4 hrs , Notes to Pharmacist: PRNMedication List reviewed and reconciled with the patientTaking Breo Ellipta(Fluticasone Furoate-Vilanterol) 100-25 MCG/ACT Aerosol Powder Breath Activated INHALE 1 PUFF BY MOUTH ONCE A DAY Taking dilTIAZem HCl ER Coated Beads 120 MG Capsule Extended Release 24 Hour TAKE 1 CAPSULE BY MOUTH EVERY 24 HOURS Taking Eliquis(Apixaban) 5 MG Tablet 1 tablet Orally twice daily Taking Levothyroxine Sodium 137 MCG Tablet [...] every 4 hrs , Notes to Pharmacist: PRNMedication List reviewed and reconciled with the patient * Allergies: N .K.D.A.no[Allergies Verified] Objective: * Vitals: H t: 72 in, BP:98/62mm Hg, Temp:99.1F, Ht-cm: 182.88 cm. * Examination: G eneral Examination: GENERAL APPEARANCE: in no acute distress. EYES: EOMI. EARS: auditory canal clear, middle ear effusion noted.? NOSE: clear discharge, turbinates pale and swollen. ORAL CAVITY: mucosa moist. THROAT: no erythema, post-nasal drainage noted. NECK: neck supple, no thyromegaly. LYMPH NODES: n o cervical adenopathy. LUNGS: unlabored, clear to auscultation bilaterally. CARDIO: n o murmurs, regular rate and rhythm. ABDOMEN: bowel sounds present, no organomegaly . ? Assessment: * Assessment: 1. A cute bronchitis, unspecified organism - J20.9 (Primary) Plan: * Treatment: * Labs: * L ab: COVID-19, Flu A+B IH (Collection Date & Time - 04/04/2025) Value Reference Range C OVID neg * F TUCKER A neg * F TUCKER B neg * C ontrol present * Procedure Codes: 8 7426 INFECTIOUS AGENT ANTIGEN COVID 19, Modifiers: QW * Follow Up: 3 -5 days if not improving * * Sign off status: Completed Visit Status: C HK (Check Out) true * Provider: Vaishnavi Webb ([facility])MD Date: 0 04/04/2025 Generated for Printi ng/Stephanie/eTransmitting on: 0 04/12/2025 08:38 AM EDT History and Physical Notes * Examination Category Sub-Category Detail Notes Category Not es General Examination GENERAL APPEARANCE: in no acute di stress EYES: EOMI EARS: auditory canal clear , middle ear effusion noted NOSE: clear discharge, tur binates pale and swollen THROAT: no erythema, post-na vandana drainage noted NECK: neck supple, no thyr omegaly CARDIO: no murmurs, regular rate and rhythm LUNGS: unlabored, clear to auscultation bilaterally ABDOMEN: bowel sounds present , no organomegaly LYMPH NODES: no cervical adenopat hy ORAL CAVITY: mucosa moist
--- OUTSIDE RECORDS SUMMARY | 2025-04-12 07:00 | XMS_ITS ---
Author Organization [facility] [place] Address [address] [place] [address] Care Team Providers Care Concession Stand Attendant Name Role Phone Darci Webb Primary Care Provider REASON FOR VISIT f/u Encounters Encounter Location Date Provider Diagnosis [facility] [address] [place] [address] 04/12/2025 Darci Webb Plan Of Treatment Next Appt Details Provider Name:Darci Webb, 11:00:00 AM, [address] [place], [address], Progress Notes * Sander PADGETT ADOB:1955 (69 yo M)Acc No.[id number]:04/12/2025 UNLOCKED PROGRESS NOTE Progress Note Patient: Sander DAMON Provider: Vaishnavi Webb MD (TTC) :1955 A ge:69 Y S ex:Male Date:04/12/2025 Address:[address] [place] [address] [id number] Subjective: * Chief Complaints: * 1 . F/u. * Medical History: Objective: * Vitals: Assessment: Plan: * Treatment: * * Electronic signature of Darci Webb MD, [id number] on 04/12/2025 at 08:40 AM EDT Sign off status: Pending Visit Status: P EN (Pending) * Provider: Vaishnavi Webb MD (TTC) Date: 0 04/12/2025 Generated for Jesus garland/Stephanie/Paul on: 0 04/12/2025 08:40 AM EDT
--- NOTE | 2025-04-12 08:39 | CA_ITS ---
Patient Name: LORENZA RAMACHANDRAN MR#: [id number] : 1955 Exam Date: 04/12/2025 Ordering Doctor: PATSY RAGSDALE ECHOCARDIOGRAM REPORT PROCEDURE: CA ECHO DOPPLER COMPLETE INDICATIONS: Premature ventricular contractions COMPARISON: None. DESCRIPTION: COMPLETE ECHOCARDIOGRAM Real-time transthoracic echocardiography with 2D, M-mode, spectral and color flow Doppler performed. QUALITY: Technical quality was good. LEFT VENTRICLE: Normal chamber size. Normal left ventricular wall thickness. Global left ventricular systolic function is normal without wall motion abnormalities. Calculated left ventricular ejection fraction is 62%. LV EF: DIASTOLIC: Grade I diastolic dysfunction. ATRIAL SEPTUM: Visually appears intact LEFT ATRIUM: Normal chamber size. RIGHT ATRIUM: Mild dilatation. RIGHT VENTRICLE: Normal chamber size. Normal right ventricular systolic function. TRICUSPID VALVE: Normal mobility and thickness. No stenosis with trivial regurgitation. No evidence of pulmonary hypertension. RVSP 33mmHg. MITRAL VALVE: Mildly thickened with normal mobility. No evidence of mitral valve stenosis. There is no mitral annular calcification. Mild mitral regurgitation. AORTIC VALVE: Normal trileaflet appearance. Thickened aortic valve. Normal leaflet mobility. No evidence of aortic valve stenosis. No aortic regurgitation. AORTIC ROOT: Mildly dilated measuring 4.1cm. The ascending aorta was not well visualized PULMONIC VALVE: Normal thickness and mobility. No stenosis. Trivial regurgitation. PERICARDIUM: No evidence of pericardial effusion. IVC: Collapes with inspirations. Mildly dilated measuring 2.2cm. PLEURA: CONCLUSION: Normal left ventricular size, wall thickness, and systolic function without wall motion abnormalities, ejection fraction 62% Grade 1 left ventricular diastolic dysfunction Normal right ventricular size and systolic function Normal right-sided pressures, RVSP 33 mmHg Mild mitral regurgitation Mildly dilated aortic root, 4.1 cm Adult Echocardiography Procedure Report Left Ventricle LVEDD (3.7 - 5.6 cm): 5.50 cm LVESD (2.2 - 4.0 cm): 3.42 cm LVIVS thickness (0.6 - 1.2 cm): 0.85 cm LVPW thickness (0.5 - 1.0 cm): 0.82 cm e': 0.06 m/s E - e': 9.27 LVOT Max Gradient: 2.70 mm[Hg] LVOT Area (cm2): 0.82 m/s Peak Velocity (LVOT): 0.82 m/s Mean Velocity (LVOT): 0.48 m/s LVOT Diameter 2.35 cm Left Ventricular Ejection Fraction: 62.06 % Left Atrium LA Volume Index (2D A2C): 32.90 ml/m2 Left Atrium Systolic Dimension: 3.91 cm Mitral Valve MV E to A Ratio: 0.79 MV Max Gradient: MV Mean Gradient: Mitral Valve A-Wave Peak Velocity: 0.72 m/s Mitral Valve E-Wave Peak Velocity: 0.57 m/s Cardiovascular Orifice Area: Right Ventricle RV Internal Diastolic Dimension: 3.80 cm Aorta AO Root Diam: 4.06 cm Ascending Ao Diam: Aortic Valve AoV Area (Peak Tushar): 3.81 cm2, 3.81 cm2 AoV Area (VTI): 3.43 cm2, 3.43 cm2 Deceleration [place]: Pressure Half-Time: Peak Velocity(Antegrade Flow): 0.93 m/s Peak Gradient(Antegrade Flow): 3.47 mm[Hg] Mean Velocity(Antegrade Flow): 0.62 m/s Mean Gradient(Antegrade Flow): 1.81 mm[Hg] Velocity Time Integral: 19.34 cm Tricuspid Valve Peak Velocity (Regurgitant Flow): 2.43 m/s, 2.46 m/s, 2.50 m/s Peak Velocity: Pulmonic Valve Mean Gradient: Mean Velocity: Peak Velocity: 0.89 m/s Peak Gradient: 3.66 mm[Hg], 2.77 mm[Hg] Right Atrium Right Atrium Systolic Pressure: 56.28 ml, 56.28 ml Dictated by: Clarisa Carson MD on 04/13/2025 at 18:24 Approved by: Clarisa Carson MD on 04/13/2025 at 18:30
--- OUTSIDE RECORDS SUMMARY | 2025-04-12 08:39 | XMS_ITS | Clinical Summary ---
Author Organization [facility] Address [address] [place] [address] Care Team Providers Care Liver Trimmer Name Role Phone Pratik Webb MD Primary Care Provider [phone] Allergies No known active allergies Medications apixaban [...] mg by mouth in the morning. Active Breo Ellipta 100-25 mcg/dose inhaler inhale 1 puff by mouth once daily 03/12/2025 Active tiZANidine (Zanaflex) 4 mg tablet TAKE 2 TABLETS BY MOUTH EVERYDAY AT BEDTIME 11/01/2024 Active Active Problems Problem Noted Date Diagnosed Date Anticoagulated 02/19/2025 Atrial fibrillation 02/19/2025 Back pain, chronic 02/19/2025 Chronic obstructive pulmonary disease 02/19/2025 Current smoker 02/19/2025 Overview (02/19/2025): Added secondary to documentation in Social History. Depression 02/19/2025 Epidermal cyst 02/19/2025 Hernia, umbilical 02/19/2025 History of hepatitis C 02/19/2025 Irritable bowel syndrome 02/19/2025 Liver cyst 02/19/2025 Hypothyroidism 01/13/2024 Encounters Date Type Department Care Team Description 04/03/2025 10:15 AM EDT Office Visit [facility] [address] [place] [address] Héctor Beasley MD PVC (premature ventricular contraction) (Primary Dx) from Last 3 Months Family History Medical History Relation Name Comments [...] Heterosexual or Straight 03/03 11:58 AM EDT Last Filed Vital Signs Vital Sign Reading [...] Mass Index 21.31 04/03/2025 10:23 AM EDT Plan of Treatment Health Maintenance Due Date Last Done Comments CT Colonography 1955 Colonoscopy 1955 Colorectal Cancer Screening 1955 FIT-DNA 1955 FIT 1955 FOBT 1955 Medicare Annual Wellness (AWV) 1955 Sigmoidoscopy 1955 Depression Screening 1968 Pneumococcal Vaccine: 50+ Years (1 of 2 - PCV) 1975 Adult Tetanus 1978 Fall Risk Screening 2021 COVID-19 Vaccine (1 - 2023-2 5 season) 2025 Influenza Vaccine (#1) 2025 0, 07/21/2017 Zoster Vaccines Completed 11/29/2020, 07/10/2020 HIB [...] Documents on File Type Date Recorded Patient Science Instructor Expl anation Advance Directives and Living Will 05/09/2024 11:40 AM [facility] Care Teams Liver Trimmer Relationship Specialty Start Date End Date Pratik Webb MD [address] [facility] [address] [address] PCP - General 04/10/24
--- OUTSIDE RECORDS SUMMARY | 2025-04-12 08:39 | XMS_ITS | Clinical Summary ---
Author Organization [facility] Address [address] [facility] [place] [address] Care Team Providers Care Account Contact Associate Name Role Phone Pratik Webb MD Primary Care Provider [phone] Allergies No known active allergies Medications levothyroxine [...] Treatment [place] [address] [employer] MEDICARE Care Teams Account Contact Associate Relationship Specialty Start Date End Date Pratik Webb MD PCP - General Family Medicine 11/18/23
--- OUTSIDE RECORDS SUMMARY | 2025-04-12 08:42 | XMS_ITS | CCD ---
Author Organization [facility] Care Team Providers Care Laser Specialist Name Role Phone ENMA ., DR MITTAL Primary Care Unavailable HOY ., DR MITTAL Admitting Unavailable HOY ., DR MITTAL Attending Unavailable HOY ., DR MITTAL Consulting Unavailable MARIA STEIN, DR SPEEDY Chase Consult[employer] Unavailable KIRANEBHELENA, DR [...] MITTAL Consulting Unavailable COLLIN DOZIER Attending Unavailable Daxa Webb Primary Care Physician [phone] Ean WILKES Attending Unavailable Ean WILKES Attending Unavailable Daxa Webb Referring Unavailable PATSY RAGSDALE Attending Unavailable PATSY RAGSDALE Attending Unavailable Medications Current Medications Medication Drug Class(es) [...] source) Umbilical hernia 08-18-2017 Episodic Cardiac dysrhythmias (5 sources) Atrial fibrillation; Translations: [Ventricular premature depolarization] Onset: 05-09-2024 06-16-2024 Chronic Chronic obstructive pulmonary disease and bronchiectasis [...] Test Name Value Interpretation Reference Range Facility Office Visiton 04-03-2025 Follow-up visit [id number] Richy Ramachandran 1955 M Date Provider Department Center 04/03/2025 Iraida-JN PATSY JAVY Coreas Family History Problem Relation Age of Onset No Known Problems Mother No Known Problems Father Family Status - Relation Status Age at Mother Father Level of Service:42268 [place] OFFICE/OUTPATIENT ESTABLISHED LOW MDM 20 MIN Normal [facility] Ambulatory Visit Summaryon 1 09-04-2023 Ambulatory Visit [...] for choosing us for your care. Normal [facility] Orders Onlyon 05-11-2024 Orders Only [id number] Richy Ramachandran 1955 M Date Provider Department Center 05/11/2024 RANDY COTTON Family History Problem Relation Age of Onset No Known Problems Mother No Known Problems Father Family Status - Relation Status Age at Mother Father Normal [facility] Office Visiton 05-09-2024 Follow-up visit [id number] Richy Ramachandran 1955 M Date Provider Department Center 05/09/2024 PATSY LEVY Family History Problem Relation Age of Onset No Known Problems Mother No Known Problems Father Family Status - Relation Status Age at Mother Father Level of Service:45736 [place] OFFICE/OUTPATIENT NEW MODERATE MDM 45 MINUTES Normal [facility] INSULINon 12-29-2022 Insulin 14.2 uIU/mL Normal 2.6-24.9 [facility] Comment on above: Performed By: #### I TJ #### [facility] [address] [address] [address] Guille Calderon CBC AUTO DIFFon 12-26-2022 BASO # 0.1 103/ul Normal 0.0-0.1 [facility] Comment on above: Performed By: #### I TJ #### [facility] [address] [address] [address] Guille Calderon Basophils/100 WBC (Bld) 1.3 % Normal 0.2-2.0 [facility] Comment on above: Performed By: #### I TJ #### [facility] [address] [place] [address] Dr. Guille Calderon EO # 0.1 103/ul Normal 0.0-0.7 [facility] Comment on above: Performed By: #### I TJ #### [facility] [address] [place] [address] Dr. Guille Calderon Eosinophils/100 WBC (Bld) 1.1 % Normal 0.9-7.0 [facility] Comment on above: Performed By: #### I TJ #### [facility] [address] [place] [address] Dr. Guille Calderon Erythrocyte distribution width (RBC) [Ratio] 13.1 % Normal 11.0-15.0 [facility] Comment on above: Performed By: #### I TJ #### [facility] [address] [place] [address] Dr. Guille Calderon Hematocrit (Bld) [Volume fraction] 46.7 % Normal 42.0-54.0 [facility] Comment on above: Performed By: #### I TJ #### [facility] [address] [place] [address] Dr. Guille Calderon Hemoglobin (Bld) [Mass/Vol] 16.1 g/dL Normal 14.0-18.0 [facility] Comment on above: Performed By: #### I TJ #### [facility] [address] [place] [address] Dr. Guille Calderon IG # 0.01 10e3/ul Normal 0.00-0.03 [facility] Comment on above: Performed By: #### I TJ #### [facility] [address] [place] [address] Dr. Guille Calderon IG % 0.2 % Normal 0.0-0.5 [facility] Comment on above: Performed By: #### I TJ #### [facility] [address] [place] [address] Dr. Guille Calderon LYMPH # 1.9 103/ul Normal 1.2-3.8 [facility] Comment on above: Performed By: #### I TJ #### [facility] [address] [place] [address] Dr. Guille Calderon Lymphocytes/100 WBC (Bld) 30.2 % Normal 20.5-60.0 [facility] Comment on above: Performed By: #### I TJ #### [facility] [address] [place] [address] Dr. Guille Calderon MANUAL DIFF REQ NO Normal [facility] Comment on above: Performed By: #### I TJ #### [facility] [address] [place] [address] Dr. Guille Calderon MCH (RBC) [Entitic mass] 31.1 pg Normal 25.9-34.0 [facility] Comment on above: Performed By: #### I TJ #### [facility] [address] [place] [address] Dr. Guille Calderon MCHC (RBC) [Mass/Vol] 34.5 g/dL Normal 29.9-35.2 [facility] Comment on above: Performed By: #### I TJ #### [facility] [address] [place] [address] Dr. Guille Calderon MCV (RBC) [Entitic vol] 90.2 fL Normal 80.0-94.0 [facility] Comment on above: Performed By: #### I TJ #### [facility] [address] [place] [address] Dr. Guille Calderon MONO # 0.6 103/ul Normal 0.3-0.8 [facility] Comment on above: Performed By: #### I TJ #### [facility] [address] [place] [address] Dr. Guille Calderon Monocytes/100 WBC (Bld) 9.8 % Normal 1.7-12.0 [facility] Comment on above: Performed By: #### I TJ #### [facility] [address] [place] [address] Dr. Guille Calderon NEUT # 3.7 103/ul Normal 1.4-6.5 [facility] Comment on above: Performed By: #### I TJ #### [facility] [address] [address] [address] Guille Calderon Neutrophils/100 WBC (Bld) 57.4 % Normal 43.0-75.0 [facility] Comment on above: Performed By: #### I TJ #### [facility] [address] [place] [address] Dr. Guille Calderon Platelet mean volume (Bld) [Entitic vol] 9.9 fL Normal 9.5-13.5 [facility] Comment on above: Performed By: #### I TJ #### [facility] [address] [place] [address] Dr. Guille Calderon PLT 237 103/ul Normal 150-450 [facility] Comment on above: Performed By: #### I TJ #### [facility] [address] [place] [address] Dr. Guille Calderon RBC 5.18 106/ul Normal 4.70-6.10 [facility] Comment on above: Performed By: #### I TJ #### [facility] [address] [place] [address] Dr. Guille Calderon WBC 6.4 103/ul Normal 4.0-11.0 [facility] Comment on above: Performed By: #### I TJ #### [facility] [address] [place] [address] Dr. Guille Calderon FREE THYROXINE INDEX T7on FTI 3.50 Normal 1.30-4.50 [facility] Comment on above: Performed By: #### P SASC, VITB12 #### [facility] [address] [place] [address] Dr. Guille Calderon T3U 34.0 % Normal 33.0-40.0 [facility] Comment on above: Performed By: #### P SASC, VITB12 #### [facility] [address] [place] [address] Dr. Guille Calderon T4 [Mass/Vol] 10.30 ug/dL Normal 4.50-12.10 [facility] Comment on above: Performed By: #### P SASC, VITB12 #### [facility] [address] [address] [address] Guille Calderon GLYCOHEMOGLOBIN A1Con 2022 ADA RECOMMENDATION SEE BELOW Normal [facility] Comment on above: Result Comment: ADA RECOMMENDED LIMIT 4.0 - 6.0 ADA THERAPEUTIC TARGET < 7.0 ACTION SUGGESTED > 7.0 Performed By: #### A 1C #### [facility] [address] [address] [address] Guille Calderon Glucose [Mass/Vol] 105 mg/dL Normal [facility] Comment on above: Performed By: #### A 1C #### [facility] [address] [place] [address] Dr. Guille Calderon HbA1c (Bld) [Mass fraction] 5.3 % Normal 4.5-6.2 [facility] Comment on above: Performed By: #### A 1C #### [facility] [address] [place] [address] Dr. Guille Calderon IRONon 12-26-2022 Iron [Mass/Vol] 79.0 ug/dL Normal 65.0-175.0 [facility] Comment on above: Performed By: #### V ITAD, IRON #### [facility] [address] [place] [address] Dr. Guille Calderon LIPID PROFILEon 12-26-2022 CHOL-HDL RATIO NORM SEE BELOW Normal [facility] Comment on above: Result Comment: 3.3 - 4.4 LOW RISK 4.4 - 7.1 AVERAGE RISK 7.1 - 11.0 MODERATE RISK >11.0 HIGH RISK Performed By: #### P SASC, VITB12 #### [facility] [address] [place] [address] Dr. Guille Calderon Cholesterol [Mass/Vol] 146 mg/dL Normal <=200 [facility] Comment on above: Performed By: #### P SASC, VITB12 #### [facility] [address] [place] [address] Dr. Guille Calderon Cholesterol in HDL [Mass/Vol] 49 mg/dL Normal 40-60 [facility] Comment on above: Performed By: #### P SASC, VITB12 #### [facility] [address] [address] [address] Guille Calderon Cholesterol in LDL [Mass/Vol] 79.2 mg/dL Normal [facility] Comment on above: Performed By: #### P SASC, VITB12 #### [facility] [address] [address] [address] Guille Calderon Cholesterol.total/Ch olesterol in HDL [Mass ratio] 3.0 {ratio} Normal [facility] Comment on above: Performed By: #### P SASC, VITB12 #### [facility] [address] [address] [address] Guille Calderon HDL NORMAL > or = 60 mg/dl - LO W CARDIOVASCULAR RISK <40 mg/dl - HIGH CARDIOVASCULAR RISK Normal [facility] Comment on above: Performed By: #### P SASC, VITB12 #### [facility] [address] [address] [address] Guille Calderon LDL CALC NORMAL SEE BELOW Normal [facility] Comment on above: Result Comment: <100 mg/dl OPTIMAL 100 - 129 mg/dl NEAR OR ABOVE OPTIMAL 130 - 159 mg/dl BORDERLINE HIGH 160 - 189 mg/dl HIGH >190 mg/dl VERY HIGH Performed By: #### P SASC, VITB12 #### [facility] [address] [address] [address] Guille Calderon Triglyceride [Mass/Vol] 89 mg/dL Normal <=150 [facility] Comment on above: Performed By: #### P SASC, VITB12 #### [facility] [address] [address] [address] Guille Calderon VLDL CALC 17.8 mg/dL Normal [facility] Comment on above: Performed By: #### P SASC, VITB12 #### [facility] [address] [address] [address] Guille Calderon PROF 14(COMP METB)on 023 Albumin [Mass/Vol] 3.6 g/dL Normal 3.4-5.0 [facility] Comment on above: Performed By: #### P SASC, VITB12 #### [facility] [address] [address] [address] Guille Calderon Albumin/Globulin [Mass ratio] 0.8 {ratio} Normal [facility] Comment on above: Performed By: #### P SASC, VITB12 #### [facility] [address] [address] [address] Guille Calderon ALP [Catalytic activity/Vol] 94 U/L Normal 46-116 [facility] Comment on above: Performed By: #### P SASC, VITB12 #### [facility] [address] [place] [address] Dr. Guille Calderon ALT [Catalytic activity/Vol] 45 U/L Normal 16-63 [facility] Comment on above: Performed By: #### P SASC, VITB12 #### [facility] [address] [place] [address] Dr. Guille Calderon Anion gap [Moles/Vol] 11.8 mmol/L Normal [facility] Comment on above: Performed By: #### P SASC, VITB12 #### [facility] [address] [place] [address] Dr. Guille Calderon AST [Catalytic activity/Vol] 28 U/L Normal 15-37 [facility] Comment on above: Performed By: #### P SASC, VITB12 #### [facility] [address] [address] [address] Guille Calderon Bilirubin [Mass/Vol] 0.4 mg/dL Normal 0.2-1.0 [facility] Comment on above: Performed By: #### P SASC, VITB12 #### [facility] [address] [place] [address] Dr. Guille Calderon Calcium [Mass/Vol] 8.7 mg/dL Normal 8.5-10.1 [facility] Comment on above: Performed By: #### P SASC, VITB12 #### [facility] [address] [place] [address] Dr. Guille Calderon Chloride [Moles/Vol] 103 mmol/L Normal 98-107 [facility] Comment on above: Performed By: #### P SASC, VITB12 #### [facility] [address] [place] [address] Dr. Guille Calderon CO2 [Moles/Vol] 29.7 mmol/L Normal 21.0-32.0 [facility] Comment on above: Performed By: #### P SASC, VITB12 #### [facility] [address] [place] [address] Dr. Guille Calderon Creatinine [Mass/Vol] 0.95 mg/dL Normal 0.70-1.30 [facility] Comment on above: Performed By: #### P SASC, VITB12 #### [facility] [address] [place] [address] Dr. Guille Calderon EGFR-AF NEW ZEALANDER >60 Normal >=60 [facility] Comment on above: Performed By: #### P SASC, VITB12 #### [facility] [address] [place] [address] Dr. Guille Calderon EGFR-NON AF NEW ZEALANDER >60 Normal >=60 [facility] Comment on above: Performed By: #### P SASC, VITB12 #### [facility] [address] [place] [address] Dr. Guille Calderon Globulin (S) [Mass/Vol] 4.3 g/dL Normal [facility] Comment on above: Performed By: #### P SASC, VITB12 #### [facility] [address] [place] [address] Dr. Guille Calderon Glucose [Mass/Vol] 92 mg/dL Normal 74-106 [facility] Comment on above: Performed By: #### P SASC, VITB12 #### [facility] [address] [place] [address] Dr. Guille Calderon Potassium [Moles/Vol] 4.5 mmol/L Normal 3.5-5.1 [facility] Comment on above: Performed By: #### P SASC, VITB12 #### [facility] [address] [place] [address] Dr. Guille Calderon Protein [Mass/Vol] 7.9 g/dL Normal 6.4-8.2 [facility] Comment on above: Performed By: #### P SASC, VITB12 #### [facility] [address] [address] [address] Guille Calderon Sodium [Moles/Vol] 140 mmol/L Normal 136-145 [facility] Comment on above: Performed By: #### P SASC, VITB12 #### [facility] [address] [address] [address] Guille Calderon Urea nitrogen [Mass/Vol] 15.0 mg/dL Normal 7.0-18.0 [facility] Comment on above: Performed By: #### P SASC, VITB12 #### [facility] [address] [address] [address] Guille Calderon Urea nitrogen/Creatinine [Mass ratio] 15.8 mg/mg Normal [facility] Comment on above: Performed By: #### P SASC, VITB12 #### [facility] [address] [address] [address] Guille Calderon TSHon 12-26-2022 TSH 0.068 uIU/mL Critically low 0.358-3.740 [facility] Comment on above: Performed By: #### P SASC, VITB12 #### [facility] [address] [address] [address] Guille Calderon VITAMIN D 25 OHon 12-26-2022 VIT D 25-OH 72.7 ng/mL Normal [facility] Comment on above: Performed By: #### V ITAD, IRON #### [facility] [address] [address] [address] Guille Calderon VIT D RANGES SEE BELOW Normal [facility] Comment on above: Result Comment: <20 ng/mL Vit D deficient 20 - <30 ng/mL Vit D insufficient 30 - 100 ng/mL Vit D sufficient >100 ng/mL Potential Toxicity Performed By: #### V ITAD, IRON #### [facility] [address] [place] [address] Dr. Guille Calderon CULTURE SPUTUMon 06-01-2022 CULTURE SPUTUM Culture Observations : NORMAL RESPIRATORY DWIGHT. Normal [facility] Comment on above: Performed By: #### I TJ #### [facility] [address] [address] [address] Guille Calderon SPUTUM GRAM STAINon 06-01-20 22 COMMENTS Normal [facility] Comment on above: Performed By: #### I TJ #### [facility] [address] [address] [address] Guille Calderon DIPHTHEROIDS Normal [facility] Comment on above: Performed By: #### I TJ #### [facility] [address] [address] [address] Guille Calderon EPITHELIALS <25 [facility] Comment on above: Performed By: #### I TJ #### [facility] [address] [place] [address] Dr. Guille Calderon FUNGAL ELEMENTS Normal [facility] Comment on above: Performed By: #### I TJ #### [facility] [address] [place] [address] Dr. Guille Calderon GRAM NEG BACILLI Normal [facility] Comment on above: Performed By: #### I TJ #### [facility] [address] [address] [address] Guille Calderon GRAM NEG DIPPLOCOCCI [facility] Comment on above: Performed By: #### I TJ #### [facility] [address] [place] [address] Dr. Guille Calderon GRAM POS BACILLI [facility] Comment on above: Performed By: #### I TJ #### [facility] [address] [place] [address] Dr. Guille Calderon GRAM POSITIVE COCCI FEW Normal [facility] Comment on above: Performed By: #### I TJ #### [facility] [address] [place] [address] Dr. Guille Calderon WBC (Bld) [#/Vol] 10*3/uL [facility] Comment on above: Performed By: #### I TJ #### [facility] [address] [place] [address] Dr. Guille Calderon BNPon 05-30-2022 Natriuretic peptide B (Bld) [Mass/Vol] 381.0 pg/mL Normal <=900.0 [facility] Comment on above: Performed By: #### B NURSE ANESTHETIST, CMP #### [facility] [address] [place] [address] Dr. Guille Calderon CBC AUTO DIFFon 05-30-2022 BASO # 0.1 103/ul Normal 0.0-0.1 [facility] Comment on above: Performed By: #### I TJ #### [facility] [address] [place] [address] Dr. Guille Calderon Basophils/100 WBC (Bld) 0.5 % Normal 0.2-2.0 [facility] Comment on above: Performed By: #### I TJ #### [facility] [address] [place] [address] Dr. Guille Calderon EO # 0.0 103/ul Normal 0.0-0.7 [facility] Comment on above: Performed By: #### I TJ #### [facility] [address] [place] [address] Dr. Guille Calderon Eosinophils/100 WBC (Bld) 0.1 % Critically low 0.9-7.0 [facility] Comment on above: Performed By: #### I TJ #### [facility] [address] [place] [address] Dr. Guille Calderon Erythrocyte distribution width (RBC) [Ratio] 13.7 % Normal 11.0-15.0 [facility] Comment on above: Performed By: #### I TJ #### [facility] [address] [place] [address] Dr. Guille Calderon Hematocrit (Bld) [Volume fraction] 45.4 % Normal 42.0-54.0 [facility] Comment on above: Performed By: #### I TJ #### [facility] [address] [place] [address] Dr. Guille Calderon Hemoglobin (Bld) [Mass/Vol] 15.3 g/dL Normal 14.0-18.0 [facility] Comment on above: Performed By: #### I TJ #### [facility] [address] [address] [address] Guille Calderon IG # 0.04 10e3/ul Critically high 0.00-0.03 [facility] Comment on above: Performed By: #### I TJ #### [facility] [address] [address] [address] Guille Calderon IG % 0.4 % Normal 0.0-0.5 [facility] Comment on above: Performed By: #### I TJ #### [facility] [address] [place] [address] Dr. Guille Calderon LYMPH # 2.0 103/ul Normal 1.2-3.8 [facility] Comment on above: Performed By: #### I TJ #### [facility] [address] [place] [address] Dr. Guille Calderon Lymphocytes/100 WBC (Bld) 17.7 % Critically low 20.5-60.0 [facility] Comment on above: Performed By: #### I TJ #### [facility] [address] [place] [address] Dr. Guille Calderon MANUAL DIFF REQ NO Normal [facility] Comment on above: Performed By: #### I TJ #### [facility] [address] [place] [address] Dr. Guille Calderon MCH (RBC) [Entitic mass] 31.0 pg Normal 25.9-34.0 [facility] Comment on above: Performed By: #### I TJ #### [facility] [address] [place] [address] Dr. Guille Calderon MCHC (RBC) [Mass/Vol] 33.7 g/dL Normal 29.9-35.2 [facility] Comment on above: Performed By: #### I TJ #### [facility] [address] [place] [address] Dr. Guille Calderon MCV (RBC) [Entitic vol] 92.1 fL Normal 80.0-94.0 [facility] Comment on above: Performed By: #### I TJ #### [facility] [address] [place] [address] Dr. Guille Calderon MONO # 0.7 103/ul Normal 0.3-0.8 [facility] Comment on above: Performed By: #### I TJ #### [facility] [address] [address] [address] Guille Calderon Monocytes/100 WBC (Bld) 6.5 % Normal 1.7-12.0 [facility] Comment on above: Performed By: #### I TJ #### [facility] [address] [place] [address] Dr. Guille Calderon NEUT # 8.5 103/ul Critically high 1.4-6.5 [facility] Comment on above: Performed By: #### I TJ #### [facility] [address] [place] [address] Dr. Guille Calderon Neutrophils/100 WBC (Bld) 74.8 % Normal 43.0-75.0 [facility] Comment on above: Performed By: #### I TJ #### [facility] [address] [place] [address] Dr. Guille Calderon Platelet mean volume (Bld) [Entitic vol] 10.1 fL Normal 9.5-13.5 [facility] Comment on above: Performed By: #### I TJ #### [facility] [address] [place] [address] Dr. Guille Calderon PLT 305 103/ul Normal 150-450 [facility] Comment on above: Performed By: #### I TJ #### [facility] [address] [place] [address] Dr. Guille Calderon RBC 4.93 106/ul Normal 4.70-6.10 [facility] Comment on above: Performed By: #### I TJ #### [facility] [address] [place] [address] Dr. Guille Calderon WBC 11.4 103/ul Critically high 4.0-11.0 [facility] Comment on above: Performed By: #### I TJ #### [facility] [address] [address] [address] Guille Calderon IRONon 05-30-2022 Iron [Mass/Vol] 156.0 ug/dL Normal 65.0-175.0 [facility] Comment on above: Performed By: #### I TJ #### [facility] [address] [place] [address] Dr. Guille Calderon PROF 14(COMP METB)on 022 Albumin [Mass/Vol] 4.1 g/dL Normal 3.4-5.0 [facility] Comment on above: Performed By: #### B NURSE ANESTHETIST, CMP #### [facility] [address] [place] [address] Dr. Guille Calderon Albumin/Globulin [Mass ratio] 0.9 {ratio} Normal [facility] Comment on above: Performed By: #### B NURSE ANESTHETIST, CMP #### [facility] [address] [place] [address] Dr. Guille Calderon ALP [Catalytic activity/Vol] 84 U/L Normal 46-116 [facility] Comment on above: Performed By: #### B NURSE ANESTHETIST, CMP #### [facility] [address] [place] [address] Dr. Guille Calderon ALT [Catalytic activity/Vol] 40 U/L Normal 16-63 [facility] Comment on above: Performed By: #### B NURSE ANESTHETIST, CMP #### [facility] [address] [place] [address] Dr. Guille Calderon Anion gap [Moles/Vol] 9.5 mmol/L Normal [facility] Comment on above: Performed By: #### B NURSE ANESTHETIST, CMP #### [facility] [address] [place] [address] Dr. Guille Calderon AST [Catalytic activity/Vol] 19 U/L Normal 15-37 [facility] Comment on above: Performed By: #### B NURSE ANESTHETIST, CMP #### [facility] [address] [place] [address] Dr. Guille Calderon Bilirubin [Mass/Vol] 0.4 mg/dL Normal 0.2-1.0 [facility] Comment on above: Performed By: #### B NURSE ANESTHETIST, CMP #### [facility] [address] [place] [address] Dr. Guille Calderon Calcium [Mass/Vol] 8.9 mg/dL Normal 8.5-10.1 [facility] Comment on above: Performed By: #### B NURSE ANESTHETIST, CMP #### [facility] [address] [place] [address] Dr. Guille Calderon Chloride [Moles/Vol] 103 mmol/L Normal 98-107 [facility] Comment on above: Performed By: #### B NURSE ANESTHETIST, CMP #### [facility] [address] [place] [address] Dr. Guille Calderon CO2 [Moles/Vol] 28.1 mmol/L Normal 21.0-32.0 [facility] Comment on above: Performed By: #### B NURSE ANESTHETIST, CMP #### [facility] [address] [place] [address] Dr. Guille Calderon Creatinine [Mass/Vol] 0.87 mg/dL Normal 0.70-1.30 [facility] Comment on above: Performed By: #### B NURSE ANESTHETIST, CMP #### [facility] [address] [place] [address] Dr. Guille Calderon EGFR-AF NEW ZEALANDER >60 Normal >=60 [facility] Comment on above: Performed By: #### B NURSE ANESTHETIST, CMP #### [facility] [address] [place] [address] Dr. Guille Calderon EGFR-NON AF NEW ZEALANDER >60 Normal >=60 [facility] Comment on above: Performed By: #### B NURSE ANESTHETIST, CMP #### [facility] [address] [place] [address] Dr. Guille Calderon Globulin (S) [Mass/Vol] 4.5 g/dL Normal [facility] Comment on above: Performed By: #### B NURSE ANESTHETIST, CMP #### [facility] [address] [place] [address] Dr. Guille Calderon Glucose [Mass/Vol] 109 mg/dL Critically high 74-[address] [facility] Comment on above: Performed By: #### B NURSE ANESTHETIST, CMP #### [facility] [address] [address] [address] Guille Calderon Potassium [Moles/Vol] 4.6 mmol/L Normal 3.5-5.1 [facility] Comment on above: Performed By: #### B NURSE ANESTHETIST, CMP #### [facility] [address] [address] [address] Guille Calderon Protein [Mass/Vol] 8.6 g/dL Critically high 6.4-8.2 [facility] Comment on above: Performed By: #### B NURSE ANESTHETIST, CMP #### [facility] [address] [address] [address] Guille Calderon Sodium [Moles/Vol] 136 mmol/L Normal 136-145 [facility] Comment on above: Performed By: #### B NURSE ANESTHETIST, CMP #### [facility] [address] [place] [address] Dr. Guille Calderon Urea nitrogen [Mass/Vol] 19.0 mg/dL Critically high 7.0-18.0 [facility] Comment on above: Performed By: #### B NURSE ANESTHETIST, CMP #### [facility] [address] [address] [address] Guille Calderon Urea nitrogen/Creatinine [Mass ratio] 21.8 mg/mg Normal [facility] Comment on above: Performed By: #### B NURSE ANESTHETIST, CMP #### [facility] [address] [place] [address] Dr. Guille Calderon XR CHEST 2 Von [...] ARLENE CHOI Date: 2022-05-30 17:22 Normal [facility] INSULINon 04-03-2022 Insulin 6.4 uIU/mL Normal 2.6-24.9 [facility] Comment on above: Performed By: #### P SASC, VITB12 #### [facility] [address] [address] [address] Guille Calderon OCC BLD IMMUNO SCREENon OCCULT BLOOD Negative Normal NEGATIVE [facility] Comment on above: Performed By: #### P SASC, VITB12 #### [facility] [address] [address] [address] Guille Calderon T4, T3U, FTI [facility] 04-03 Free Thyroxine Index 2.5 Normal 1.2-4.9 [facility] Comment on above: Performed By: #### T HYLC #### [facility] [address] [place] [address] Dr. Guille Calderon T3 Uptake 28 % Normal 24-39 [facility] Comment on above: Performed By: #### T HYLC #### [facility] [address] [place] [address] Dr. Guille Calderon T4 [Mass/Vol] 8.8 ug/dL Normal 4.5-12.[address] [facility] Comment on above: Performed By: #### T HYLC #### [facility] [address] [place] [address] Dr. Guille Calderon VIT D 25-OH [facility] 2021 Vitamin D, 25-Hydroxy 85.0 ng/mL Normal 30.0-100.0 [facility] Comment on above: Result Comment: Karime min D deficiency has been defined by the [place] [employer] and an Endocrine Society practice guideline as a level of serum 25-OH vitamin D less than 20 ng/mL (1,2). The Endocrine Society went on to further define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
== END 2025-04-12 08:38 | disposition home or self-care (01) ==
LOC: CARD 08:37
PROVIDERS: PCP Family Medicine; Visit Provider Internal Medicine Cardiovascular Disease
DX: J20.9 Acute bronchitis, unspecified (principal); I49.3 Ventricular premature depolarization
CPT/HCPCS: 71046; 93306

== ENCOUNTER 2025-04-12 11:51 | Outpatient (OUT) | payer MEDICARE, SELFPAY ==
--- OUTSIDE RECORDS SUMMARY | 2025-04-03 10:15 | XMS_ITS | Encounter Summary ---
Author Organization [facility] Address [address] [address] Care Team Providers Care Chemical Processing Supervisor Name Role Phone Pratik Webb MD Primary Care Provider [phone] Reason for Referral * Imaging (Routine) - Pending Review Specialty Diagnoses / Procedures Referred By Catalina boyd Referred To Contact Cardiology Diagnoses PVC (premature ventricular contraction) Procedures Transthoracic echo (TTE) complete Héctor Beasley MD [address] [place] [address] Phone: tel: fax: Referral ID Status Reason Start Date Expiration Date Visits Requested Visits Authorized [id number] Pending Review Perform Procedure 04/03/2025 04/03/2026 1 1 Encounter Details Date Type Department Care Team (Late st Contact Info) Description 04/03/2025 10:15 AM EDT Office Visit [facility] [address] [place] [address] Héctor Beasley MD [address] [place] [address] PVC (premature ventricular contraction) (Primary Dx) Social History Tobacco Use Types Packs/Day Years Used Date Smoking Tobacco: Every Day Cigarettes 0.3 30 Smokeless Tobacco: Never Alcohol Use Standard Drinks/Week Comments Never 0 [...] Information Value Date Recorded Sex Assigned at Male 03/29/2025 11:58 AM EDT Legal Sex Male 12:04 PM EDT Gender Identity Male 03/29/2025 11:58 AM EDT Sexual Orientation Heterosexual or Straight 03/03 11:58 AM EDT documented as of this encounter Last Filed Vital Signs Vital Sign Reading Time Taken Comments Blood Pressure 121/58 04/03/2025 10:23 AM EDT Pulse 62 04/03/2025 10:23 AM EDT Temperature - - Respiratory Rate - - Oxygen Saturation 95% 04/03/2025 10:23 AM EDT Inhaled Oxygen Concentration - - Weight 75.3 kg (166 lb) 04/03/2025 10:23 AM EDT Height 188 cm (6' 2 ) 04/03/2025 10:23 AM EDT Body Mass Index 21.31 04/03/2025 10:23 AM EDT documented in this encounter Progress Notes * Héctor Beasley MD - 04/03/2025 10:15 AM EDT Images from the original note were not included. [place] Electrophysiology Consult Note [place] Cardiology - [facility] Reason for visit: Afib 04/03/2025 Patient here for 1 year follow up PAF. He wore Holter monitor and had routine labs in December 2024. Hestopped taking Eliquis months ago due to bleeding. 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 Denies chest pain, SOB, and palpitations. He had an event monitor placed which does not reveal any atrial fibrillation but 11% PVC burden. Review of Systems All other systems reviewed and are negative. HPI: Sander Padgett is a 69 y.o. year old with past medical history of thyroid issues presented to the [facility] ER with A-fib with RVR. He converted to sinus rhythm while in the hospital and was subsequently discharged on Cardizem as well as Eliquis. He states that he felt something was offon that day. He had a heated argument with his which he feels contributed to this. He also notes that he had a previous palpitation sensations approximately 20 years ago but was not mentioned tohave A-fib. EK05/09/24 SR with PVC. PMH: Past Medical History: Diagnosis Date Abnormal ECG Arrhythmia Atrial fibrillation (CMS/HCC) COPD (chronic obstructive pulmonary disease) (CMS/HCC) Hypothyroidism PSH: Past Surgical History: Procedure Laterality Date TONSILLECTOMY SH: Social Drivers of Health Tobacco Use: High Risk (05/09/2024) Patient History Smoking Tobacco Use: Every Day Smokeless Tobacco Use: Never Passive Exposure: Not on file Alcohol Use: Not on file Financial Resource Strain: Not on file Food Insecurity: Not on file Transportation Needs: Not on file Physical Activity: Not on file Stress: Not on file Social Connections: Not on file Intimate Partner Violence: Unknown (09/24/2023) [place] Safety & Environment Fear of Current or Ex-Partner: Not on file Emotionally Abused: Not on file Physically Abused: Not on file Sexually Abused: Not on file Physically or Sexually Abused: Not on file Depression: Not on file Housing Stability: Not on file Utilities: Not on file Health Literacy: Not on file Allergies: No Known Allergies Weight: 75.3kg Visit Vitals BP 121/58 (BP Location: Left arm, Patient Position: Sitting) Pulse 62 Ht 1.88 m (6' 2 ) Wt 75.3 kg (166 lb) SpO2 95% BMI 21.31 kg/m?? Smoking Status Every Day BSA 1.98 m?? Meds: Current Outpatient Medications on File Prior to Visit Medication Sig Dispense Refill Breo Ellipta 100-25 mcg/dose inhaler inhale 1 puff by mouth once daily dilTIAZem CD (Cardizem CD) 120 mg 24 hr capsule Take 120 mg by mouth in the morning. levothyroxine (Synthroid, Levoxyl) 137 mcg tablet 137 mcg. liothyronine (Cytomel) 5 mcg tablet 5 mcg 2 times daily. tiZANidine (Zanaflex) 4 mg tablet TAKE 2 TABLETS BY MOUTH EVERYDAY AT BEDTIME apixaban (Eliquis) 5 mg tablet 5 mg two times daily. (Patient not taking: Reported on 04/03/2025) diclofenac (Voltaren) 75 mg EC tablet 75 mg two times daily. (Patient not taking: Reported on 04/03/2025) No current facility-administered medications on file prior [...] pain+, no back pain, no swelling in theextremities Integumentary Skin no rash, no ulcer, no [...] , THYROID PEROXIDASE AB , BNP EKG: Echo: Stress test: Coronary angiogram: @CATH@ Diagnostic Imaging: Holter Assessment and Plan: - New Dx AF: No further episodes of A-fib seen. He has stopped anticoagulation due to bleeding. - pvc ; given the high burden of PVC will recommend an echocardiogram to ensure there is no underlying cardiomyopathy. Patient seen and an effective and asymptomatic with PVCs so we will continue to monitor. Héctor Beasley MD Cardiac Electrophysiology [facility] documented in this encounter Plan of Treatment Scheduled Orders Name Type Priority Associated Diagnoses Orde r Schedule Transthoracic echo (TTE) complete Echocardiography Routine PVC (premature ventricular contraction) Expected: 04/03/2025 (Approximate), Expires: 04/03/2027 documented as of this encounter Visit Diagnoses Diagnosis PVC (premature ventricular contraction)- Primary Other premature beats documented in this encounter Care Teams Chemical Processing Supervisor Relationship Specialty Start Date End Date Pratik Webb MD [address] [place], [place] [address] [place] [address] PCP - General 04/10/24 documented as of this encounter
--- OUTSIDE RECORDS SUMMARY | 2025-04-12 11:57 | XMS_ITS | Clinical Summary ---
Author Organization [facility] Healthcare Address [address] [facility] [place] [address] Care Team Providers Care Training Professional Name Role Phone Pratik Webb MD Primary Care Provider [phone] Allergies No known active allergies Medications levothyroxine [...] Treatment [place] [phone] [employer] MEDICARE Care Teams Training Professional Relationship Specialty Start Date End Date Pratik Webb MD PCP - General Family Medicine 11/18/23
--- OUTSIDE RECORDS SUMMARY | 2025-04-12 11:57 | XMS_ITS | Clinical Summary ---
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 car d Care Teams Horse Show Manager Relationship Specialty Start Date End Date Pratik Webb MD [address] [facility] [address] [address] PCP - General 04/10/24
--- NOTE | 2025-04-12 12:18 | XR_ITS ---
The [address] [address] Patient Name: LORENZA RAMACHANDRAN MRN: [id number] date: 1955 Sex: M Assigned Patient Location: [facility] Current Patient Location: [facility] Accession/Order Number: [id number] Exam Date: 04/12/2025 12:32 Report Date: 04/12/2025 13:02 At the request of: DAXA NORWOOD MD Procedure: XR chest 2V PA AND LATERAL CHEST: CLINICAL HISTORY: Persistent cough. Acute Bronchitis COMPARISON: CT chest 04/01/2024 The lungs are hyperinflated. There is basilar atelectasis and/or scarring, greater on the right. There is no developing consolidation, effusion or pneumothorax. The cardiac, hilar and mediastinal silhouettes are within normal limits. There is no vascular congestion. The visualized bony thorax is intact. Endplate spurring is present at the spine. A compensatory visualized at the right humeral head. XR/XR chest 2V IMPRESSION: MILD CHRONIC CHANGES. NO ACUTE CARDIOPULMONARY ABNORMALITY. Impression dictated by: Brittney Rodriguez M.D. 04/12/2025 1:02 PM Dictation Location: [email or web address] Electronically authenticated by: [id number] Date: 04/12/2025 13:02
--- OUTSIDE RECORDS SUMMARY | 2025-04-12 12:22 | XMS_ITS | CCD ---
Author Organization [facility] Care Team Providers Care Portable Machine Sander Name Role Phone ENMA ., DR MITTAL Primary Care Unavailable HOY ., DR MITTAL Admitting Unavailable HOY ., DR MITTAL Attending Unavailable HOY ., DR MITTAL Consulting Unavailable IVANHOE, DR SPEEDY [employer] Unavailable KIRANEBHELENA, DR [...] Attending Unavailable Daxa Webb Primary Care Physician Ean WILKES Attending Unavailable Ean WILKES Attending [...] [facility] Facility Office Visiton 04-03-2025 Follow-up visit [id number] Richy Ramachandran 1955 M Date Provider Department Center 04/03/2025 Iraida-JN PATSY JAVY Coreas Family History Problem Relation Age of Onset No Known Problems Mother No Known Problems Father Family Status - Relation Status Age at Mother Father Level of Service:00328 [place] OFFICE/OUTPATIENT ESTABLISHED LOW MDM 20 MIN Normal [facility] Ambulatory Visit Summaryon 1 09-04-2023 Ambulatory Visit [...] for choosing us for your care. Normal [facility] Orders Onlyon 05-11-2024 Orders Only [id number] Richy Ramachandran 1955 M Date Provider Department Center 05/11/2024 RANDY COTTON Family History Problem Relation Age of Onset No Known Problems Mother No Known Problems Father Family Status - Relation Status Age at Mother Father Normal [facility] Office Visiton 05-09-2024 Follow-up visit [id number] Richy Ramachandran 1955 M Date Provider Department Center 05/09/2024 PATSY LEVY Family History Problem Relation Age of Onset No Known Problems Mother No Known Problems Father Family Status - Relation Status Age at Mother Father Level of Service:86230 [place] OFFICE/OUTPATIENT NEW MODERATE MDM 45 MINUTES Normal [facility] INSULINon 12-29-2022 Insulin 14.2 uIU/mL Normal 2.6-24.9 [facility] Comment on above: Performed By: #### I TJ #### [facility] [address] [address] [address] Guille Calderon CBC AUTO DIFFon 12-26-2022 BASO # 0.1 103/ul Normal 0.0-0.1 [facility] Comment on above: Performed By: #### I TJ #### [facility] [address] [address] [address] Guille Calderon Basophils/100 WBC (Bld) 1.3 % Normal 0.2-2.0 [facility] Comment on above: Performed By: #### I TJ #### [facility] [address] [place] [address] Dr. Guille Calderon EO # 0.1 103/ul Normal 0.0-0.7 [facility] Comment on above: Performed By: #### I TJ #### [facility] [address] [place] [address] Dr. Guille Calderon Eosinophils/100 WBC (Bld) 1.1 % Normal 0.9-7.0 [facility] Comment on above: Performed By: #### I TJ #### [facility] [address] [place] [address] Dr. Guille Calderon Erythrocyte distribution width (RBC) [Ratio] 13.1 % Normal 11.0-15.0 [facility] Comment on above: Performed By: #### I TJ #### [facility] [address] [place] [address] Dr. Guille Calderon Hematocrit (Bld) [Volume fraction] 46.7 % Normal 42.0-54.0 [facility] Comment on above: Performed By: #### I TJ #### [facility] [address] [place] [address] Dr. Guille Calderon Hemoglobin (Bld) [Mass/Vol] 16.1 g/dL Normal 14.0-18.0 [facility] Comment on above: Performed By: #### I TJ #### [facility] [address] [place] [address] Dr. Guille Calderon IG # 0.01 10e3/ul Normal 0.00-0.03 [facility] Comment on above: Performed By: #### I TJ #### [facility] [address] [place] [address] Dr. Guille Calderon IG % 0.2 % Normal 0.0-0.5 [facility] Comment on above: Performed By: #### I TJ #### [facility] [address] [place] [address] Dr. Guille Calderon LYMPH # 1.9 103/ul Normal 1.2-3.8 [facility] Comment on above: Performed By: #### I TJ #### [facility] [address] [place] [address] Dr. Guille Calderon Lymphocytes/100 WBC (Bld) 30.2 % Normal 20.5-60.0 [facility] Comment on above: Performed By: #### I TJ #### [facility] [address] [place] [address] Dr. Guille Calderon MANUAL DIFF REQ NO Normal [facility] Comment on above: Performed By: #### I TJ #### [facility] [address] [place] [address] Dr. Guille Calderon MCH (RBC) [Entitic mass] 31.1 pg Normal 25.9-34.0 [facility] Comment on above: Performed By: #### I TJ #### [facility] [address] [place] [address] Dr. Guille Calderon MCHC (RBC) [Mass/Vol] 34.5 g/dL Normal 29.9-35.2 [facility] Comment on above: Performed By: #### I TJ #### [facility] [address] [place] [address] Dr. Guille Calderon MCV (RBC) [Entitic vol] 90.2 fL Normal 80.0-94.0 [facility] Comment on above: Performed By: #### I TJ #### [facility] [address] [place] [address] Dr. Guille Calderon MONO # 0.6 103/ul Normal 0.3-0.8 [facility] Comment on above: Performed By: #### I TJ #### [facility] [address] [place] [address] Dr. Guille Calderon Monocytes/100 WBC (Bld) 9.8 % Normal 1.7-12.0 [facility] Comment on above: Performed By: #### I TJ #### [facility] [address] [place] [address] Dr. Guille Calderon NEUT # 3.7 103/ul Normal 1.4-6.5 [facility] Comment on above: Performed By: #### I TJ #### [facility] [address] [address] [address] Guille Calderon Neutrophils/100 WBC (Bld) 57.4 % Normal 43.0-75.0 [facility] Comment on above: Performed By: #### I TJ #### [facility] [address] [place] [address] Dr. Guille Calderon Platelet mean volume (Bld) [Entitic vol] 9.9 fL Normal 9.5-13.5 [facility] Comment on above: Performed By: #### I TJ #### [facility] [address] [place] [address] Dr. Guille Calderon PLT 237 103/ul Normal 150-450 [facility] Comment on above: Performed By: #### I TJ #### [facility] [address] [place] [address] Dr. Guille Calderon RBC 5.18 106/ul Normal 4.70-6.10 [facility] Comment on above: Performed By: #### I TJ #### [facility] [address] [place] [address] Dr. Guille Calderon WBC 6.4 103/ul Normal 4.0-11.0 [facility] Comment on above: Performed By: #### I TJ #### [facility] [address] [place] [address] Dr. Guille Calderon FREE THYROXINE INDEX T7on FTI 3.50 Normal 1.30-4.50 [facility] Comment on above: Performed By: #### P SASC, VITB12 #### [facility] [address] [place] [address] Dr. Guille Calderon T3U 34.0 % Normal 33.0-40.0 [facility] Comment on above: Performed By: #### P SASC, VITB12 #### [facility] [address] [place] [address] Dr. Guille Calderon T4 [Mass/Vol] 10.30 ug/dL Normal 4.50-12.10 [facility] Comment on above: Performed By: #### P SASC, VITB12 #### [facility] [address] [address] [address] Guille Calderon GLYCOHEMOGLOBIN A1Con 2022 ADA RECOMMENDATION SEE BELOW Normal [facility] Comment on above: Result Comment: ADA RECOMMENDED LIMIT 4.0 - 6.0 ADA THERAPEUTIC TARGET < 7.0 ACTION SUGGESTED > 7.0 Performed By: #### A 1C #### [facility] [address] [address] [address] Guille Calderon Glucose [Mass/Vol] 105 mg/dL Normal [facility] Comment on above: Performed By: #### A 1C #### [facility] [address] [place] [address] Dr. Guille Calderon HbA1c (Bld) [Mass fraction] 5.3 % Normal 4.5-6.2 [facility] Comment on above: Performed By: #### A 1C #### [facility] [address] [place] [address] Dr. Guille Calderon IRONon 12-26-2022 Iron [Mass/Vol] 79.0 ug/dL Normal 65.0-175.0 [facility] Comment on above: Performed By: #### V ITAD, IRON #### [facility] [address] [place] [address] Dr. Guille Calderon LIPID PROFILEon 12-26-2022 CHOL-HDL RATIO NORM SEE BELOW Normal [facility] Comment on above: Result Comment: 3.3 - 4.4 LOW RISK 4.4 - 7.1 AVERAGE RISK 7.1 - 11.0 MODERATE RISK >11.0 HIGH RISK Performed By: #### P SASC, VITB12 #### [facility] [address] [place] [address] Dr. Guille Calderon Cholesterol [Mass/Vol] 146 mg/dL Normal <=200 [facility] Comment on above: Performed By: #### P SASC, VITB12 #### [facility] [address] [place] [address] Dr. Guille Calderon Cholesterol in HDL [Mass/Vol] 49 mg/dL Normal 40-60 [facility] Comment on above: Performed By: #### P SASC, VITB12 #### [facility] [address] [address] [address] Guille Calderon Cholesterol in LDL [Mass/Vol] 79.2 mg/dL Normal [facility] Comment on above: Performed By: #### P SASC, VITB12 #### [facility] [address] [address] [address] Guille Calderon Cholesterol.total/Ch olesterol in HDL [Mass ratio] 3.0 {ratio} Normal [facility] Comment on above: Performed By: #### P SASC, VITB12 #### [facility] [address] [address] [address] Guille Calderon HDL NORMAL > or = 60 mg/dl - LO W CARDIOVASCULAR RISK <40 mg/dl - HIGH CARDIOVASCULAR RISK Normal [facility] Comment on above: Performed By: #### P SASC, VITB12 #### [facility] [address] [address] [address] Guille Calderon LDL CALC NORMAL SEE BELOW Normal [facility] Comment on above: Result Comment: <100 mg/dl OPTIMAL 100 - 129 mg/dl NEAR OR ABOVE OPTIMAL 130 - 159 mg/dl BORDERLINE HIGH 160 - 189 mg/dl HIGH >190 mg/dl VERY HIGH Performed By: #### P SASC, VITB12 #### [facility] [address] [address] [address] Guille Calderon Triglyceride [Mass/Vol] 89 mg/dL Normal <=150 [facility] Comment on above: Performed By: #### P SASC, VITB12 #### [facility] [address] [address] [address] Guille Calderon VLDL CALC 17.8 mg/dL Normal [facility] Comment on above: Performed By: #### P SASC, VITB12 #### [facility] [address] [address] [address] Guille Calderon PROF 14(COMP METB)on 023 Albumin [Mass/Vol] 3.6 g/dL Normal 3.4-5.0 [facility] Comment on above: Performed By: #### P SASC, VITB12 #### [facility] [address] [address] [address] Guille Calderon Albumin/Globulin [Mass ratio] 0.8 {ratio} Normal [facility] Comment on above: Performed By: #### P SASC, VITB12 #### [facility] [address] [address] [address] Guille Calderon ALP [Catalytic activity/Vol] 94 U/L Normal 46-116 [facility] Comment on above: Performed By: #### P SASC, VITB12 #### [facility] [address] [place] [address] Dr. Guille Calderon ALT [Catalytic activity/Vol] 45 U/L Normal 16-63 [facility] Comment on above: Performed By: #### P SASC, VITB12 #### [facility] [address] [place] [address] Dr. Guille Calderon Anion gap [Moles/Vol] 11.8 mmol/L Normal [facility] Comment on above: Performed By: #### P SASC, VITB12 #### [facility] [address] [place] [address] Dr. Guille Calderon AST [Catalytic activity/Vol] 28 U/L Normal 15-37 [facility] Comment on above: Performed By: #### P SASC, VITB12 #### [facility] [address] [address] [address] Guille Calderon Bilirubin [Mass/Vol] 0.4 mg/dL Normal 0.2-1.0 [facility] Comment on above: Performed By: #### P SASC, VITB12 #### [facility] [address] [place] [address] Dr. Guille Calderon Calcium [Mass/Vol] 8.7 mg/dL Normal 8.5-10.1 [facility] Comment on above: Performed By: #### P SASC, VITB12 #### [facility] [address] [place] [address] Dr. Guille Calderon Chloride [Moles/Vol] 103 mmol/L Normal 98-107 [facility] Comment on above: Performed By: #### P SASC, VITB12 #### [facility] [address] [place] [address] Dr. Guille Calderon CO2 [Moles/Vol] 29.7 mmol/L Normal 21.0-32.0 [facility] Comment on above: Performed By: #### P SASC, VITB12 #### [facility] [address] [place] [address] Dr. Guille Calderon Creatinine [Mass/Vol] 0.95 mg/dL Normal 0.70-1.30 [facility] Comment on above: Performed By: #### P SASC, VITB12 #### [facility] [address] [place] [address] Dr. Guille Calderon EGFR-AF DJIBOUTIAN >60 Normal >=60 [facility] Comment on above: Performed By: #### P SASC, VITB12 #### [facility] [address] [place] [address] Dr. Guille Calderon EGFR-NON AF DJIBOUTIAN >60 Normal >=60 [facility] Comment on above: Performed By: #### P SASC, VITB12 #### [facility] [address] [place] [address] Dr. Guille Calderon Globulin (S) [Mass/Vol] 4.3 g/dL Normal [facility] Comment on above: Performed By: #### P SASC, VITB12 #### [facility] [address] [place] [address] Dr. Guille Calderon Glucose [Mass/Vol] 92 mg/dL Normal 74-106 [facility] Comment on above: Performed By: #### P SASC, VITB12 #### [facility] [address] [place] [address] Dr. Guille Calderon Potassium [Moles/Vol] 4.5 mmol/L Normal 3.5-5.1 [facility] Comment on above: Performed By: #### P SASC, VITB12 #### [facility] [address] [place] [address] Dr. Guille Calderon Protein [Mass/Vol] 7.9 g/dL Normal 6.4-8.2 [facility] Comment on above: Performed By: #### P SASC, VITB12 #### [facility] [address] [address] [address] Guille Calderon Sodium [Moles/Vol] 140 mmol/L Normal 136-145 [facility] Comment on above: Performed By: #### P SASC, VITB12 #### [facility] [address] [address] [address] Guille Calderon Urea nitrogen [Mass/Vol] 15.0 mg/dL Normal 7.0-18.0 [facility] Comment on above: Performed By: #### P SASC, VITB12 #### [facility] [address] [address] [address] Guille Calderon Urea nitrogen/Creatinine [Mass ratio] 15.8 mg/mg Normal [facility] Comment on above: Performed By: #### P SASC, VITB12 #### [facility] [address] [address] [address] Guille Calderon TSHon 12-26-2022 TSH 0.068 uIU/mL Critically low 0.358-3.740 [facility] Comment on above: Performed By: #### P SASC, VITB12 #### [facility] [address] [address] [address] Guille Calderon VITAMIN D 25 OHon 12-26-2022 VIT D 25-OH 72.7 ng/mL Normal [facility] Comment on above: Performed By: #### V ITAD, IRON #### [facility] [address] [address] [address] Guille Calderon VIT D RANGES SEE BELOW Normal [facility] Comment on above: Result Comment: <20 ng/mL Vit D deficient 20 - <30 ng/mL Vit D insufficient 30 - 100 ng/mL Vit D sufficient >100 ng/mL Potential Toxicity Performed By: #### V ITAD, IRON #### [facility] [address] [place] [address] Dr. Guille Calderon CULTURE SPUTUMon 06-01-2022 CULTURE SPUTUM Culture Observations : NORMAL RESPIRATORY DWIGHT. Normal [facility] Comment on above: Performed By: #### I TJ #### [facility] [address] [address] [address] Guille Calderon SPUTUM GRAM STAINon 06-01-20 22 COMMENTS Normal [facility] Comment on above: Performed By: #### I TJ #### [facility] [address] [address] [address] Guille Calderon DIPHTHEROIDS Normal [facility] Comment on above: Performed By: #### I TJ #### [facility] [address] [address] [address] Guille Calderon EPITHELIALS <25 [facility] Comment on above: Performed By: #### I TJ #### [facility] [address] [place] [address] Dr. Guille Calderon FUNGAL ELEMENTS Normal [facility] Comment on above: Performed By: #### I TJ #### [facility] [address] [place] [address] Dr. Guille Calderon GRAM NEG BACILLI Normal [facility] Comment on above: Performed By: #### I TJ #### [facility] [address] [address] [address] Guille Calderon GRAM NEG DIPPLOCOCCI [facility] Comment on above: Performed By: #### I TJ #### [facility] [address] [place] [address] Dr. Guille Calderon GRAM POS BACILLI [facility] Comment on above: Performed By: #### I TJ #### [facility] [address] [place] [address] Dr. Guille Calderon GRAM POSITIVE COCCI FEW Normal [facility] Comment on above: Performed By: #### I TJ #### [facility] [address] [place] [address] Dr. Guille Calderon WBC (Bld) [#/Vol] 10*3/uL [facility] Comment on above: Performed By: #### I TJ #### [facility] [address] [place] [address] Dr. Guille Calderon BNPon 05-30-2022 Natriuretic peptide B (Bld) [Mass/Vol] 381.0 pg/mL Normal <=900.0 [facility] Comment on above: Performed By: #### B IN STORE BANKER, CMP #### [facility] [address] [place] [address] Dr. Guille Calderon CBC AUTO DIFFon 05-30-2022 BASO # 0.1 103/ul Normal 0.0-0.1 [facility] Comment on above: Performed By: #### I TJ #### [facility] [address] [place] [address] Dr. Guille Calderon Basophils/100 WBC (Bld) 0.5 % Normal 0.2-2.0 [facility] Comment on above: Performed By: #### I TJ #### [facility] [address] [place] [address] Dr. Guille Calderon EO # 0.0 103/ul Normal 0.0-0.7 [facility] Comment on above: Performed By: #### I TJ #### [facility] [address] [place] [address] Dr. Guille Calderon Eosinophils/100 WBC (Bld) 0.1 % Critically low 0.9-7.0 [facility] Comment on above: Performed By: #### I TJ #### [facility] [address] [place] [address] Dr. Guille Calderon Erythrocyte distribution width (RBC) [Ratio] 13.7 % Normal 11.0-15.0 [facility] Comment on above: Performed By: #### I TJ #### [facility] [address] [place] [address] Dr. Guille Calderon Hematocrit (Bld) [Volume fraction] 45.4 % Normal 42.0-54.0 [facility] Comment on above: Performed By: #### I TJ #### [facility] [address] [place] [address] Dr. Guille Calderon Hemoglobin (Bld) [Mass/Vol] 15.3 g/dL Normal 14.0-18.0 [facility] Comment on above: Performed By: #### I TJ #### [facility] [address] [address] [address] Guille Calderon IG # 0.04 10e3/ul Critically high 0.00-0.03 [facility] Comment on above: Performed By: #### I TJ #### [facility] [address] [address] [address] Guille Calderon IG % 0.4 % Normal 0.0-0.5 [facility] Comment on above: Performed By: #### I TJ #### [facility] [address] [place] [address] Dr. Guille Calderon LYMPH # 2.0 103/ul Normal 1.2-3.8 [facility] Comment on above: Performed By: #### I TJ #### [facility] [address] [place] [address] Dr. Guille Calderon Lymphocytes/100 WBC (Bld) 17.7 % Critically low 20.5-60.0 [facility] Comment on above: Performed By: #### I TJ #### [facility] [address] [place] [address] Dr. Guille Calderon MANUAL DIFF REQ NO Normal [facility] Comment on above: Performed By: #### I TJ #### [facility] [address] [place] [address] Dr. Guille Calderon MCH (RBC) [Entitic mass] 31.0 pg Normal 25.9-34.0 [facility] Comment on above: Performed By: #### I TJ #### [facility] [address] [place] [address] Dr. Guille Calderon MCHC (RBC) [Mass/Vol] 33.7 g/dL Normal 29.9-35.2 [facility] Comment on above: Performed By: #### I TJ #### [facility] [address] [place] [address] Dr. Guille Calderon MCV (RBC) [Entitic vol] 92.1 fL Normal 80.0-94.0 [facility] Comment on above: Performed By: #### I TJ #### [facility] [address] [place] [address] Dr. Guille Calderon MONO # 0.7 103/ul Normal 0.3-0.8 [facility] Comment on above: Performed By: #### I TJ #### [facility] [address] [address] [address] Guille Calderon Monocytes/100 WBC (Bld) 6.5 % Normal 1.7-12.0 [facility] Comment on above: Performed By: #### I TJ #### [facility] [address] [place] [address] Dr. Guille Calderon NEUT # 8.5 103/ul Critically high 1.4-6.5 [facility] Comment on above: Performed By: #### I TJ #### [facility] [address] [place] [address] Dr. Guille Calderon Neutrophils/100 WBC (Bld) 74.8 % Normal 43.0-75.0 [facility] Comment on above: Performed By: #### I TJ #### [facility] [address] [place] [address] Dr. Guille Calderon Platelet mean volume (Bld) [Entitic vol] 10.1 fL Normal 9.5-13.5 [facility] Comment on above: Performed By: #### I TJ #### [facility] [address] [place] [address] Dr. Guille Calderon PLT 305 103/ul Normal 150-450 [facility] Comment on above: Performed By: #### I TJ #### [facility] [address] [place] [address] Dr. Guille Calderon RBC 4.93 106/ul Normal 4.70-6.10 [facility] Comment on above: Performed By: #### I TJ #### [facility] [address] [place] [address] Dr. Guille Calderon WBC 11.4 103/ul Critically high 4.0-11.0 [facility] Comment on above: Performed By: #### I TJ #### [facility] [address] [address] [address] Guille Calderon IRONon 05-30-2022 Iron [Mass/Vol] 156.0 ug/dL Normal 65.0-175.0 [facility] Comment on above: Performed By: #### I TJ #### [facility] [address] [place] [address] Dr. Guille Calderon PROF 14(COMP METB)on 022 Albumin [Mass/Vol] 4.1 g/dL Normal 3.4-5.0 [facility] Comment on above: Performed By: #### B IN STORE BANKER, CMP #### [facility] [address] [place] [address] Dr. Guille Calderon Albumin/Globulin [Mass ratio] 0.9 {ratio} Normal [facility] Comment on above: Performed By: #### B IN STORE BANKER, CMP #### [facility] [address] [place] [address] Dr. Guille Calderon ALP [Catalytic activity/Vol] 84 U/L Normal 46-116 [facility] Comment on above: Performed By: #### B IN STORE BANKER, CMP #### [facility] [address] [place] [address] Dr. Guille Calderon ALT [Catalytic activity/Vol] 40 U/L Normal 16-63 [facility] Comment on above: Performed By: #### B IN STORE BANKER, CMP #### [facility] [address] [place] [address] Dr. Guille Calderon Anion gap [Moles/Vol] 9.5 mmol/L Normal [facility] Comment on above: Performed By: #### B IN STORE BANKER, CMP #### [facility] [address] [place] [address] Dr. Guille Calderon AST [Catalytic activity/Vol] 19 U/L Normal 15-37 [facility] Comment on above: Performed By: #### B IN STORE BANKER, CMP #### [facility] [address] [place] [address] Dr. Guille Calderon Bilirubin [Mass/Vol] 0.4 mg/dL Normal 0.2-1.0 [facility] Comment on above: Performed By: #### B IN STORE BANKER, CMP #### [facility] [address] [place] [address] Dr. Guille Calderon Calcium [Mass/Vol] 8.9 mg/dL Normal 8.5-10.1 [facility] Comment on above: Performed By: #### B IN STORE BANKER, CMP #### [facility] [address] [place] [address] Dr. Guille Calderon Chloride [Moles/Vol] 103 mmol/L Normal 98-107 [facility] Comment on above: Performed By: #### B IN STORE BANKER, CMP #### [facility] [address] [place] [address] Dr. Guille Calderon CO2 [Moles/Vol] 28.1 mmol/L Normal 21.0-32.0 [facility] Comment on above: Performed By: #### B IN STORE BANKER, CMP #### [facility] [address] [place] [address] Dr. Guille Calderon Creatinine [Mass/Vol] 0.87 mg/dL Normal 0.70-1.30 [facility] Comment on above: Performed By: #### B IN STORE BANKER, CMP #### [facility] [address] [place] [address] Dr. Guille Calderon EGFR-AF DJIBOUTIAN >60 Normal >=60 [facility] Comment on above: Performed By: #### B IN STORE BANKER, CMP #### [facility] [address] [place] [address] Dr. Guille Calderon EGFR-NON AF DJIBOUTIAN >60 Normal >=60 [facility] Comment on above: Performed By: #### B IN STORE BANKER, CMP #### [facility] [address] [place] [address] Dr. Guille Calderon Globulin (S) [Mass/Vol] 4.5 g/dL Normal [facility] Comment on above: Performed By: #### B IN STORE BANKER, CMP #### [facility] [address] [place] [address] Dr. Guille Calderon Glucose [Mass/Vol] 109 mg/dL Critically high 74-106 [facility] Comment on above: Performed By: #### B IN STORE BANKER, CMP #### [facility] [address] [address] [address] Guille Calderon Potassium [Moles/Vol] 4.6 mmol/L Normal 3.5-5.1 [facility] Comment on above: Performed By: #### B IN STORE BANKER, CMP #### [facility] [address] [address] [address] Guille Calderon Protein [Mass/Vol] 8.6 g/dL Critically high 6.4-8.2 [facility] Comment on above: Performed By: #### B IN STORE BANKER, CMP #### [facility] [address] [address] [address] Guille Calderon Sodium [Moles/Vol] 136 mmol/L Normal 136-145 [facility] Comment on above: Performed By: #### B IN STORE BANKER, CMP #### [facility] [address] [place] [address] Dr. Guille Calderon Urea nitrogen [Mass/Vol] 19.0 mg/dL Critically high 7.0-18.0 [facility] Comment on above: Performed By: #### B IN STORE BANKER, CMP #### [facility] [address] [address] [address] Guille Calderon Urea nitrogen/Creatinine [Mass ratio] 21.8 mg/mg Normal [facility] Comment on above: Performed By: #### B IN STORE BANKER, CMP #### [facility] [address] [place] [address] Dr. Guille Calderon XR CHEST 2 Von [...] by: ARLENE CHOI Date: 2022-05-30 17:22 Normal [facility] INSULINon 04-03-2022 Insulin 6.4 uIU/mL Normal 2.6-24.9 [facility] Comment on above: Performed By: #### P SASC, VITB12 #### [facility] [address] [address] [address] Guille Calderon OCC BLD IMMUNO SCREENon OCCULT BLOOD Negative Normal NEGATIVE [facility] Comment on above: Performed By: #### P SASC, VITB12 #### [facility] [address] [address] [address] Guille Calderon T4, T3U, FTI LABC[facility]Pon 04-03 Free Thyroxine Index 2.5 Normal 1.2-4.9 [facility] Comment on above: Performed By: #### T HYLC #### [facility] [address] [place] [address] Dr. Guille Calderon T3 Uptake 28 % Normal 24-39 [facility] Comment on above: Performed By: #### T HYLC #### [facility] [address] [place] [address] Dr. Guille Calderon T4 [Mass/Vol] 8.8 ug/dL Normal 4.5-12.0 [facility] Comment on above: Performed By: #### T HYLC #### [facility] [address] [place] [address] Dr. Guille Calderon VIT D 25-OH LABCORPon 2021 Vitamin D, 25-Hydroxy 85.0 ng/mL Normal 30.0-100.0 [facility] Comment on above: Result Comment: Karime min D deficiency has been defined by the [place] of [employer] and an Endocrine Society practice guideline as a level of serum 25-OH vitamin D less than 20 ng/mL (1,2). The Endocrine Society went on to further define vitamin D insufficiency as a level between 21 and 29 ng/mL (2). 1. IOM ([place] of [employer]). 2010. Dietary reference intakes for calcium and D. [place]: The National Academies Press. 2. Mena MF, Umair NC, Luis POWELL, et al. Evaluation, treatment, and prevention of vitamin D deficiency: an Endocrine Society clinical practice guideline. JCEM. 2010; 96(7):1911-30. Performed By: #### V ITADLC #### [facility] [address] [place] [address] Dr. Guille Calderon BNPon 04-02-2022 Natriuretic peptide B (Bld) [Mass/Vol] 252.0 pg/mL Normal <=900.0 [facility] Comment on above: Performed By: #### P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
== END 2025-04-12 11:52 | disposition home or self-care (01) ==
LOC: RAD 11:54
PROVIDERS: PCP Family Medicine; Visit Provider Family Medicine
DX: J20.9 Acute bronchitis, unspecified (principal)
CPT/HCPCS: 71046

== ENCOUNTER 2025-04-26 09:33 | Outpatient (REF) | payer MEDICARE, SELFPAY ==
--- OUTSIDE RECORDS SUMMARY | 2024-09-26 09:15 | XMS_ITS ---
Author Organization The [facility] in [place] Address [address] [place] [address] Care Team Providers Care Winding Machine Operator Name Role Phone Darci Webb Primary Care Provider [phone] Matt Back [phone] REASON FOR VISIT 2 month f/u Encounters Encounter Location Date Provider Diagnosis [facility] (PODIATRY) [address] [place] [address] [place] [address] 09/26/2024 Matt Back Plan Of Treatment Next Appt Details Provider Name:Darci Webb, 09:45:00 AM, [address] [facility], [place], [place], [address], Progress Notes * Sander PADGETT ADOB:1955 (69 yo M)Acc No.[id number]:09/26/2024 UNLOCKED PROGRESS NOTE Follow Up Patient: Patsy Sander BUCKLEY Provider: Jessa Back DPM, MS :1955 A ge:69 Y S ex:Male Date:09/26/2024 Address:[address] [place] [address] [address] [phone] Pcp:Darci Webb Subjective: * Chief Complaints: * 1 . 2 month f/u. * Medical History: Objective: * Vitals: Assessment: Plan: * Treatment: * * Electronic signature of Rohith Back DPM on 04/26/2025 at 09:36 AM EDT Sign off status: Pending Visit Status: C ANC (Cancelled) * Provider: Jessa Back DPM, MS Date: 0 09/26/2024 Generated for Jesus garland/Stephanie/Paul on: 0 04/26/2025 09:36 AM EDT
--- OUTSIDE RECORDS SUMMARY | 2025-04-12 07:00 | XMS_ITS ---
Author Organization [facility] in [place] Address [address] [place] [address] Care Team Providers Care Gusset Edger Name Role Phone Darci Webb Primary Care Provider Allergies No Known Allergies REASON FOR VISIT f/u- said he was getting better but now all the sinus in back, coughing up phlegm, drainage, Did finish his ATB and steroid Medications Medication SIG (Take, Route, Frequency, Duration) Notes Start Date End Date Status Tylenol Extra Strength 500 MG 1 tablet Orally every morning- and PRN in evening 01/10/2025 Active Ventolin HFA 108 (90 Base) MCG/ACT 2 puff as needed Inhalation every 4 hrs; Duration: 30 PRN 09/09/2023 Active Levothyroxine Sodium 137 MCG TAKE 1 TABL ET BY MOUTH EVERY DAY; Duration: 90 days Active Liothyronine Sodium 5 MCG TAKE 2 TABLETS BY MOUTH EVERYDAY ON AN EMPTY STOMACH; Duration: 30 days Active predniSONE 10 MG 5 tabs per day for 3 days, 4 tabs per day for 3 ays, 3 tabs perday for 3 days, 2 tabs per day for 3 days, 1 tab a day for 3 days, 1/2 tab a day for 4 days Orally Once a day; Duration: 19 days 04/12/2025 Active Cefdinir 300 MG 2 capsule Orally onc e a day; Duration: 10 days 04/12/2025 Active dilTIAZem HCl ER Coated Beads 120 MG TAKE 1 CAPSULE BY MOUTH EVERY 24 HOURS; Duration: 30 Active Eliquis 5 MG 1 tablet Orally twic e daily; Duration: 30 days 01/10/2025 Active Breo Ellipta 100-25 MCG/ACT INHALE 1 PUF F BY MOUTH ONCE A DAY; Duration: 30 Active Social History Tobacco Use: Social [...] Thinking about q uitting Vital Signs Weight 167.6 lbs 04/12/2025 Height 72 in 04/12/2025 Blood pressure systolic 106 mm Hg 04/12/20 25 Blood pressure diastolic 62 mm Hg 025 BMI 22.73 kg/m2 04/12/2025 Encounters Encounter Location Date Provider Diagnosis [facility] [address] [place] [address] 04/12/2025 Darci Hoy Acute bronchitis, unspecified organism J20.9 Assessments Encounter Date Diagnosis (ICD Code) Assessment Notes Treatment Notes Treatment Clinical Notes Section Notes 04/12/2025 Acute bronchitis, unspecified organism (ICD-10 - J20.9) Rest and drink more liquids, especially water. You may use a humidifier or vaporizer to help keep the drainage moist. Tegj-ldg-ttcqadv Nasal Saline may help the stuffy and runny nose. Use Ibuprofen and or Tylenol as needed for fever, chills, body aches or pain. Children 5 years old should not be given yacu-gea-yuirtqd cough and cold medications such as guaifenesin and dextromethorphan. If you're over age 5, you may try mgga-ien-gcvkwuj cold medications such as guaifenesin and dextromethorphan, [...] Sig Start Date Stop Date Notes predniSONE 10 MG 5 tabs per day for 3 days, 4 tabs per day for 3 ays, 3 tabs perday for 3 days, 2 tabs per day for 3 days, 1 tab a day for 3 days, 1/2 tab a day for 4 days Orally Once a day; Duration: 19 days 04/12/2025 Cefdinir 300 MG 2 capsule Orally onc e a day; Duration: 10 days 04/12/2025 Treatment Notes Assessment Notes Acute bronchitis, unspecified organism R est and drink more liquids, especially water. You may use a humidifier or vaporizer to help keep the drainage moist. Nmyu-mgc-kwtebaz Nasal Saline may help the stuffy and runny nose. Use Ibuprofen and or Tylenol as needed for fever, chills, body aches or pain. Children 5 years old should not be given ngol-kcc-pczvxwa cough and cold medications such as guaifenesin and dextromethorphan. If you're over age 5, you may try xtkt-mnz-iiftuno cold medications such as guaifenesin and dextromethorphan, [...] 911 Pending Test Test Name Order Date CULTURE SPUTUM 04/12/2025 SPUTUM GRAM STAIN 04/12/2025 XR CHEST 2 V 04/12/2025 Next Appt Details Follow Up: 3-5 days if not i mproving, Reason: Provider Name:Darci Webb, 09:45:00 AM, [address] [facility] [place], [place], [address], Progress Notes * Sander PADGETT ADOB:1955 (69 yo M)Acc No.[id number]:04/12/2025 Progress Note Patient: Sander DAMON Provider: Vaishnavi Webb ([facility])MD :1955 A ge:69 Y S ex:Male Date:04/12/2025 Address:[address] [place] [address] CAROLYN MCINTOSH, [id number] Check In:10:46 AM ESTCheck O ut:11:37 AM EST Subjective: * Chief Complaints: * F /u- said he was getting better but now all the sinus in back, coughing up phlegm, drainageDid finish his ATB and steroid * HPI: G eneral: stil wiht cough - and was beter wtih laurie sterid and ab. B ronchitis: The patient complains of symptoms [...] d enies. ? R espiratory: Comments S HPI for details. G astrointestinal: Abdominal pain d enies. D iarrhea d enies. N ausea d enies. S kin: Rash d enies. * Active Problem List E03.9 Hypothyroidism, unsp ecified Modified On:12/24/2022 Status:confirmed I49.3 Ventricular prematur e depolarization Modified On:12/24/2022 Status:confirmed L57.0 Actinic keratosis Modified On:12/24/2022 Status:confirmed M25.552 Pain in left hip Modified On:12/24/2022 Status:confirmed R07.9 Chest pain, unspecif ied Modified On:04/05/2024W/U Status:confirmed R97.0 Elevated carcinoembr yonic antigen [CEA] [...] Modified On:12/24/2022 Status:confirmed N42.89 Prostate asymmetry Modified On:12/24/2022U Status:confirmed K58.9 Spastic colon Modified On:12/24/2022U Status:confirmed R55 Syncope Modified On:12/25/2022U Status:confirmed K76.89 Other specified dise ases of liver Modified On:02/19/2023U Status:confirmed J21.9 Acute bronchiolitis Modified On:09/09/2023 Status:confirmed [...] arthroscopy of shoulder excision of mortons neuroma 2013 * Hospitalization/Major Diagno stic Procedure: s ee [...] every 4 hrs , Notes to Pharmacist: PRNDiscontinuedAzithromycin 250 MG Tablet 2 tabs today then 1 tab Orally daily predniSONE 20 MG Tablet 3 tablets Orally Once a day Medication List reviewed and reconciled with the patientDiscontinued Azithromycin 250 MG Tablet 2 tabs today then 1 tab Orally daily Discontinued predniSONE 20 MG Tablet 3 tablets Orally Once a day Medication List reviewed and reconciled with the patient * Allergies: N .K.D.A.no[Allergies Verified] Objective: * Vitals: W t:167.6lbs, Ht: 72 in, BP:106/62mm Hg, BMI:22.73Index, Ht-cm: 182.88 cm, Wt-k.02 kg. * Examination: G eneral Examination: GENERAL APPEARANCE: [...] - J20.9 (Primary) Plan: * Treatment: * Procedure Codes: * Follow Up: 3 -5 days if not improving * * Sign off status: Completed Visit Status: C HK (Check Out) true * Provider: Vaishnavi Webb ([facility])MD Date: 0 04/12/2025 Generated for Pauli gill/Stephanie/eTransmitting on: 04/26/2025 09:36 AM EDT History and Physical Notes * HPI (History of Present Illness) Category Sub-Category Detail Notes Category Not es General stil wiht cough - and was beter wtih laurie sterid and ab Examination Category Sub-Category Detail Notes Category Not [...]
--- OUTSIDE RECORDS SUMMARY | 2025-04-26 09:36 | XMS_ITS | Clinical Summary ---
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
--- OUTSIDE RECORDS SUMMARY | 2025-04-26 09:36 | XMS_ITS | Clinical Summary ---
Author Organization [facility] Healthcare Address [address] [facility] [place] [address] Care Team Providers Care [employer] Mechanic Name Role Phone Pratik Webb MD Primary Care Provider [phone] Allergies No known active allergies Medications levothyroxine [...] Treatment [place] [address] [employer] MED[employer] Care Teams [employer] Mechanic Relationship Specialty Start Date End Date Pratik Webb MD PCP - General Family Medicine 11/18/23
--- OUTSIDE RECORDS SUMMARY | 2025-04-26 09:36 | XMS_ITS | Patient Health Record ---
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 Name Role Phone Darci Norwood Primary Care Provider Matt Back Unavailable [phone] Allergies No Known Allergies Results Component Value Reference Range Notes COVID-19, Flu A+B IH Reviewed date:04/12/2025 07:09:03 PM Interpretation: Performing Lab: Notes/Report: COVID neg FLU A neg FLU B neg Control present FREE T3 Reviewed date:01/18/2025 06:57:56 PM Interpretation: Performing Lab: Notes/Report: [facility] , Free T3 3.16 2.18-3.98 pg/mL Performing Lab: see note ML - [facility] LB LIPID PROFILE Reviewed date:01/18/2025 06:57:56 PM Interpretation: Performing Lab: Notes/Report: [facility] , Triglycerides 44 <=150 mg/dL Cholesterol 154 <=200 mg/dL HDL Cholesterol 57 40-60 mg/dL > or =60 mg/dl - LOW CARDIOVASCULAR RISK <40 mg/dl - HIGH CARDIOVASCULAR RISK LDL Cholesterol Calculated 88.2 <100 mg/dl OPTIMAL 100-129 mg/dl NEAR OR ABOVE OPTIMAL 130-159 mg/dl BORDERLINE HIGH 160-189 mg/dl HIGH >190 mg/dl VERY HIGH VLDL CHOLESTEROL 8.8 Chol HDL Ratio 2.7 3.3 - 4.4 LOW RISK 4.4 - 7.1 AVERAGE RISK 7.1 - 11.0 MODERATE RISK >11.0 HIGH RISK Performing Lab: see note ML - [facility] LB PROF 14(COMP METB) Reviewed date:01/18/2025 06:57:56 PM Interpretation: Performing Lab: Notes/Report: [facility] , Sodium 138 136-145 mmol/L Potassium 4.3 3.5-5.1 mmol/L Chloride 102 98-107 mmol/L Carbon Dioxide 28.8 21.0-32.0 mmol/L Anion Gap 11.5 Glucose 95 74-106 mg/dL Blood Urea Nitrogen 18.0 7.0-18.0 mg/dL Creatinine 0.94 0.70-1.30 mg/dL Estimated GFR ( Terri >60 >=60 mL/min/1.73m 2 Estimated GFR (Non- Lisa >60 >=60 mL/min/1.73m 2 BUN Creatinine Ratio 19.1 Calcium 8.6 8.5-10.1 mg/dL Bilirubin Total 0.4 0.2-1.0 mg/dL Aspartate Amino Transferase 23 15-37 U/L Alanine Aminotransferase 38 16-63 U/L Alkaline Phosphatase 117 46-116 U/L Total Protein 7.4 6.4-8.2 g/dL Albumin Level 3.6 3.4-5.0 g/dL Globulin 3.8 Albumin Globulin Ratio 0.9 Performing Lab: see note ML - [facility] LB PSA SCREENING Reviewed date:01/18/2025 06:57:56 PM Interpretation: Performing Lab: Notes/Report: [facility] , Prostate Specific Antigen Scrn 1.38 <=4.00 ng/mL Performing Lab: see note ML - [facility] LB T4 Reviewed date:01/18/2025 06:57:56 PM Interpretation: Performing Lab: Notes/Report: [facility] , T4 Thyroxine 6.30 4.50-12.10 ug/dL Performing Lab: see note ML - [facility] LB TSH Reviewed date:01/18/2025 06:57:56 PM Interpretation: Performing Lab: Notes/Report: [facility] , Thyroid Stimulating Hormone 6.488 0.358-3.740 u IU/mL Performing Lab: see note ML - [facility] LB XR chest 2V Reviewed date:04/12/2025 07:09:03 PM Interpretation: Performing Lab: Notes/Report: Source Facility: [facility]-[address] [place] [address] The [place] [id number] XRay Report Signed Patient: LORENZA PADGETT MR#: [id number] : 1955 Acct:[id number] Age/Sex: 69 / M ADM Date: 04/12/25 Loc: [facility] Attending Dr: Daxa Norwood M.D. Ordering Physician: Daxa Norwood M.D. Date of Service: 04/12/25 Procedure(s): XR chest 2V Accession Number(s): [id number] cc: Daxa Norwood M.D. [address] [address] Patient Name: LORENZA PADGETT MRN: [id number] date: 1955 Sex: M Assigned Patient Location: [facility] Current Patient Location: [facility] Accession/Order Number: [id number] Exam Date: 04/12/2025 12:32 Report Date: 04/12/2025 13:02 At the request of: DAXA NORWOOD MD Procedure: XR chest 2V PA AND LATERAL CHEST: CLINICAL HISTORY: Persistent cough. Acute Bronchitis COMPARISON: CT chest 04/01/2024 The lungs are hyperinflated. There is basilar atelectasis and/or scarring, greater on the right. There is no developing consolidation, effusion or pneumothorax. The cardiac, hilar and mediastinal silhouettes are within normal limits. There is no vascular congestion. The visualized bony thorax is intact. Endplate spurring is present at the spine. A compensatory visualized at the right humeral head. XR/XR chest 2V IMPRESSION: MILD CHRONIC CHANGES. NO ACUTE CARDIOPULMONARY ABNORMALITY. Impression dictated by: Brittney Rodriguez M.D. 04/12/2025 1:02 PM Dictation Location: [place] [address] Electronically authenticated by: [id number] Y Date: 04/12/2025 13:02 Dictated By: Brittney Rodriguez M.D. Signed By: 04/12/25 1304 DD/ 1302 TD/TT: Restrike Hammer Operator: MADELYN echo doppler complete Reviewed date:04/15/2025 12:59:33 PM Interpretation: Performing Lab: Notes/Report: Source Facility: [place] [address] Cardiology Report Signed Patient: LORENZA PADGETT MR#: [id number] : 1955 Acct:[id number] Age/Sex: 69 / M ADM Date: 04/12/25 Loc: [facility] Attending Dr: Héctor Ragsdale M.D. Ordering Physician: Héctor Ragsdale M.D. Date of Service: 04/12/25 Procedure(s): CA echo doppler complete Accession Number(s): [id number] cc: Héctor Ragsdale M.D.; Daxa Norwood M.D. Patient Name: LORENZA PADGETT MR#: [id number] : 1955 Exam Date: 04/12/2025 Ordering Doctor: HÉCTOR RAGSDALE ECHOCARDIOGRAM REPORT PROCEDURE: CA ECHO DOPPLER COMPLETE INDICATIONS: Premature ventricular contractions COMPARISON: None. DESCRIPTION: COMPLETE ECHOCARDIOGRAM Real-time transthoracic echocardiography with 2D, M-mode, spectral and color flow Doppler performed. QUALITY: Technical quality was good. LEFT VENTRICLE: Normal chamber size. Normal left ventricular wall thickness. Global left ventricular systolic function is normal without wall motion abnormalities. Calculated left ventricular ejection fraction is 62%. LV EF: DIASTOLIC: Grade I diastolic dysfunction. ATRIAL SEPTUM: Visually appears intact LEFT ATRIUM: Normal chamber size. RIGHT ATRIUM: Mild dilatation. RIGHT VENTRICLE: Normal chamber size. Normal right ventricular systolic function. TRICUSPID VALVE: Normal mobility and thickness. No stenosis with trivial regurgitation. No evidence of pulmonary hypertension. RVSP 33mmHg. MITRAL VALVE: Mildly thickened with normal mobility. No evidence of mitral valve stenosis. There is no mitral annular calcification. Mild mitral regurgitation. AORTIC VALVE: Normal trileaflet appearance. Thickened aortic valve. Normal leaflet mobility. No evidence of aortic valve stenosis. No aortic regurgitation. AORTIC ROOT: Mildly dilated measuring 4.1cm. The ascending aorta was not well visualized PULMONIC VALVE: Normal thickness and mobility. No stenosis. Trivial regurgitation. PERICARDIUM: No evidence of pericardial effusion. IVC: Collapes with inspirations. Mildly dilated measuring 2.2cm. PLEURA: CONCLUSION: Normal left ventricular size, wall thickness, and systolic function without wall motion abnormalities, ejection fraction 62% Grade 1 left ventricular diastolic dysfunction Normal right ventricular size and systolic function Normal right-sided pressures, RVSP 33 mmHg Mild mitral regurgitation Mildly dilated aortic root, 4.1 cm Adult Echocardiography Procedure Report Left Ventricle LVEDD (3.7 - 5.6 cm): 5.50 cm LVESD (2.2 - 4.0 cm): 3.42 cm LVIVS thickness (0.6 - 1.2 cm): 0.85 cm LVPW thickness (0.5 - 1.0 cm): 0.82 cm e': 0.06 m/s E - e': 9.27 LVOT Max Gradient: 2.70 mm[Hg] LVOT Area (cm2): 0.82 m/s Peak Velocity (LVOT): 0.82 m/s Mean Velocity (LVOT): 0.48 m/s LVOT Diameter 2.35 cm Left Ventricular Ejection Fraction: 62.06 % Left Atrium LA Volume Index (2D A2C): 32.90 ml/m2 Left Atrium Systolic Dimension: 3.91 cm Mitral Valve MV E to A Ratio: 0.79 MV Max Gradient: MV Mean Gradient: Mitral Valve A-Wave Peak Velocity: 0.72 m/s Mitral Valve E-Wave Peak Velocity: 0.57 m/s Cardiovascular Orifice Area: Right Ventricle RV Internal Diastolic Dimension: 3.80 cm Aorta AO Root Diam: 4.06 cm Ascending Ao Diam: Aortic Valve AoV Area (Peak Tushar): 3.81 cm2, 3.81 cm2 AoV Area (VTI): 3.43 cm2, 3.43 cm2 Deceleration Edgar: Pressure Half-Time: Peak Velocity(Antegrade Flow): 0.93 m/s Peak Gradient(Antegrade Flow): 3.47 mm[Hg] Mean Velocity(Antegrade Flow): 0.62 m/s Mean Gradient(Antegrade Flow): 1.81 mm[Hg] Velocity Time Integral: 19.34 cm Tricuspid Valve Peak Velocity (Regurgitant Flow): 2.43 m/s, 2.46 m/s, 2.50 m/s Peak Velocity: Pulmonic Valve Mean Gradient: Mean Velocity: Peak Velocity: 0.89 m/s Peak Gradient: 3.66 mm[Hg], 2.77 mm[Hg] Right Atrium Right Atrium Systolic Pressure: 56.28 ml, 56.28 ml Dictated by: Clarisa Carson MD on 04/13/2025 at 18:24 Approved by: Clarisa Carson MD on 04/13/2025 at 18:30 Dictated By: Clarisa Carson M.D. Signed By: 04/13/251830 DD/ 29 TD/TT: Restrike Hammer Operator: Occult Blood* Reviewed date:01/24/2025 09:08:56 PM Interpretation: Performing Lab: Notes/Report: [facility] , Occult Blood Negative Performing Lab: see note ML - [facility] LB GLYCOHEMOGLOBIN A1C Reviewed date:01/18/2025 06:57:56 PM Interpretation: Performing Lab: Notes/Report: [facility] , Glycohemoglobin A1C 5.7 4.5-6.2 % ADA RECOMMENDED LIMIT 4.0 - 6.0 ADA THERAPEUTIC TARGET < 7.0 ACTION SUGGESTED > 7.0 Estimated Average Glucose 117 Performing Lab: see note - [facility] LB CBC AUTO DIFF Reviewed date:01/18/2025 06:57:56 PM Interpretation: Performing Lab: Notes/Report: [facility] , White Blood Count 7.5 4.0-11.0 10 3/uL Red Blood Count 5.17 4.70-6.10 10 6/uL Hemoglobin 15.8 14.0-18.0 g/dL Hematocrit 46.5 42.0-54.0 % Mean Corpuscular Volume 89.9 80.0-94.0 fL Mean Corpuscular Hemoglobin 30.6 25.9-34.0 pg Mean Corpuscular HGB Conc 34.0 29.9-35.2 g/dL Red Cell Distribution Width 13.6 11.0-15.0 % Platelet Count 233 150-450 10 3/uL Mean Platelet Volume 10.1 9.5-13.5 fL Neutrophils Percent Auto 56.2 43.0-75.0 % Lymphocytes Percent Auto 32.0 20.5-60.0 % Monocytes Percent Auto 8.8 1.7-12.0 % Eosinophils Percent Auto 1.1 0.9-7.0 % Basophils Percent Auto 1.5 0.2-2.0 % Immature Granulocytes Pct Auto 0.4 0.0-0.5 % Neutrophils Absolute Auto 4.2 1.4-6.5 10 3/uL Lymphocytes Absolute Auto 2.4 1.2-3.8 10 3/uL Monocytes Absolute Auto 0.7 0.3-0.8 10 3/uL Eosinophils Absolute Auto 0.1 0.0-0.7 10 3/uL Basophils Absolute Auto 0.1 0.0-0.1 10 3/uL Immature Granulocytes Abs Auto 0.03 0.00-0.03 10 3/uL Performing Lab: see note ML - [facility] LB COVID-19, Flu A+B IH Reviewed date:01/18/2025 06:57:56 PM Interpretation: Performing Lab: Notes/Report: COVID - FLU A - FLU B - Control + COVID-19, Flu A+B IH Reviewed date:01/18/2025 06:57:56 PM Interpretation: Performing Lab: Notes/Report: COVID neg FLU A neg FLU B neg Control pos Reason For Referral Diagnosis 1 Carbuncle, unspecifi ed (L02.93) Referral Organization [facility] Referring Provider First Name Darci Referring Provider Last Name Jon Referring Provider Speciality Family Med teresa Referred Provider Ean Shahid Referred Provider Specialty General Surg alberto Referral Priority Routine Medications Medication SIG (Take, Route, Frequency, Duration) Notes Start Date End Date Status predniSONE 10 MG 5 tabs per day for 3 days, 4 tabs per day for 3 ays, 3 tabs perday for 3 days, 2 tabs per day for 3 days, 1 tab a day for 3 days, 1/2 tab a day for 4 days Orally Once a day; Duration: 19 days 04/12/2025 Active Tylenol Extra Strength 500 MG 1 tablet Orally every morning- and PRN in evening 01/10/2025 Active Cefdinir 300 MG 2 capsule Orally onc e a day; Duration: 10 days 04/12/2025 Active Ventolin HFA 108 (90 Base) MCG/ACT 2 puff as needed Inhalation every 4 hrs; Duration: 30 PRN 09/09/2023 Active dilTIAZem HCl ER Coated Beads 120 MG TAKE 1 CAPSULE BY MOUTH EVERY 24 HOURS; Duration: 30 Active Eliquis 5 MG 1 tablet Orally twic e daily; Duration: 30 days 01/10/2025 Active Levothyroxine Sodium 137 MCG TAKE 1 TABL ET BY MOUTH EVERY DAY; Duration: 90 days Active Liothyronine Sodium 5 MCG TAKE 2 TABLETS BY MOUTH EVERYDAY ON AN EMPTY STOMACH; Duration: 30 days Active Breo Ellipta 100-25 MCG/ACT INHALE [...] interested in quitting? Thinking about q uitting Alcohol Screen (Audit-C) Question Answer Notes Did you have a drink containing alcohol in the p ast year? No Points 0 Interpretation Negative AUDIT-C (Standard) Question Answer Notes Did you have a drink containing alcohol in the p ast year? No Points 0 Interpretation Negative Problems Problem Type SNOMED Code ICD Code Onset Dates Problem Status W/U Status Risk Notes Problem Hypothyroidism (45788346) Hypothyroidism, unspecified (E03.9) Active confirmed Problem Chalazion (1833065) Chalazion le ft lower eyelid (H00.15) Active confirmed Problem Ventricular premature depolarization (919574013) Ventricular premature depolarization (I49.3) Active confirmed Problem Disease of liver (244816048) Other specified diseases of liver (K76.89) Active confirmed Problem Actinic keratosis (657491) Actinic keratosis (L57.0) Active confirmed Problem Pain of left hip joint (finding) (856096062751789) Pain in left hip (M25.552) Active confirmed Problem Chest pain (29241788) Chest pain, unspecified (R07.9) Active confirmed Problem Carcinoembryonic antigen above reference range (897936669) Elevated carcinoembryonic antigen [CEA] (R97.0) Active confirmed Problem Exposure to communicable disease (276157946) Contact with and (suspected) exposure to other viral communicable diseases (Z20.828) Active confirmed Problem Fatigue (21760446) Fatigue (R53.83) Active conf irmed Problem COPD - Chronic obstructive pulmonary disease (15822345) COPD (chronic obstructive pulmonary disease) (J44.9) Active confirmed Problem Atrial fibrillation (disorder) (23764496) Afib (I48.91) Active confirmed Problem Neck pain (04140329) Neck pain (M54.2) Active confirmed Problem Depression (876716896) Depression (F32.9) Active confirmed Problem Dyspnea (041791075) Dyspnea (R06.00) Active con firmed Problem Syncope (135374001) Syncope (R55) Active confir med Problem Atrial fibrillation (79968544) Atrial fibrillation (I48.91) Active confirmed Problem Displacement of lumbar intervertebral disc without myelopathy (52269689) Lumbosacral disc herniation (M51.27) Active confirmed Problem Foot pain (09612696) Foot pain (M79.673) Active confirmed Problem Impacted cerumen (81701039) Cerumen impaction (H61.20) Active confirmed Problem Acute bronchitis (49788261) Acute bronchitis (J20.9) Active confirmed Problem Well adult (076409894) Well adult (Z00.00) Active confirmed Problem Atrial fibrillation (06534784) Atrial fibrillation with RVR (I48.91) Active confirmed Problem Pain in limb (55120116) Hand pain, left (M79.642) Active confirmed Problem Arthralgia of the ankle and/or foot (657811266) Right ankle pain (M25.571) Active confirmed Problem Arthralgia of the ankle and/or foot (553663932) Left ankle pain (M25.572) Active confirmed Problem Unexplained weight loss (827986842) Unexplained weight loss (R63.4) Active confirmed Problem Atrial premature beats (903154622) Atrial premature beats (I49.1) Active confirmed Problem Elbow pain (12505498) Elbow pain (M25.529) Active confirmed Problem History of hepatitis C (28445973374713) History of hepatitis C (Z86.19) Active confirmed Problem Acute bronchiolitis (2685328) Acute bronchiolitis (J21.9) Active confirmed Problem Breathing painful (73385203) Rib pain on left side (R07.81) Active confirmed Problem Chronic obstructive pulmonary disease (21957863) Advanced COPD (J44.9) Active confirmed Problem Shoulder impingement syndrome (960912462) Shoulder impingement syndrome (M75.40) Active confirmed Problem 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) Active confirmed Problem Spastic colon (91000630) Spastic colon (K58.9) Active confirmed Vital Signs Heart Rate 78 /min 07/04/2024 Temperature 99.1 degrees Fahrenheit 04/04/2025 Oximetry 97 % 07/04/2024 Blood pressure diastolic 62 mm Hg 04/12/2025 Height 72 in 04/12/2025 Blood pressure systolic 106 mm Hg 04/12/2025 Weight 167.6 lbs 04/12/2025 BMI 22.73 kg/m2 04/12/2025 Procedures Procedure Date Ordered Date Performed Result Body Sit e Holter Monitor - 3 days up to 14 days 01/10/2025 N/A Encounters Encounter Location Date Provider Diagnosis [place] [address] [place] [address] 04/15/2025 [facility] [address] [place] [address] 06/12/2024 Darci [facility] [address] [place] [address] 08/14/2024 Darci Hoy Cough R05.9 [place] [address] [place] [address] 10/30/2024 Darci kirit [facility] [address] [place] [address] 01/10/2025 Darci Highy Atrial fibrillation I48.91 [facility] [address] [place] [address] 01/18/2025 Darci [facility] [address] [place] [address] 04/12/2025 Darci [facility] [address] [place] [address] 01/10/2025 Darci Hoy Atrial fibrillation I48.91 ; History of hepatitis C Z86.19 ; Afib I48.91 ; Atrial fibrillation with RVR I48.91 ; COPD (chronic obstructive pulmonary disease) J44.9 and Advanced COPD J44.9 [facility] [address] [place] [address] 04/12/2025 Darci Hoy Acute bronchitis, unspecified organism J20.9 [facility] ([facility]) [address] [place] [address] [place] [address] 07/04/2024 Matt Back Strain of left Achilles tendon, initial encounter S86.012A and Achilles tendinitis, right leg M76.61 [facility] [address] [place] [address] 06/06/2024 Darci Hoy Cough R05.9 ; Acute bronchitis, unspecified organism J20.9 and Carbuncle, unspecified L02.93 [facility] [address] [place] [facility] [address] 07/31/2024 Darci Hoy Cough R05.9 and Acute bronchitis, unspecified organism J20.9 [facility] [address] [place] [facility] [address] 04/04/2025 Darci Hoy Acute bronchitis, unspecified organism J20.9 Assessments Encounter Date Diagnosis (ICD Code) Assessment Notes Treatment Notes Treatment Clinical Notes Section Notes 07/04/2024 Strain of left Achilles tendon, initial encounter (ICD-10 - S86.012A) Patient is doing well overall but relates to left calf spasm and cramping periodically but seems to be worse at nighttime. He does have a prescription for Zanaflex but relates that it gives him insomnia after 3 hours from taking the medication. I provided a prescription for low-dose Flexeril but related that additional stretching strengthening and balance with physical therapy may be necessary to help improve his overall function. He would like to attempt exercises on his own for now but I did provide a prescription and he will call if he changes his mind or has any other issues otherwise we will follow-up in 3 months with no new x-rays 07/04/2024 Achilles tendinitis, right leg (ICD-10 - M76.61) Patient has had symptoms of tendinitis on the right in the past and currently is asymptomatic but there is thickening on exam. I strongly emphasized the need for stretching and massage to the area and to keep a close eye on this. I did relate that he is at high risk for tear/rupture on this side due to recurrent tendinitis. 06/06/2024 Cough (ICD-10 - R05.9) 06/06/2024 Acute bronchitis, unspecified organism (ICD-10 - J20.9) Rest and drink more liquids, especially water. You may use a humidifier or vaporizer to help keep the drainage moist. Qrns-zdm-ssefmzp Nasal Saline may help the stuffy and runny nose. Use Ibuprofen and or Tylenol as needed for fever, chills, body aches or pain. Children 5 years old should not be given nwcg-rqn-bcelddj cough and cold medications such as guaifenesin and dextromethorphan. If you're over age 5, you may try pytm-hhz-ftefzmx cold medications such as guaifenesin and dextromethorphan, [...] to the emergency room or call 911 04/04/2025 Acute bronchitis, unspecified organism (ICD-10 - J20.9) Rest and drink more liquids, especially water. You may use a humidifier or vaporizer to help keep the drainage moist. Poyo-frt-rhjegxu Nasal Saline may help the stuffy and runny nose. Use Ibuprofen and or Tylenol as needed for fever, chills, body aches or pain. Children 5 years old should not be given lkdp-ooz-iesoxxc cough and cold medications such as guaifenesin and dextromethorphan. If you're over age 5, you may try rdkn-zje-yqdvgyg cold medications such as guaifenesin and dextromethorphan, [...] to the emergency room or call 911 04/12/2025 Acute bronchitis, unspecified organism (ICD-10 - J20.9) Rest and drink more liquids, especially water. You may use a humidifier or vaporizer to help keep the drainage moist. Jegu-pwb-hnocsbw Nasal Saline may help the stuffy and runny nose. Use Ibuprofen and or Tylenol as needed for fever, chills, body aches or pain. Children 5 years old should not be given ewbj-tmi-afnwkqc cough and cold medications such as guaifenesin and dextromethorphan. If you're over age 5, you may try jzup-ejp-gcjrbli cold medications such as guaifenesin and dextromethorphan, [...] to the emergency room or call 911 01/10/2025 Atrial fibrillation (ICD-10 - I48.91) 01/10/2025 History of hepatitis C (ICD-10 - Z86.19) 07/31/2024 Cough (ICD-10 - R05.9) 08/14/2024 Cough (ICD-10 - R05.9) 01/10/2025 Atrial fibrillation (ICD-10 - I48.91) 07/31/2024 Acute bronchitis, unspecified organism (ICD-10 - J20.9) Rest and drink more liquids, especially water. You may use a humidifier or vaporizer to help keep the drainage moist. Fxyn-pts-skldzep Nasal Saline may help the stuffy and runny nose. Use Ibuprofen and or Tylenol as needed for fever, chills, body aches or pain. Children 5 years old should not be given wixr-yua-bzgplmk cough and cold medications such as guaifenesin and dextromethorphan. If you're over age 5, you may try ohcr-peq-aqxwucs cold medications such as guaifenesin and dextromethorphan, [...] to the emergency room or call 911 01/10/2025 Afib (ICD-10 - I48.91) 06/06/2024 Carbuncle, unspecified (ICD-10 - L02.93) 01/10/2025 Atrial fibrillation with RVR (ICD-10 - I48.91) needs holter - having near syncope 01/10/2025 COPD (chronic obstructive pulmonary disease) (ICD-10 - J44.9) etable - no cui 01/10/2025 Advanced COPD (ICD-10 - J44.9) Plan Of Treatment Pending Test Test Name Order Date Exercise Stress Nuclear Test 11/05/2023 Holter Test 12/25/2022 CMP (COMPLETE METABOLIC PANEL) 3 HEMOGLOBIN A1C (GLYCO) 01/10/2025 HEMOGLOBIN A1C (GLYCO) 12/25/2022 IRON, TOTAL 12/25/2022 LIPID PANEL (CHOL/TRIG/HDL/LDL) 12/26/19 23 LIPID PANEL (CHOL/TRIG/HDL/LDL) 01/11/20 25 CBC WITH DIFF 12/25/2022 PSA, PROSTATE-SPECIFIC ANTIGEN 4 VITAMIN D, 25 LEVEL (TOTAL) 12/25/2022 CT Abdomen and Pelvis w/contrast * 03/05 US Liver 02/18/2023 CARDIO Echocardiogram 04/05/2024 Insulin Level 12/25/2022 CT Chest Low Dose for Screening* 024 CBC W/AUTO DIFF 12/06/2023 STOOL OCCULT BLOOD 01/10/2025 CMP 12/06/2023 CULTURE SPUTUM 04/12/2025 SPUTUM GRAM STAIN 04/12/2025 XR CHEST 2 V 04/12/2025 THYROID PANEL (T4/TSH/FREE T3) 4 THYROID PANEL (T4/TSH/FREE T3) 4 THYROID PANEL (T4/TSH/FREE T3) 5 THYROID PANEL (T4/TSH/FREE T3) 3 ECHOCARDIO M/2D COMPLETE 12/25/2022 Holter Monitor - 3 days up to 14 days PSA, SCREENING 01/10/2025 CMP (COMP MET [place]) w/eGFR CKD-EPI 2024 CBC WITH DIFF 01/10/2025 Next Appt Details Provider Name:Darci Bailey Jon, 09:45:00 AM, [address] [place], [address], Insurance Providers Payer Name Payer Address Payer Phone Subscriber Number Group Number Insured Name Patient Relationship to Insured Coverage Start Date Coverage End Date [employer] [address] [address] [place], [place] [id number] Lorenza Padgett Self - patient is the insured 3 Medications Administered Medication Instructions Date of Administration Dosage Notes Kenalog-40 09/09/2023 120 mg 120 Kenalog-40 11/05/2023 120 mg Ketorolac Tromethamine 11/05/2023 60 mg Medical (General) History Medical History History ICD Code Ventricular premature depolarization I49 .3 Atrial premature beats I49.1 Depression F32.9 Hypothyroidism, unspecified E03.9 History of hepatitis C Z86.19 Prostate asymmetry N42.89 Elevated carcinoembryonic antigen [CEA] R97.0 Spastic colon K58.9 Pain in left hip M25.552 herniated lumbar disc Cerumen impaction H61.20 Well adult Z00.00 Fatigue R53.83 Contact with and (suspected) exposure to other viral communicable diseases Z20.828 Foot pain M79.673 Dyspnea R06.00 Acute bronchitis J20.9 Shoulder impingement syndrome M75.40 Hand pain, left M79.642 Rib pain on left side R07.81 Elbow pain M25.529 Unexplained weight loss R63.4 Chest pain, unspecified R07.9 Lumbosacral disc herniation M51.27 Actinic keratosis L57.0 Neck pain M54.2 Surgical History Surgery Date(Month/Year) arthroscopy of shoulder excision of mortons neuroma 2012 Incarcer[facility] U[facility]ilical Hernia Repair- Dr Jo-Ann Shahid 08/23/17 liver biopsy Epidermoid cyst excision Hospitalization History Reason Date(Month/Year) see above
--- OUTSIDE RECORDS SUMMARY | 2025-04-26 09:40 | XMS_ITS | CCD ---
Author Organization [facility] Care Team Providers Care Tipple Mechanic Name Role Phone ENMA ., DR MITTAL Primary Care Unavailable HOY ., DR MITTAL Admitting Unavailable HOY ., DR MITTAL Attending Unavailable HOY ., DR MITTAL Consulting Unavailable [place], DR SPEEDY [employer] Unavailable KIRANEBHELENA, DR [...] Referring Unavailable PATSY RAGSDALE Attending Unavailable PATSY RGASDALE Attending Unavailable Medications Current Medications Medication Drug [...] Range Facility Office Visiton 04-03-2025 Follow-up visit [id number] Richy Ramachandran 1955 M Date Provider Department Center 04/03/2025 Iraida-JN PATSY JAVY Coreas Family History Problem Relation Age of Onset No Known Problems Mother No Known Problems Father Family Status - Relation Status Age at Mother Father Level of Service:28397 [place] OFFICE/OUTPATIENT ESTABLISHED LOW MDM 20 MIN Normal [facility] Ambulatory Visit Summaryon 1 09-04-2023 Ambulatory [...] for choosing us for your care. Normal [facility] Orders Onlyon 05-11-2024 Orders Only [id number] Richy Ramachandran 1955 M Date Provider Department Center 05/11/2024 RANDY COTTON Family History Problem Relation Age of Onset No Known Problems Mother No Known Problems Father Family Status - Relation Status Age at Mother Father Normal [facility] Office Visiton 05-09-2024 Follow-up visit [id number] Richy Ramachandran 1955 M Date Provider Department Center 05/09/2024 PATSY LEVY Family History Problem Relation Age of Onset No Known Problems Mother No Known Problems Father Family Status - Relation Status Age at Mother Father Level of Service:25104 [place] OFFICE/OUTPATIENT NEW MODERATE MDM 45 MINUTES Normal [facility] INSULINon 12-29-2022 Insulin 14.2 uIU/mL Normal 2.6-24.9 [facility] Comment on above: Performed By: #### I TJ #### [facility] [address] [address] [address] Guille Calderon CBC AUTO DIFFon 12-26-2022 BASO # 0.1 103/ul Normal 0.0-0.1 [facility] Comment on above: Performed By: #### I TJ #### [facility] [address] [address] [address] Guille Calderon Basophils/100 WBC (Bld) 1.3 % Normal 0.2-2.0 [facility] Comment on above: Performed By: #### I TJ #### [facility] [address] [place] [address] Dr. Guille Calderon EO # 0.1 103/ul Normal 0.0-0.7 [facility] Comment on above: Performed By: #### I TJ #### [facility] [address] [place] [address] Dr. Guille Calderon Eosinophils/100 WBC (Bld) 1.1 % Normal 0.9-7.0 [facility] Comment on above: Performed By: #### I TJ #### [facility] [address] [place] [address] Dr. Guille Calderon Erythrocyte distribution width (RBC) [Ratio] 13.1 % Normal 11.0-15.0 [facility] Comment on above: Performed By: #### I TJ #### [facility] [address] [place] [address] Dr. Guille Calderon Hematocrit (Bld) [Volume fraction] 46.7 % Normal 42.0-54.0 [facility] Comment on above: Performed By: #### I TJ #### [facility] [address] [place] [address] Dr. Guille Calderon Hemoglobin (Bld) [Mass/Vol] 16.1 g/dL Normal 14.0-18.0 [facility] Comment on above: Performed By: #### I TJ #### [facility] [address] [place] [address] Dr. Guille Calderon IG # 0.01 10e3/ul Normal 0.00-0.03 [facility] Comment on above: Performed By: #### I TJ #### [facility] [address] [place] [address] Dr. Guille Calderon IG % 0.2 % Normal 0.0-0.5 [facility] Comment on above: Performed By: #### I TJ #### [facility] [address] [place] [address] Dr. Guille Calderon LYMPH # 1.9 103/ul Normal 1.2-3.8 [facility] Comment on above: Performed By: #### I TJ #### [facility] [address] [place] [address] Dr. Guille Calderon Lymphocytes/100 WBC (Bld) 30.2 % Normal 20.5-60.0 [facility] Comment on above: Performed By: #### I TJ #### [facility] [address] [place] [address] Dr. Guille Calderon MANUAL DIFF REQ NO Normal [facility] Comment on above: Performed By: #### I TJ #### [facility] [address] [place] [address] Dr. Guille Calderon MCH (RBC) [Entitic mass] 31.1 pg Normal 25.9-34.0 [facility] Comment on above: Performed By: #### I TJ #### [facility] [address] [place] [address] Dr. Guille Calderon MCHC (RBC) [Mass/Vol] 34.5 g/dL Normal 29.9-35.2 [facility] Comment on above: Performed By: #### I TJ #### [facility] [address] [place] [address] Dr. Guille Calderon MCV (RBC) [Entitic vol] 90.2 fL Normal 80.0-94.0 [facility] Comment on above: Performed By: #### I TJ #### [facility] [address] [place] [address] Dr. Guille Calderon MONO # 0.6 103/ul Normal 0.3-0.8 [facility] Comment on above: Performed By: #### I TJ #### [facility] [address] [place] [address] Dr. Guille Calderon Monocytes/100 WBC (Bld) 9.8 % Normal 1.7-12.0 [facility] Comment on above: Performed By: #### I TJ #### [facility] [address] [place] [address] Dr. Guille Calderon NEUT # 3.7 103/ul Normal 1.4-6.5 [facility] Comment on above: Performed By: #### I TJ #### [facility] [address] [address] [address] Guille Calderon Neutrophils/100 WBC (Bld) 57.4 % Normal 43.0-75.0 [facility] Comment on above: Performed By: #### I TJ #### [facility] [address] [place] [address] Dr. Guille Calderon Platelet mean volume (Bld) [Entitic vol] 9.9 fL Normal 9.5-13.5 [facility] Comment on above: Performed By: #### I TJ #### [facility] [address] [place] [address] Dr. Guille Calderon PLT 237 103/ul Normal 150-450 [facility] Comment on above: Performed By: #### I TJ #### [facility] [address] [place] [address] Dr. Guille Calderon RBC 5.18 106/ul Normal 4.70-6.10 [facility] Comment on above: Performed By: #### I TJ #### [facility] [address] [place] [address] Dr. Guille Calderon WBC 6.4 103/ul Normal 4.0-11.0 [facility] Comment on above: Performed By: #### I TJ #### [facility] [address] [place] [address] Dr. Guille Calderon FREE THYROXINE INDEX T7on FTI 3.50 Normal 1.30-4.50 [facility] Comment on above: Performed By: #### P SASC, VITB12 #### [facility] [address] [place] [address] Dr. Guille Calderon T3U 34.0 % Normal 33.0-40.0 [facility] Comment on above: Performed By: #### P SASC, VITB12 #### [facility] [address] [place] [address] Dr. Guille Calderon T4 [Mass/Vol] 10.30 ug/dL Normal 4.50-12.10 [facility] Comment on above: Performed By: #### P SASC, VITB12 #### [facility] [address] [address] [address] Guille Calderon GLYCOHEMOGLOBIN A1Con 2022 ADA RECOMMENDATION SEE BELOW Normal [facility] Comment on above: Result Comment: ADA RECOMMENDED LIMIT 4.0 - 6.0 ADA THERAPEUTIC TARGET < 7.0 ACTION SUGGESTED > 7.0 Performed By: #### A 1C #### [facility] [address] [address] [address] Guille Calderon Glucose [Mass/Vol] 105 mg/dL Normal [facility] Comment on above: Performed By: #### A 1C #### [facility] [address] [place] [address] Dr. Guille Calderon HbA1c (Bld) [Mass fraction] 5.3 % Normal 4.5-6.2 [facility] Comment on above: Performed By: #### A 1C #### [facility] [address] [place] [address] Dr. Guille Calderon IRONon 12-26-2022 Iron [Mass/Vol] 79.0 ug/dL Normal 65.0-175.0 [facility] Comment on above: Performed By: #### V ITAD, IRON #### [facility] [address] [place] [address] Dr. Guille Calderon LIPID PROFILEon 12-26-2022 CHOL-HDL RATIO NORM SEE BELOW Normal [facility] Comment on above: Result Comment: 3.3 - 4.4 LOW RISK 4.4 - 7.1 AVERAGE RISK 7.1 - 11.0 MODERATE RISK >11.0 HIGH RISK Performed By: #### P SASC, VITB12 #### [facility] [address] [place] [address] Dr. Guille Calderon Cholesterol [Mass/Vol] 146 mg/dL Normal <=200 [facility] Comment on above: Performed By: #### P SASC, VITB12 #### [facility] [address] [place] [address] Dr. Guille Calderon Cholesterol in HDL [Mass/Vol] 49 mg/dL Normal 40-60 [facility] Comment on above: Performed By: #### P SASC, VITB12 #### [facility] [address] [address] [address] Guille Calderon Cholesterol in LDL [Mass/Vol] 79.2 mg/dL Normal [facility] Comment on above: Performed By: #### P SASC, VITB12 #### [facility] [address] [address] [address] Guille Calderon Cholesterol.total/Ch olesterol in HDL [Mass ratio] 3.0 {ratio} Normal [facility] Comment on above: Performed By: #### P SASC, VITB12 #### [facility] [address] [address] [address] Guille Calderon HDL NORMAL > or = 60 mg/dl - LO W CARDIOVASCULAR RISK <40 mg/dl - HIGH CARDIOVASCULAR RISK Normal [facility] Comment on above: Performed By: #### P SASC, VITB12 #### [facility] [address] [address] [address] Guille Calderon LDL CALC NORMAL SEE BELOW Normal [facility] Comment on above: Result Comment: <100 mg/dl OPTIMAL 100 - 129 mg/dl NEAR OR ABOVE OPTIMAL 130 - 159 mg/dl BORDERLINE HIGH 160 - 189 mg/dl HIGH >190 mg/dl VERY HIGH Performed By: #### P SASC, VITB12 #### [facility] [address] [address] [address] Guille Calderon Triglyceride [Mass/Vol] 89 mg/dL Normal <=150 [facility] Comment on above: Performed By: #### P SASC, VITB12 #### [facility] [address] [address] [address] Guille Calderon VLDL CALC 17.8 mg/dL Normal [facility] Comment on above: Performed By: #### P SASC, VITB12 #### [facility] [address] [address] [address] Guille Calderon PROF 14(COMP METB)on 023 Albumin [Mass/Vol] 3.6 g/dL Normal 3.4-5.0 [facility] Comment on above: Performed By: #### P SASC, VITB12 #### [facility] [address] [address] [address] Guille Calderon Albumin/Globulin [Mass ratio] 0.8 {ratio} Normal [facility] Comment on above: Performed By: #### P SASC, VITB12 #### [facility] [address] [address] [address] Guille Calderon ALP [Catalytic activity/Vol] 94 U/L Normal 46-116 [facility] Comment on above: Performed By: #### P SASC, VITB12 #### [facility] [address] [place] [address] Dr. Guille Calderon ALT [Catalytic activity/Vol] 45 U/L Normal 16-63 [facility] Comment on above: Performed By: #### P SASC, VITB12 #### [facility] [address] [place] [address] Dr. Guille Calderon Anion gap [Moles/Vol] 11.8 mmol/L Normal [facility] Comment on above: Performed By: #### P SASC, VITB12 #### [facility] [address] [place] [address] Dr. Guille Calderon AST [Catalytic activity/Vol] 28 U/L Normal 15-37 [facility] Comment on above: Performed By: #### P SASC, VITB12 #### [facility] [address] [address] [address] Guille Calderon Bilirubin [Mass/Vol] 0.4 mg/dL Normal 0.2-1.0 [facility] Comment on above: Performed By: #### P SASC, VITB12 #### [facility] [address] [place] [address] Dr. Guille Calderon Calcium [Mass/Vol] 8.7 mg/dL Normal 8.5-10.1 [facility] Comment on above: Performed By: #### P SASC, VITB12 #### [facility] [address] [place] [address] Dr. Guille Calderon Chloride [Moles/Vol] 103 mmol/L Normal 98-107 [facility] Comment on above: Performed By: #### P SASC, VITB12 #### [facility] [address] [place] [address] Dr. Guille Calderon CO2 [Moles/Vol] 29.7 mmol/L Normal 21.0-32.0 [facility] Comment on above: Performed By: #### P SASC, VITB12 #### [facility] [address] [place] [address] Dr. Guille Calderon Creatinine [Mass/Vol] 0.95 mg/dL Normal 0.70-1.30 [facility] Comment on above: Performed By: #### P SASC, VITB12 #### [facility] [address] [place] [address] Dr. Guille Calderon EGFR-AF GUAMANIAN >60 Normal >=60 [facility] Comment on above: Performed By: #### P SASC, VITB12 #### [facility] [address] [place] [address] Dr. Guille Calderon EGFR-NON AF GUAMANIAN >60 Normal >=60 [facility] Comment on above: Performed By: #### P SASC, VITB12 #### [facility] [address] [place] [address] Dr. Guille Calderon Globulin (S) [Mass/Vol] 4.3 g/dL Normal [facility] Comment on above: Performed By: #### P SASC, VITB12 #### [facility] [address] [place] [address] Dr. Guille Calderon Glucose [Mass/Vol] 92 mg/dL Normal 74-106 [facility] Comment on above: Performed By: #### P SASC, VITB12 #### [facility] [address] [place] [address] Dr. Guille Calderon Potassium [Moles/Vol] 4.5 mmol/L Normal 3.5-5.1 [facility] Comment on above: Performed By: #### P SASC, VITB12 #### [facility] [address] [place] [address] Dr. Guille Calderon Protein [Mass/Vol] 7.9 g/dL Normal 6.4-8.2 [facility] Comment on above: Performed By: #### P SASC, VITB12 #### [facility] [address] [address] [address] Guille Calderon Sodium [Moles/Vol] 140 mmol/L Normal 136-145 [facility] Comment on above: Performed By: #### P SASC, VITB12 #### [facility] [address] [address] [address] Guille Calderon Urea nitrogen [Mass/Vol] 15.0 mg/dL Normal 7.0-18.0 [facility] Comment on above: Performed By: #### P SASC, VITB12 #### [facility] [address] [address] [address] Guille Calderon Urea nitrogen/Creatinine [Mass ratio] 15.8 mg/mg Normal [facility] Comment on above: Performed By: #### P SASC, VITB12 #### [facility] [address] [address] [address] Guille Calderon TSHon 12-26-2022 TSH 0.068 uIU/mL Critically low 0.358-3.740 [facility] Comment on above: Performed By: #### P SASC, VITB12 #### [facility] [address] [address] [address] Guille Calderon VITAMIN D 25 OHon 12-26-2022 VIT D 25-OH 72.7 ng/mL Normal [facility] Comment on above: Performed By: #### V ITAD, IRON #### [facility] [address] [address] [address] Guille Calderon VIT D RANGES SEE BELOW Normal [facility] Comment on above: Result Comment: <20 ng/mL Vit D deficient 20 - <30 ng/mL Vit D insufficient 30 - 100 ng/mL Vit D sufficient >100 ng/mL Potential Toxicity Performed By: #### V ITAD, IRON #### [facility] [address] [place] [address] Dr. Guille Calderon CULTURE SPUTUMon 06-01-2022 CULTURE SPUTUM Culture Observations : NORMAL RESPIRATORY DWIGHT. Normal [facility] Comment on above: Performed By: #### I TJ #### [facility] [address] [address] [address] Guille Calderon SPUTUM GRAM STAINon 06-01-20 22 COMMENTS Normal [facility] Comment on above: Performed By: #### I TJ #### [facility] [address] [address] [address] Guille Calderon DIPHTHEROIDS Normal [facility] Comment on above: Performed By: #### I TJ #### [facility] [address] [address] [address] Guille Calderon EPITHELIALS <25 [facility] Comment on above: Performed By: #### I TJ #### [facility] [address] [place] [address] Dr. Guille Calderon FUNGAL ELEMENTS Normal [facility] Comment on above: Performed By: #### I TJ #### [facility] [address] [place] [address] Dr. Guille Calderon GRAM NEG BACILLI Normal [facility] Comment on above: Performed By: #### I TJ #### [facility] [address] [address] [address] Guille Calderon GRAM NEG DIPPLOCOCCI [facility] Comment on above: Performed By: #### I TJ #### [facility] [address] [place] [address] Dr. Guille Calderon GRAM POS BACILLI [facility] Comment on above: Performed By: #### I TJ #### [facility] [address] [place] [address] Dr. Guille Calderon GRAM POSITIVE COCCI FEW Normal [facility] Comment on above: Performed By: #### I TJ #### [facility] [address] [place] [address] Dr. Guille Calderon WBC (Bld) [#/Vol] 10*3/uL [facility] Comment on above: Performed By: #### I TJ #### [facility] [address] [place] [address] Dr. Guille Calderon BNPon 05-30-2022 Natriuretic peptide B (Bld) [Mass/Vol] 381.0 pg/mL Normal <=900.0 [facility] Comment on above: Performed By: #### B FILENET DEVELOPER, CMP #### [facility] [address] [place] [address] Dr. Guille Calderon CBC AUTO DIFFon 05-30-2022 BASO # 0.1 103/ul Normal 0.0-0.1 [facility] Comment on above: Performed By: #### I TJ #### [facility] [address] [place] [address] Dr. Guille Calderon Basophils/100 WBC (Bld) 0.5 % Normal 0.2-2.0 [facility] Comment on above: Performed By: #### I TJ #### [facility] [address] [place] [address] Dr. Guille Calderon EO # 0.0 103/ul Normal 0.0-0.7 [facility] Comment on above: Performed By: #### I TJ #### [facility] [address] [place] [address] Dr. Guille Calderon Eosinophils/100 WBC (Bld) 0.1 % Critically low 0.9-7.0 [facility] Comment on above: Performed By: #### I TJ #### [facility] [address] [place] [address] Dr. Guille Calderon Erythrocyte distribution width (RBC) [Ratio] 13.7 % Normal 11.0-15.0 [facility] Comment on above: Performed By: #### I TJ #### [facility] [address] [place] [address] Dr. Guille Calderon Hematocrit (Bld) [Volume fraction] 45.4 % Normal 42.0-54.0 [facility] Comment on above: Performed By: #### I TJ #### [facility] [address] [place] [address] Dr. Guille Calderon Hemoglobin (Bld) [Mass/Vol] 15.3 g/dL Normal 14.0-18.0 [facility] Comment on above: Performed By: #### I TJ #### [facility] [address] [address] [address] Guille Calderon IG # 0.04 10e3/ul Critically high 0.00-0.03 [facility] Comment on above: Performed By: #### I TJ #### [facility] [address] [address] [address] Guille Calderon IG % 0.4 % Normal 0.0-0.5 [facility] Comment on above: Performed By: #### I TJ #### [facility] [address] [place] [address] Dr. Guille Calderon LYMPH # 2.0 103/ul Normal 1.2-3.8 [facility] Comment on above: Performed By: #### I TJ #### [facility] [address] [place] [address] Dr. Guille Calderon Lymphocytes/100 WBC (Bld) 17.7 % Critically low 20.5-60.0 [facility] Comment on above: Performed By: #### I TJ #### [facility] [address] [place] [address] Dr. Guille Calderon MANUAL DIFF REQ NO Normal [facility] Comment on above: Performed By: #### I TJ #### [facility] [address] [place] [address] Dr. Guille Calderon MCH (RBC) [Entitic mass] 31.0 pg Normal 25.9-34.0 [facility] Comment on above: Performed By: #### I TJ #### [facility] [address] [place] [address] Dr. Guille Calderon MCHC (RBC) [Mass/Vol] 33.7 g/dL Normal 29.9-35.2 [facility] Comment on above: Performed By: #### I TJ #### [facility] [address] [place] [address] Dr. Guille Calderon MCV (RBC) [Entitic vol] 92.1 fL Normal 80.0-94.0 [facility] Comment on above: Performed By: #### I TJ #### [facility] [address] [place] [address] Dr. Guille Caldeorn MONO # 0.7 103/ul Normal 0.3-0.8 [facility] Comment on above: Performed By: #### I TJ #### [facility] [address] [address] [address] Guille Calderon Monocytes/100 WBC (Bld) 6.5 % Normal 1.7-12.0 [facility] Comment on above: Performed By: #### I TJ #### [facility] [address] [place] [address] Dr. Guille Calderon NEUT # 8.5 103/ul Critically high 1.4-6.5 [facility] Comment on above: Performed By: #### I TJ #### [facility] [address] [place] [address] Dr. Guille Calderon Neutrophils/100 WBC (Bld) 74.8 % Normal 43.0-75.0 [facility] Comment on above: Performed By: #### I TJ #### [facility] [address] [place] [address] Dr. Guille Calderon Platelet mean volume (Bld) [Entitic vol] 10.1 fL Normal 9.5-13.5 [facility] Comment on above: Performed By: #### I TJ #### [facility] [address] [place] [address] Dr. Guille Calderon PLT 305 103/ul Normal 150-450 [facility] Comment on above: Performed By: #### I TJ #### [facility] [address] [place] [address] Dr. Guille Calderon RBC 4.93 106/ul Normal 4.70-6.10 [facility] Comment on above: Performed By: #### I TJ #### [facility] [address] [place] [address] Dr. Guille Calderon WBC 11.4 103/ul Critically high 4.0-11.0 [facility] Comment on above: Performed By: #### I TJ #### [facility] [address] [address] [address] Guille Calderon IRONon 05-30-2022 Iron [Mass/Vol] 156.0 ug/dL Normal 65.0-175.0 [facility] Comment on above: Performed By: #### I TJ #### [facility] [address] [place] [address] Dr. Guille Calderon PROF 14(COMP METB)on 022 Albumin [Mass/Vol] 4.1 g/dL Normal 3.4-5.0 [facility] Comment on above: Performed By: #### B FILENET DEVELOPER, CMP #### [facility] [address] [place] [address] Dr. Guille Calderon Albumin/Globulin [Mass ratio] 0.9 {ratio} Normal [facility] Comment on above: Performed By: #### B FILENET DEVELOPER, CMP #### [facility] [address] [place] [address] Dr. Guille Calderon ALP [Catalytic activity/Vol] 84 U/L Normal 46-116 [facility] Comment on above: Performed By: #### B FILENET DEVELOPER, CMP #### [facility] [address] [place] [address] Dr. Guille Calderon ALT [Catalytic activity/Vol] 40 U/L Normal 16-63 [facility] Comment on above: Performed By: #### B FILENET DEVELOPER, CMP #### [facility] [address] [place] [address] Dr. Guille Calderon Anion gap [Moles/Vol] 9.5 mmol/L Normal [facility] Comment on above: Performed By: #### B FILENET DEVELOPER, CMP #### [facility] [address] [place] [address] Dr. Guille Calderon AST [Catalytic activity/Vol] 19 U/L Normal 15-37 [facility] Comment on above: Performed By: #### B FILENET DEVELOPER, CMP #### [facility] [address] [place] [address] Dr. Guille Calderon Bilirubin [Mass/Vol] 0.4 mg/dL Normal 0.2-1.0 [facility] Comment on above: Performed By: #### B FILENET DEVELOPER, CMP #### [facility] [address] [place] [address] Dr. Guille Calderon Calcium [Mass/Vol] 8.9 mg/dL Normal 8.5-10.1 [facility] Comment on above: Performed By: #### B FILENET DEVELOPER, CMP #### [facility] [address] [place] [address] Dr. Guille Calderon Chloride [Moles/Vol] 103 mmol/L Normal 98-107 [facility] Comment on above: Performed By: #### B FILENET DEVELOPER, CMP #### [facility] [address] [place] [address] Dr. Guille Calderon CO2 [Moles/Vol] 28.1 mmol/L Normal 21.0-32.0 [facility] Comment on above: Performed By: #### B FILENET DEVELOPER, CMP #### [facility] [address] [place] [address] Dr. Guille Calderon Creatinine [Mass/Vol] 0.87 mg/dL Normal 0.70-1.30 [facility] Comment on above: Performed By: #### B FILENET DEVELOPER, CMP #### [facility] [address] [place] [address] Dr. Guille Calderon EGFR-AF GUAMANIAN >60 Normal >=60 [facility] Comment on above: Performed By: #### B FILENET DEVELOPER, CMP #### [facility] [address] [place] [address] Dr. Guille Calderon EGFR-NON AF GUAMANIAN >60 Normal >=60 [facility] Comment on above: Performed By: #### B FILENET DEVELOPER, CMP #### [facility] [address] [place] [address] Dr. Guille Calderon Globulin (S) [Mass/Vol] 4.5 g/dL Normal [facility] Comment on above: Performed By: #### B FILENET DEVELOPER, CMP #### [facility] [address] [place] [address] Dr. Guille Calderon Glucose [Mass/Vol] 109 mg/dL Critically high 74-106 [facility] Comment on above: Performed By: #### B FILENET DEVELOPER, CMP #### [facility] [address] [address] [address] Guille Calderon Potassium [Moles/Vol] 4.6 mmol/L Normal 3.5-5.1 [facility] Comment on above: Performed By: #### B FILENET DEVELOPER, CMP #### [facility] [address] [address] [address] Guille Calderon Protein [Mass/Vol] 8.6 g/dL Critically high 6.4-8.2 [facility] Comment on above: Performed By: #### B FILENET DEVELOPER, CMP #### [facility] [address] [address] [address] Guille Calderon Sodium [Moles/Vol] 136 mmol/L Normal 136-145 [facility] Comment on above: Performed By: #### B FILENET DEVELOPER, CMP #### [facility] [address] [place] [address] Dr. Guille Calderon Urea nitrogen [Mass/Vol] 19.0 mg/dL Critically high 7.0-18.0 [facility] Comment on above: Performed By: #### B FILENET DEVELOPER, CMP #### [facility] [address] [address] [address] Guille Calderon Urea nitrogen/Creatinine [Mass ratio] 21.8 mg/mg Normal [facility] Comment on above: Performed By: #### B FILENET DEVELOPER, CMP #### [facility] [address] [place] [address] Dr. Guille Calderon XR CHEST 2 Von [...] by: ARLENE CHOI Date: 2022-05-30 17:22 Normal [facility] INSULINon 04-03-2022 Insulin 6.4 uIU/mL Normal 2.6-24.9 [facility] Comment on above: Performed By: #### P SASC, VITB12 #### [facility] [address] [address] [address] Guille Calderon OCC BLD IMMUNO SCREENon OCCULT BLOOD Negative Normal NEGATIVE [facility] Comment on above: Performed By: #### P SASC, VITB12 #### [facility] [address] [address] [address] Guille Calderon T4, T3U, FTI [facility]on 04-03 Free Thyroxine Index 2.5 Normal 1.2-4.9 [facility] Comment on above: Performed By: #### T HYLC #### [facility] [address] [place] [address] Dr. Guille Calderon T3 Uptake 28 % Normal 24-39 [facility] Comment on above: Performed By: #### T HYLC #### [facility] [address] [place] [address] Dr. Guille Calderon T4 [Mass/Vol] 8.8 ug/dL Normal 4.5-12.0 [facility] Comment on above: Performed By: #### T HYLC #### [facility] [address] [place] [address] Dr. Guille Calderon VIT D 25-OH [facility] 2021 Vitamin D, 25-Hydroxy 85.0 ng/mL Normal 30.0-100.0 [facility] Comment on above: Result Comment: Karime min D deficiency has been defined by the [place] [employer] and an Endocrine Society practice guideline as a level of serum 25-OH vitamin D less than 20 ng/mL (1,2). The Endocrine Society went on to further define vitamin D insufficiency as a level between 21 and 29 ng/mL (2). 1. IOM ([place] [employer]). 2010. Dietary reference intakes for calcium and D. [place]: The National Academies Press. 2. Mena MF, Umair NC, Luis POWELL, et al. Evaluation, treatment, and prevention of vitamin D deficiency: an Endocrine Society clinical practice guideline. JCEM. 2010; 96(7):1911-30. Performed By: #### V ITADLC #### [facility] [address] [place] [address] Dr. Guille Calderon BNPon 04-02-2022 Natriuretic peptide B (Bld) [Mass/Vol] 252.0 pg/mL Normal <=900.0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
== END 2025-04-26 09:34 | disposition home or self-care (01) ==
LOC: LAB 09:33
PROVIDERS: PCP Family Medicine; Visit Provider Family Medicine
DX: J20.9 Acute bronchitis, unspecified (principal)
CPT/HCPCS: 87070; 87205

== ENCOUNTER 2025-05-08 08:54 | Outpatient (OUT) | payer MEDICARE, SELFPAY ==
--- OUTSIDE RECORDS SUMMARY | 2025-05-08 09:02 | XMS_ITS | CCD ---
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 Name Role Phone ENMA ., DR MITTAL Primary Care Unavailable HOY ., DR MITTAL Admitting Unavailable HOY ., DR MITTAL Attending Unavailable HOY ., DR MITTAL Consulting Unavailable WINONA, DR SPEEDY [employer] Unavailable KIRANEBHELENA, DR [...] Range Facility Office Visiton 04-03-2025 Follow-up visit [id number] Richy Ramachandran 1955 M Date Provider Department Center 04/03/2025 Iraida-JN PATSY JAVY Coreas Family History Problem Relation Age of Onset No Known Problems Mother No Known Problems Father Family Status - Relation Status Age at Mother Father Level of Service:64612 [place] OFFICE/OUTPATIENT ESTABLISHED LOW MDM 20 MIN Normal [facility] Ambulatory Visit Summaryon 1 09-04-2023 Ambulatory [...] for choosing us for your care. Normal [facility] Orders Onlyon 05-11-2024 Orders Only [id number] Richy Ramachandran 1955 M Date Provider Department Center 05/11/2024 RANDY COTTON Family History Problem Relation Age of Onset No Known Problems Mother No Known Problems Father Family Status - Relation Status Age at Mother Father Normal [facility] Office Visiton 05-09-2024 Follow-up visit [id number] Richy Ramachandran 1955 M Date Provider Department Center 05/09/2024 PATSY LEVY Family History Problem Relation Age of Onset No Known Problems Mother No Known Problems Father Family Status - Relation Status Age at Mother Father Level of Service:37230 [place] OFFICE/OUTPATIENT NEW MODERATE MDM 45 MINUTES Normal [facility] INSULINon 12-29-2022 Insulin 14.2 uIU/mL Normal 2.6-24.9 [facility] Comment on above: Performed By: #### I TJ #### [facility] [address] [address] [address] Guille Calderon CBC AUTO DIFFon 12-26-2022 BASO # 0.1 103/ul Normal 0.0-0.1 [facility] Comment on above: Performed By: #### I TJ #### [facility] [address] [address] [address] Guille Calderon Basophils/100 WBC (Bld) 1.3 % Normal 0.2-2.0 [facility] Comment on above: Performed By: #### I TJ #### [facility] [address] [place] [address] Dr. Guille Calderon EO # 0.1 103/ul Normal 0.0-0.7 [facility] Comment on above: Performed By: #### I TJ #### [facility] [address] [place] [address] Dr. Guille Calderon Eosinophils/100 WBC (Bld) 1.1 % Normal 0.9-7.0 [facility] Comment on above: Performed By: #### I TJ #### [facility] [address] [place] [address] Dr. Guille Calderon Erythrocyte distribution width (RBC) [Ratio] 13.1 % Normal 11.0-15.0 [facility] Comment on above: Performed By: #### I TJ #### [facility] [address] [place] [address] Dr. Guille Calderon Hematocrit (Bld) [Volume fraction] 46.7 % Normal 42.0-54.0 [facility] Comment on above: Performed By: #### I TJ #### [facility] [address] [place] [address] Dr. Guille Calderon Hemoglobin (Bld) [Mass/Vol] 16.1 g/dL Normal 14.0-18.0 [facility] Comment on above: Performed By: #### I TJ #### [facility] [address] [place] [address] Dr. Guille Calderon IG # 0.01 10e3/ul Normal 0.00-0.03 [facility] Comment on above: Performed By: #### I TJ #### [facility] [address] [place] [address] Dr. Guille Calderon IG % 0.2 % Normal 0.0-0.5 [facility] Comment on above: Performed By: #### I TJ #### [facility] [address] [place] [address] Dr. Guille Calderon LYMPH # 1.9 103/ul Normal 1.2-3.8 [facility] Comment on above: Performed By: #### I TJ #### [facility] [address] [place] [address] Dr. Guille Calderon Lymphocytes/100 WBC (Bld) 30.2 % Normal 20.5-60.0 [facility] Comment on above: Performed By: #### I TJ #### [facility] [address] [place] [address] Dr. Guille Calderon MANUAL DIFF REQ NO Normal [facility] Comment on above: Performed By: #### I TJ #### [facility] [address] [place] [address] Dr. Guille Calderon MCH (RBC) [Entitic mass] 31.1 pg Normal 25.9-34.0 [facility] Comment on above: Performed By: #### I TJ #### [facility] [address] [place] [address] Dr. Guille Calderon MCHC (RBC) [Mass/Vol] 34.5 g/dL Normal 29.9-35.2 [facility] Comment on above: Performed By: #### I TJ #### [facility] [address] [place] [address] Dr. Guille Calderon MCV (RBC) [Entitic vol] 90.2 fL Normal 80.0-94.0 [facility] Comment on above: Performed By: #### I TJ #### [facility] [address] [place] [address] Dr. Guille Calderon MONO # 0.6 103/ul Normal 0.3-0.8 [facility] Comment on above: Performed By: #### I TJ #### [facility] [address] [place] [address] Dr. Guille Calderon Monocytes/100 WBC (Bld) 9.8 % Normal 1.7-12.0 [facility] Comment on above: Performed By: #### I TJ #### [facility] [address] [place] [address] Dr. Guille Calderon NEUT # 3.7 103/ul Normal 1.4-6.5 [facility] Comment on above: Performed By: #### I TJ #### [facility] [address] [address] [address] Guille Calderon Neutrophils/100 WBC (Bld) 57.4 % Normal 43.0-75.0 [facility] Comment on above: Performed By: #### I TJ #### [facility] [address] [place] [address] Dr. Guille Calderon Platelet mean volume (Bld) [Entitic vol] 9.9 fL Normal 9.5-13.5 [facility] Comment on above: Performed By: #### I TJ #### [facility] [address] [place] [address] Dr. Guille Calderon PLT 237 103/ul Normal 150-450 [facility] Comment on above: Performed By: #### I TJ #### [facility] [address] [place] [address] Dr. Guille Calderon RBC 5.18 106/ul Normal 4.70-6.10 [facility] Comment on above: Performed By: #### I TJ #### [facility] [address] [place] [address] Dr. Guille Calderon WBC 6.4 103/ul Normal 4.0-11.0 [facility] Comment on above: Performed By: #### I TJ #### [facility] [address] [place] [address] Dr. Guille Calderon FREE THYROXINE INDEX T7on FTI 3.50 Normal 1.30-4.50 [facility] Comment on above: Performed By: #### P SASC, VITB12 #### [facility] [address] [place] [address] Dr. Guille Calderon T3U 34.0 % Normal 33.0-40.0 [facility] Comment on above: Performed By: #### P SASC, VITB12 #### [facility] [address] [place] [address] Dr. Guille Calderon T4 [Mass/Vol] 10.30 ug/dL Normal 4.50-12.10 [facility] Comment on above: Performed By: #### P SASC, VITB12 #### [facility] [address] [address] [address] Guille Calderon GLYCOHEMOGLOBIN A1Con 2022 ADA RECOMMENDATION SEE BELOW Normal [facility] Comment on above: Result Comment: ADA RECOMMENDED LIMIT 4.0 - 6.0 ADA THERAPEUTIC TARGET < 7.0 ACTION SUGGESTED > 7.0 Performed By: #### A 1C #### [facility] [address] [address] [address] Guille Calderon Glucose [Mass/Vol] 105 mg/dL Normal [facility] Comment on above: Performed By: #### A 1C #### [facility] [address] [place] [address] Dr. Guille Calderon HbA1c (Bld) [Mass fraction] 5.3 % Normal 4.5-6.2 [facility] Comment on above: Performed By: #### A 1C #### [facility] [address] [place] [address] Dr. Guille Calderon IRONon 12-26-2022 Iron [Mass/Vol] 79.0 ug/dL Normal 65.0-175.0 [facility] Comment on above: Performed By: #### V ITAD, IRON #### [facility] [address] [place] [address] Dr. Guille Calderon LIPID PROFILEon 12-26-2022 CHOL-HDL RATIO NORM SEE BELOW Normal [facility] Comment on above: Result Comment: 3.3 - 4.4 LOW RISK 4.4 - 7.1 AVERAGE RISK 7.1 - 11.0 MODERATE RISK >11.0 HIGH RISK Performed By: #### P SASC, VITB12 #### [facility] [address] [place] [address] Dr. Guille Calderon Cholesterol [Mass/Vol] 146 mg/dL Normal <=200 [facility] Comment on above: Performed By: #### P SASC, VITB12 #### [facility] [address] [place] [address] Dr. Guille Calderon Cholesterol in HDL [Mass/Vol] 49 mg/dL Normal 40-60 [facility] Comment on above: Performed By: #### P SASC, VITB12 #### [facility] [address] [address] [address] Guille Calderon Cholesterol in LDL [Mass/Vol] 79.2 mg/dL Normal [facility] Comment on above: Performed By: #### P SASC, VITB12 #### [facility] [address] [address] [address] Guille Calderon Cholesterol.total/Ch olesterol in HDL [Mass ratio] 3.0 {ratio} Normal [facility] Comment on above: Performed By: #### P SASC, VITB12 #### [facility] [address] [address] [address] Guille Calderon HDL NORMAL > or = 60 mg/dl - LO W CARDIOVASCULAR RISK <40 mg/dl - HIGH CARDIOVASCULAR RISK Normal [facility] Comment on above: Performed By: #### P SASC, VITB12 #### [facility] [address] [address] [address] Guille Calderon LDL CALC NORMAL SEE BELOW Normal [facility] Comment on above: Result Comment: <100 mg/dl OPTIMAL 100 - 129 mg/dl NEAR OR ABOVE OPTIMAL 130 - 159 mg/dl BORDERLINE HIGH 160 - 189 mg/dl HIGH >190 mg/dl VERY HIGH Performed By: #### P SASC, VITB12 #### [facility] [address] [address] [address] Guille Calderon Triglyceride [Mass/Vol] 89 mg/dL Normal <=150 [facility] Comment on above: Performed By: #### P SASC, VITB12 #### [facility] [address] [address] [address] Guille Calderon VLDL CALC 17.8 mg/dL Normal [facility] Comment on above: Performed By: #### P SASC, VITB12 #### [facility] [address] [address] [address] Guille Calderon PROF 14(COMP METB)on 023 Albumin [Mass/Vol] 3.6 g/dL Normal 3.4-5.0 [facility] Comment on above: Performed By: #### P SASC, VITB12 #### [facility] [address] [address] [address] Guille Calderon Albumin/Globulin [Mass ratio] 0.8 {ratio} Normal [facility] Comment on above: Performed By: #### P SASC, VITB12 #### [facility] [address] [address] [address] Guille Calderon ALP [Catalytic activity/Vol] 94 U/L Normal 46-116 [facility] Comment on above: Performed By: #### P SASC, VITB12 #### [facility] [address] [place] [address] Dr. Guille Calderon ALT [Catalytic activity/Vol] 45 U/L Normal 16-63 [facility] Comment on above: Performed By: #### P SASC, VITB12 #### [facility] [address] [place] [address] Dr. Guille Calderon Anion gap [Moles/Vol] 11.8 mmol/L Normal [facility] Comment on above: Performed By: #### P SASC, VITB12 #### [facility] [address] [place] [address] Dr. Guille Calderno AST [Catalytic activity/Vol] 28 U/L Normal 15-37 [facility] Comment on above: Performed By: #### P SASC, VITB12 #### [facility] [address] [address] [address] Guille Calderon Bilirubin [Mass/Vol] 0.4 mg/dL Normal 0.2-1.0 [facility] Comment on above: Performed By: #### P SASC, VITB12 #### [facility] [address] [place] [address] Dr. Guille Calderon Calcium [Mass/Vol] 8.7 mg/dL Normal 8.5-10.1 [facility] Comment on above: Performed By: #### P SASC, VITB12 #### [facility] [address] [place] [address] Dr. Guille Calderon Chloride [Moles/Vol] 103 mmol/L Normal 98-107 [facility] Comment on above: Performed By: #### P SASC, VITB12 #### [facility] [address] [place] [address] Dr. Guille Calderon CO2 [Moles/Vol] 29.7 mmol/L Normal 21.0-32.0 [facility] Comment on above: Performed By: #### P SASC, VITB12 #### [facility] [address] [place] [address] Dr. Guille Calderon Creatinine [Mass/Vol] 0.95 mg/dL Normal 0.70-1.30 [facility] Comment on above: Performed By: #### P SASC, VITB12 #### [facility] [address] [place] [address] Dr. Guille Calderon EGFR-AF SAMMARINESE >60 Normal >=60 [facility] Comment on above: Performed By: #### P SASC, VITB12 #### [facility] [address] [place] [address] Dr. Guille Calderon EGFR-NON AF SAMMARINESE >60 Normal >=60 [facility] Comment on above: Performed By: #### P SASC, VITB12 #### [facility] [address] [place] [address] Dr. Guille Calderon Globulin (S) [Mass/Vol] 4.3 g/dL Normal [facility] Comment on above: Performed By: #### P SASC, VITB12 #### [facility] [address] [place] [address] Dr. Guille Calderon Glucose [Mass/Vol] 92 mg/dL Normal 74-106 [facility] Comment on above: Performed By: #### P SASC, VITB12 #### [facility] [address] [place] [address] Dr. Guille Calderon Potassium [Moles/Vol] 4.5 mmol/L Normal 3.5-5.1 [facility] Comment on above: Performed By: #### P SASC, VITB12 #### [facility] [address] [place] [address] Dr. Guille Calderon Protein [Mass/Vol] 7.9 g/dL Normal 6.4-8.2 [facility] Comment on above: Performed By: #### P SASC, VITB12 #### [facility] [address] [address] [address] Guille Calderon Sodium [Moles/Vol] 140 mmol/L Normal 136-145 [facility] Comment on above: Performed By: #### P SASC, VITB12 #### [facility] [address] [address] [address] Guille Calderon Urea nitrogen [Mass/Vol] 15.0 mg/dL Normal 7.0-18.0 [facility] Comment on above: Performed By: #### P SASC, VITB12 #### [facility] [address] [address] [address] Guille Calderon Urea nitrogen/Creatinine [Mass ratio] 15.8 mg/mg Normal [facility] Comment on above: Performed By: #### P SASC, VITB12 #### [facility] [address] [address] [address] Guille Calderon TSHon 12-26-2022 TSH 0.068 uIU/mL Critically low 0.358-3.740 [facility] Comment on above: Performed By: #### P SASC, VITB12 #### [facility] [address] [address] [address] Guille Calderon VITAMIN D 25 OHon 12-26-2022 VIT D 25-OH 72.7 ng/mL Normal [facility] Comment on above: Performed By: #### V ITAD, IRON #### [facility] [address] [address] [address] Guille Calderon VIT D RANGES SEE BELOW Normal [facility] Comment on above: Result Comment: <20 ng/mL Vit D deficient 20 - <30 ng/mL Vit D insufficient 30 - 100 ng/mL Vit D sufficient >100 ng/mL Potential Toxicity Performed By: #### V ITAD, IRON #### [facility] [address] [place] [address] Dr. Guille Calderon CULTURE SPUTUMon 06-01-2022 CULTURE SPUTUM Culture Observations : NORMAL RESPIRATORY DWIGHT. Normal [facility] Comment on above: Performed By: #### I TJ #### [facility] [address] [address] [address] Guille Calderon SPUTUM GRAM STAINon 06-01-20 22 COMMENTS Normal [facility] Comment on above: Performed By: #### I TJ #### [facility] [address] [address] [address] Guille Calderon DIPHTHEROIDS Normal [facility] Comment on above: Performed By: #### I TJ #### [facility] [address] [address] [address] Guille Calderon EPITHELIALS <25 [facility] Comment on above: Performed By: #### I TJ #### [facility] [address] [place] [address] Dr. Guille Calderon FUNGAL ELEMENTS Normal [facility] Comment on above: Performed By: #### I TJ #### [facility] [address] [place] [address] Dr. Guille Calderon GRAM NEG BACILLI Normal [facility] Comment on above: Performed By: #### I TJ #### [facility] [address] [address] [address] Guille Calderon GRAM NEG DIPPLOCOCCI [facility] Comment on above: Performed By: #### I TJ #### [facility] [address] [place] [address] Dr. Guille Calderon GRAM POS BACILLI [facility] Comment on above: Performed By: #### I TJ #### [facility] [address] [place] [address] Dr. Guille Calderon GRAM POSITIVE COCCI FEW Normal [facility] Comment on above: Performed By: #### I TJ #### [facility] [address] [place] [address] Dr. Guille Calderon WBC (Bld) [#/Vol] 10*3/uL [facility] Comment on above: Performed By: #### I TJ #### [facility] [address] [place] [address] Dr. Guille Calderon BNPon 05-30-2022 Natriuretic peptide B (Bld) [Mass/Vol] 381.0 pg/mL Normal <=900.0 [facility] Comment on above: Performed By: #### B COST CLERK, CMP #### [facility] [address] [place] [address] Dr. Guille Calderon CBC AUTO DIFFon 05-30-2022 BASO # 0.1 103/ul Normal 0.0-0.1 [facility] Comment on above: Performed By: #### I TJ #### [facility] [address] [place] [address] Dr. Guille Calderon Basophils/100 WBC (Bld) 0.5 % Normal 0.2-2.0 [facility] Comment on above: Performed By: #### I TJ #### [facility] [address] [place] [address] Dr. Guille Calderon EO # 0.0 103/ul Normal 0.0-0.7 [facility] Comment on above: Performed By: #### I TJ #### [facility] [address] [place] [address] Dr. Guille Calderon Eosinophils/100 WBC (Bld) 0.1 % Critically low 0.9-7.0 [facility] Comment on above: Performed By: #### I TJ #### [facility] [address] [place] [address] Dr. uGille Calderon Erythrocyte distribution width (RBC) [Ratio] 13.7 % Normal 11.0-15.0 [facility] Comment on above: Performed By: #### I TJ #### [facility] [address] [place] [address] Dr. Guille Calderon Hematocrit (Bld) [Volume fraction] 45.4 % Normal 42.0-54.0 [facility] Comment on above: Performed By: #### I TJ #### [facility] [address] [place] [address] Dr. Guille Calderon Hemoglobin (Bld) [Mass/Vol] 15.3 g/dL Normal 14.0-18.0 [facility] Comment on above: Performed By: #### I TJ #### [facility] [address] [address] [address] Guille Calderon IG # 0.04 10e3/ul Critically high 0.00-0.03 [facility] Comment on above: Performed By: #### I TJ #### [facility] [address] [address] [address] Guille Calderon IG % 0.4 % Normal 0.0-0.5 [facility] Comment on above: Performed By: #### I TJ #### [facility] [address] [place] [address] Dr. Guille Calderon LYMPH # 2.0 103/ul Normal 1.2-3.8 [facility] Comment on above: Performed By: #### I TJ #### [facility] [address] [place] [address] Dr. Guille Calderon Lymphocytes/100 WBC (Bld) 17.7 % Critically low 20.5-60.0 [facility] Comment on above: Performed By: #### I TJ #### [facility] [address] [place] [address] Dr. Guille Calderon MANUAL DIFF REQ NO Normal [facility] Comment on above: Performed By: #### I TJ #### [facility] [address] [place] [address] Dr. Guille Calderon MCH (RBC) [Entitic mass] 31.0 pg Normal 25.9-34.0 [facility] Comment on above: Performed By: #### I TJ #### [facility] [address] [place] [address] Dr. Guille Calderon MCHC (RBC) [Mass/Vol] 33.7 g/dL Normal 29.9-35.2 [facility] Comment on above: Performed By: #### I TJ #### [facility] [address] [place] [address] Dr. Guille Calderon MCV (RBC) [Entitic vol] 92.1 fL Normal 80.0-94.0 [facility] Comment on above: Performed By: #### I TJ #### [facility] [address] [place] [address] Dr. Guille Calderon MONO # 0.7 103/ul Normal 0.3-0.8 [facility] Comment on above: Performed By: #### I TJ #### [facility] [address] [address] [address] Guille Calderon Monocytes/100 WBC (Bld) 6.5 % Normal 1.7-12.0 [facility] Comment on above: Performed By: #### I TJ #### [facility] [address] [place] [address] Dr. Guille Calderon NEUT # 8.5 103/ul Critically high 1.4-6.5 [facility] Comment on above: Performed By: #### I TJ #### [facility] [address] [place] [address] Dr. Guille Calderon Neutrophils/100 WBC (Bld) 74.8 % Normal 43.0-75.0 [facility] Comment on above: Performed By: #### I TJ #### [facility] [address] [place] [address] Dr. Guille Calderon Platelet mean volume (Bld) [Entitic vol] 10.1 fL Normal 9.5-13.5 [facility] Comment on above: Performed By: #### I TJ #### [facility] [address] [place] [address] Dr. Guille Calderon PLT 305 103/ul Normal 150-450 [facility] Comment on above: Performed By: #### I TJ #### [facility] [address] [place] [address] Dr. Guille Calderon RBC 4.93 106/ul Normal 4.70-6.10 [facility] Comment on above: Performed By: #### I TJ #### [facility] [address] [place] [address] Dr. Guille Calderon WBC 11.4 103/ul Critically high 4.0-11.0 [facility] Comment on above: Performed By: #### I TJ #### [facility] [address] [address] [address] Guille Calderon IRONon 05-30-2022 Iron [Mass/Vol] 156.0 ug/dL Normal 65.0-175.0 [facility] Comment on above: Performed By: #### I TJ #### [facility] [address] [place] [address] Dr. Guille Calderon PROF 14(COMP METB)on 022 Albumin [Mass/Vol] 4.1 g/dL Normal 3.4-5.0 [facility] Comment on above: Performed By: #### B COST CLERK, CMP #### [facility] [address] [place] [address] Dr. Guille Calderon Albumin/Globulin [Mass ratio] 0.9 {ratio} Normal [facility] Comment on above: Performed By: #### B COST CLERK, CMP #### [facility] [address] [place] [address] Dr. Guille Calderon ALP [Catalytic activity/Vol] 84 U/L Normal 46-116 [facility] Comment on above: Performed By: #### B COST CLERK, CMP #### [facility] [address] [place] [address] Dr. Guille Calderon ALT [Catalytic activity/Vol] 40 U/L Normal 16-63 [facility] Comment on above: Performed By: #### B COST CLERK, CMP #### [facility] [address] [place] [address] Dr. Guille Calderon Anion gap [Moles/Vol] 9.5 mmol/L Normal [facility] Comment on above: Performed By: #### B COST CLERK, CMP #### [facility] Laboratory [address] [place] [address] Dr. Guille Calderon AST [Catalytic activity/Vol] 19 U/L Normal 15-37 [facility] Comment on above: Performed By: #### B COST CLERK, CMP #### [facility] [address] [place] [address] Dr. Guille Calderon Bilirubin [Mass/Vol] 0.4 mg/dL Normal 0.2-1.0 [facility] Comment on above: Performed By: #### B COST CLERK, CMP #### [facility] [address] [place] [address] Dr. Guille Calderon Calcium [Mass/Vol] 8.9 mg/dL Normal 8.5-10.1 [facility] Comment on above: Performed By: #### B COST CLERK, CMP #### [facility] [address] [place] [address] Dr. Guille Calderon Chloride [Moles/Vol] 103 mmol/L Normal 98-107 [facility] Comment on above: Performed By: #### B COST CLERK, CMP #### [facility] [address] [place] [address] Dr. Guille Calderon CO2 [Moles/Vol] 28.1 mmol/L Normal 21.0-32.0 [facility] Comment on above: Performed By: #### B COST CLERK, CMP #### [facility] [address] [place] [address] Dr. Guille Calderon Creatinine [Mass/Vol] 0.87 mg/dL Normal 0.70-1.30 [facility] Comment on above: Performed By: #### B COST CLERK, CMP #### [facility] [address] [place] [address] Dr. Guille Calderon EGFR-AF SAMMARINESE >60 Normal >=60 [facility] Comment on above: Performed By: #### B COST CLERK, CMP #### [facility] [address] [place] [address] Dr. Guille Calderon EGFR-NON AF SAMMARINESE >60 Normal >=60 [facility] Comment on above: Performed By: #### B COST CLERK, CMP #### [facility] [address] [place] [address] Dr. Guille Calderon Globulin (S) [Mass/Vol] 4.5 g/dL Normal [facility] Comment on above: Performed By: #### B COST CLERK, CMP #### [facility] [address] [place] [address] Dr. Guille Calderon Glucose [Mass/Vol] 109 mg/dL Critically high 74-106 [facility] Comment on above: Performed By: #### B COST CLERK, CMP #### [facility] [address] [address] [address] Guille Calderon Potassium [Moles/Vol] 4.6 mmol/L Normal 3.5-5.1 [facility] Comment on above: Performed By: #### B COST CLERK, CMP #### [facility] [address] [address] [address] Guille Calderon Protein [Mass/Vol] 8.6 g/dL Critically high 6.4-8.2 [facility] Comment on above: Performed By: #### B COST CLERK, CMP #### [facility] [address] [address] [address] Guille Calderon Sodium [Moles/Vol] 136 mmol/L Normal 136-145 [facility] Comment on above: Performed By: #### B COST CLERK, CMP #### [facility] [address] [place] [address] Dr. Guille Calderon Urea nitrogen [Mass/Vol] 19.0 mg/dL Critically high 7.0-18.0 [facility] Comment on above: Performed By: #### B COST CLERK, CMP #### [facility] [address] [address] [address] Guille Calderon Urea nitrogen/Creatinine [Mass ratio] 21.8 mg/mg Normal [facility] Comment on above: Performed By: #### B COST CLERK, CMP #### [facility] [address] [place] [address] Dr. Guille Calderon XR CHEST 2 Von [...] 04-03-2022 Insulin 6.4 uIU/mL Normal 2.6-24.9 [facility] Comment on above: Performed By: #### P SASC, VITB12 #### [facility] [address] [address] [address] Guille Calderon OCC BLD IMMUNO SCREENon OCCULT BLOOD Negative Normal NEGATIVE [facility] Comment on above: Performed By: #### P SASC, VITB12 #### [facility] [address] [address] [address] Guille Calderon T4, T3U, FTI [facility] 04-03 Free Thyroxine Index 2.5 Normal 1.2-4.9 [facility] Comment on above: Performed By: #### T HYLC #### [facility] [address] [place] [address] Dr. Guille Calderon T3 Uptake 28 % Normal 24-39 [facility] Comment on above: Performed By: #### T HYLC #### [facility] [address] [place] [address] Dr. Guille Calderon T4 [Mass/Vol] 8.8 ug/dL Normal 4.5-12.0 [facility] Comment on above: Performed By: #### T HYLC #### [facility] [address] [place] [address] Dr. Guille Calderon VIT D 25-OH [facility] 2021 Vitamin D, 25-Hydroxy 85.0 ng/mL Normal 30.0-100.0 [facility] Comment on above: Result Comment: Karime min D deficiency has been defined by the [place] of [employer] and an Endocrine Society practice guideline as a level of serum 25-OH vitamin D less than 20 ng/mL (1,2). The Endocrine Society went on to further define vitamin D insufficiency as a level between 21 and 29 ng/mL (2). 1. IOM ([place] of Medicine). 2010. Dietary reference intakes for calcium and D. [place]: The National Academies Press. 2. Mena MF, Umair NC, Luis POWELL, et al. Evaluation, treatment, and prevention of vitamin D deficiency: an Endocrine Society clinical practice guideline. JCEM. 2010; 96(7):1911-30. Performed By: #### V ITADLC #### [facility] [address] [place] [address] Dr. Guille Calderon BNPon 04-02-2022 Natriuretic peptide B (Bld) [Mass/Vol] 252.0 pg/mL Normal <=900.0 [facility] Comment on above: Performed By: #### P SASC, VITB12 #### [facility] [address] [place] [address] Dr. Guille Calderon CBC AUTO DIFFon 04-02-2022 BASO # 0.1 103/ul Normal 0.0-0.1 [facility] Comment on above: Performed By: #### P SASC, VITB12 #### [facility] [address] [place] [address] Dr. Guille Calderon Basophils/100 WBC (Bld) 1.3 %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
[2025-05-08] MEDS: ALBUTEROL SULFATE 2.5 MG/3 ML VIAL NEB IH (09:30)
== END 2025-05-08 08:55 | disposition home or self-care (01) ==
LOC: CARD 08:55
PROVIDERS: PCP Family Medicine; Visit Provider Family Medicine
DX: R05.9 Cough, unspecified (principal); J44.9 Chronic obstructive pulmonary disease, unspecified
CPT/HCPCS: 94060